=== PATIENT | female | born 1945 | race Caucasian/White ===

== ENCOUNTER 2020-09-26 10:03 | Outpatient (REF) | payer MEDICARE, SELFPAY ==
[2020-09-26 13:52] LABS: Estimated Average Glucose 163 mg/dL; Hemoglobin A1c % 7.3 %
[2020-09-26 14:15] LABS: Alanine Aminotransferase 17 U/L (0-31); Albumin Level 3.9 g/dL (3.5-5.0); Alkaline Phosphatase 97 U/L (39-117); Anion Gap 13 (12-20); Aspartate Amino Transferase 15 U/L (5-31); Bilirubin Total 0.7 mg/dL (0.0-1.0); Blood Urea Nitrogen 26 mg/dL (9-16); Calcium 9.6 mg/dL (8.4-10.2); Carbon Dioxide 25 mmol/L (22-29); Chloride 106 mmol/L (96-108); Estimated Glomerular Filt Rate 26; Glucose Fasting 152 mg/dL (60-99); Potassium 4.5 mmol/l (3.3-5.1); Sodium 139 mmol/L (135-145); Total Protein 6.5 g/dL (6.5-8.0)
== END 2020-09-26 10:04 | disposition home or self-care (01) ==
LOC: HO.10HDL 10:03
PROVIDERS: Visit Provider Family Medicine
DX: E11.22 Type 2 diabetes mellitus with diabetic chronic kidney disease (principal); I12.9 Hypertensive chronic kidney disease with stage 1 through stage 4 chronic kidney disease, or unspecified chronic kidney disease; N18.9 Chronic kidney disease, unspecified
CPT/HCPCS: 80053; 83036

== ENCOUNTER 2020-10-25 08:09 | Outpatient (REF) | payer MEDICARE, SELFPAY ==
[2020-10-25 10:04] LABS: MANUAL DIFF FLAG NO
[2020-10-25 10:20] LABS: Basophils Absolute Auto 0.1 X10*3/uL (0.0-0.2); Basophils Percent Auto 0.7 % (0-2); Eosinophils Absolute Auto 0.3 X10*3/uL (0.0-0.4); Eosinophils Percent Auto 4.2 % (0-4); Hematocrit 37.9 % (37-47); Hemoglobin 11.8 g/dl (12.0-16.0); Imm Gran Abs Auto 0.02 X10*3/uL (0.00-0.03); Imm Gran Pct Auto 0.3 % (0.0-0.4); Lymphocytes Absolute Auto 1.9 X10*3/uL (1.2-4.9); Lymphocytes Percent Auto 27.1 % (20-40); Mean Corpuscular HGB Conc 31.1 g/dl (31.0-35.0); Mean Corpuscular Hemoglobin 28.2 pg (27.0-33.0); Mean Corpuscular Volume 90.5 fL (80-98); Mean Platelet Volume 10.3 fL (9.4-12.3); Monocytes Absolute Auto 0.5 X10*3/uL (0.1-1.2); Monocytes Percent Auto 7.9 % (2-11); Neutrophils Absolute Auto 4.1 X10*3/uL (2.0-8.3); Neutrophils Percent Auto 59.8 % (45-73); Platelet Count 283 X10*3/uL (160-400); Red Blood Count 4.19 X10*6/uL (4.20-5.50); Red Cell Distribution Width 13.3 % (11.0-16.0); White Blood Count 6.8 X10*3/uL (4.8-10.8)
[2020-10-25 10:34] LABS: Albumin Level 3.8 g/dL (3.5-5.0); Anion Gap 12 (12-20); Blood Urea Nitrogen 27 mg/dL (9-16); Calcium 9.1 mg/dL (8.4-10.2); Carbon Dioxide 25 mmol/L (22-29); Chloride 105 mmol/L (96-108); Estimated Glomerular Filt Rate 29; Phosphorus 3.8 mg/dL (2.7-4.5); Potassium 4.6 mmol/l (3.3-5.1); Sodium 137 mmol/L (135-145)
== END 2020-10-25 08:10 | disposition home or self-care (01) ==
LOC: HO.10HDL 08:09
PROVIDERS: PCP Family Medicine; Visit Provider Internal Medicine Hypertension Specialist
DX: I12.9 Hypertensive chronic kidney disease with stage 1 through stage 4 chronic kidney disease, or unspecified chronic kidney disease (principal); N18.30 Chronic kidney disease, stage 3 unspecified
CPT/HCPCS: 36415; 80051; 82040; 82310; 82565; 83735; 84100; 84520; 85025

== ENCOUNTER 2021-01-10 08:02 | Outpatient (REF) | payer MEDICARE, SELFPAY ==
[2021-01-10 10:35] LABS: Estimated Average Glucose 160 mg/dL; Hemoglobin A1c % 7.2 %
[2021-01-10 10:50] LABS: Alanine Aminotransferase 12 U/L (0-31); Albumin Level 3.7 g/dL (3.5-5.0); Alkaline Phosphatase 95 U/L (39-117); Anion Gap 13 (12-20); Aspartate Amino Transferase 13 U/L (5-31); Bilirubin Total 0.8 mg/dL (0.0-1.0); Blood Urea Nitrogen 27 mg/dL (9-16); Calcium 9.3 mg/dL (8.4-10.2); Carbon Dioxide 26 mmol/L (22-29); Chloride 105 mmol/L (96-108); Cholesterol 139 mg/dL; Estimated Glomerular Filt Rate 26; Glucose Fasting 137 mg/dL (60-99); HDL Cholesterol 40 mg/dL; LDL Cholesterol Calculated 81 mg/dl; Potassium 4.7 mmol/L (3.3-5.1); Sodium 139 mmol/L (135-145); Total Protein 6.3 g/dL (6.5-8.0); Triglycerides 93 mg/dL
[2021-01-10 11:28] LABS: Creatinine Urine 99.83 mg/dL
== END 2021-01-10 08:03 | disposition home or self-care (01) ==
LOC: HO.10HDL 08:02
PROVIDERS: Visit Provider Family Medicine
DX: Z00.00 Encounter for general adult medical examination without abnormal findings (principal); E11.22 Type 2 diabetes mellitus with diabetic chronic kidney disease; I12.9 Hypertensive chronic kidney disease with stage 1 through stage 4 chronic kidney disease, or unspecified chronic kidney disease; N18.9 Chronic kidney disease, unspecified; R03.0 Elevated blood-pressure reading, without diagnosis of hypertension
CPT/HCPCS: 36415; 80053; 80061; 82043; 83036; 84443

== ENCOUNTER 2021-01-24 08:19 | Outpatient (REF) | payer MEDICARE, SELFPAY ==
--- NOTE | ~2021-01-24 | US_ITS ---
EXAMINATION: US ABDOMEN LIMITED CLINICAL INFORMATION: Right upper quadrant pain. COMPARISON: None TECHNIQUE: Real-time imaging of the right upper quadrant abdominal viscera. FINDINGS: PANCREAS: Pancreas is normal in size and contour and echogenicity. No pancreatic ductal distention or retroperitoneal effusion. LIVER: Normal. The liver is normal in size. The liver contour is normal. Parenchymal echogenicity is normal. No focal hepatic lesion. There is no intrahepatic biliary duct dilatation seen. GALLBLADDER: The gallbladder is normal in size measuring 2.4 cm in diameter. There is no gallbladder wall thickening or subserosal edema or pericholecystic fluid. No sludge. Small nonmobile specular echo gallbladder neck is present suspicious for nonobstructing gravel-like calculi. COMMON BILE DUCT: Normal in caliber measuring 0.5 cm in diameter. No visible choledocholithiasis. RIGHT KIDNEY: Right kidney measures 11.3 cm in length. There is no hydronephrosis or visible calculi. Renal parenchymal thickness and echogenicity appears normal. There is a benign mildly complicated cyst medial interpolar region measuring 5.0 x 4.1 cm with fine internal avascular septation (Bosniak II.). Smaller parapelvic cysts present renal sinus largest only 1.1 cm. There is a tiny cortical cyst upper pole measuring just under 1 cm. FREE FLUID: None. US/US abdomen limited IMPRESSION: 1. Suspect small nonmobile gallstone gallbladder neck. No gallbladder dilatation or wall thickening. Negative sonographic Fajardo's sign. 2. No biliary ductal dilatation. No choledocholithiasis. 3. No right hydronephrosis. Benign cyst right kidney 5 x 4 cm with fine the vascular internal septation (Bosniak II).
== END 2021-01-24 08:20 | disposition home or self-care (01) ==
LOC: HO.US 08:19
PROVIDERS: PCP Family Medicine; Visit Provider Family Medicine
DX: R10.11 Right upper quadrant pain (principal); K80.20 Calculus of gallbladder without cholecystitis without obstruction
CPT/HCPCS: 76705

== ENCOUNTER 2021-01-29 08:00 | Outpatient (REF) | payer MEDICARE, SELFPAY ==
--- NOTE | 2021-01-29 11:04 | MHC.AU.P13 ---
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 Following the last hearing test which showed increased conductive hearing loss for the left ear, Guadalupe was referred to Tool And Machine Maint[facility] Dr. Lawrence who said the decreased hearing loss was likely related to an ear infection or increased middle ear fluid which then resolved. Guadalupe reports increased difficulties understanding speech when background noise is present. Does patient feel they have a hearing loss?: Yes If Yes, Which Ear?: Both Ears Has hearing been tested previously?: Yes Previous Hearing Test Results: 11/15/2019 [facility] Right Ear - Normal hearing thresholds 250-2000 Hz sloping to a moderate high frequency sensorineural hearing loss Left Ear - Moderate low frequency mixed loss at 250 and 500 Hz rising to borderline normal thresholds at 4000 Hz, then sloping to mild loss at 8000 Hz. Ear History: Bothersome Tinnitus/Ringing/Noises in Ears: Both Ears History of noise exposure?: Yes Medical History: Medical History: Diabetes High Blood Pressure Thyroid Disease Medical History: Chronic Renal Failure, Hypothyroidism, Cholelithiasis Medication List: Tekturna, Vitamin D, Triamterene, Levothyroxine, Glipizide, Fluoxetine, Atorastatin, Calcitriol. Is in the process of trialing a new blood pressure medication (name not known) Otoscopy: Right Ear: Unremarkable Left Ear: Unremarkable Tympanometry: Tympanometry performed due to: History of middle ear dysfunction Right Ear: Normal Middle Ear System (Type A) Left Ear: Normal Middle Ear System (Type A) Otoacoustic Emissions Right Ear Results: Not performed at today's visit. Left Ear Results: Not performed at today's visit. Hearing Evaluation: Transducer(s) Used: Insert Earphones Bone Conduction Method: Conventional Audiometry Stimuli Used: Pure Tones Right Ear: Description of Hearing: Normal hearing thresholds 250-3000 Hz, sloping to a moderate high frequency sensorineural hearing loss Left Ear: Description of Hearing: Normal to borderline normal hearing levels at 250-6000 Hz dropping to a moderately-severe hearing loss at 8000 Hz. Speech Recognition Threshold (SRT): Method Used: Monitored Live Voice Stimuli Used: Spondee Words Right Ear: 15 dB HL Left Ear: 15 dB HL Word Discrimination: Method: Recorded Lists Word Lists Used: NU-6 Right Ear: 100% at 60 dB HL Left Ear: 100% at 60 dB HL QuickSIN: Unaided Binaural Quick SIN Test: 1 dB SNR Loss. This score falls within the normal range suggesting Guadalupe does not experience any more difficulty understanding speech than expected with increasing levels of background noise while in this controlled test environment. Comparison: Compared to the most recent evaluation: Thresholds have decreased in the right ear by 10 dB at 4000 and 8000 Hz. Thresholds have improved in the left ear 20-30 in the low frequencies. Recommendations: Audiological re-evaluation in one year. Patient does not feel they are ready for amplification at this time. Will send a one year audiologic re-evaluation reminder card to continue to monitor hearing due to high risk factors for increased hearing loss. Diagnosis: Primary Diagnosis: H90.3 Bilateral Sensorineural Hearing Loss Services Performed: Comprehensive Audiological Evaluation (CPT 97227) Tympanometry (CPT 90203) Signature: Provider: Winnie Adkins, [facility]
== END 2021-01-29 08:01 | disposition home or self-care (01) ==
LOC: HO.SH 08:00
PROVIDERS: Visit Provider Family Medicine
DX: H90.3 Sensorineural hearing loss, bilateral (principal)
CPT/HCPCS: 92557; 92567

== ENCOUNTER 2021-01-30 10:05 | Outpatient (REF) | payer MEDICARE, SELFPAY ==
[2021-01-30 14:15] LABS: Anion Gap 11 (12-20); Blood Urea Nitrogen 28 mg/dL (9-16); Calcium 9.6 mg/dL (8.4-10.2); Carbon Dioxide 26 mmol/L (22-29); Chloride 105 mmol/L (96-108); Estimated Glomerular Filt Rate 26; Glucose Random 213 mg/dL (60-115); Potassium 4.3 mmol/L (3.3-5.1); Sodium 138 mmol/L (135-145)
== END 2021-01-30 10:06 | disposition home or self-care (01) ==
LOC: HO.WFDLDS 10:05
PROVIDERS: PCP Family Medicine; Visit Provider Family Medicine
DX: Z00.00 Encounter for general adult medical examination without abnormal findings (principal); N18.9 Chronic kidney disease, unspecified
CPT/HCPCS: 36415; 80048

== ENCOUNTER → 2021-02-27 08:14 | Outpatient (REF) | payer MEDICARE, SELFPAY ==
--- NOTE | ~2021-02-27 | NM_ITS ---
BILIARY TRACT IMAGING STUDY CLINICAL INDICATION: Right upper quadrant pain. PROCEDURE: Scintillation camera images were obtained over the abdomen for an observation of 60 minutes following the intravenous administration of 5.0 millicuries technetium 99m Mebrofenin. COMPARISON: No previous biliary scan is available for comparison. Abdominal ultrasound dated 01/24/2021 is available for comparison.. FINDINGS: There is good concentration of activity in the liver by 5 minutes post injection. Biliary activity is well visualized by 20 minutes, and there is good visualization of small bowel activity by 30 minutes. The gallbladder is well visualized by 45 minutes. NM/NM hepatobiliary wo pharm IMPRESSION: Normal biliary scan. Visualization of the gallbladder is evidence of a patent cystic duct and strong evidence against the diagnosis of acute cholecystitis. The common bile duct is patent. Liver function appears normal.
== END ==
LOC: HO.NUCMED 08:14
PROVIDERS: PCP Family Medicine; Visit Provider Family Medicine
DX: R10.11 Right upper quadrant pain (principal); K80.20 Calculus of gallbladder without cholecystitis without obstruction
CPT/HCPCS: 78226; A9537

== ENCOUNTER 2021-03-21 07:58 | Outpatient (REF) | payer MEDICARE, SELFPAY ==
[2021-03-21 09:58] LABS: MANUAL DIFF FLAG NO
[2021-03-21 10:05] LABS: Basophils Absolute Auto 0.1 X10*3/uL (0.0-0.2); Basophils Percent Auto 0.8 % (0-2); Eosinophils Absolute Auto 0.3 X10*3/uL (0.0-0.4); Eosinophils Percent Auto 5.4 % (0-4); Hematocrit 38.2 % (37-47); Imm Gran Abs Auto 0.02 X10*3/uL (0.00-0.03); Imm Gran Pct Auto 0.3 % (0.0-0.4); Lymphocytes Absolute Auto 1.9 X10*3/uL (1.2-4.9); Lymphocytes Percent Auto 30.2 % (20-40); Mean Corpuscular HGB Conc 31.4 g/dl (31.0-35.0); Mean Corpuscular Hemoglobin 27.8 pg (27.0-33.0); Mean Corpuscular Volume 88.6 fL (80-98); Monocytes Absolute Auto 0.5 X10*3/uL (0.1-1.2); Monocytes Percent Auto 7.4 % (2-11); Neutrophils Absolute Auto 3.6 X10*3/uL (2.0-8.3); Neutrophils Percent Auto 55.9 % (45-73); Platelet Count 282 X10*3/uL (160-400); Red Blood Count 4.31 X10*6/uL (4.20-5.50); Red Cell Distribution Width 13.9 % (11.0-16.0); White Blood Count 6.4 X10*3/uL (4.8-10.8)
[2021-03-21 10:20] LABS: Phosphorus 3.8 mg/dL (2.7-4.5)
[2021-03-21 10:23] LABS: Alanine Aminotransferase 10 U/L (0-31); Albumin Level 3.7 g/dL (3.5-5.0); Alkaline Phosphatase 98 U/L (39-117); Anion Gap 11 (12-20); Aspartate Amino Transferase 13 U/L (5-31); Bilirubin Total 0.8 mg/dL (0.0-1.0); Blood Urea Nitrogen 25 mg/dL (9-16); Calcium 9.5 mg/dL (8.4-10.2); Carbon Dioxide 26 mmol/L (22-29); Chloride 107 mmol/L (96-108); Estimated Glomerular Filt Rate 27; Glucose Fasting 132 mg/dL (60-99); Potassium 4.8 mmol/L (3.3-5.1); Sodium 139 mmol/L (135-145); Total Protein 6.2 g/dL (6.5-8.0)
[2021-03-22 13:12] LABS: Calcium (PTHI) 9.1 mg/dL (8.6-10.4); PTHI 76 pg/mL (14-64)
== END 2021-03-21 07:59 | disposition home or self-care (01) ==
LOC: HO.10HDL 07:58
PROVIDERS: Absent Provider Internal Medicine Hypertension Specialist; Visit Provider Family Medicine
DX: Z00.00 Encounter for general adult medical examination without abnormal findings (principal); I12.9 Hypertensive chronic kidney disease with stage 1 through stage 4 chronic kidney disease, or unspecified chronic kidney disease; N18.30 Chronic kidney disease, stage 3 unspecified
CPT/HCPCS: 36415; 80053; 83735; 83970; 84100; 85025

== ENCOUNTER 2021-04-25 08:34 | Outpatient (REF) | payer MEDICARE, SELFPAY ==
--- NOTE | ~2021-04-25 | MM_ITS ---
EXAMINATION: BONE DENSITOMETRY CLINICAL INDICATION: Encounter for screening for osteoporosis. Compression deformities L1 and L3. COMPARISON: Previous BD dated 10/23/2018 and baseline BD dated 06/22/2015. Radiographs dorsal spine and lumbar spine 05/06/2019. TECHNIQUE: Using a CMP.LY DXA System (software version: 13.1) manufactured by [employer], dual-energy x-ray absorptiometry was performed of the lumbar spine and left hip. The images are of good technical quality. Summary results are attached. FINDINGS: AP SPINE L2-L4 (excluding L3): The data of L1-L4 has been changed to exclude the L1 and L3 vertebral bodies, because degenerative changes and mild compression deformities at these levels may cause overestimation of lumbar spine density. Current: BMD 1.117 g/cm2, Z-score 0.1, T-score -0.7, normal, 0.4% decrease from previous, 9.4% increase from baseline (<5% change is not significant). Prior: BMD 1.122 g/cm2. Baseline: BMD 1.021 g/cm2. LEFT FEMUR, NECK: Current: BMD 0.633 g/cm2, Z-score -1.6, T-score -2.9, osteoporosis. Prior: BMD 0.675 g/cm2. Baseline: BMD 0.650 g/cm2. LEFT FEMUR, TOTAL: Current: BMD 0.702 g/cm2, Z-score -1.4, T-score -2.4, osteopenia, 8.9% decrease from previous, 5.8% decrease from baseline (<5% change is not significant). Prior: BMD 0.771 g/cm2. Baseline: BMD 0.745 g/cm2. IDENTIFIED RISK FACTORS: Osteoporosis, renal, height loss, glucocorticoids (chronic), thiazide, history of fracture (adult), menopause. HISTORY OF FRACTURE: Spine. MEDICATIONS: Calcium supplements or multivitamin, vitamin D, calcitonin. MM/XR DEXA axial skeleton IMPRESSION: 1. DIAGNOSIS: Osteoporosis based on the lowest T-score value of -2.9 in the femoral neck applying World Health Organization criteria. 2. 10-YEAR FRACTURE RISK PREDICTION, FRAX: Major osteoporotic fracture (clinical spine, forearm, hip or shoulder) 38.8%. Hip fracture 15.6%. 3. Treatment Recommendations: NOF guidelines recommend consideration for treatment in postmenopausal women and men age 50 and older presenting with the following: -A hip or vertebral (clinical or morphometric) fracture. -T-score less than or equal to -2.5 at the femoral neck or spine after appropriate evaluation to exclude secondary causes. -Low bone mass at the hip or spine and a 10-year fracture probability by FRAX of greater than or equal to 3% for hip fracture or greater than or equal to 20% for major osteoporotic fracture based on the [place] adapted WHO algorithm. 4. Other Recommendations: All treatment decisions require clinical judgment and consideration of individual patient factors, including patient preferences, comorbidities, previous drug use, risk factors not captured in the FRAX model (e.g. frailty, falls, vitamin D deficiency, increased bone turnover, interval significant decline in bone density) and possible under or overestimation of fracture risk by FRAX. Additional medical evaluation for secondary cause of low bone mineral density may be appropriate. FUTURE SCAN RECOMMENDATION: People with diagnosed cases of osteoporosis or at high risk for fracture should have regular bone mineral density tests. For patients eligible for Medicare, routine testing is allowed once every 2 years. The testing frequency can be increased to one year for patients who have rapidly progressing disease, those who are receiving or discontinuing medical therapy to restore bone mass, or have additional risk factors.
== END 2021-04-25 08:35 | disposition home or self-care (01) ==
LOC: HO.MAMMO 08:34
PROVIDERS: Visit Provider Family Medicine
DX: Z13.820 Encounter for screening for osteoporosis (principal); Z78.0 Asymptomatic menopausal state; M81.8 Other osteoporosis without current pathological fracture; Z79.52 Long term (current) use of systemic steroids
CPT/HCPCS: 77080

== ENCOUNTER 2021-06-04 07:38 | Outpatient (REF) | payer MEDICARE, SELFPAY ==
[2021-06-04 10:46] LABS: Anion Gap 11 (12-20); Blood Urea Nitrogen 27 mg/dL (9-16); Calcium 9.4 mg/dL (8.4-10.2); Carbon Dioxide 24 mmol/L (22-29); Chloride 110 mmol/L (96-108); Estimated Glomerular Filt Rate 25; Potassium 4.3 mmol/L (3.3-5.1); Sodium 141 mmol/L (135-145)
== END 2021-06-04 07:39 | disposition home or self-care (01) ==
LOC: HO.10HDL 07:38
PROVIDERS: Visit Provider Internal Medicine Hypertension Specialist
DX: I12.9 Hypertensive chronic kidney disease with stage 1 through stage 4 chronic kidney disease, or unspecified chronic kidney disease (principal); N18.9 Chronic kidney disease, unspecified
CPT/HCPCS: 36415; 80051; 82310; 82565; 84520

== ENCOUNTER 2021-07-10 07:57 | Outpatient (REF) | payer MEDICARE, SELFPAY ==
[2021-07-10 10:28] LABS: Estimated Average Glucose 146 mg/dL; Hemoglobin A1c % 6.7 %
[2021-07-10 13:46] LABS: Creatinine Urine 111.47 mg/dL
== END 2021-07-10 07:58 | disposition home or self-care (01) ==
LOC: HO.10HDL 07:57
PROVIDERS: Visit Provider Family Medicine
DX: E11.9 Type 2 diabetes mellitus without complications (principal); R03.0 Elevated blood-pressure reading, without diagnosis of hypertension
CPT/HCPCS: 36415; 82043; 83036

== ENCOUNTER 2021-09-14 09:00 | Outpatient (RCR) | payer MEDICARE, SELFPAY ==
--- NOTE | 2021-07-30 13:15 | MHC.PT.EP ---
[facility] [place] Office [place] Office [place] Office [address] [phone] F: [phone] F: [phone] F: [phone] F: [phone] Physical Therapy Plan of Care Date of Evaluation: Date of Surgery: n/a Diagnosis: weakness in lower extremities, balance. Assessment: Patient is a 75 year old R handed female who presents with s/s consistent with weakness balance impairment. She does not work but does enjoy staying active and has been walking 3 miles 4-5 days/week. Patient past medical history includes B TKA. Current impairments include pain, ROM, strength, safety, independence, activity tolerance and functional mobility. Functional limitations include decreased ability to walk, stand, transfer, negotiate stairs, and perform weight bearing activities.. Patient is motivated with good rehab potential. Skilled PT will address impairments and functional limitations in order to achieve goals. 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 Manual therapy to restore motion and function. Therapeutic exercise to improve strength and flexibility. Neuromuscular re-education for posture and balance. Therapeutic activities to return to functional activities of daily living. Electronically signed by: Marcel Daigle, PT Please sign and return to therapist. Thank you for your referral.
--- NOTE | 2021-12-07 08:19 | MHC.PT.DC ---
[place] Office [place] Office [place] [facility] [address] Supa Alvarado [address] [phone] F: [phone] F: [phone] F: [phone] F: [phone] Physical Therapy Discharge Report Diagnosis: weakness in lower extremities, balance. Date of Surgery: n/a Date of Evaluation: 07/30/21 Date of Discharge: 09/14/21 Treatments to Date: 11 Cancellations to Date: 0 No Shows to Date: 0 Discharge Status: Achieved Goals Independent with HEP Discharge Summary: I with HEP. LE pain 2/10 max with all daily activities. LE strength 4/5 grossly, SLB > 20 seconds b/l. LEFS 58/80. Pt is happy with progress and has progressed well on impairments and functional limitations. She is appropriate to d/c to HEP at this time. Electronically signed by: Marcel Daigle PT Please sign and return to therapist. Thank you for your referral.
== END 2021-09-21 08:00 | disposition home or self-care (01) ==
LOC: HO.PTCHIC 09:00
PROVIDERS: PCP Family Medicine; Visit Provider Family Medicine
DX: R29.898 Other symptoms and signs involving the musculoskeletal system (principal)
CPT/HCPCS: 97110; 97112; 97162

== ENCOUNTER 2021-09-19 07:42 | Outpatient (REF) | payer MEDICARE, SELFPAY ==
[2021-09-19 10:48] LABS: Anion Gap 11 (12-20); Blood Urea Nitrogen 24 mg/dL (9-16); Calcium 9.3 mg/dL (8.4-10.2); Carbon Dioxide 26 mmol/L (22-29); Chloride 106 mmol/L (96-108); Estimated Glomerular Filt Rate 24; Potassium 4.7 mmol/L (3.3-5.1); Sodium 138 mmol/L (135-145)
== END 2021-09-19 07:43 | disposition home or self-care (01) ==
LOC: HO.10HDL 07:42
PROVIDERS: Visit Provider Internal Medicine Hypertension Specialist
DX: N18.4 Chronic kidney disease, stage 4 (severe) (principal)
CPT/HCPCS: 36415; 80051; 82310; 82565; 84520

== ENCOUNTER 2021-10-09 07:58 | Outpatient (REF) | payer MEDICARE, SELFPAY ==
[2021-10-09 10:35] LABS: Alanine Aminotransferase 16 U/L (0-31); Albumin Level 3.7 g/dL (3.5-5.0); Alkaline Phosphatase 102 U/L (39-117); Anion Gap 12 (12-20); Aspartate Amino Transferase 16 U/L (5-31); Bilirubin Total 0.5 mg/dL (0.0-1.0); Blood Urea Nitrogen 29 mg/dL (9-16); Calcium 9.9 mg/dL (8.4-10.2); Carbon Dioxide 25 mmol/L (22-29); Chloride 108 mmol/L (96-108); Estimated Glomerular Filt Rate 24; Glucose Fasting 197 mg/dL (60-99); Potassium 4.5 mmol/L (3.3-5.1); Sodium 140 mmol/L (135-145); Total Protein 6.3 g/dL (6.5-8.0)
== END 2021-10-09 07:59 | disposition home or self-care (01) ==
LOC: HO.10HDL 07:58
PROVIDERS: Visit Provider Family Medicine
DX: Z00.00 Encounter for general adult medical examination without abnormal findings (principal)
CPT/HCPCS: 36415; 80053

== ENCOUNTER 2021-10-19 07:44 | Outpatient (REF) | payer MEDICARE, SELFPAY ==
[2021-10-19 10:30] LABS: Estimated Average Glucose 171 mg/dL; Hemoglobin A1c % 7.6 %
== END 2021-10-19 07:45 | disposition home or self-care (01) ==
LOC: HO.10HDL 07:44
PROVIDERS: Visit Provider Family Medicine
DX: E11.9 Type 2 diabetes mellitus without complications (principal)
CPT/HCPCS: 36415; 83036

== ENCOUNTER 2021-11-23 20:06 | Emergency (ER) | payer MEDICARE, SELFPAY ==
--- NOTE | ~2021-11-23 | XR_ITS ---
EXAMINATION: XR HIP, LEFT CLINICAL INFORMATION: Fall with pain COMPARISON: None TECHNIQUE: Two views of the left hip. Frontal view of the pelvis. FINDINGS: No fracture or dislocation. The hips are appropriately aligned. Moderate to severe degenerative changes of both hips with narrowing and sclerosis. Prominent osteophytes. The pelvic rim is intact. The sacroiliac joints and pubic symphysis are intact. Normal bowel gas pattern. XR/XR hip LT w PEL1V IMPRESSION: No fracture or malalignment. Moderate to severe degenerative changes of both hips.
--- NOTE | ~2021-11-23 | XR_ITS ---
EXAMINATION: XR SHOULDER, LEFT XR HUMERUS, LEFT XR FOREARM, LEFT CLINICAL INFORMATION: Fall. Pain. COMPARISON: None TECHNIQUE: 3 views of the left shoulder. 2 views of the left humerus. 2 views of the left forearm. FINDINGS: Left shoulder: There is an impacted left humeral neck fracture. Proximal migration of the distal fragment. The glenohumeral joint remains aligned with severe degenerative change. There is narrowing of the joint space with prominent osteophytes. The acromioclavicular joint is intact with mild degenerative change. The visualized lung is clear. Left humerus: The humeral neck fracture is again noted. The remainder of the humerus is intact. Alignment at the elbow maintained. Left forearm: No fracture or cortical disruption. Appropriate alignment at the elbow and wrist. XR/XR humerus LT IMPRESSION: 1. Left humeral neck fracture with impaction. Severe degenerative changes of the glenohumeral joint. 2. No fracture or malalignment of the forearm.
--- NOTE | ~2021-11-23 | XR_ITS ---
EXAMINATION: XR SHOULDER, LEFT XR HUMERUS, LEFT XR FOREARM, LEFT CLINICAL INFORMATION: Fall. Pain. COMPARISON: None TECHNIQUE: 3 views of the left shoulder. 2 views of the left humerus. 2 views of the left forearm. FINDINGS: Left shoulder: There is an impacted left humeral neck fracture. Proximal migration of the distal fragment. The glenohumeral joint remains aligned with severe degenerative change. There is narrowing of the joint space with prominent osteophytes. The acromioclavicular joint is intact with mild degenerative change. The visualized lung is clear. Left humerus: The humeral neck fracture is again noted. The remainder of the humerus is intact. Alignment at the elbow maintained. Left forearm: No fracture or cortical disruption. Appropriate alignment at the elbow and wrist. XR/XR shoulder LT min 2V IMPRESSION: 1. Left humeral neck fracture with impaction. Severe degenerative changes of the glenohumeral joint. 2. No fracture or malalignment of the forearm.
--- NOTE | ~2021-11-23 | CT_ITS ---
EXAMINATION: CT CHEST, ABDOMEN AND PELVIS WITHOUT CONTRAST CLINICAL INFORMATION: Trauma, rib and left upper quadrant pain COMPARISON: Same-day radiographs, abdominal ultrasound 01/24/2021 TECHNIQUE: Multidetector volumetric imaging was performed of the chest, abdomen and pelvis without intravenous contrast. Sagittal and coronal reformatted images were obtained on the technologist's workstation. This CT examination was performed using dose optimization techniques as appropriate, variously including the following: *Automated exposure control *Adjustment of mA and/or kV according to patient size (this includes techniques or standardized protocols for targeted exams where dose is matched to indication/reason for exam; i.e. extremities or head) *Use of iterative reconstruction technique DLP: 1462 mGy-cm FINDINGS: Lack of intravenous contrast limits assessment for solid organ injury. CHEST, ABDOMINAL AND PELVIC WALL: Intramuscular hematoma is noted along the left shoulder. AXILLA: No lymphadenopathy. MEDIASTINUM: Heart is normal in size. No mediastinal lymphadenopathy. Lack of intravenous contrast limits evaluation for hilar lymphadenopathy. No bulky hilar lymphadenopathy appreciated. Great vessels are normal in caliber. Calcification dense mitral annular calcifications. PLEURA: There is no pleural effusion. No pneumothorax. LIVER AND BILIARY TREE: Unremarkable GALLBLADDER: Cholelithiasis without evidence of acute cholecystitis. PANCREAS: Unremarkable SPLEEN: Unremarkable ADRENAL GLANDS: A 4.1 x 3.1 cm macroscopic fat-containing right adrenal nodule compatible with an adrenal myelolipoma. KIDNEYS AND URETERS: An 8 mm intermediate density, 40 Hounsfield units, right renal lesion, incompletely characterized. Bosniak 1 right renal and peripelvic cysts, no follow-up imaging recommended. UPPER GASTROINTESTINAL TRACT: The stomach and duodenum are unremarkable. VASCULAR: Unremarkable. LYMPH NODES: No lymphadenopathy. FREE FLUID: No free fluid. BLADDER: Unremarkable PELVIC VISCERA: No free fluid. LOWER GASTROINTESTINAL TRACT: Colonic diverticulosis without evidence of diverticulitis. Normal appendix. OSSEOUS STRUCTURES: Redemonstration of a comminuted impacted fracture of the left humeral neck, partially imaged. Age-indeterminate wedge compression deformities of the L1 and L3 vertebral bodies with approximately 25% height loss. Multilevel degenerative disc disease. LUNGS: Tiny right middle lobe pulmonary micronodule lung base, 9:302. 3 mm solid right lower lobe pulmonary nodule, 9:169. CT/CT abdomen pelvis wo con IMPRESSION: Redemonstration of a comminuted and impacted fracture of the left humeral neck with surrounding intramuscular hematoma. Age-indeterminate wedge compression deformities of the L1 and L3 vertebral bodies with approximately 25% height loss. Lack of intravenous contrast limits assessment for solid organ injury. A 8 mm indeterminate right renal lesion, incompletely characterized in the absence of contrast. Consider further characterization with dedicated renal ultrasound to assess if this reflects a renal cyst or solid lesion. If renal ultrasound is not confirmatory that this reflects a cyst a CT renal mass protocol or MR could be obtained. A 4.1 cm macroscopic fat-containing right adrenal myelolipoma. No follow-up imaging recommended. Cholelithiasis without evidence of acute cholecystitis.
--- NOTE | ~2021-11-23 | XR_ITS ---
EXAMINATION: XR SHOULDER, LEFT XR HUMERUS, LEFT XR FOREARM, LEFT CLINICAL INFORMATION: Fall. Pain. COMPARISON: None TECHNIQUE: 3 views of the left shoulder. 2 views of the left humerus. 2 views of the left forearm. FINDINGS: Left shoulder: There is an impacted left humeral neck fracture. Proximal migration of the distal fragment. The glenohumeral joint remains aligned with severe degenerative change. There is narrowing of the joint space with prominent osteophytes. The acromioclavicular joint is intact with mild degenerative change. The visualized lung is clear. Left humerus: The humeral neck fracture is again noted. The remainder of the humerus is intact. Alignment at the elbow maintained. Left forearm: No fracture or cortical disruption. Appropriate alignment at the elbow and wrist. XR/XR forearm LT 2V IMPRESSION: 1. Left humeral neck fracture with impaction. Severe degenerative changes of the glenohumeral joint. 2. No fracture or malalignment of the forearm.
--- NOTE | ~2021-11-23 | CT_ITS ---
EXAMINATION: CT HEAD WITHOUT CONTRAST CT CERVICAL SPINE WITHOUT CONTRAST CLINICAL INFORMATION: Fall. COMPARISON: None. TECHNIQUE: Imaging was performed from the skull base to vertex without intravenous administration of contrast. In addition, helical noncontrast CT imaging was acquired through the cervical spine and source images were reviewed along with axial reconstructions and sagittal and coronal MPRs. [This CT examination was performed using dose optimization techniques as appropriate, variously including the following: *Automated exposure control *Adjustment of mA and/or kV according to patient size (this includes techniques or standardized protocols for targeted exams where dose is matched to indication/reason for exam; i.e. extremities or head) *Use of iterative reconstruction technique] DLP: 1461 mGy-cm FINDINGS: HEAD: No intracranial mass, hemorrhage, or midline shift is visualized. There is generalized global volume loss. There is moderate prominence of the ventricles and the sulci . There is mild hypodensity of the periventricular white matter due to chronic small vessel ischemic disease. There are vascular calcifications of the internal carotid arteries bilaterally. No extra-axial collections are identified. The paranasal sinuses and mastoid air cells are well aerated. CERVICAL SPINE: There is no evidence of acute cervical spine fracture. Vertebral bodies remain normal in height. Cervical vertebrae have normal alignment. There is multilevel degenerative spondylosis of the cervical spine with disc height narrowing and endplate spurs and facet joint arthrosis No pre- or paravertebral soft tissue abnormality is identified. Limited assessment of the lung apices is unremarkable. CT/CT cervical spine wo con IMPRESSION: 1. No acute intracranial pathology. 2. No CT evidence of acute cervical spine fracture or traumatic subluxation
[2021-11-23 20:34] VITALS: BP 177/83; PULSE 84; RESP 18; TEMP 36.6; O2SAT 99; BMI 39.6
[2021-11-23 22:00] VITALS: BP 189/84; PULSE 89; RESP 18; O2SAT 98
--- NOTE | 2021-11-23 22:02 | ED_ITS ---
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 Patient reports tripped over doorway frame landing on left side, admits to hitting head, denies LOC. Denies taking anticoagulation. Reports mild headache. Denies neck/back pain, nausea/vomiting, numbness/tingling, lightheadedness/dizziness. Denies symptoms prior to fall. MD complaint: fall Onset (ago): hour(s) Related Data Home Medications Medication Instructions Recorded Confirmed aliskiren 150 mg tablet 75 mg PO DAILY 10/03/20 01/30/21 blood sugar diagnostic #10 ea 10/03/20 01/30/21 blood-glucose meter #1 ea 10/03/20 01/30/21 calcitriol 0.25 mcg capsule 0.25 mcg PO 3XW 10/03/20 01/30/21 flu vac qv 2019(18yr up)rc(PF) ml IM 10/03/20 01/30/21 glipizide 2.5 mg tablet, extended 2.5 mg PO BID 10/03/20 01/30/21 release 24 hr lancets #100 ea 10/03/20 01/30/21 triamterene 37.5 0.5 tab PO 3XW 10/03/20 01/30/21 mg-hydrochlorothiazide 25 mg tablet cyanocobalamin (vitamin B-12) 500 500 mcg PO DAILY 03/27/21 mcg tablet ergocalciferol (vitamin D2) 1,250 1,250 mcg PO Q2W 03/27/21 mcg (50,000 unit) capsule nystatin 100,000 unit/gram topical TOPICAL DIRECTED 03/27/21 cream cetirizine 10 mg capsule (Zyrtec) 10 mg PO DAILY PRN 07/16/21 ketotifen fumarate 0.025 % (0.035 1 drp OPHTHALMIC (EYE) BID 07/16/21 %) eye drops Previous Rx's Medication Instructions Recorded atorvastatin 20 mg tablet 20 mg PO DAILY #90 tab 09/12/20 glipizide 10 mg tablet, extended 10 mg PO DAILY 90 Days #90 tab 10/03/20 release 24 hr levothyroxine 50 mcg tablet 50 mcg PO QAM 90 Days #90 tab 01/16/21 fluoxetine 10 mg capsule (Prozac) 10 mg PO DAILY 90 Days #90 cap 09/10/21 Allergies Allergy/AdvReac Type Severity Reaction Status Date / Time LEFTY Inhibitors Allergy Unknown SWELLING Verified 07/16/21 08:31 [Lefty Inhibitors] beta blockers Allergy Unknown leg Verified 07/16/21 08:31 swelling oxycodone [OXYCODONE] Allergy Unknown NAUSEA & Verified 07/16/21 08:31 VOMITING rivaroxaban [From XARELTO] Allergy Unknown SWELLING Verified 07/16/21 08:31 ZerLor Allergy Unknown Rash Uncoded 10/03/20 08:52 Swelling Review of Systems Review of Systems: Constitutional: No Fever, No Chills, No Fatigue, No Malaise ENT/Mouth: No Ear Pain, No Nasal Congestion, No sore throat, No Rhinorrhea, No Swallowing Difficulty Eyes: No Eye Pain, No Swelling, No Redness Cardiovascular: + Chest wall Pain, + SOB (from pain), No Palpitations Respiratory: No Cough, No Sputum, No Dyspnea Gastrointestinal: No Nausea, No Vomiting, No Diarrhea, No Constipation, + Abdominal pain Genitourinary: No Dysuria, No Urinary Frequency, No Hematuria, No Hesitancy Musculoskeletal: + joint pain, No Myalgias, No Joint Swelling Skin: No Skin Lesions, No rash Neuro: No Weakness, No Numbness, No Paresthesias, No Loss of Consciousness, No Dizziness, + Headache Yes all other systems are reviewed and are negative Neurologic: Denies Abnormal speech present [facility] Past Medical History Attestation statement: The following information was validated with the patient. Surgical History History of breast biopsy History of tonsillectomy History of total left knee replacement (TKR) History of total right knee replacement (TKR) Family History Family History Father CAD (coronary artery disease) CVD (cardiovascular disease) Mother Colon cancer Brother Cancer of prostate Throat cancer Tongue cancer Social History Social History Housing: House Alcohol intake: current Alcohol intake frequency: holidays/special occasions only Patient Tobacco Use Status: Former Tobacco user Tobacco use type: Cigarette e-Cigarette/Vaping Use: Never Used Advance Directives: No Advance Directives Information Provided: Yes Physical Exam Vital Signs: Vital Signs: Last Vital Signs Temp 98 F 11/23/21 20:34 Pulse 89 11/23/21 22:00 Resp 18 11/23/21 22:00 BP 189/84 H 11/23/21 22:00 Pulse Ox 98 11/23/21 22:00 BMI result Body Mass Index 39.6 Const: Other: appears in pain General: cooperative, healthy appearing, alert and awake Orientation/consciousness: patient oriented x3 Limitations: no limitations HENMT: Head: Yes normal to inspection and Yes atraumatic Ears: hearing grossly normal bilaterally General nose exam: Normal external nose present Face and sinus: Yes normal facial exam Eyes: General: appearance normal, both eyes and all related structures EOM: EOMs intact bilaterally Neck: Other: No midline cervical spinous tenderness Neck: Yes normal visual inspection and Yes no meningeal signs Chest: Chest palpation & inspection: normal inspection of the chest, no crepitus and tenderness (Left lower anteriorolateral chest wall) Resp: Effort & Inspection: normal respiratory effort and no respiratory distress Auscultation: clear to auscultation bilaterally Cardio: Rate: regular rate Heart sounds: S1 normal heart sound present and S2 normal heart sound present GI: Inspection: Yes normal to inspection Palpation (GI): Soft to palpation, Tenderness to palpation present (GI) in the LUQ, no guarding and not rigid : General: Yes no CVA tenderness Back/Spine/Pelvis: Other: No midline thoracic/lumbar spinous tenderness/step- off or deformity Back: no CVA tenderness Skin: Rashes: no rashes Wounds: no wounds Neuro: General: patient oriented x3, tone normal, moves all extremities, no meningeal signs, no focal motor deficits and CN's II-XI intact bilaterally Cognition (Neuro): normal cognition Speech: No Abnormal speech present Gait exam (Neuro): Normal gait present Extrem: Other: + left proximal humerus tenderness to palpation. Limited ROM to left arm/shoulder secondary to pain. Neurovascular intact distally. Pelvis stable, pulses intact throughout General: Yes normal to inspection Course Course Course Narrative: 2200--XR shoulder LT min 2V/ XR humerus LT/ XR forearm LT 2V IMPRESSION: 1. Left humeral neck fracture with impaction. Severe degenerative changes of the glenohumeral joint. 2. No fracture or malalignment of the forearm.? XR hip LT w PEL1V IMPRESSION: No fracture or malalignment. Moderate to severe degenerative changes of both hips. ? -case discussed with orthopedic JU Diamond. Patient can be discharged with sling and orthopedic follow-up -2314--ED care transferred to BLAINE Napoles pending labs and remaining imaging. 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 On exam vital signs stable, NAD, nontoxic, physical exam as above left proximal humerus with tenderness to palpation drinking are when. Neurovascular intact distally. Abdomen soft with LUQ ttp. + left-sided anterolateral rib tenderness to palpation. Concern for fractures vs intra-abdominal injury/bleeding. Lower concern for SAH or ACS Plan: Labs, CT head, CT C-spine, CT chest, CT abdomen/pelvis CT was without contrast due to patient's CKD Medical Records Attestation: I reviewed the patient's medical records. Lab Data Attestation: I reviewed the patient's lab results. Discharge Plan Discharge Clinical Impression: Closed fracture of neck of left humerus Qualifiers: Encounter type: initial encounter Qualified Code(s): S42.212A - Unspecified displaced fracture of surgical neck of left humerus, initial encounter for closed fracture Instructions: Arm Fracture in Adults (ED) Additional Instructions: You have a fracture of her humerus that is impacted. You need to wear sling at all times. You may take off to shower. You need to follow-up with transcription specialist. Ice. Rest. Prescriptions: No Action atorvastatin 20 mg tablet 20 mg PO DAILY Qty: 90 RF: 4 fluoxetine [Prozac] 10 mg capsule 10 mg PO DAILY 90 Days Qty: 90 RF: 3 Flublok Quad [id number] (PF) 180 mcg (45 mcg x 4)/0.5 mL syringe IM RF: 0 calcitriol 0.25 mcg capsule 0.25 mcg PO 3XW RF: 0 triamterene-hydrochlorothiazid 37.5-25 mg tablet 0.5 tab PO 3XW RF: 0 aliskiren 150 mg tablet 75 mg PO DAILY RF: 0 glipizide 2.5 mg tablet extended release 24hr 2.5 mg PO BID RF: 0 (DME) lancets Misc See Rx Instructions ea Not Applicable DAILY Qty: 100 RF: 0 (DME) Accu-Chek Kalina Plus test strp Strip See Rx Instructions ea Not Applicable DAILY Qty: 10 RF: 0 (DME) blood-glucose meter Misc See Rx Instructions ea Not Applicable DAILY Qty: 1 RF: 0 glipizide 10 mg tablet extended release 24hr 10 mg PO DAILY 90 Days Qty: 90 RF: 4 levothyroxine 50 mcg tablet 50 mcg PO QAM 90 Days Qty: 90 RF: 4 ketotifen fumarate 0.025 % (0.035 %) drops 1 drp ophthalmic (eye) BID RF: 0 Zyrtec 10 mg capsule 10 mg PO DAILY PRNRF: 0 Referrals: Dara Khan PA-C [Physician Relaster] - 1 week
[2021-11-24 00:13] LABS: MANUAL DIFF FLAG NO
[2021-11-24 00:14] VITALS: BP 188/103; PULSE 98; RESP 18; O2SAT 98
[2021-11-24 00:14] LABS: Basophils Percent Auto 0.2 % (0-2); Eosinophils Percent Auto 0.1 % (0-4); Hematocrit 36.7 % (37.0-47.0); Hemoglobin 11.8 g/dl (12.0-16.0); Imm Gran Abs Auto 0.06 X10*3/uL (0.00-0.03); Imm Gran Pct Auto 0.4 % (0.0-0.4); Lymphocytes Absolute Auto 0.8 X10*3/uL (1.2-4.9); Lymphocytes Percent Auto 5.6 % (20-40); Mean Corpuscular HGB Conc 32.2 g/dl (31.0-35.0); Mean Corpuscular Hemoglobin 28.5 pg (27.0-33.0); Mean Corpuscular Volume 88.6 fL (80.0-98.0); Mean Platelet Volume 9.7 fL (9.4-12.3); Monocytes Absolute Auto 0.9 X10*3/uL (0.1-1.2); Neutrophils Absolute Auto 12.6 x10*3/uL (2.0-8.3); Neutrophils Percent Auto 87.7 % (45-73); Platelet Count 260 X10*3/uL (160-400); Red Blood Count 4.14 X10*6/uL (4.20-5.50); Red Cell Distribution Width 13.1 % (11.0-16.0); White Blood Count 14.4 X10*3/uL (4.8-10.8)
[2021-11-24] MEDS: ondansetron HCL 4 MG/2 ML VIAL IVPUSH (00:15)
[2021-11-24] MEDS: Morphine Sulfate 4 MG/ML CARTRIDGE IVPUSH (00:15)
[2021-11-24 00:40] LABS: Alanine Aminotransferase 17 U/L (0-31); Albumin Level 3.8 g/dL (3.5-5.0); Alkaline Phosphatase 95 U/L (39-117); Anion Gap 14 (12-20); Aspartate Amino Transferase 17 U/L (5-31); Bilirubin Direct 0.3 mg/dL (0.0-0.5); Bilirubin Total 0.6 mg/dL (0.0-1.0); Blood Urea Nitrogen 30 mg/dL (9-16); Calcium 9.7 mg/dL (8.4-10.2); Carbon Dioxide 23 mmol/L (22-29); Chloride 105 mmol/L (96-108); Creatinine Clr Calc Pharmacy 25.3; Estimated Glomerular Filt Rate 24; Glucose Random 292 mg/dL (60-115); Lipase 19 U/L (8-78); Potassium 4.1 mmol/L (3.3-5.1); Sodium 138 mmol/L (135-145); Total Protein 6.6 g/dL (6.5-8.0)
[2021-11-24] MEDS: HYDROmorphone HCl 2 MG TABLET PO (01:25)
--- NOTE | 2021-11-24 01:26 | PC.NURSE ---
medicated per mar
[2021-11-24 01:41] VITALS: BP 161/74; PULSE 74; RESP 16
== END 2021-11-24 01:55 | disposition home or self-care (01) ==
PROVIDERS: Physician Assistant; Emergency Provider Student in an Organized Health Care Education/Training Program; PCP Family Medicine
DX: S42.212A Unspecified displaced fracture of surgical neck of left humerus, initial encounter for closed fracture (principal); W01.0XXA Fall on same level from slipping, tripping and stumbling without subsequent striking against object, initial encounter; R07.9 Chest pain, unspecified; K80.20 Calculus of gallbladder without cholecystitis without obstruction; N28.1 Cyst of kidney, acquired; R10.12 Left upper quadrant pain; E11.22 Type 2 diabetes mellitus with diabetic chronic kidney disease; I12.9 Hypertensive chronic kidney disease with stage 1 through stage 4 chronic kidney disease, or unspecified chronic kidney disease; N18.9 Chronic kidney disease, unspecified; Y93.9 Activity, unspecified; Y92.9 Unspecified place or not applicable; Y99.9 Unspecified external cause status
CPT/HCPCS: 36415; 70450; 71250; 72125; 73030; 73060; 73090; 73502; 74176; 80048; 80076; 83690; 83735; 85025; 96374; 96375; 99284; J2270; J2405

== ENCOUNTER 2021-12-07 07:53 | Outpatient (REF) | payer MEDICARE, SELFPAY ==
--- NOTE | ~2021-12-07 | XR_ITS ---
EXAMINATION: XR SHOULDER, LEFT CLINICAL INFORMATION: Fracture COMPARISON: Previous x-ray most recent 11/23/2021 TECHNIQUE: Two views of the left shoulder. FINDINGS: There is a comminuted minimally displaced fracture of the left proximal humerus involving the surgical neck and greater tuberosity. This is not appear appreciably changed. There is arthritis of the glenohumeral joint. There is adjacent soft tissue swelling. XR/XR shoulder LT min 2V IMPRESSION: No change in left proximal humerus fracture.
== END 2021-12-07 07:54 | disposition home or self-care (01) ==
LOC: HO.HOSX 07:53
PROVIDERS: Visit Provider Physician Assistant
DX: S42.302A Unspecified fracture of shaft of humerus, left arm, initial encounter for closed fracture (principal)
CPT/HCPCS: 73030; 99202

== ENCOUNTER 2021-12-21 06:01 | Outpatient (REF) | payer MEDICARE, SELFPAY ==
--- NOTE | ~2021-12-21 | XR_ITS ---
EXAMINATION: XR SHOULDER, LEFT CLINICAL INFORMATION: Left shoulder pain. COMPARISON: Multiple priors, most recent left shoulder radiographs dated 12/07/2021. TECHNIQUE: AP and scapular Y views of the left shoulder. FINDINGS: Redemonstration of a comminuted and displaced proximal humeral fracture in similar anatomic alignment with moderate new bone/callus formation when compared to the prior examination. No new fracture. Moderate acromioclavicular osteoarthritis. XR/XR shoulder LT min 2V IMPRESSION: Stable proximal humeral fracture in unchanged anatomic alignment with moderate new bone/callus formation.
== END 2021-12-21 06:02 | disposition home or self-care (01) ==
LOC: HO.HOSX 06:01
PROVIDERS: Visit Provider Physician Assistant
DX: S42.209D Unspecified fracture of upper end of unspecified humerus, subsequent encounter for fracture with routine healing (principal)
CPT/HCPCS: 73030; 99212

== ENCOUNTER 2022-01-02 07:52 | Outpatient (REF) | payer MEDICARE, SELFPAY ==
--- NOTE | ~2022-01-02 | XR_ITS ---
EXAMINATION: XR SHOULDER, LEFT CLINICAL INFORMATION: Pain in left shoulder. COMPARISON: Left shoulder 12/21/2021 TECHNIQUE: AP external rotation, Grashey, scapular Y, and axillary views of the left shoulder. FINDINGS: The left proximal humeral comminuted fracture is similar to previous exam 12/21/2021. There is no dislocation. The fracture line is identified. No loose body is seen. There is periarticular inferior spurring along the humeral head and the glenoid. XR/XR shoulder LT min 2V IMPRESSION: Stable proximal humeral fracture unchanged in alignment since the last exam 12/21/2021. There is inferior left shoulder joint periarticular moderate spurring.
== END 2022-01-02 07:53 | disposition home or self-care (01) ==
LOC: HO.HOSX 07:52
PROVIDERS: Visit Provider Physician Assistant
DX: S42.202D Unspecified fracture of upper end of left humerus, subsequent encounter for fracture with routine healing (principal)
CPT/HCPCS: 73030; 99212

== ENCOUNTER 2022-01-17 10:02 | Outpatient (REF) | payer MEDICARE, SELFPAY ==
--- NOTE | ~2022-01-17 | XR_ITS ---
EXAMINATION: XR FOOT, LEFT CLINICAL INFORMATION: Pain COMPARISON: 04/05/2019 TECHNIQUE: AP, lateral, and oblique views of the left foot. FINDINGS: There is an acute transversely oriented fracture of the fifth metatarsal base reaching the articulation with the cuboid. No additional acute fractures. Prominent marginal osteophytes present along the dorsal tarsometatarsal articulations with joint space narrowing and subchondral sclerosis. Milder degenerative changes between the navicular and cuneiform articulations. Small marginal osteophytes of the first metatarsophalangeal joint. Hammertoe deformities, second through fifth. Large plantar calcaneal enthesophyte. Diffuse soft tissue swelling dorsal to the mid foot. XR/XR foot LT min 3V IMPRESSION: Acute fracture of the base of the fifth metatarsal, pseudo-Blackmon type. Chronic and degenerative changes as described.
== END 2022-01-17 10:03 | disposition home or self-care (01) ==
LOC: HO.HOSX 10:02
PROVIDERS: PCP Family Medicine; Visit Provider Physician Assistant
DX: S92.352A Displaced fracture of fifth metatarsal bone, left foot, initial encounter for closed fracture (principal)
CPT/HCPCS: 73630; 99212

== ENCOUNTER 2022-01-31 07:49 | Outpatient (REF) | payer MEDICARE, SELFPAY ==
[2022-01-31 09:20] LABS: Anion Gap 14 (12-20); Blood Urea Nitrogen 31 mg/dL (9-16); Carbon Dioxide 23 mmol/L (22-29); Chloride 108 mmol/L (96-108); Estimated Glomerular Filt Rate 24; Glucose Random 167 mg/dL (60-115); Potassium 4.5 mmol/L (3.3-5.1); Sodium 140 mmol/L (135-145)
== END 2022-01-31 07:50 | disposition home or self-care (01) ==
LOC: HO.LAB 07:49
PROVIDERS: PCP Family Medicine; Visit Provider Internal Medicine Hypertension Specialist
DX: N18.4 Chronic kidney disease, stage 4 (severe) (principal)
CPT/HCPCS: 36415; 80048

== ENCOUNTER 2022-02-13 07:17 | Outpatient (REF) | payer MEDICARE, SELFPAY ==
--- NOTE | ~2022-02-13 | XR_ITS ---
EXAMINATION: XR FOOT, LEFT CLINICAL INFORMATION: Follow-up fracture. COMPARISON: Left foot 01/17/2022 TECHNIQUE: AP, lateral, and oblique views of the left foot. FINDINGS: There is an oblique displaced fracture base of fifth metacarpal no additional new fractures seen. There is loss of tarsometatarsal joint space, periarticular spurring and sclerosis consistent with degenerative arthritic changes. The soft tissues are unremarkable. XR/XR foot LT min 3V IMPRESSION: Displaced fracture base of fifth metatarsal slightly more than the previous study 02/03/2022. Significant degenerative arthritic changes tarsometatarsal joint space.
--- NOTE | ~2022-02-13 | XR_ITS ---
EXAMINATION: XR SHOULDER, LEFT CLINICAL INFORMATION: Pain in left shoulder. COMPARISON: Left shoulder 01/02/2022 TECHNIQUE: Two views of the left shoulder. FINDINGS: There is an old, healing fracture of the left humeral neck. There is loss of the glenohumeral joint space suggestive of degenerative arthritis. The soft tissues are normal. XR/XR shoulder LT min 2V IMPRESSION: Old, healing fracture of the left humeral neck. Degenerative arthritic changes of the left glenohumeral joint space. No change from 01/02/2022.
== END 2022-02-13 07:18 | disposition home or self-care (01) ==
LOC: HO.HOSX 07:17
PROVIDERS: Visit Provider Physician Assistant
DX: S42.202D Unspecified fracture of upper end of left humerus, subsequent encounter for fracture with routine healing (principal); S92.353D Displaced fracture of fifth metatarsal bone, unspecified foot, subsequent encounter for fracture with routine healing; E11.65 Type 2 diabetes mellitus with hyperglycemia
CPT/HCPCS: 36415; 73030; 73630; 83036; 99212

== ENCOUNTER 2022-02-13 10:55 | Outpatient (REF) | payer MEDICARE, SELFPAY ==
[2022-02-13 13:33] LABS: Estimated Average Glucose 151 mg/dL; Hemoglobin A1C 151.2365 umol/L; Hemoglobin A1c % 6.9 %
== END 2022-02-13 10:56 | disposition home or self-care (01) ==
LOC: HO.10HDL 10:55
PROVIDERS: Visit Provider Family Medicine
DX: E11.9 Type 2 diabetes mellitus without complications (principal)
CPT/HCPCS: 36415; 83036

== ENCOUNTER 2022-03-22 08:00 | Outpatient (RCR) | payer MEDICARE, SELFPAY ==
--- NOTE | 2021-12-27 11:23 | MHC.PT.EP ---
[facility] [place] Office [place] Office [place] Office [address] [phone] F: [phone] F: [phone] F: [phone] F: [phone] Physical Therapy Plan of Care Date of Evaluation: Date of Surgery: n/a Diagnosis: Fracture shaft of L humerus Assessment: Patient is a 76 year old R handed female who presents with s/s consistent with L humerus fracture. She does not works but does stay busy with activities inside and outside the house. Current impairments include pain, posture, ROM, strength, activity tolerance and functional mobility. Functional limitations include decreased ability to sleep, dress, reach, lift, carry, cook, and clean. Patient is motivated with good rehab potential. Skilled PT will address impairments and functional limitations in order to achieve goals. Frequency and Duration: The patient will be seen 2x/week for 6 weeks Short Term Goals: I with HEP - 2 weeks AROM flexion and abd to >100 - 3 weeks ER to 30 - 3 weeks Assisted Goals: Strength 4/5 grossly - 5 weeks Able to wash hair and dress pain free - 6 weeks SPADI 30/130 - 6 weeks Able to sleep in bed - 5 weeks Treatment Plan: Modalities to reduce pain, spasms and effusion. Manual therapy to restore motion and function. Therapeutic exercise to improve strength and flexibility. Neuromuscular re-education for posture and balance. Therapeutic activities to return to functional activities of daily living. Electronically signed by: Marcel Daigle, PT Please sign and return to therapist. Thank you for your referral.
--- NOTE | 2022-08-08 08:49 | MHC.PT.DC ---
[facility] [place] Office [place] Office [place] Office [address] [phone] F: [phone] F: [phone] F: [phone] F: [phone] Physical Therapy Discharge Report Diagnosis: Fracture shaft of L humerus Date of Surgery: n/a Date of Evaluation: 12/27/21 Date of Discharge: 04/10/22 Treatments to Date: 17 Cancellations to Date: No Shows to Date: Discharge Status: Improved Function Independent with HEP Discharge Summary: Pt has demonstrated good progress on impairments and functional limitations. She is I with HEP. AROM goals mets. Able to sleep in bed. SPADI goals met (25/130). 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 She has been compliant throughout and is motivated to keep up with HEP. She is appropriate to d/c to HEP at this bonnie.e Electronically signed by: Marcel Daigle PT Please sign and return to therapist. Thank you for your referral.
== END 2022-08-16 13:03 | disposition home or self-care (01) ==
LOC: HO.PTCHIC 08:00
PROVIDERS: Visit Provider Physician Assistant
DX: S42.302A Unspecified fracture of shaft of humerus, left arm, initial encounter for closed fracture (principal)
CPT/HCPCS: 97110; 97140; 97162

== ENCOUNTER 2022-03-27 07:43 | Outpatient (REF) | payer MEDICARE, SELFPAY ==
--- NOTE | ~2022-03-27 | XR_ITS ---
EXAMINATION: XR SHOULDER, LEFT XR FOOT, LEFT CLINICAL INFORMATION: Pain. COMPARISON: Left foot 02/13/2022 and left shoulder 02/13/2022. TECHNIQUE: Left foot 3 views. Left shoulder 3 views. FINDINGS: LEFT SHOULDER: There is loss of glenohumeral joint space but no bony erosive changes, fracture or dislocation. There is an old healed left humeral neck fracture. The soft tissues are normal. There are no loose bodies. LEFT FOOT: There is a displaced fracture base of 5th metatarsal, unchanged. There is loss of 1st, 2nd, 3rd and 4th tarsometatarsal joint spaces with spurring. No new fractures seen. XR/XR shoulder LT min 2V IMPRESSION: Degenerative arthritic changes left shoulder joint. There is an old healed fracture left humeral neck. Displaced fracture base of 5th metatarsal, stable at this time compared to last study. Degenerative arthritic changes 1st through 4th tarsometatarsal joints.
--- NOTE | ~2022-03-27 | XR_ITS ---
EXAMINATION: XR SHOULDER, LEFT XR FOOT, LEFT CLINICAL INFORMATION: Pain. COMPARISON: Left foot 02/13/2022 and left shoulder 02/13/2022. TECHNIQUE: Left foot 3 views. Left shoulder 3 views. FINDINGS: LEFT SHOULDER: There is loss of glenohumeral joint space but no bony erosive changes, fracture or dislocation. There is an old healed left humeral neck fracture. The soft tissues are normal. There are no loose bodies. LEFT FOOT: There is a displaced fracture base of 5th metatarsal, unchanged. There is loss of 1st, 2nd, 3rd and 4th tarsometatarsal joint spaces with spurring. No new fractures seen. XR/XR foot LT min 3V IMPRESSION: Degenerative arthritic changes left shoulder joint. There is an old healed fracture left humeral neck. Displaced fracture base of 5th metatarsal, stable at this time compared to last study. Degenerative arthritic changes 1st through 4th tarsometatarsal joints.
== END 2022-03-27 07:44 | disposition home or self-care (01) ==
LOC: HO.HOSX 07:43
PROVIDERS: Visit Provider Physician Assistant
DX: S92.353D Displaced fracture of fifth metatarsal bone, unspecified foot, subsequent encounter for fracture with routine healing (principal); S42.202D Unspecified fracture of upper end of left humerus, subsequent encounter for fracture with routine healing
CPT/HCPCS: 73030; 73630; 99212

== ENCOUNTER 2022-04-22 08:25 | Outpatient (REF) | payer MEDICARE, SELFPAY ==
--- NOTE | 2022-05-17 07:36 | MHC.AU.ANO ---
Adult Audiological Evaluation Date of Visit: 04/22/22 Ict Sales Representative Used: Not Applicable Reason for Appointment: Audiologic re-evaluation to monitor hearing ability due to high risk factors for hearing loss which include DIabetes, Renal Failure, Hypothyroidism, and history of middle ear dysfunction. Guadalupe continues to report she sometimes has difficulty understanding speech. She is currently experiencing a mild cough and post nasal drip. Possible trial with hearing aids has been discussed during previous appointments, but Guadalupe feels she was not ready to make a commitment to consistent use of amplification. Has hearing been tested previously?: Yes Previous Hearing Test Results: 01/29/2022 [facility] Normal hearing thresholds overall for both ears at 250-3000 Hz dropping to an asymmetric moderate high frequency sensorineural hearing loss with the right ear being 10-30 dB poorer. Speech understanding was 100% bilaterally at 60 dB HL. Ear History: History of occupational noise exposure?: Yes Medical History: Medical History: Diabetes, High Blood Pressure, Thyroid Disease, Chronic Renal Failure, Hypothyroidism, Cholelithiasis Medication List: Tekturna, Vitamin D, Triamterene, Levothyroxine, Glipizide, Fluoxetine, Atorvastatin, Calcitriol, and high blood pressure medication. Otoscopy: Right Ear: Unremarkable Left Ear: Unremarkable Tympanometry: Tympanometry performed due to: History of middle ear dysfunction Right Ear: Normal Middle Ear System (Type A) Left Ear: Negative Middle Ear Pressure (Type C) Hearing Evaluation: Transducer(s) Used: Insert Earphones Bone Conduction Method: Conventional Audiometry Stimuli Used: Pure Tones Right Ear: Description of Hearing: Normal hearing thresholds at 250-2000 Hz, sloping to a moderately-severe high frequency sensorineural hearing loss. Left Ear: Description of Hearing: Mild conductive hearing loss at 250 Hz, rising to normal hearing levels at 500, 1000, 3000, and 4000 Hz, with a mild to moderate sensorineural hearing loss at 2000 and 8000 Hz. Speech Recognition Threshold (SRT): Method Used: Monitored Live Voice Stimuli Used: Spondee Words Right Ear: 20 dB HL Left Ear: 20 dB HL Word Discrimination: Method: Recorded Lists Word Lists Used: NU-6 Right Ear: 100% at 60 dB HL Left Ear: 100% at 60 dB HL Comparison: Compared to most recent evaluation: Right ear thresholds are stable with a slight conductive decrease noted for the left ear which is likely related to the increased middle ear dysfunction for the left ear. Recommendations: Audiological re-evaluation in one year to continue to monitor due to high risk factors. Will send a reminder card. Patient continues to feel they are not ready for amplification at this time. Diagnosis: Primary Diagnosis: H90.3 Bilateral Sensorineural Hearing Loss Secondary Diagnosis: H69.92 Unspecified Eustachian Tube Dysfunction, Left Ear Services Performed: Comprehensive Audiological Evaluation (CPT 95727) Tympanometry (CPT 21957) Signature: Provider: Winnie Adkins, CCC-A
== END 2022-04-22 08:26 | disposition home or self-care (01) ==
LOC: HO.SH 08:25
PROVIDERS: Visit Provider Family Medicine
DX: Z01.118 Encounter for examination of ears and hearing with other abnormal findings (principal); H90.3 Sensorineural hearing loss, bilateral; H69.92 Unspecified Eustachian tube disorder, left ear
CPT/HCPCS: 92557; 92567

== ENCOUNTER 2022-04-29 07:19 | Outpatient (REF) | payer MEDICARE, SELFPAY ==
--- NOTE | ~2022-04-29 | XR_ITS ---
EXAMINATION: PELVIS AND RIGHT HIP X-RAY CLINICAL INFORMATION: Pain COMPARISON: None TECHNIQUE: One view of the pelvis and 2 views of the right femur FINDINGS: There is bilateral hip arthritis with joint space narrowing and osteophyte formation. No fracture, dislocation or bone lesion is seen. There are degenerative changes of the visualized lower lumbar spine. Bones of the pelvis are unremarkable. Soft tissues are unremarkable. XR/XR pelvis 1-2V IMPRESSION: Bilateral hip osteoarthritis. Degenerative changes of the visualized lower lumbar spine.
--- NOTE | ~2022-04-29 | XR_ITS ---
EXAMINATION: KNEE AND RIGHT FEMUR X-RAY CLINICAL INFORMATION: Pain COMPARISON: Previous right pelvis and right hip exam from earlier the same day TECHNIQUE: 2 views of the right femur, standing AP view of both knees and lateral and sunrise view of the right knee FINDINGS: Right femur: There is arthritis of the right hip joint. There is a right knee replacement. No fracture or dislocation is seen. There is soft tissue arterial calcification. Right knee: There is a 3 component right knee replacement. No fracture, dislocation or x-ray evidence of loosening is seen. There is a moderate joint effusion. There are soft tissue ossifications project over the suprapatellar bursa questionable for ossified intra-articular loose bodies versus soft tissue ossifications. Standing AP view of the left knee demonstrates a left knee replacement. XR/XR knee standing BI IMPRESSION: Right hip arthritis. Bilateral knee replacements. Right knee joint effusion and soft tissue ossifications are normal for ossified intra-articular loose bodies versus adjacent soft tissue ossification.
--- NOTE | ~2022-04-29 | XR_ITS ---
EXAMINATION: KNEE AND RIGHT FEMUR X-RAY CLINICAL INFORMATION: Pain COMPARISON: Previous right pelvis and right hip exam from earlier the same day TECHNIQUE: 2 views of the right femur, standing AP view of both knees and lateral and sunrise view of the right knee FINDINGS: Right femur: There is arthritis of the right hip joint. There is a right knee replacement. No fracture or dislocation is seen. There is soft tissue arterial calcification. Right knee: There is a 3 component right knee replacement. No fracture, dislocation or x-ray evidence of loosening is seen. There is a moderate joint effusion. There are soft tissue ossifications project over the suprapatellar bursa questionable for ossified intra-articular loose bodies versus soft tissue ossifications. Standing AP view of the left knee demonstrates a left knee replacement. XR/XR femur RT 2V IMPRESSION: Right hip arthritis. Bilateral knee replacements. Right knee joint effusion and soft tissue ossifications are normal for ossified intra-articular loose bodies versus adjacent soft tissue ossification.
--- NOTE | ~2022-04-29 | XR_ITS ---
EXAMINATION: PELVIS AND RIGHT HIP X-RAY CLINICAL INFORMATION: Pain COMPARISON: None TECHNIQUE: One view of the pelvis and 2 views of the right femur FINDINGS: There is bilateral hip arthritis with joint space narrowing and osteophyte formation. No fracture, dislocation or bone lesion is seen. There are degenerative changes of the visualized lower lumbar spine. Bones of the pelvis are unremarkable. Soft tissues are unremarkable. XR/XR hip RT min 2V IMPRESSION: Bilateral hip osteoarthritis. Degenerative changes of the visualized lower lumbar spine.
--- NOTE | ~2022-04-29 | XR_ITS ---
EXAMINATION: KNEE AND RIGHT FEMUR X-RAY CLINICAL INFORMATION: Pain COMPARISON: Previous right pelvis and right hip exam from earlier the same day TECHNIQUE: 2 views of the right femur, standing AP view of both knees and lateral and sunrise view of the right knee FINDINGS: Right femur: There is arthritis of the right hip joint. There is a right knee replacement. No fracture or dislocation is seen. There is soft tissue arterial calcification. Right knee: There is a 3 component right knee replacement. No fracture, dislocation or x-ray evidence of loosening is seen. There is a moderate joint effusion. There are soft tissue ossifications project over the suprapatellar bursa questionable for ossified intra-articular loose bodies versus soft tissue ossifications. Standing AP view of the left knee demonstrates a left knee replacement. XR/XR knee RT 2V IMPRESSION: Right hip arthritis. Bilateral knee replacements. Right knee joint effusion and soft tissue ossifications are normal for ossified intra-articular loose bodies versus adjacent soft tissue ossification.
== END 2022-04-29 07:20 | disposition home or self-care (01) ==
LOC: HO.HOSX 07:19
PROVIDERS: Visit Provider Physician Assistant
DX: S92.353D Displaced fracture of fifth metatarsal bone, unspecified foot, subsequent encounter for fracture with routine healing (principal); M25.551 Pain in right hip; M25.561 Pain in right knee; M25.562 Pain in left knee; S76.119A Strain of unspecified quadriceps muscle, fascia and tendon, initial encounter; M79.659 Pain in unspecified thigh
CPT/HCPCS: 72170; 73502; 73552; 73560; 73565; 99212

== ENCOUNTER 2022-05-01 07:57 | Outpatient (REF) | payer MEDICARE, SELFPAY ==
[2022-05-01 10:23] LABS: MANUAL DIFF FLAG NO
[2022-05-01 10:27] LABS: Basophils Absolute Auto 0.1 X10*3/uL (0.0-0.2); Basophils Percent Auto 0.8 % (0-2); Eosinophils Absolute Auto 0.3 X10*3/uL (0.0-0.4); Eosinophils Percent Auto 4.1 % (0-4); Hematocrit 36.6 % (37.0-47.0); Hemoglobin 11.5 g/dl (12.0-16.0); Imm Gran Abs Auto 0.01 X10*3/uL (0.00-0.03); Imm Gran Pct Auto 0.2 % (0.0-0.4); Lymphocytes Absolute Auto 1.6 X10*3/uL (1.2-4.9); Lymphocytes Percent Auto 23.9 % (20-40); Mean Corpuscular HGB Conc 31.4 g/dl (31.0-35.0); Mean Corpuscular Hemoglobin 27.6 pg (27.0-33.0); Mean Platelet Volume 10.1 fL (9.4-12.3); Monocytes Absolute Auto 0.5 X10*3/uL (0.1-1.2); Monocytes Percent Auto 7.7 % (2-11); Neutrophils Absolute Auto 4.2 x10*3/uL (2.0-8.3); Neutrophils Percent Auto 63.3 % (45-73); Platelet Count 257 X10*3/uL (160-400); Red Blood Count 4.16 X10*6/uL (4.20-5.50); Red Cell Distribution Width 13.2 % (11.0-16.0); White Blood Count 6.7 X10*3/uL (4.8-10.8)
[2022-05-01 10:43] LABS: Alanine Aminotransferase 11 U/L (0-31); Albumin Level 3.8 g/dL (3.5-5.0); Alkaline Phosphatase 115 U/L (39-117); Anion Gap 12 (12-20); Aspartate Amino Transferase 12 U/L (5-31); Bilirubin Total 0.6 mg/dL (0.0-1.0); Blood Urea Nitrogen 28 mg/dL (9-16); Calcium 9.1 mg/dL (8.4-10.2); Carbon Dioxide 26 mmol/L (22-29); Chloride 104 mmol/L (96-108); Estimated Glomerular Filt Rate 22; Glucose Fasting 229 mg/dL (60-99); Potassium 4.4 mmol/L (3.3-5.1); Sodium 138 mmol/L (135-145); Total Protein 6.4 g/dL (6.5-8.0)
[2022-05-01 10:49] LABS: Estimated Average Glucose 192 mg/dL; Hemoglobin A1c % 8.3 %
== END 2022-05-01 07:58 | disposition home or self-care (01) ==
LOC: HO.10HDL 07:57
PROVIDERS: Absent Provider Internal Medicine Hypertension Specialist; Visit Provider Family Medicine
DX: Z00.00 Encounter for general adult medical examination without abnormal findings (principal); E11.22 Type 2 diabetes mellitus with diabetic chronic kidney disease; N18.4 Chronic kidney disease, stage 4 (severe)
CPT/HCPCS: 36415; 80053; 83036; 85025

== ENCOUNTER 2022-05-03 18:44 | Outpatient (REF) | payer MEDICARE, SELFPAY ==
--- NOTE | ~2022-05-03 | MR_ITS ---
EXAMINATION: MR FEMUR WITHOUT CONTRAST, RIGHT CLINICAL INFORMATION: Proximal right femoral pain when lifting leg. Bilateral knee arthroplasty. COMPARISON: Right hip, femoral, and knee radiographs dated 04/29/2022. TECHNIQUE: Multisequence MR imaging of the right femur was obtained without contrast on a high-field strength scanner. FINDINGS: BONE: No abnormal marrow signal. No evidence of acute osseous injury. No lytic or blastic osseous lesion. MUSCLES/TENDONS: Within the proximal-most images, there is partial visualization of a high-grade partial tear at the distal iliopsoas tendon. This involves approximately 50% of the tendon fibers and demonstrates retraction of approximately 5.5 cm. This prominent adjacent soft tissue edema and stranding. The lateral aspect of the tendon appears to remain intact. Mild edema within the vastus lateralis muscle which may represent denervation versus a mild muscle strain. Atrophy of the proximal rectus femoris muscle. SOFT TISSUES: No abnormal soft tissue mass or fluid collection. Soft tissue stranding along the anterolateral fascia. MR/MR femur RT wo con IMPRESSION: 1. Partial tearing within the distal iliopsoas tendon involving approximately 50% of the tendon fibers medially. The resultant tendon gap measures up to 5.5 cm in craniocaudal dimension with adjacent fluid and soft tissue edema. 2. Mild edema within the vastus lateralis muscle which may represent degeneration versus a mild muscle strain. Fatty atrophy of the proximal rectus femoris muscle. 3. No acute osseous abnormality.
== END 2022-05-03 18:45 | disposition home or self-care (01) ==
LOC: HO.MRI 18:44
PROVIDERS: Visit Provider Physician Assistant
DX: M79.659 Pain in unspecified thigh (principal); S76.119A Strain of unspecified quadriceps muscle, fascia and tendon, initial encounter; X58.XXXA Exposure to other specified factors, initial encounter; Y93.9 Activity, unspecified; Y92.9 Unspecified place or not applicable; Y99.8 Other external cause status; Z96.651 Presence of right artificial knee joint
CPT/HCPCS: 73718

== ENCOUNTER → 2022-05-16 15:21 | Outpatient (BNVA) | payer MEDICARE, SELFPAY | PROVIDERS: PCP Family Medicine; Visit Provider Orthopaedic Surgery | DX: S76.111A Strain of right quadriceps muscle, fascia and tendon, initial encounter (principal) | CPT/HCPCS: Q3014 ==

== ENCOUNTER → 2022-06-25 13:52 | Outpatient (REF) | payer MEDICARE, SELFPAY ==
--- NOTE | 2022-06-25 14:12 | CA_ITS ---
Transthoracic Echocardiogram Patient (Last, First, Middle): Guadalupe Muro A Gender: Female Date of : 1945 Age: 76 Procedure Date: 06/25/2022 Procedure Type: Transthoracic Echocardiogram Location: OP Height: 154.94 cm Weight: 97.52 kg BSA: 1.95 m2 Heart Rate: bpm BP: 122 / 70 mmHg Garment Inspector: Referring MD: Wiley Kevin MD Symptoms: R60.9 EDEMA UNSPECIFIFIED, N18.4 CHRONIC KIDNEY DISEASE Study Quality: Adequate ECG Rhythm: Sinus Conclusions: - The left ventricular systolic function is normal. The calculated ejection fraction is 55% by biplane method. - There is mild mitral annular calcification. - There is mild calcification of the aortic valve. Possible mild aortic stenosis. Findings Left Ventricle Normal left ventricular cavity size. There is mildly increased left ventricular wall thickness. The left ventricular systolic function is normal. The calculated ejection fraction is 55% by biplane method. There is no evidence of regional wall motion abnormalities. Diastolic function is normal for age. Right Ventricle Normal right ventricular cavity size and systolic function. Atria Both atria are normal in size. Aortic Valve The aortic valve was not well visualized. There is mild calcification of the aortic valve. There is no aortic valve regurgitation. Possible mild aortic stenosis. Mitral Valve There is mild mitral annular calcification. There is no mitral valve regurgitation. There is no mitral valve stenosis. Pulmonic Valve The pulmonic valve is likely normal. Tricuspid Valve There is trace tricuspid valve regurgitation. The pulmonary artery systolic pressure is normal. Great Vessels The aortic annulus, sinuses of valsalva, and asc aorta are normal in size. Venous The inferior vena cava is normal in size and collapses greater than 50% with inspiration. Pericardium/Pleural There is no evidence of pericardial effusion. Prior Study Comparison No prior study available for comparison. Measurements 2D Linear Measurements IVSd: 1.32 0.6-0.9/0.6-1.0 cm LVIDd: 4.59 3.9-5.3/4.2-5.9 cm LVIDd Index: 2.35 2.4-3.2/2.2-3.1 cm/m2 LVIDs: 2.92 2.0-3.6 cm LVPWd: 1.26 0.7-1.1 cm Ao Root: 2.90 2.1-3.5 cm LA Diam: 4.10 2.7-3.8/3.0-4.0 cm LAIDs Index: 2.10 1.5-2.3 cm/m2 LV Mass: 282.78 67-162/88-224 g LV Mass Index: 145.01 43-95/49-115 g/m2 LVOT Diam: 1.90 3.0+(-)1.3 cm 2D Systolic Function EF 4C: 55.40 >55% EF 2C: 55.40 >55% EF BiP: 55.30 >55% Mitral Valve MV VTI: 0.29 MV Pk Francisco: 0.98 MV Mn Francisco: 0.60 MV Pk Grad: 4.00 MV Mn Grad: 2.00 MV Pk E: 0.75 MV PK A: 0.99 MV Decel Time: 208.00 E/A: 0.80 E'Lateral: 10.20 E'Medial: 4.68 E/E' Med: 15.90 E/E' Lat: 7.30 PHT: 61.00 MVA PHT: 3.61 MVA Continuity: 2.29 Decel [place]: 3.59 Aortic Valve AoV Pk Francisco: 1.92 AoV Mn Francisco: 1.14 AoV VTI: 0.38 AoV Pk Grad: 15.00 Aov Mn Grad: 6.00 GILSON Cont.VTI: 1.74 LVOT LVOT Pk Francisco: 1.08 LVOT Mn Francisco: 0.73 LVOT VTI: 0.24 LVOT Pk Grad: 5.00 LVOT Mn Grad: 3.00 LVOT Diam: 1.90 LVOT Area: 2.84 Diastolic Function MV Pk E: 0.75 MV Pk A: 0.99 E/A: 0.80 E'Medial: 4.68 E/E' Med: 15.90 E' Laterial: 10.20 E/E' Lat: 7.30 Right Ventricle TAPSE (mm): 26.00 TVS' Francisco: 11.00 Tricuspid Valve TR Pk Francisco: 1.92 TR Pk Grad: 15.00 RA Press: 3.00 RVSP: 18.00 Great Vessels Aorta Ao Root-2D: 2.90 2.0-3.7 cm Ao Asc: 3.30 2.1-3.4 cm Pulmonary Valve PV Pk Francisco: 1.14 Peak PV Grad: 5.00 Updated in Other Vendor System with Status of Final Federico Mcgrath MD electronically signed on 06/26/2022 9:55:43 AM with status of Final
== END ==
LOC: HO.CARD 13:52
PROVIDERS: PCP Family Medicine; Visit Provider Internal Medicine Hypertension Specialist
DX: R60.9 Edema, unspecified (principal); N18.4 Chronic kidney disease, stage 4 (severe)
CPT/HCPCS: 93306

== ENCOUNTER 2022-07-01 08:00 | Outpatient (RCR) | payer MEDICARE, SELFPAY ==
--- NOTE | 2022-06-03 08:58 | MHC.PT.EP ---
[facility] [place] Office [place] Office [place] Office [address] [phone] F: [phone] F: [phone] F: [phone] F: [phone] Physical Therapy Plan of Care Date of Evaluation: Date of Surgery: n/a Diagnosis: Psoas muscle strain Assessment: Patient is a 76 year old R handed female who presents with s/s consistent with R psoas muscle strain, pain. She is not working but stays active and likes to travel. Patient past medical history includes DM, recent shoulder and foot fracture, osteoporosis. Current impairments include pain, strength, activity tolerance and functional mobility. Functional limitations include decreased ability to transfer, get in and out of car and bed, negotiate stairs. Patient is motivated with good rehab potential. Skilled PT will address impairments and functional limitations in order to achieve goals. Frequency and Duration: The patient will be seen 2x/week for 6 weeks Short Term Goals: I with HEP - 2 weeks Able to negotiate stairs 1 HH assist 8 - 3 weeks Outsole Paraffiner Goals: Hip and LE strength 4/5 grossly - 5 weeks LEFS 54/80 - 5 weeks Able to get into bed and car pain free - 5 weeks Sit <> stands 10 in 1 minutes - 5 weeks Treatment Plan: Modalities to reduce pain, spasms and effusion. Manual therapy to restore motion and function. Therapeutic exercise to improve strength and flexibility. Neuromuscular re-education for posture and balance. Therapeutic activities to return to functional activities of daily living. Electronically signed by: Marcel Daigle, Pt Please sign and return to therapist. Thank you for your referral.
--- NOTE | 2022-08-08 08:47 | MHC.PT.DC ---
[facility] [place] [facility] [place] [facility] [place] Office [address] [phone] F: [phone] F: [phone] F: [phone] F: [phone] Physical Therapy Discharge Report Diagnosis: Psoas muscle strain Date of Surgery: n/a Date of Evaluation: 06/03/22 Date of Discharge: 07/09/22 Treatments to Date: 9 Cancellations to Date: No Shows to Date: Discharge Status: Improved Function Independent with HEP Discharge Summary: 07/01/22: pt progressing well with skilled PT. She is I with HEP and progressed towards or met all goals. LEFS 55/80. Sit <> stands 10x in 1 minutes. She is appropriate to d/c to HEP at this time. Electronically signed by: Marcel Daigle, PT Please sign and return to therapist. Thank you for your referral.
== END 2022-08-08 08:47 | disposition home or self-care (01) ==
LOC: HO.PTCHIC 08:00
PROVIDERS: PCP Family Medicine; Visit Provider Orthopaedic Surgery
DX: S76.019D Strain of muscle, fascia and tendon of unspecified hip, subsequent encounter (principal)
CPT/HCPCS: 97110; 97112; 97140; 97162

== ENCOUNTER 2022-08-28 09:40 | Outpatient (REF) | payer MEDICARE, SELFPAY ==
[2022-08-28 11:56] LABS: Alanine Aminotransferase 22 U/L (0-31); Albumin Level 3.6 g/dL (3.5-5.0); Alkaline Phosphatase 104 U/L (39-117); Anion Gap 17 (12-20); Aspartate Amino Transferase 19 U/L (5-31); Bilirubin Total 0.4 mg/dL (0.0-1.0); Blood Urea Nitrogen 25 mg/dL (9-16); Calcium 9.4 mg/dL (8.4-10.2); Carbon Dioxide 20 mmol/L (22-29); Chloride 107 mmol/L (96-108); Estimated Glomerular Filt Rate 23; Glucose Fasting 89 mg/dL (60-99); Potassium 4.5 mmol/L (3.3-5.1); Sodium 139 mmol/L (135-145); Total Protein 6.7 g/dL (6.5-8.0)
[2022-08-28 12:45] LABS: Influenza A PCR NEGATIVE (Negative); Influenza B PCR NEGATIVE (Negative); Resp Syncy Virus RNA Qual PCR NEGATIVE (Negative); SARS COV2 PCR INHOUSE NEGATIVE (Negative)
== END 2022-08-28 09:41 | disposition home or self-care (01) ==
LOC: HO.WFDLDS 09:40
PROVIDERS: Visit Provider Family Medicine
DX: Z00.00 Encounter for general adult medical examination without abnormal findings (principal); E11.22 Type 2 diabetes mellitus with diabetic chronic kidney disease; N18.9 Chronic kidney disease, unspecified; Z20.822 Contact with and (suspected) exposure to COVID-19
CPT/HCPCS: 0241U; 36415; 80053

== ENCOUNTER 2022-09-04 07:38 | Outpatient (REF) | payer MEDICARE, SELFPAY ==
[2022-09-04 11:29] LABS: Anion Gap 20 (12-20); Blood Urea Nitrogen 27 mg/dL (9-16); Calcium 9.2 mg/dL (8.4-10.2); Carbon Dioxide 17 mmol/L (22-29); Chloride 107 mmol/L (96-108); Estimated Glomerular Filt Rate 22; Glucose Random 129 mg/dL (60-115); Potassium 5.8 mmol/L (3.3-5.1); Sodium 138 mmol/L (135-145)
== END 2022-09-04 07:39 | disposition home or self-care (01) ==
LOC: HO.10HDL 07:38
PROVIDERS: PCP Family Medicine; Visit Provider Internal Medicine Hypertension Specialist
DX: N18.4 Chronic kidney disease, stage 4 (severe) (principal)
CPT/HCPCS: 36415; 80048

== ENCOUNTER 2022-09-27 08:18 | Outpatient (REF) | payer MEDICARE, SELFPAY ==
[2022-09-27 11:13] LABS: Anion Gap 16 (12-20); Blood Urea Nitrogen 35 mg/dL (9-16); Calcium 9.5 mg/dL (8.4-10.2); Carbon Dioxide 22 mmol/L (22-29); Chloride 107 mmol/L (96-108); Estimated Glomerular Filt Rate 22; Potassium 4.9 mmol/L (3.3-5.1); Sodium 140 mmol/L (135-145)
== END 2022-09-27 08:19 | disposition home or self-care (01) ==
LOC: HO.10HDL 08:18
PROVIDERS: Visit Provider Internal Medicine Hypertension Specialist
DX: N18.4 Chronic kidney disease, stage 4 (severe) (principal)
CPT/HCPCS: 36415; 80051; 82310; 82565; 84520

== ENCOUNTER 2022-12-17 08:54 | Outpatient (REF) | payer MEDICARE, SELFPAY ==
[2022-12-17 11:06] LABS: Estimated Average Glucose 180 mg/dL; Hemoglobin A1c % 7.9 %
== END 2022-12-17 08:55 | disposition home or self-care (01) ==
LOC: HO.10HDL 08:54
PROVIDERS: Visit Provider Family Medicine
DX: R73.01 Impaired fasting glucose (principal)
CPT/HCPCS: 36415; 83036

== ENCOUNTER 2023-01-23 08:42 | Outpatient (REF) | payer MEDICARE, SELFPAY ==
[2023-01-23 11:20] LABS: Alanine Aminotransferase 9 U/L (0-31); Albumin Level 3.5 g/dL (3.5-5.0); Alkaline Phosphatase 89 U/L (39-117); Anion Gap 10 (12-20); Aspartate Amino Transferase 11 U/L (5-31); Bilirubin Total 1.1 mg/dL (0.0-1.0); Blood Urea Nitrogen 27 mg/dL (9-16); Calcium 9.1 mg/dL (8.4-10.2); Carbon Dioxide 27 mmol/L (22-29); Chloride 106 mmol/L (96-108); Cholesterol 176 mg/dL; Estimated Glomerular Filt Rate 23; Glucose Fasting 172 mg/dL (60-99); HDL Cholesterol 41 mg/dL; LDL Cholesterol Calculated 117 mg/dl; Potassium 4.9 mmol/L (3.3-5.1); Sodium 138 mmol/L (135-145); Total Protein 5.9 g/dL (6.5-8.0); Triglycerides 90 mg/dL
[2023-01-23 11:27] LABS: Free T4 (Free Thyroxine) 1.18 ng/dL (0.71-1.85); Thyroid Stimulating Hormone 2.33 uIU/mL (0.32-4.0)
[2023-01-24 23:13] LABS: Triiodothyronine T3 Total 86 ng/dL (76-181)
== END 2023-01-23 08:43 | disposition home or self-care (01) ==
LOC: HO.10HDL 08:42
PROVIDERS: Visit Provider Family Medicine
DX: Z00.00 Encounter for general adult medical examination without abnormal findings (principal); E78.5 Hyperlipidemia, unspecified; I12.9 Hypertensive chronic kidney disease with stage 1 through stage 4 chronic kidney disease, or unspecified chronic kidney disease; N18.9 Chronic kidney disease, unspecified; E03.9 Hypothyroidism, unspecified
CPT/HCPCS: 36415; 80053; 80061; 84439; 84443; 84480

== ENCOUNTER 2023-01-27 09:05 | Outpatient (REF) | payer MEDICARE, SELFPAY ==
--- NOTE | ~2023-01-27 | XR_ITS ---
EXAMINATION: X-RAY OF THE RIGHT SHOULDER AND LEFT FOOT CLINICAL INFORMATION: 77-year-old female patient with pain in the left foot and right shoulder. COMPARISON: X-rays of left foot on 03/27/2022. (Fracture base fifth metatarsal. Arthritis of the first through fourth tarsometatarsal joints). X-ray of the left shoulder on 03/27/2022. (Osteoarthritis and old healed fracture left humeral neck). TECHNIQUE: 3 views of the right shoulder and 3 views of the left foot FINDINGS: Right shoulder: There is some narrowing of the lateral humeral joint without erosive changes. No fracture or dislocation. There are no intra-articular calcifications but focal calcifications are present in the vicinity of the biceps tendon. Left foot: The fracture involving the base of the left fifth metatarsal has healed. Again there is considerable osteoarthritis involving the tarsometatarsal joints of the first through fourth toes. Edema of the soft tissues is present in the distal left leg and midfoot. Again a large calcaneal spur is seen. XR/XR foot LT min 3V IMPRESSION: RIGHT SHOULDER: Mild narrowing of the lateral glenohumeral joint. Calcific tendinosis of the biceps tendon. LEFT FOOT: Osteoarthritis of the tarsometatarsal joints. Healed fracture base of the left fifth metatarsal.
--- NOTE | ~2023-01-27 | XR_ITS ---
EXAMINATION: X-RAY OF THE RIGHT SHOULDER AND LEFT FOOT CLINICAL INFORMATION: 77-year-old female patient with pain in the left foot and right shoulder. COMPARISON: X-rays of left foot on 03/27/2022. (Fracture base fifth metatarsal. Arthritis of the first through fourth tarsometatarsal joints). X-ray of the left shoulder on 03/27/2022. (Osteoarthritis and old healed fracture left humeral neck). TECHNIQUE: 3 views of the right shoulder and 3 views of the left foot FINDINGS: Right shoulder: There is some narrowing of the lateral humeral joint without erosive changes. No fracture or dislocation. There are no intra-articular calcifications but focal calcifications are present in the vicinity of the biceps tendon. Left foot: The fracture involving the base of the left fifth metatarsal has healed. Again there is considerable osteoarthritis involving the tarsometatarsal joints of the first through fourth toes. Edema of the soft tissues is present in the distal left leg and midfoot. Again a large calcaneal spur is seen. XR/XR shoulder RT min 2V IMPRESSION: RIGHT SHOULDER: Mild narrowing of the lateral glenohumeral joint. Calcific tendinosis of the biceps tendon. LEFT FOOT: Osteoarthritis of the tarsometatarsal joints. Healed fracture base of the left fifth metatarsal.
== END 2023-01-27 09:06 | disposition home or self-care (01) ==
LOC: HO.HOSX 09:05
PROVIDERS: Visit Provider Physician Assistant
DX: Z00.00 Encounter for general adult medical examination without abnormal findings (principal); M19.011 Primary osteoarthritis, right shoulder; M75.81 Other shoulder lesions, right shoulder; S92.352D Displaced fracture of fifth metatarsal bone, left foot, subsequent encounter for fracture with routine healing; I12.9 Hypertensive chronic kidney disease with stage 1 through stage 4 chronic kidney disease, or unspecified chronic kidney disease; N18.9 Chronic kidney disease, unspecified; X58.XXXD Exposure to other specified factors, subsequent encounter
CPT/HCPCS: 20610; 73030; 73630; 81003; 82043; 99212; J1020

== ENCOUNTER 2023-01-27 09:14 | Outpatient (REF) | payer MEDICARE, SELFPAY ==
[2023-01-27 11:18] LABS: Appearance Urine Clear; Color Urine Yellow; Glucose Urine UA Negative (Negative); Leukocyte Esterase Urine Negative (Negative); Nitrite Urine Negative (Negative); Specific Gravity - Urine 1.015 (1.005-1.025); Urine Blood Negative (Negative); Urine Ketones Negative (Negative); Urine Protein Negative (Neg-Trace)
[2023-01-27 12:47] LABS: Creatinine Urine 95.96 mg/dL; Microalbum/Creatinine Ratio Ur 46.8 ug/mg cr
== END 2023-01-27 09:15 | disposition home or self-care (01) ==
LOC: HO.10HDLNP 09:14
PROVIDERS: Visit Provider Family Medicine
DX: Z13.89 Encounter for screening for other disorder (principal)
CPT/HCPCS: 81003; 82043

== ENCOUNTER 2023-03-21 09:23 | Day surgery (SDC) | payer MEDICARE, SELFPAY ==
--- NOTE | 2023-03-20 10:16 | HO.ANESPROP2 ---
Documented by User: Mary Beth Garcia NP 03/20/23 10:24 HPI - Anesthesia Eval Consult details Narrative: 77yo F for Colonoscopy Per 10/2022 renal office visit, baseline creat ~ 2.2 PMFSH Active Problems Active Problems: All Active Problems (Updated 03/06/23 @ 10:47 by Reji Lopez) Uncontrolled diabetes mellitus with hyperglycemia (Acute) Rotator cuff tendinitis (Acute) Glenohumeral arthritis (Acute) Fracture of fifth metatarsal bone of left foot (Acute) Hyperlipidemia (Acute) Conjunctivitis (Acute) Viral illness (Acute) Left groin pain (Acute) Chronic left SI joint pain (Acute) Foot pain (Acute) Psoas muscle strain (Acute) Thigh pain (Acute) Quadriceps tendon rupture (Acute) Fracture of fifth metatarsal bone with routine healing (Acute) Fracture of fifth metatarsal bone of left foot (Acute) Fracture of proximal humerus with routine healing (Acute) Fracture of left humerus (Acute) Weakness of left foot (Acute) Multiple drug allergies (Acute) Sensitivity to medication (Acute) Edema (Acute) Screening for colon cancer (Acute) Renal cyst, right (Acute) Adult general medical exam (Acute) Osteoporosis (Acute) Screening for osteoporosis (Acute) Breast cancer screening by mammogram (Acute) Cholelithiasis (Acute) Right upper quadrant pain (Acute) Hypothyroidism (Acute) Decreased hearing (Acute) Depression (Acute) Diabetes type 2, controlled (Acute) Chronic renal failure (Acute) Essential hypertension (Acute) Past Medical History Medical History (Updated 03/20/23 @ 10:23 by Mary Beth Garcia NP) CKD (chronic kidney disease) Depression Diabetes type 2, controlled Essential hypertension Hyperlipidemia Hypothyroidism Osteoporosis Thigh pain Family History Family History Father CAD (coronary artery disease) CVD (cardiovascular disease) Mother Colon cancer Brother Cancer of prostate Throat cancer Tongue cancer Surgical History Surgical History History of breast biopsy History of tonsillectomy History of total left knee replacement (TKR) History of total right knee replacement (TKR) Social History Social History Housing: House Alcohol intake: current Alcohol intake frequency: holidays/special occasions only Patient Tobacco Use Status: Former Tobacco user Tobacco use type: Cigarette e-Cigarette/Vaping Use: Never Used Second Hand Smoke Exposure: No Are you DNR?: No Advance Directives: No Advance Directives Information Provided: Yes Nutrition Risks: No Nutritional Risk service: No 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al status: retired 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al exposures/hazards: No Cognitive needs: No Hearing needs: No Vision needs: No Meds Allergies Allergy/AdvReac Type Severity Reaction Status Date / Time LEFTY Inhibitors Allergy Unknown SWELLING Verified 03/06/23 10:05 [Lefty Inhibitors] beta blockers Allergy Unknown leg Verified 03/06/23 10:05 swelling oxycodone [OXYCODONE] Allergy Unknown NAUSEA & Verified 03/06/23 10:05 VOMITING rivaroxaban [From XARELTO] Allergy Unknown SWELLING Verified 03/06/23 10:05 cat dander Allergy Unknown Verified 03/06/23 10:05 grass pollen Allergy Unknown Verified 03/06/23 10:05 mold Allergy Unknown Verified 03/06/23 10:05 ZerLor Allergy Unknown Rash Uncoded 03/06/23 10:05 Swelling Home Medications Medication Instructions Recorded Confirmed Last Taken Type aliskiren 150 mg tablet 75 mg PO DAILY 10/03/20 07/24/22 Unknown History blood sugar diagnostic #10 ea 10/03/20 07/24/22 Unknown History blood-glucose meter #1 ea 10/03/20 07/24/22 Unknown History calcitriol 0.25 mcg capsule 0.25 mcg PO 3XW 10/03/20 07/24/22 Unknown History flu vac qv 2020(18yr up)rc(PF) 180 ml IM 10/03/20 07/24/22 Unknown History mcg(45 mcgx4)/0.5 mL IM syringe lancets #100 ea 10/03/20 07/24/22 Unknown History triamterene 37.5 0.5 tab PO 3XW 10/03/20 07/24/22 Unknown History mg-hydrochlorothiazide 25 mg tablet cyanocobalamin (vitamin B-12) 500 500 mcg PO DAILY 03/27/21 07/24/22 Unknown History mcg tablet ergocalciferol (vitamin D2) 1,250 1,250 mcg PO Q2W 03/27/21 07/24/22 Unknown History mcg (50,000 unit) capsule nystatin 100,000 unit/gram topical topical DIRECTED 03/27/21 07/24/22 Unknown History cream cetirizine 10 mg capsule (Zyrtec) 10 mg PO DAILY PRN 07/16/21 07/24/22 Unknown History ketotifen fumarate 0.025 % (0.035 1 drp ophthalmic (eye) BID 07/16/21 07/24/22 Unknown History %) eye drops betamethasone dipropionate 0.05 % appl topical 06/19/22 07/24/22 Unknown History topical cream glipizide 10 mg tablet 20 mg PO DAILY 06/19/22 07/24/22 Unknown History triamcinolone acetonide 0.1 % appl topical 06/19/22 07/24/22 Unknown History topical cream Exam Exam Date and Time: March 20, 2023 1016 Pertinent Lab Results Pertinent Lab Results: Laboratory Tests 05/01/22 01/23/23 08:02 08:53 WBC 6.7 Hgb 11.5 L Hct 36.6 L Plt Count 257 Sodium 138 Potassium 4.9 Chloride 106 Carbon Dioxide 27 BUN 27 H Creatinine 2.05 H Assessment and Plan Assessment Anesthesia Assessment: Chart Reviewed Documented by User: Beltran Britt MD 03/21/23 11:25 [facility] Past Medical History Medical History (Updated 03/20/23 @ 10:23 by Mary Beth Garcia NP) CKD (chronic kidney disease) Depression Diabetes type 2, controlled Essential hypertension Hyperlipidemia Hypothyroidism Osteoporosis Thigh pain Family History Family History Father CAD (coronary artery disease) CVD (cardiovascular disease) Mother Colon cancer Brother Cancer of prostate Throat cancer Tongue cancer Family history of problems with anesthesia: No Surgical History Surgical History History of breast biopsy History of tonsillectomy History of total left knee replacement (TKR) History of total right knee replacement (TKR) History of Problems with Anesthesia: No Social History Social History Housing: House Alcohol intake: current Alcohol intake frequency: holidays/special occasions only Patient Tobacco Use Status: Former Tobacco user Tobacco use type: Cigarette e-Cigarette/Vaping Use: Never Used Second Hand Smoke Exposure: No Are you DNR?: No Advance Directives: No Advance Directives Information Provided: Yes Nutrition Risks: No Nutritional Risk service: No 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al status: retired 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al exposures/hazards: No Cognitive needs: No Hearing needs: No Vision needs: No Meds Allergies Allergy/AdvReac Type Severity Reaction Status Date / Time LEFTY Inhibitors Allergy Unknown SWELLING Verified 03/06/23 10:05 [Lefty Inhibitors] beta blockers Allergy Unknown leg Verified 03/06/23 10:05 swelling oxycodone [OXYCODONE] Allergy Unknown NAUSEA & Verified 03/06/23 10:05 VOMITING rivaroxaban [From XARELTO] Allergy Unknown SWELLING Verified 03/06/23 10:05 cat dander Allergy Unknown Verified 03/06/23 10:05 grass pollen Allergy Unknown Verified 03/06/23 10:05 mold Allergy Unknown Verified 03/06/23 10:05 ZerLor Allergy Unknown Rash Uncoded 03/06/23 10:05 Swelling Home Medications Medication Instructions Recorded Confirmed Last Taken Type aliskiren 150 mg tablet 75 mg PO DAILY 10/03/20 07/24/22 Unknown History blood sugar diagnostic #10 ea 10/03/20 07/24/22 Unknown History blood-glucose meter #1 ea 10/03/20 07/24/22 Unknown History calcitriol 0.25 mcg capsule 0.25 mcg PO 3XW 10/03/20 07/24/22 Unknown History flu vac qv 2020(18yr up)rc(PF) 180 ml IM 10/03/20 07/24/22 Unknown History mcg(45 mcgx4)/0.5 mL IM syringe lancets #100 ea 10/03/20 07/24/22 Unknown History triamterene 37.5 0.5 tab PO 3XW 10/03/20 07/24/22 Unknown History mg-hydrochlorothiazide 25 mg tablet cyanocobalamin (vitamin B-12) 500 500 mcg PO DAILY 03/27/21 07/24/22 Unknown History mcg tablet ergocalciferol (vitamin D2) 1,250 1,250 mcg PO Q2W 03/27/21 07/24/22 Unknown History mcg (50,000 unit) capsule nystatin 100,000 unit/gram topical topical DIRECTED 03/27/21 07/24/22 Unknown History cream cetirizine 10 mg capsule (Zyrtec) 10 mg PO DAILY PRN 07/16/21 07/24/22 Unknown History ketotifen fumarate 0.025 % (0.035 1 drp ophthalmic (eye) BID 07/16/21 07/24/22 Unknown History %) eye drops betamethasone dipropionate 0.05 % appl topical 06/19/22 07/24/22 Unknown History topical cream glipizide 10 mg tablet 20 mg PO DAILY 06/19/22 07/24/22 Unknown History triamcinolone acetonide 0.1 % appl topical 06/19/22 07/24/22 Unknown History topical cream Exam Airway Mallampati Class: II TM Dist: >3cm Neck ROM: Full Assessment and Plan Assessment Anesthesia Assessment: Anesthesia Plan Discussed Final Anesthetic Review Family History of Problems with Anesthesia: No History of Problems with Anesthesia: No NPO: Yes ASA Class: III Final Preanesthetic Review: No Changes in Pt Med Stat, Meds/Allgs Chart Reviewed, Consent Obtained/Reviewed and Anes Risks/Benef Reviewed Patient Risk: Low Procedure Risk: Low Anesthetic Plan Anesthetic Plan: MAC: Disposition: Standard PACU
[2023-03-21 09:33] VITALS: BMI 38.4
[2023-03-21] MEDS: Lactated Ringers 1,000 ML 100 ML IVCONT (10:41)
[2023-03-21 10:47] LABS: Glucose, Whole Blood 188 mg/dL (60-115)
[2023-03-21 10:57] VITALS: BP 150/93; PULSE 94; RESP 18; TEMP 36.7; O2SAT 98
[2023-03-21 11:59] VITALS: BP 99/51; PULSE 73; RESP 16; TEMP 36.3; O2SAT 96
--- NOTE | 2023-03-21 12:02 | P.BOP_ITS ---
Brief Operative Note Date of Service: 03/21/23 Pre-op diagnosis: Screening Post-op diagnosis: other (Colon polyps) Procedure: Colonoscopy to cecum and TI with hot snare polypectom(TC)y, bx/removal of polyp(60cm), and cold snare polypectomy(40cm) Surgeon: Aubrey Lua Was an Cosmetics Supervisor used for this Procedure?: No Estimated blood loss (mL): 2.0 Pathology: other (A. Transverse colon polyp B. Polyp at 60cm C. Polyp at 40cm) Condition: stable Disposition: PACU
[2023-03-21 12:14] VITALS: BP 120/64; PULSE 68; RESP 16; TEMP 36.3; O2SAT 100
--- NOTE | 2023-03-21 15:02 | OP_ITS ---
DATE OF SERVICE: 03/21/2023 SURGEON: Aubrey Lua MD INDICATIONS: The patient presents for evaluation of colorectal cancer screening and personal history of tubular adenoma of the colon. Full consent was obtained from her for this, including risks of bleeding and perforation. PREOPERATIVE DIAGNOSIS: POSTOPERATIVE DIAGNOSIS: PROCEDURE PERFORMED: Colonoscopy to the cecum and terminal ileum with hot snare polypectomy, biopsy, removal of polyps and cold snare polypectomy. ESTIMATED BLOOD LOSS: COMPLICATIONS: ANESTHESIA: Monitored anesthesia care. ASSISTANTS: SPECIMENS: PREOPERATIVE DIAGNOSES: Personal history of tubular adenoma of the colon and colorectal cancer screening. POSTOPERATIVE DIAGNOSES: Personal history of tubular adenoma of the colon and colorectal cancer screening, colon polyps, diverticulosis and internal hemorrhoids. DESCRIPTION OF PROCEDURE: The patient was placed in the left lateral decubitus position. The digital rectal exam revealed no abnormalities. The Olympus video pediatric colonoscope was entered into the rectum and advanced easily to the cecum. Once in the cecum, I did identify a normal-appearing cecal pouch with appendiceal orifice and a normal-appearing ileocecal valve. The terminal ileum was cannulated and appeared normal. The scope was withdrawn back in the colon. The entire cecum and ileocecal valve appeared normal. The scope was slowly withdrawn assessing all mucosal surfaces carefully. Preparation was excellent. In the transverse colon, there was an approximately 8 mm flat but raised polyp, which was removed by hot snare polypectomy and recovered by suction. The polypectomy site appeared clean, without any sign of residual polyp and no bleeding. At 60 cm, there was a 3 mm polyp which was removed with cold biopsy forceps completely. At 40 cm, there was approximately 5 mm polyp which was removed by cold snare polypectomy and recovered by suction. The polypectomy site appeared clean, without any sign of residual polyp nor any significant bleeding. I did not visualize any other polyps, colitis, nor angiodysplasia. There was mild amount of sigmoid diverticulosis. In the rectum, the scope was retroflexed visualizing internal hemorrhoids, but no other pathology. The rectal mucosa appeared normal. The scope was straightened out and withdrawn from the patient. She tolerated the procedure well and was returned to the recovery area in stable condition. IMPRESSION: 1. Colon polyps. 2. Diverticulosis. 3. Internal hemorrhoids. PLAN: The results of the pathology will be checked. Given her age and these relatively minimal findings, I do not think she will need any further colonoscopies for screening purposes in the future. She was advised not to use any aspirin nor NSAIDs for one week. She would otherwise see me on a p.r.n. basis. Of note, she was advised to continue some increased dietary fiber or add supplemental fiber to help her bowel movements become more regular. MD ORION Brasher/SETH / [id number] MTDD
== END 2023-03-21 12:45 | disposition home or self-care (01) ==
PROVIDERS: PCP Family Medicine; Visit Provider Internal Medicine
PROC: 0DJD8ZZ Inspection of Lower Intestinal Tract, Via Natural or Artificial Opening Endoscopic (ICD-10-PCS; CPT 45378; principal; 2023-03-21 10:30)
DX: Z12.11 Encounter for screening for malignant neoplasm of colon (principal); D12.3 Benign neoplasm of transverse colon; D12.6 Benign neoplasm of colon, unspecified; K57.30 Diverticulosis of large intestine without perforation or abscess without bleeding; K64.8 Other hemorrhoids; Z86.010 Personal history of colon polyps; Z80.0 Family history of malignant neoplasm of digestive organs; I10 Essential (primary) hypertension; E11.9 Type 2 diabetes mellitus without complications; E03.9 Hypothyroidism, unspecified; Z79.899 Other long term (current) drug therapy
CPT/HCPCS: 45385; 45380; 82947; 88305

== ENCOUNTER 2023-03-31 13:11 | Outpatient (REF) | payer MEDICARE, SELFPAY ==
[2023-03-31 13:35] LABS: MANUAL DIFF FLAG NO
[2023-03-31 14:28] LABS: Basophils Absolute Auto 0.1 X10*3/uL (0.0-0.2); Basophils Percent Auto 0.7 % (0-2); Eosinophils Absolute Auto 0.2 X10*3/uL (0.0-0.4); Eosinophils Percent Auto 1.7 % (0-4); Hematocrit 37.5 % (37.0-47.0); Hemoglobin 12.2 g/dl (12.0-16.0); Imm Gran Abs Auto 0.06 X10*3/uL (0.00-0.03); Imm Gran Pct Auto 0.6 % (0.0-0.4); Lymphocytes Absolute Auto 2.5 X10*3/uL (1.2-4.9); Mean Corpuscular HGB Conc 32.5 g/dl (31.0-35.0); Mean Corpuscular Hemoglobin 29.3 pg (27.0-33.0); Mean Corpuscular Volume 90.1 fL (80.0-98.0); Mean Platelet Volume 10.4 fL (9.4-12.3); Monocytes Absolute Auto 0.6 X10*3/uL (0.1-1.2); Monocytes Percent Auto 5.9 % (2-11); Neutrophils Absolute Auto 6.6 x10*3/uL (2.0-8.3); Neutrophils Percent Auto 66.1 % (45-73); Platelet Count 288 X10*3/uL (160-400); Red Blood Count 4.16 X10*6/uL (4.20-5.50)
[2023-03-31 15:21] LABS: Anion Gap 11 (12-20); Blood Urea Nitrogen 23 mg/dL (9-16); Calcium 9.7 mg/dL (8.4-10.2); Carbon Dioxide 25 mmol/L (22-29); Chloride 110 mmol/L (96-108); Estimated Glomerular Filt Rate 23; Potassium 4.5 mmol/L (3.3-5.1); Sodium 141 mmol/L (135-145)
== END 2023-03-31 13:12 | disposition home or self-care (01) ==
LOC: HO.LAB 13:11
PROVIDERS: Visit Provider Internal Medicine Hypertension Specialist
DX: N18.30 Chronic kidney disease, stage 3 unspecified (principal)
CPT/HCPCS: 36415; 80051; 82310; 82565; 84520; 85025

== ENCOUNTER 2023-04-10 08:00 | Outpatient (RCR) | payer MEDICARE, SELFPAY ==
--- NOTE | 2023-03-11 09:06 | MHC.PT.EP ---
[facility] [place] Office [place] Office [place] Office [address] [phone] F: [phone] F: [phone] F: [phone] F: [phone] Physical Therapy Plan of Care Date of Evaluation: Date of Surgery: none Diagnosis: Fracture of 5th metatarsal of L foot. Assessment: Patient is a 77 year old R handed female who presents with s/s consistent with L foot pain, fracture of base of 5th MT. She does not work but does like to walk and stay active. Patient past medical history includes DM, osteoporosis, pitting edema, back pain and b/l TKA. Current impairments include pain, posture, ROM, strength, balance, swelling, activity tolerance and functional mobility. Functional limitations include decreased ability to stand, walk, transfer, perform weight bearing activities and wear normal shoes. Patient is motivated with good rehab potential. Skilled PT will address impairments and functional limitations in order to achieve goals. Frequency and Duration: The patient will be seen 2x/week for 5 weeks Short Term Goals: I with HEP - 2 weeks pitting edema 3+ - 2 weeks Mcc Goals: pitting edema 1+ - 5 weeks strength 4+/5 grossly in L LE - 5 weeks PF 40 - 5 weeks Symmetrical gait pattern - 5 weeks LEFS 62/80 - 5 weeks Treatment Plan: Modalities to reduce pain, spasms and effusion. Manual therapy to restore motion and function. Therapeutic exercise to improve strength and flexibility. Neuromuscular re-education for posture and balance. Therapeutic activities to return to functional activities of daily living. Electronically signed by: Marcel Daigle, PT Please sign and return to therapist. Thank you for your referral.
--- NOTE | 2023-04-29 08:31 | MHC.PT.DC ---
[facility] [place] [facility] [place] [facility] [place] Office [address] Supa Alvarado [address] [phone] F: [phone] F: [phone] F: [phone] F: [phone] Physical Therapy Discharge Report Diagnosis: Fracture of 5th metatarsal of L foot. Date of Surgery: none Date of Evaluation: 03/11/23 Date of Discharge: 04/11/23 Treatments to Date: 9 Cancellations to Date: No Shows to Date: Discharge Status: Improved Function Independent with HEP Discharge Summary: 04/10/23: pt progressed handsomely towards all goals and is I with HEP. she is appropriate to d/c to HEP at this time. objective progress recorded in objective section. 04/08/23: pt with no new s/s. progressing well and on pace to d/c to HEP [place]. 04/04/23: pt continues to progress well with program. improved strength, reduced pain. we will continue to progress and monitor swelling with med change. 04/01/23: pt has been progressing still with improved tolerance. she did have a little swelling post program which we addressed with elevation and ice today. 03/28/23: pt continues to progress well with ROM, strength, activity tolerance. we will continue to progress while monitoring swelling, CP to finish. 03/26/23: pt has been improving with s/s. improving strength as well. 03/19/23: pt progressing with ROM and strength. swelling still present to lesser degree. we will continue to progress as tolerated with above. 03/13/23: pt progressed with ROM, proprioception. no adverse reactions. continue to progress as tolerated. reduced swelling noted today. Patient is a 77 year old R handed female who presents with s/s consistent with L foot pain, fracture of base of 5th MT. She does not work but does like to walk and stay active. Patient past medical history includes DM, osteoporosis, pitting edema, back pain and b/l TKA. Current impairments include pain, posture, ROM, strength, balance, swelling, activity tolerance and functional mobility. Functional limitations include decreased ability to stand, walk, transfer, perform weight bearing activities and wear normal shoes. Patient is motivated with good rehab potential. Skilled PT will address impairments and functional limitations in order to achieve goals. Electronically signed by: Marcel Daigle, PT Please sign and return to therapist. Thank you for your referral.
== END 2023-04-29 08:31 | disposition home or self-care (01) ==
LOC: HO.PTCHIC 08:00
PROVIDERS: PCP Family Medicine; Visit Provider Physician Assistant
DX: S92.352D Displaced fracture of fifth metatarsal bone, left foot, subsequent encounter for fracture with routine healing (principal)
CPT/HCPCS: 97110; 97112; 97163

== ENCOUNTER 2023-04-15 10:03 | Outpatient (REF) | payer MEDICARE, SELFPAY ==
--- NOTE | ~2023-04-15 | XR_ITS ---
EXAMINATION: XR CHEST CLINICAL INFORMATION: Shoulder pain COMPARISON: None available. TECHNIQUE: 2 views of the chest were obtained. FINDINGS: No significant abnormality is noted involving the heart, lungs, mediastinum, bony thorax or soft tissues. XR/XR chest 2V IMPRESSION: Unremarkable examination.
== END 2023-04-15 10:04 | disposition home or self-care (01) ==
LOC: HO.HMGCX 10:03
PROVIDERS: PCP Family Medicine; Visit Provider Family Medicine
DX: M25.519 Pain in unspecified shoulder (principal)
CPT/HCPCS: 71046

== ENCOUNTER 2023-05-06 08:46 | Outpatient (REF) | payer MEDICARE, SELFPAY ==
[2023-05-06 10:44] LABS: Hematocrit 37.7 % (37.0-47.0); Hemoglobin 11.9 g/dl (12.0-16.0); Mean Corpuscular HGB Conc 31.6 g/dl (31.0-35.0); Mean Corpuscular Hemoglobin 28.6 pg (27.0-33.0); Mean Corpuscular Volume 90.6 fL (80.0-98.0); Mean Platelet Volume 10.1 fL (9.4-12.3); Platelet Count 269 X10*3/uL (160-400); Red Blood Count 4.16 X10*6/uL (4.20-5.50); Red Cell Distribution Width 13.3 % (11.0-16.0); White Blood Count 6.3 X10*3/uL (4.8-10.8)
[2023-05-06 10:58] LABS: Anion Gap 16 (12-20); Blood Urea Nitrogen 35 mg/dL (9-16); Calcium 10.3 mg/dL (8.4-10.2); Carbon Dioxide 25 mmol/L (22-29); Chloride 106 mmol/L (96-108); Estimated Glomerular Filt Rate 20; Potassium 4.6 mmol/L (3.3-5.1); Sodium 142 mmol/L (135-145)
== END 2023-05-06 08:47 | disposition home or self-care (01) ==
LOC: HO.10HDL 08:46
PROVIDERS: Visit Provider Internal Medicine Hypertension Specialist
DX: N18.30 Chronic kidney disease, stage 3 unspecified (principal)
CPT/HCPCS: 36415; 80051; 82310; 82565; 84520; 85027

== ENCOUNTER 2023-05-07 07:40 | Outpatient (REF) | payer MEDICARE, SELFPAY ==
[2023-05-07 12:30] LABS: Creatinine Urine 74.58 mg/dL; Total Protein Urine Random < 7 mg/dL (<12)
== END 2023-05-07 07:41 | disposition home or self-care (01) ==
LOC: HO.10HDLNP 07:40
PROVIDERS: Visit Provider Internal Medicine Hypertension Specialist
DX: Z13.89 Encounter for screening for other disorder (principal)
CPT/HCPCS: 84156

== ENCOUNTER 2023-06-12 08:27 | Outpatient (AMB) | payer MEDICARE, SELFPAY ==
--- NOTE | 2023-06-12 08:31 | MHC.PC.OV ---
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 Accompanied by: Self / Same As Patient Allergies LEFTY Inhibitors [Lefty Inhibitors] Allergy (Unknown, Verified 06/12/23 08:35) SWELLING beta blockers Allergy (Unknown, Verified 06/12/23 08:35) leg swelling oxycodone [OXYCODONE] Allergy (Unknown, Verified 06/12/23 08:35) NAUSEA & VOMITING rivaroxaban [From XARELTO] Allergy (Unknown, Verified 06/12/23 08:35) SWELLING cat dander Allergy (Verified 06/12/23 08:35) Unknown grass pollen Allergy (Verified 06/12/23 08:35) Unknown mold Allergy (Verified 06/12/23 08:35) Unknown ZerLor Allergy (Unknown, Uncoded 04/11/23 09:51) Rash Swelling Tobacco use date assessed: 12/24/22 Fall risk assessment: No Falls in past year Last assessed Fall Risk: 06/12/23 Dental Screening Dental Screen Date: 06/12/23 Did you have a dental visit in the last 12 months?: Yes Did you have a dental problem in the last 6 months where you did not have access to dental care?: No Was dental information given to patient?: Patient has dentist ON LICENSE OF [facility] Medical History CKD (chronic kidney disease) Depression Diabetes type 2, controlled Essential hypertension Hyperlipidemia Hypothyroidism Osteoporosis Thigh pain Surgical History History of breast biopsy History of tonsillectomy History of total left knee replacement (TKR) History of total right knee replacement (TKR) Family History Father CAD (coronary artery disease) CVD (cardiovascular disease) Mother Colon cancer Brother Cancer of prostate Throat cancer Tongue cancer Social History Housing: House Alcohol intake: current Alcohol intake frequency: holidays/special occasions only Patient Tobacco Use Status: Former Tobacco user Tobacco use type: Cigarette e-Cigarette/Vaping Use: Never Used Second Hand Smoke Exposure: No service: No 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al status: retired 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 Aubrey Barbour, Fozia Rod, Tomas Leung and colleagues, with an educational darwin from [employer]. Physical exam (Primary Care) Vital Signs: Last Vital Signs Pulse 65 06/12/23 08:32 BP 128/68 06/12/23 08:32 Pulse Ox 97 06/12/23 08:32 BMI result Body Mass Index 35.5 Tobacco/Smoking Status: Tobacco use Status Tobacco use date assessed 12/24/22 06/12/23 08:32 Patient Tobacco Use Status Former Tobacco user 06/12/23 08:32 Tobacco use type Cigarette 06/12/23 08:32 e-Cigarette/Vaping Use Never Used 06/12/23 08:32 Thrive Assessment: Date of Thrive Assessment Date Thrive assessed 12/24/22 06/12/23 08:32 Results AMB Hemoglobin A1c AMB Hemoglobin A1c 7.3 % Last Edit by Chirag Collins CMA on 06/12/23 08:50 Results Reviewed Results Reviewed: Laboratory Last Values Hgb A1c (Clinic) 7.3 % (4.0-6.0) H 06/12/23 08:43 Assessment and Plan Assessment & Plan (1) Uncontrolled diabetes mellitus with hyperglycemia: Code(s): E11.65 - Type 2 diabetes mellitus with hyperglycemia Plan: A1c much improved with just glipizide She has not tolerated other medications. Continue current medication regimen Continue diabetic diet and weight control. Continue exercise Eye exam in September showed no diabetic retinopathy Followed by Podiatry every 2 months (2) Essential hypertension: Code(s): I10 - Essential (primary) hypertension Plan: Blood pressure is controlled. Goal is less than 140/90 Continue current medication regimen (3) Chronic renal failure: Code(s): N18.9 - Chronic kidney disease, unspecified Plan: Followed by Nephrology. Renal function essentially at baseline Follow-up with nephrology as recommended (4) Rotator cuff tendinitis: Code(s): M75.80 - Other shoulder lesions, unspecified shoulder Plan: Continue exercises from physical therapy Tylenol Orders: Orders AMB Hemoglobin A1c Today E11.65 - Type 2 diabetes mellitus with hyperglycemia Hemoglobin A1c 10 Weeks E11.65 - Type 2 diabetes mellitus with hyperglycemia, R73.01 - Impaired fasting glucose Medications: Changed From glipizide ER 5 mg PO DAILY 30 days 30 tabs 2RF To glipizide ER 10mg AM and 10mg PM orally 2 times a day; 360 tabs 2RF 90 days Coding Level of Care Code Est Pt Level 4 (04379) Diagnoses Uncontrolled diabetes mellitus with hyperglycemia E11.65 Essential hypertension I10 Chronic renal failure N18.9 Rotator cuff tendinitis M75.80
[2023-06-12 08:32] VITALS: BP 128/68; PULSE 65; O2SAT 97; BMI 35.5
== END 2023-06-12 09:16 | disposition home or self-care (01) ==
PROVIDERS: PCP Family Medicine; Visit Provider Family Medicine
DX: E11.65 Type 2 diabetes mellitus with hyperglycemia (principal); I12.9 Hypertensive chronic kidney disease with stage 1 through stage 4 chronic kidney disease, or unspecified chronic kidney disease; N18.9 Chronic kidney disease, unspecified; M75.80 Other shoulder lesions, unspecified shoulder
CPT/HCPCS: 83036; 99214

== ENCOUNTER 2023-06-30 09:06 | Outpatient (AMB) | payer MEDICARE, SELFPAY ==
--- NOTE | 2023-06-30 09:53 | MHC.OFFWIV ---
Intake Vital Signs 06/30/23 09:54 Height 5 ft 2 in Weight 209 lb BMI 38.2 BP 132/76 Blood Pressure Location Lt brachial Position Sitting Pulse 80 Pulse Source Pulse Oximeter Temp 96.7 F L Temp Source Temporal Artery Scan Pulse Oximetry (%) 100 Oxygen Delivery Method Room Air Intake Visit Reasons: EP pain on left side of hip (lobby) Intake Note: Pt is here c/o left side hip pain for the last seven days. Pt states no falls or injuries. Patient Tobacco Use Status: Former Tobacco user Allergies LEFTY Inhibitors [Lefty Inhibitors] Allergy (Unknown, Verified 06/30/23 10:36) SWELLING beta blockers Allergy (Unknown, Verified 06/30/23 10:36) leg swelling oxycodone [OXYCODONE] Allergy (Unknown, Verified 06/30/23 10:36) NAUSEA & VOMITING rivaroxaban [From XARELTO] Allergy (Unknown, Verified 06/30/23 10:36) SWELLING cat dander Allergy (Verified 06/30/23 10:36) Unknown grass pollen Allergy (Verified 06/30/23 10:36) Unknown mold Allergy (Verified 06/30/23 10:36) Unknown ZerLor Allergy (Unknown, Uncoded 06/30/23 10:36) Rash Swelling Medication List - Last Reconciled 06/30/23 by Rick Osborn MD aliskiren 75 mg PO DAILY betamethasone dipropionate 0.05% appl topical blood sugar diagnostic As directed blood sugar diagnostic (Accu-Chek SmartView Test Strips) 2 times a day As directed, 90 days blood-glucose meter As directed cetirizine (Zyrtec) 10 mg PO DAILY PRN compr.stocking,knee,long,large Daily As directed. 30 days. 10-20 mm Hg cyanocobalamin (vitamin B-12) 500 mcg PO DAILY ergocalciferol (vitamin D2) 1,250 mcg PO Q2W fluoxetine (Prozac) 10 mg PO DAILY 90 days furosemide 20 mg PO DAILY glipizide 20 mg PO DAILY glipizide ER 10mg AM and 10mg PM orally 2 times a day; 90 days lancets As directed levothyroxine 50 mcg PO QAM 90 days lidocaine 5% (Lidoderm) 1 patch topical DAILY 30 days nystatin topical DIRECTED rosuvastatin 10 mg PO DAILY 30 days triamcinolone acetonide 0.1% appl topical Do you need a note to return to daycare/school/sports/work: No HPI EP pain on left side of hip (lobby) HPI Details 77-year-old female presents to the office for a sick visit. Patient is reporting symptoms of left hip pain for the past week. Does not recall fall or injury. Patient has extensive osteoarthritis with 2 knee replacements. She started experiencing this pain last week and is limping. She is traveling to [place] for a big wedding and would like to get the hip evaluated. [facility] Medical History CKD (chronic kidney disease) Depression Diabetes type 2, controlled Essential hypertension Hyperlipidemia Hypothyroidism Osteoporosis Thigh pain Surgical History History of breast biopsy History of tonsillectomy History of total left knee replacement (TKR) History of total right knee replacement (TKR) Family History Father CAD (coronary artery disease) CVD (cardiovascular disease) Mother Colon cancer Brother Cancer of prostate Throat cancer Tongue cancer Social History Housing: House Alcohol intake: current Alcohol intake frequency: holidays/special occasions only Patient Tobacco Use Status: Former Tobacco user Tobacco use type: Cigarette e-Cigarette/Vaping Use: Never Used Second Hand Smoke Exposure: No service: No 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al status: retired 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 No pain on internal and external rotation. Abduction and adduction of the hip causes minimal discomfort. Assessment & Plan Assessment & Plan (1) Sprain of hip: Code(s): S73.109A - Unspecified sprain of unspecified hip, initial encounter Plan: X-ray images were personally reviewed by me. Extensive osteoarthritis. Cyclobenzaprine added to the regimen. Orders: Orders XR hip LT min 2V Today S73.109A - Unspecified sprain of unspecified hip, initial encounter Coding Level of Care Code Est Pt Level 4 (84232) Diagnoses Sprain of hip S73.109A
[2023-06-30 09:54] VITALS: BP 132/76; PULSE 80; TEMP 35.9; O2SAT 100; BMI 38.2
== END 2023-06-30 12:00 | disposition home or self-care (01) ==
PROVIDERS: PCP Family Medicine; Visit Provider Internal Medicine
DX: S73.109A Unspecified sprain of unspecified hip, initial encounter (principal)
CPT/HCPCS: 99214

== ENCOUNTER 2023-06-30 10:39 | Outpatient (REF) | payer MEDICARE, SELFPAY ==
--- NOTE | ~2023-06-30 | XR_ITS ---
EXAMINATION: XR HIP, LEFT CLINICAL INFORMATION: Left hip pain. COMPARISON: None available. TECHNIQUE: Two views of the left hip. FINDINGS: Moderate left hip degenerative joint changes are seen with joint space narrowing, periarticular sclerosis and marginal osteophyte formation. The left hemipelvis is intact. The soft tissues are unremarkable. XR/XR hip LT min 2V IMPRESSION: Moderate left hip degenerative joint changes most consistent with osteoarthritis.
== END 2023-06-30 10:40 | disposition home or self-care (01) ==
LOC: HO.HMGCX 10:39
PROVIDERS: PCP Family Medicine; Visit Provider Internal Medicine
DX: S73.102A Unspecified sprain of left hip, initial encounter (principal)
CPT/HCPCS: 73502

== ENCOUNTER 2023-08-12 09:10 | Outpatient (AMB) | payer MEDICARE, SELFPAY ==
--- NOTE | 2023-08-12 09:29 | A.OFFVIS_ITS ---
Intake Vital Signs 08/12/23 09:35 Height 5 ft 2 in Weight 209 lb BMI 38.2 Intake Visit Reasons: New Prob- Left hip pain Intake Note: Guadalupe is a 78 year old female who presents today as for a evaluation of her left hip pain. Patient reports ongoing pain for 2 months. She states that her pain is near the groin area and it moves down on to her thigh. No hx of PT or injectons. Allergies LEFTY Inhibitors [Lefty Inhibitors] Allergy (Unknown, Verified 08/12/23 09:30) SWELLING beta blockers Allergy (Unknown, Verified 08/12/23 09:30) leg swelling oxycodone [OXYCODONE] Allergy (Unknown, Verified 08/12/23 09:30) NAUSEA & VOMITING rivaroxaban [From XARELTO] Allergy (Unknown, Verified 08/12/23 09:30) SWELLING cat dander Allergy (Verified 08/12/23 09:30) Unknown grass pollen Allergy (Verified 08/12/23 09:30) Unknown mold Allergy (Verified 08/12/23 09:30) Unknown ZerLor Allergy (Unknown, Uncoded 06/30/23 10:36) Rash Swelling HPI New Prob- Left hip pain HPI Details 78-year-old female who presents in the [facility] today for an evaluation of left hip pain. The patient reports ongoing pain for 2 months, since 05/2023. She feel the pain started over night. She confirms the left hip pain is greater then the right hip pain. She states [place] walks around the mall daily for exercise. She claims her pain is near the groin area and it radiates down to her thigh. She denies prior treatments of physical therapy or cortisone injection. She states the hip is affect her daily quality of life like getting in and out of the car and shower. She states she is over compensating with the right hip which is causing increasing pain in the right hip. She states she has pain that starts at her tail bone that radiates to the bilateral knees. She confirms she has a PCP appointment in August that she would like to obtain surgical clearance at. Patient has been ambulating with a cane since 06/2023 due to increasing pain and her not wanting to fall. She feels that her left hip pain is impacting the quality of her life an limiting her on what she is able to do. Patient has a significant medical history of chronic kidney disease, hypertension, diabetes mellitus, and hypothyroidism. A1c of 7.3 on 06/12/2023. [facility] Medical History CKD (chronic kidney disease) Depression Diabetes type 2, controlled Essential hypertension Hyperlipidemia Hypothyroidism Osteoporosis Thigh pain Surgical History History of breast biopsy History of tonsillectomy History of total left knee replacement (TKR) History of total right knee replacement (TKR) Family History Father CAD (coronary artery disease) CVD (cardiovascular disease) Mother Colon cancer Brother Cancer of prostate Throat cancer Tongue cancer Social History Housing: House Alcohol intake: current Alcohol intake frequency: holidays/special occasions only Patient Tobacco Use Status: Former Tobacco user Tobacco use type: Cigarette e-Cigarette/Vaping Use: Never Used Second Hand Smoke Exposure: No service: No 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al status: retired 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al exposures/hazards: No Cognitive needs: No Hearing needs: No Vision needs: No Review of Systems Const All systems reviewed & are unremarkable except as noted in HPI and below Physical Exam Vital Signs: BMI result Body Mass Index 38.2 Const General: cooperative, healthy appearing and no acute distress Resp Effort & Inspection: normal respiratory effort and able to speak in complete sentences Cardio Rate: regular rate Peripheral pulses: Peripheral pulses 2+ throughout GI Palpation (GI): Soft to palpation Skin Lesions: no lesions Rashes: no rashes Extrem Other: Left hip: Normal to inspection. No ecchymosis, erythema, or edema. Limited internal and external rotation. No tenderness to palpation over the greater trochanteric bursa. 5/5 strength with resisted hip flexion, knee extension, abduction, and abduction. Able to perform straight leg raise. NVI. Assessment & Plan Assessment & Plan (1) Osteoarthritis of left hip: Code(s): M16.12 - Unilateral primary osteoarthritis, left hip Qualifiers: Osteoarthritis type: unspecified Qualified Code(s): M16.12 - Unilateral primary osteoarthritis, left hip Plan Ms. Muro is a 78-year-old female who presents in the office today for an evaluation of left hip pain. The patient reports ongoing pain for 2 months, since 05/2023. She feel the pain started over night. She confirms the left hip pain is greater then the right hip pain. She states she walks around the mall daily for exercise. She claims her pain is near the groin area and it radiates down to her thigh. She denies prior treatments of physical therapy or cortisone injection. She states the hip is affect her daily quality of life like getting in and out of the car and shower. She states she is over compensating with the right hip which is causing increasing pain in the right hip. She states she has pain that starts at her tail bone that radiates to the bilateral knees. She confirms she has a PCP appointment in September that she would like to obtain surgical clearance at. Patient has been ambulating with a cane since 06/2023 due to increasing pain and her not wanting to fall. She feels that her left hip pain is impacting the quality of her life an limiting her on what she is able to do. Patient has a significant medical history of chronic kidney disease, hypertension, diabetes mellitus, and hypothyroidism. A1c of 7.3 on 06/12/2023. I discussed in detail the procedure and what to expect pre and post operatively. We discussed the risks, benefits and alternatives to the surgery as well as the rehabilitation course. The risks; which include, but are not limited to infection, bleeding, nerve injury, ongoing pain, swelling, and stiffness, perioperative risk of injury to bones and soft tissues, and blood clots. She would like to move forward with surgical planning. I discussed the role of referring the patient to Pain Management for further evaluation of the lower spine. The patient would like to move forward with left hip arthroplasty. She would like to have surgery in September 2023 if possible. Her information was sent to Khadijah, our nurse navigator, who will contact the patient to move forward with surgical planning. Follow up will be at her pre- operative appointment, or sooner if needed. X-rays of the bilateral hips obtained while in the office today and reviewed by me, Dara Khan PA-C, revealed severe osteoarthritis with the left hip being worse then the right hip. Orders: Orders XR pelvis 1-2V Today M25.559 - Pain in unspecified hip Patient Instructions: Scribed for Dara Khan PA-C by Lidya Maddox medical supervisor, on 08/12/2023 at 9:18 am, EST. Coding Level of Care Code Est Pt Level 4 (67446) Diagnoses Osteoarthritis of left hip, unspecified osteoarthritis type M16.12 Osteoarthritis type: unspecified
[2023-08-12 09:35] VITALS: BMI 38.2
== END 2023-08-12 10:06 | disposition home or self-care (01) ==
PROVIDERS: PCP Family Medicine; Visit Provider Physician Assistant
DX: M16.12 Unilateral primary osteoarthritis, left hip (principal)
CPT/HCPCS: 99214

== ENCOUNTER 2023-08-12 11:59 | Outpatient (REF) | payer MEDICARE, SELFPAY ==
--- NOTE | ~2023-08-12 | XR_ITS ---
EXAMINATION: XR PELVIS CLINICAL INFORMATION: Hip pain COMPARISON: TECHNIQUE: AP view of the pelvis. FINDINGS: Unchanged severe [id number] left hip joint narrowing. Possible left femoral acetabular impingement areas Calcifications identified about the left hip. Severe right hip joint narrowing. Possible femoral acetabular impingement. Bony pelvis is intact. SI joints within normal limits. Degenerative changes lower lumbar spine. No acute fracture or dislocation. XR/XR pelvis 1-2V IMPRESSION: Persistent advanced osteoarthritis bilateral hips, left greater than right.
== END 2023-08-12 12:00 | disposition home or self-care (01) ==
LOC: HO.HOSX 11:59
PROVIDERS: Visit Provider Physician Assistant
DX: M16.12 Unilateral primary osteoarthritis, left hip (principal)
CPT/HCPCS: 72170; 99212

== ENCOUNTER 2023-08-20 10:28 | Outpatient (REF) | payer MEDICARE, SELFPAY ==
[2023-08-20 14:25] LABS: Anion Gap 15 (12-20); Blood Urea Nitrogen 27 mg/dL (9-16); Calcium 9.4 mg/dL (8.4-10.2); Carbon Dioxide 25 mmol/L (22-29); Chloride 104 mmol/L (96-108); Estimated Glomerular Filt Rate 26; Glucose Random 235 mg/dL (60-115); Potassium 3.7 mmol/L (3.3-5.1); Sodium 140 mmol/L (135-145)
[2023-08-21 10:48] LABS: Calcium (PTHI) 9.3 mg/dL (8.6-10.4); PTHI 143 pg/mL (16-77)
== END 2023-08-20 10:29 | disposition home or self-care (01) ==
LOC: HO.10HDL 10:28
PROVIDERS: Visit Provider Internal Medicine Hypertension Specialist
DX: N18.4 Chronic kidney disease, stage 4 (severe) (principal)
CPT/HCPCS: 36415; 80048; 83970

== ENCOUNTER 2023-09-01 10:48 | Outpatient (AMB) | payer MEDICARE, SELFPAY ==
--- NOTE | 2023-09-01 10:58 | MHC.OFFVIS ---
Intake Intake Visit Reasons: discuss LT ANGELA scheduled for 12/02/23 Intake Note: Guadalupe is a 78 year old female who presents today to discuss a Left Total Hip Arthroplasty. Allergies semaglutide [From Ozempic] Allergy (Severe, Verified 09/01/23 11:00) Swelling LEFTY Inhibitors [Lefty Inhibitors] Allergy (Unknown, Verified 09/01/23 11:00) SWELLING beta blockers Allergy (Unknown, Verified 09/01/23 11:00) leg swelling oxycodone [OXYCODONE] Allergy (Unknown, Verified 09/01/23 11:00) NAUSEA & VOMITING rivaroxaban [From XARELTO] Allergy (Unknown, Verified 09/01/23 11:00) SWELLING cat dander Allergy (Verified 09/01/23 11:00) Unknown grass pollen Allergy (Verified 09/01/23 11:00) Unknown mold Allergy (Verified 09/01/23 11:00) Unknown ZerLor Allergy (Unknown, Uncoded 09/01/23 11:00) Rash Swelling Medication List - Last Reconciled 09/01/23 by Taylor Mahmood RN aliskiren 75 mg PO DAILY betamethasone dipropionate 0.05% appl topical blood sugar diagnostic As directed blood sugar diagnostic (Accu-Chek SmartView Test Strips) 2 times a day As directed, 90 days blood-glucose meter As directed cetirizine (Zyrtec) 10 mg PO DAILY PRN compr.stocking,knee,long,large Daily As directed. 30 days. 10-20 mm Hg cyanocobalamin (vitamin B-12) 500 mcg PO DAILY cyclobenzaprine 10 mg PO BEDTIME dapagliflozin propanediol (Farxiga) 10 mg PO DAILY ergocalciferol (vitamin D2) 1,250 mcg PO Q2W fluoxetine (Prozac) 10 mg PO DAILY 90 days furosemide 20 mg PO DAILY glipizide 20 mg PO DAILY glipizide ER 10mg AM and 10mg PM orally 2 times a day; 90 days lancets As directed levothyroxine 50 mcg PO QAM 90 days lidocaine 5% (Lidoderm) 1 patch topical DAILY 30 days nystatin topical DIRECTED rosuvastatin 10 mg PO DAILY 30 days triamcinolone acetonide 0.1% appl topical HPI discuss LT ANGELA scheduled for 12/02/23 HPI Details Guadalupe is a 78 year old Diabetic woman who presents to discuss her left hip OA. She complains of pain in her left hip, localized primarily to her groin. She also has pain that radiates down her left and into her knee, and she feels this is causing her knee stiffness. She says she has pain with weight-bearing and daily activity. She needs an assistive stool to climb into and out of her car, and has difficulty standing from a seated position, climbing into her bed, or with walking. She used to go to her local mall and walk laps there daily, but she says she has not been able to do this since at least June and she feels frustrated by this limitation. She denies any numbness, tingling, or burning. She has a hx of lumbar injections in the past, and denies any LBP. [facility] Medical History (Updated 09/01/23 @ 11:17 by Pk Nelson) Diabetes type 2, controlled CKD (chronic kidney disease) Hyperlipidemia Thigh pain Osteoporosis Hypothyroidism Depression Essential hypertension Surgical History History of tonsillectomy History of total right knee replacement (TKR) History of breast biopsy History of total left knee replacement (TKR) Family History Father CAD (coronary artery disease) CVD (cardiovascular disease) Mother Colon cancer Brother Cancer of prostate Throat cancer Tongue cancer Social History Housing: House Alcohol intake: current Alcohol intake frequency: holidays/special occasions only Patient Tobacco Use Status: Former Tobacco user Tobacco use type: Cigarette e-Cigarette/Vaping Use: Never Used Second Hand Smoke Exposure: No service: No 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al status: retired 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al exposures/hazards: No Cognitive needs: No Hearing needs: No Vision needs: No Review of Systems Const All systems reviewed & are unremarkable except as noted in HPI and below Physical Exam Const General: no acute distress, alert and awake Orientation/consciousness: patient oriented x3 HEENT Head: Yes normocephalic and Yes atraumatic Eyes EOM: EOMs intact bilaterally Resp Effort & Inspection: normal respiratory effort and able to speak in complete sentences Cardio Jugular venous distension: no JVD Skin General skin exam: turgor normal Rashes: no rashes Neuro General: patient oriented x3 Extrem Other: Left Hip: antalgic gait with left trendelenberg + impingement and + Stinchfield on left Psych Appearance: grossly normal Affect: normal affect Attitude: cooperative Results Reviewed Results Reviewed: I personally reviewed relevant radiographs. Moderate-severe left hip degenerative joint changes most consistent with osteoarthritis. Assessment & Plan Assessment & Plan (1) Osteoarthritis of left hip: Code(s): M16.12 - Unilateral primary osteoarthritis, left hip Qualifiers: Osteoarthritis type: unspecified Qualified Code(s): M16.12 - Unilateral primary osteoarthritis, left hip Plan: This is a 78 year old woman with left hip OA. She has pain with weight-bearing and is limited in her ADLs. She is unable to ambulate for long distances, (greater than 10 min) which she finds frustrating. I recommend left ANGELA.. I discussed the risks, benefits, and alternatives including, but not limited to, the risk of pain, infection, stiffness, need for further surgery as well as potential medical complications such as blood clots, pulmonary embolism and cardiac complications. I discussed the recovery timeline and process as well as the importance of PT. Guadalupe is a good candidate for this surgery, and she wishes to proceed with this decision. She will speak with Khadijah about this procedure. (2) Diabetes type 2, controlled: Code(s): E11.9 - Type 2 diabetes mellitus without complications Plan: Her most recent HgA1c was 7.3% on 06/12/23 Coding Level of Care Code Est Pt Level 4 (70576) Diagnoses Osteoarthritis of left hip, unspecified osteoarthritis type M16.12 Osteoarthritis type: unspecified Diabetes type 2, controlled E11.9
== END 2023-09-01 12:25 | disposition home or self-care (01) ==
PROVIDERS: PCP Family Medicine; Visit Provider Orthopaedic Surgery
DX: M16.12 Unilateral primary osteoarthritis, left hip (principal)
CPT/HCPCS: 99214

== ENCOUNTER → 2023-09-01 10:48 | Outpatient (BNVA) | payer MEDICARE, SELFPAY | PROVIDERS: PCP Family Medicine; Visit Provider Orthopaedic Surgery | DX: M16.12 Unilateral primary osteoarthritis, left hip (principal); E11.9 Type 2 diabetes mellitus without complications | CPT/HCPCS: 99212 ==

== ENCOUNTER 2023-09-08 07:44 | Outpatient (REF) | payer MEDICARE, SELFPAY ==
[2023-09-08 10:35] LABS: Estimated Average Glucose 169 mg/dL; Hemoglobin A1c % 7.5 % (<6.0)
[2023-09-08 10:39] LABS: Alanine Aminotransferase 10 U/L (0-31); Albumin Level 3.7 g/dL (3.5-5.0); Alkaline Phosphatase 101 U/L (39-117); Anion Gap 14 (12-20); Aspartate Amino Transferase 13 U/L (5-31); Bilirubin Total 0.7 mg/dL (0.0-1.0); Blood Urea Nitrogen 24 mg/dL (9-16); Calcium 9.9 mg/dL (8.4-10.2); Carbon Dioxide 21 mmol/L (22-29); Chloride 108 mmol/L (96-108); Estimated Glomerular Filt Rate 22; Glucose Fasting 188 mg/dL (60-99); Potassium 3.5 mmol/L (3.3-5.1); Sodium 139 mmol/L (135-145); Total Protein 6.9 g/dL (6.5-8.0)
== END 2023-09-08 07:45 | disposition home or self-care (01) ==
LOC: HO.LAB 07:44
PROVIDERS: PCP Family Medicine; Visit Provider Family Medicine
DX: Z00.00 Encounter for general adult medical examination without abnormal findings (principal); E11.65 Type 2 diabetes mellitus with hyperglycemia
CPT/HCPCS: 36415; 80053; 83036

== ENCOUNTER 2023-09-10 08:20 | Outpatient (AMB) | payer MEDICARE, SELFPAY ==
[2023-09-10 08:40] VITALS: BP 134/78; PULSE 80; RESP 13; TEMP 36.6; O2SAT 99; BMI 36.6
--- NOTE | 2023-09-10 08:40 | MHC.PC.OV ---
Vital Signs 09/10/23 08:40 Height 5 ft 2 in Weight 200 lb 6 oz BMI 36.6 BP 134/78 Blood Pressure Location Lt brachial Position Sitting Respiration 13 Pulse 80 Pulse Source Pulse Oximeter Temp 97.8 F Temp Source Temporal Artery Scan Pulse Oximetry (%) 99 Oxygen Delivery Method Room Air Intake Visit Reasons: f/u diabetes, hypertension, chronic renal failure Intake Note: Patient states that she recently started taking farxiga and she is having hip surgery in November, Edge Baster Required: No Accompanied by: Self / Same As Patient Allergies semaglutide [From Ozempic] Allergy (Severe, Verified 09/10/23 08:47) Swelling LEFTY Inhibitors [Lefty Inhibitors] Allergy (Unknown, Verified 09/10/23 08:47) SWELLING beta blockers Allergy (Unknown, Verified 09/10/23 08:47) leg swelling oxycodone [OXYCODONE] Allergy (Unknown, Verified 09/10/23 08:47) NAUSEA & VOMITING rivaroxaban [From XARELTO] Allergy (Unknown, Verified 09/10/23 08:47) SWELLING cat dander Allergy (Verified 09/10/23 08:47) Unknown grass pollen Allergy (Verified 09/10/23 08:47) Unknown mold Allergy (Verified 09/10/23 08:47) Unknown ZerLor Allergy (Unknown, Uncoded 09/01/23 11:00) Rash Swelling Tobacco use date assessed: 12/24/22 Fall risk assessment: No Falls in past year Last assessed Fall Risk: 09/10/23 Dental Screening Dental Screen Date: 09/10/23 Did you have a dental visit in the last 12 months?: Yes Did you have a dental problem in the last 6 months where you did not have access to dental care?: No Was dental information given to patient?: Patient has dentist HPI f/u diabetes, hypertension, chronic renal failure HPI Details 78 y/o female presents to f/u diabetes, hypertension, and chronic renal failure. Last A1c 06/12/23 7.3%. A1c had much improved with just glipizide and had not been able to tolerate other medications. Patient states that she recently started taking farxiga. Labs were drawn 09/08/23. Reviewed labs with pt. A1c worsened from 7.3% to 7.5%. Creatinine worsened from 1.87 to 2.14. Blood pressure today 134/78. She is on alikskiren 75mg daily. Pt reports she is having hip surgery in November and she wants to make sure her blood sugars are low. HPI Comments History of Present Illness Details Documentation assistance for Fadi Craig MD, was provided by Reji Lopez,? Outside Installation Machinist on 09/10/2023 8:47 AM EST. I, Dr. Craig, have read, observed, and verified documentation. [facility] Medical History Diabetes type 2, controlled CKD (chronic kidney disease) Hyperlipidemia Thigh pain Osteoporosis Hypothyroidism Depression Essential hypertension Surgical History History of tonsillectomy History of total right knee replacement (TKR) History of breast biopsy History of total left knee replacement (TKR) Family History Father CAD (coronary artery disease) CVD (cardiovascular disease) Mother Colon cancer Brother Cancer of prostate Throat cancer Tongue cancer Social History Housing: House Alcohol intake: current Alcohol intake frequency: holidays/special occasions only Patient Tobacco Use Status: Former Tobacco user Tobacco use type: Cigarette e-Cigarette/Vaping Use: Never Used Second Hand Smoke Exposure: No service: No 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al status: retired 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 Aubrey Barbour, Fozia Rod, Tomas Leung and colleagues, with an educational darwin from [employer]. Review of Systems Const Denies chills, Denies fatigue, Denies fever(s), Denies headache(s) and Denies weakness ENT Denies dizziness and Denies headache(s) Card Denies chest pain, Denies lightheadedness, Denies dyspnea and Denies other (Palpitations) Resp Denies cough, Denies dyspnea, Denies wheezing and Denies other ( shortness of breath) Musc Denies numbness and Denies tingling Neuro Denies dizziness, Denies headache(s), Denies numbness, Denies tingling, Denies paresthesias and Denies weakness Psych Denies anxiety and Denies depression Endo Denies fatigue Aller/Immun Denies wheezing Physical exam (Primary Care) Vital Signs: Last Vital Signs Temp 97.8 F 09/10/23 08:40 Pulse 80 09/10/23 08:40 Resp 13 09/10/23 08:40 BP 134/78 09/10/23 08:40 Pulse Ox 99 09/10/23 08:40 Oxygen Delivery Method Room Air 09/10/23 08:40 BMI result Body Mass Index 36.6 Tobacco/Smoking Status: Tobacco use Status Tobacco use date assessed 12/24/22 09/10/23 08:45 Patient Tobacco Use Status Former Tobacco user 09/10/23 08:45 Tobacco use type Cigarette 09/10/23 08:45 e-Cigarette/Vaping Use Never Used 09/10/23 08:45 Thrive Assessment: Date of Thrive Assessment Date Thrive assessed 12/24/22 09/10/23 08:45 Const General: no acute distress and well developed Nutritional Appearance: well nourished Orientation/consciousness: patient oriented x3 [facility] Head: Yes normocephalic and Yes atraumatic Eyes General: appearance normal, both eyes and all related structures Pupils: Equal, round and reactive pupils present EOM: EOMs intact bilaterally Resp Effort & Inspection: normal respiratory effort Auscultation: clear to auscultation bilaterally Cardio Rate: regular rate Rhythm: regular rhythm Heart sounds: S1 normal heart sound present, S2 normal heart sound present, no gallops, no murmurs and no rubs Neuro General: patient oriented x3 and gait normal Cranial nerves: Yes Equal, round and reactive pupils present Psych Affect: normal affect Assessment and Plan Assessment & Plan (1) Diabetes type 2, controlled: Code(s): E11.9 - Type 2 diabetes mellitus without complications Plan: A1c?2?days?ago?is?7.5%?which?is?poor?control.??Goal?is?less?than?7.0% She?only?recently?started?Farxiga?and?when?she?did?so, she?discontinued?glipizide?and?then?resumed?some?as?her?blood?sugars?were?not?well?controlled?on?just?Farxiga. She?is?now?taking?Farxiga?10?mg?daily?and?glipizide?10?mg?daily?though?she?had?been?taking?glipizide?20?mg?daily. Continue?current?medication?regimen?as?she?has?just?started?this?but?advised?that?she?can?increase?her?glipizide?if?she?is?not?getting?lower?blood?sugars. Will?get?her?back?in?a?couple?of?months?to?see?how?her?control?is.??She?has?tried?many?medications?and?not?tolerated?them,?including?Ozempic,?Trulicity,?metformin?and?some?forms?of?insulin. Has?never?tried?Januvia?and?we?could?try?something?like?that?however?due?to?her?renal?function,?she?would?likely?only?be?able?to?take?25?mg?as?her?current?GFR?is?less?than?30. (2) Essential hypertension: Code(s): I10 - Essential (primary) hypertension Plan: Blood?pressure?is?fairly?well?controlled.??Goal?is?less?than?140/90 However,?patient?has?not?taken?her?medication?for?blood?pressure?this?morning?so?is?likely?better?controlled?at?home. Continue?current?medication?regimen (3) Chronic renal failure: Code(s): N18.9 - Chronic kidney disease, unspecified Plan: Likely?near?baseline?with?creatinine?clearance?around?1.9-2.2 Continue?to?control?blood?pressure,?blood?sugar?and?follow-up?with?nephrology?as?recommended (4) Osteoarthritis of left hip: Code(s): M16.12 - Unilateral primary osteoarthritis, left hip Qualifiers: Osteoarthritis type: unspecified Qualified Code(s): M16.12 - Unilateral primary osteoarthritis, left hip Plan: She?is?scheduled?for?left?hip?surgery?in?early?November. Coding Level of Care Code Est Pt Level 4 (02437) Diagnoses Diabetes type 2, controlled E11.9 Essential hypertension I10 Chronic renal failure N18.9 Osteoarthritis of left hip, unspecified osteoarthritis type M16.12 Osteoarthritis type: unspecified
== END 2023-09-10 09:10 | disposition home or self-care (01) ==
PROVIDERS: PCP Family Medicine; Visit Provider Family Medicine
DX: E11.22 Type 2 diabetes mellitus with diabetic chronic kidney disease (principal); I12.9 Hypertensive chronic kidney disease with stage 1 through stage 4 chronic kidney disease, or unspecified chronic kidney disease; N18.9 Chronic kidney disease, unspecified; M16.12 Unilateral primary osteoarthritis, left hip
CPT/HCPCS: 99214

== ENCOUNTER 2023-10-20 07:52 | Outpatient (REF) | payer MEDICARE, SELFPAY ==
[2023-10-20 10:24] LABS: MANUAL DIFF FLAG NO
[2023-10-20 10:28] LABS: Appearance Urine Clear; Color Urine Yellow; Glucose Urine UA >=1000 mg/dL (Negative); Leukocyte Esterase Urine Negative (Negative); Nitrite Urine Negative (Negative); PH 5.5 (5.0-9.0); Specific Gravity - Urine 1.015 (1.005-1.025); UMIC TRIGGER UA YES; Urine Blood Negative (Negative); Urine Ketones Negative (Negative); Urine Protein Negative (Neg-Trace)
[2023-10-20 10:31] LABS: Basophils Absolute Auto 0.1 X10*3/uL (0.0-0.2); Basophils Percent Auto 0.7 % (0-2); Eosinophils Absolute Auto 0.4 X10*3/uL (0.0-0.4); Eosinophils Percent Auto 5.5 % (0-4); Hematocrit 36.8 % (37.0-47.0); Hemoglobin 11.8 g/dl (12.0-16.0); Imm Gran Abs Auto 0.02 X10*3/uL (0.00-0.03); Imm Gran Pct Auto 0.3 % (0.0-0.4); Lymphocytes Absolute Auto 2.1 X10*3/uL (1.2-4.9); Lymphocytes Percent Auto 29.8 % (20-40); Mean Corpuscular HGB Conc 32.1 g/dl (31.0-35.0); Mean Corpuscular Hemoglobin 28.2 pg (27.0-33.0); Mean Platelet Volume 9.5 fL (9.4-12.3); Monocytes Absolute Auto 0.5 X10*3/uL (0.1-1.2); Monocytes Percent Auto 6.9 % (2-11); Neutrophils Absolute Auto 4.1 x10*3/uL (2.0-8.3); Neutrophils Percent Auto 56.8 % (45-73); Platelet Count 289 X10*3/uL (160-400); Red Blood Count 4.18 X10*6/uL (4.20-5.50); Red Cell Distribution Width 13.6 % (11.0-16.0); White Blood Count 7.1 X10*3/uL (4.8-10.8)
[2023-10-20 10:35] LABS: Bacteria Urine None Seen (None Seen); Hyaline Casts Urine 0-2 /LPF (0-2); RBC Urine 0-2 /HPF (0-2); Squamous Epithelial Cell Urine 0-2 /HPF (0-2); WBC Urine 0-5 /HPF (0-5)
[2023-10-20 10:48] LABS: Albumin Level 3.6 g/dL (3.5-5.0); Anion Gap 11 (12-20); Blood Urea Nitrogen 21 mg/dL (9-16); Calcium 9.5 mg/dL (8.4-10.2); Carbon Dioxide 24 mmol/L (22-29); Chloride 110 mmol/L (96-108); Estimated Glomerular Filt Rate 23; Magnesium 1.9 mg/dL (1.6-2.6); Phosphorus 3.4 mg/dL (2.7-4.5); Potassium 3.3 mmol/L (3.3-5.1); Sodium 142 mmol/L (135-145)
[2023-10-20 11:04] LABS: Creatinine Urine 85.85 mg/dL; Microalbum/Creatinine Ratio Ur 20.9 ug/mg cr (<30); Protein/Creatinine Ratio, Ur 0.13 (<0.2); Total Protein Urine Random 11 mg/dL (<12)
[2023-10-20 11:06] LABS: Vitamin D 25-OH Total 20.6 ng/mL (>30)
[2023-10-20 11:08] LABS: Parathyroid Hormone Intact 168.6 pg/mL (8.7-77.1)
== END 2023-10-20 07:53 | disposition home or self-care (01) ==
LOC: HO.10HDL 07:52
PROVIDERS: Visit Provider Internal Medicine Nephrology
DX: E11.22 Type 2 diabetes mellitus with diabetic chronic kidney disease (principal); I12.9 Hypertensive chronic kidney disease with stage 1 through stage 4 chronic kidney disease, or unspecified chronic kidney disease; N18.4 Chronic kidney disease, stage 4 (severe)
CPT/HCPCS: 36415; 80051; 81001; 82040; 82043; 82306; 82310; 82565; 82570; 83735; 83970; 84100; 84156; 84520; 85025

== ENCOUNTER 2023-11-12 08:31 | Outpatient (AMB) | payer MEDICARE, SELFPAY ==
--- NOTE | 2023-11-12 08:38 | MHC.PC.OV ---
Vital Signs 11/12/23 08:46 Height 5 ft 2 in Weight 200 lb BMI 36.6 BP 134/68 Blood Pressure Location Lt brachial Position Sitting Respiration 13 Pulse 68 Pulse Source Pulse Oximeter Pulse Oximetry (%) 98 Oxygen Delivery Method Room Air Intake Visit Reasons: f/u diabetes L hip pre op Intake Note: Patient is here to discuss diabetic care and a pre-op of her L hip with Dr. Dionicio Dove. Patient's last A1C was 7.5 on 09/08/23. Patient is requesting her atorvastatin to be refilled. Patient reports she has not taken her atorvastatin in 3 weeks due to medication not being sent to the pharmacy. Patient brought in her blood sugar testing at home, which was scanned into patients chart and left on the counter for provider viewing. Safety Engineer Pressure Vessels Required: No Accompanied by: Self / Same As Patient Allergies semaglutide [From Ozempic] Allergy (Severe, Verified 11/12/23 08:50) Swelling LEFTY Inhibitors [Lefty Inhibitors] Allergy (Unknown, Verified 11/12/23 08:50) SWELLING beta blockers Allergy (Unknown, Verified 11/12/23 08:50) leg swelling oxycodone [OXYCODONE] Allergy (Unknown, Verified 11/12/23 08:50) NAUSEA & VOMITING rivaroxaban [From XARELTO] Allergy (Unknown, Verified 11/12/23 08:50) SWELLING cat dander Allergy (Verified 11/12/23 08:50) Unknown grass pollen Allergy (Verified 11/12/23 08:50) Unknown mold Allergy (Verified 11/12/23 08:50) Unknown ZerLor Allergy (Unknown, Uncoded 11/12/23 08:50) Rash Swelling Medication List - Last Reconciled 11/12/23 by Fadi Craig MD aliskiren 75 mg PO DAILY betamethasone dipropionate 0.05% appl topical blood sugar diagnostic As directed blood sugar diagnostic (Accu-Chek SmartView Test Strips) 2 times a day As directed, 90 days blood-glucose meter As directed cetirizine (Zyrtec) 10 mg PO DAILY PRN compr.stocking,knee,long,large Daily As directed. 30 days. 10-20 mm Hg cyanocobalamin (vitamin B-12) 500 mcg PO DAILY cyclobenzaprine 10 mg PO BEDTIME dapagliflozin propanediol (Farxiga) 10 mg PO DAILY ergocalciferol (vitamin D2) 1,250 mcg PO Q2W fluoxetine (Prozac) 10 mg PO DAILY 90 days furosemide 20 mg PO DAILY glipizide 20 mg PO DAILY glipizide ER 10mg AM and 10mg PM orally 2 times a day; 90 days lancets As directed levothyroxine 50 mcg PO QAM 90 days lidocaine 5% (Lidoderm) 1 patch topical DAILY 30 days nystatin topical DIRECTED rosuvastatin 10 mg PO DAILY 30 days triamcinolone acetonide 0.1% appl topical Tobacco use date assessed: 12/24/22 HPI f/u diabetes L hip pre op HPI Details 78 y/o female presents to f/u diabetes Also here for a pre-op for her L hip surgery with Dr. Dionicio Dove. Last A1c 09/08/23 7.5%. A1c today 11/12/23 6.9%. Patient presents for preoperative clearance prior to Hip surgery. Procedure: L Total Hip Arthroplasty. Date: December 02, 2023 Surgeon: Dionicio Dove Anesthesia: General Cardiac Hx: None Pulmonary Hx: None Prior Surgical complications: L knee surgery; bleeding. Prior Anesthesia Complications: None Coag Issues: Bleeding after L knee surgery. No coagulopathies. Has allergy to Xarelto. Functional [place]: Good functional reserve, able to walk multiple city blocks and climb flights of stairs if her knees were fine. [facility] Medical History Diabetes type 2, controlled CKD (chronic kidney disease) Hyperlipidemia Thigh pain Osteoporosis Hypothyroidism Depression Essential hypertension Surgical History History of tonsillectomy History of total right knee replacement (TKR) History of breast biopsy History of total left knee replacement (TKR) Family History Father CAD (coronary artery disease) CVD (cardiovascular disease) Mother Colon cancer Brother Cancer of prostate Throat cancer Tongue cancer Social History Housing: House Alcohol intake: current Alcohol intake frequency: holidays/special occasions only Patient Tobacco Use Status: Former Tobacco user Tobacco use type: Cigarette e-Cigarette/Vaping Use: Never Used Second Hand Smoke Exposure: No service: No 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al status: retired 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 Aubrey Barbour, Fozia Rod, Tomas Leung and colleagues, with an educational darwin from [employer]. Review of Systems Const Denies chills, Denies fatigue, Denies fever(s), Denies headache(s) and Denies weakness ENT Denies dizziness and Denies headache(s) Card Denies chest pain, Denies lightheadedness, Denies dyspnea and Denies other (Palpitations) Resp Denies cough, Denies dyspnea, Denies wheezing and Denies other ( shortness of breath) Musc Denies numbness and Denies tingling Neuro Denies dizziness, Denies headache(s), Denies numbness, Denies tingling, Denies paresthesias and Denies weakness Psych Denies anxiety and Denies depression Endo Denies fatigue Aller/Immun Denies wheezing Physical exam (Primary Care) Vital Signs: Last Vital Signs Pulse 68 11/12/23 08:46 Resp 13 11/12/23 08:46 BP 134/68 11/12/23 08:46 Pulse Ox 98 11/12/23 08:46 Oxygen Delivery Method Room Air 11/12/23 08:46 BMI result Body Mass Index 36.6 Tobacco/Smoking Status: Tobacco use Status Tobacco use date assessed 12/24/22 11/12/23 08:39 Patient Tobacco Use Status Former Tobacco user 11/12/23 08:39 Tobacco use type Cigarette 11/12/23 08:39 e-Cigarette/Vaping Use Never Used 11/12/23 08:39 Thrive Assessment: Date of Thrive Assessment Date Thrive assessed 12/24/22 11/12/23 08:39 Const General: no acute distress and well developed Nutritional Appearance: obese Orientation/consciousness: patient oriented x3 HENMT Head: Yes normocephalic and Yes atraumatic Eyes General: appearance normal, both eyes and all related structures Pupils: Equal, round and reactive pupils present EOM: EOMs intact bilaterally Resp Effort & Inspection: normal respiratory effort Auscultation: clear to auscultation bilaterally Cardio Rate: regular rate Rhythm: regular rhythm Heart sounds: S1 normal heart sound present, S2 normal heart sound present, no gallops, no murmurs and no rubs Neuro General: patient oriented x3 and gait normal Cranial nerves: Yes Equal, round and reactive pupils present Psych Affect: normal affect Results AMB Hemoglobin A1c AMB Hemoglobin A1c 6.9 % Last Edit by Noemi Minor CMA on 11/12/23 09:30 Assessment and Plan Assessment & Plan (1) Diabetes type 2, controlled: Code(s): E11.9 - Type 2 diabetes mellitus without complications Plan: A1c is now 6.9%; good control. Goal is <7.0% (2) Pre-operative clearance: Code(s): Z01.818 - Encounter for other preprocedural examination Plan: 78 y/o female w/ h/o DM and CRF presents for preop clearance prior to L total hip arthroplasty. No?cardiac?or?pulmonary?disease?and?cardiac/pulmonary?exams?within?normal?limits?today No?prior?adverse?reactions?to?anesthesia. She?has?had?some?bleeding?with?a?prior?knee?surgery?but?has?no?coagulopathies. Good?functional?reserve Low?risk?patient?for?intermediate?risk?procedure.??Patient?is?optimized. No?contraindications?to?proceeding?with?proposed?procedure. Patient?notes?allergy?to?Xarelto.??Will?likely?need?alternate?such?as?Lovenox Orders: Orders AMB Hemoglobin A1c Today Z13.9 - Encounter for screening, unspecified Medications: New atorvastatin 20 mg PO DAILY 90 days 90 tabs 3RF Changed From aliskiren 75 mg PO DAILY To aliskiren 75 mg (1/2 x 150 mg) PO DAILY 90 days 45 tabs 3RF Coding Level of Care Code Est Pt Level 4 (93228) Diagnoses Diabetes type 2, controlled E11.9 Pre-operative clearance Z01.818
[2023-11-12 08:46] VITALS: BP 134/68; PULSE 68; RESP 13; O2SAT 98; BMI 36.6
== END 2023-11-12 09:45 | disposition home or self-care (01) ==
PROVIDERS: PCP Family Medicine; Visit Provider Family Medicine
DX: E11.9 Type 2 diabetes mellitus without complications (principal); Z01.818 Encounter for other preprocedural examination
CPT/HCPCS: 83036; 99214

== ENCOUNTER → 2023-11-24 13:00 | Outpatient (BNV) | payer MEDICARE, SELFPAY | PROVIDERS: Admitting Provider Orthopaedic Surgery; PCP Family Medicine; Visit Provider Internal Medicine Cardiovascular Disease | DX: I49.3 Ventricular premature depolarization (principal); R94.31 Abnormal electrocardiogram [ECG] [EKG] | CPT/HCPCS: 93010 ==

== ENCOUNTER → 2023-11-27 13:05 | Outpatient (BNVA) | payer MEDICARE, SELFPAY | PROVIDERS: PCP Family Medicine; Visit Provider Physician Assistant ==

== ENCOUNTER 2023-12-02 06:05 | Inpatient (IN) | payer MEDICARE, SELFPAY ==
--- NOTE | 2023-11-24 | ECG_ITS ---
Test Reason : preop Blood Pressure : / mmHG Vent. Rate : 073 BPM Atrial Rate : 073 BPM P-R Int : 182 ms QRS Dur : 144 ms QT Int : 434 ms P-R-T Axes : 057 035 013 degrees QTc Int : 478 ms Sinus rhythm with occasional Premature ventricular complexes Right bundle branch block Abnormal ECG When compared with ECG of 14-MAR-2014 15:35, Premature ventricular complexes are now Present T wave inversion no longer evident in Anterior leads Referred By: Mary Beth Garcia Electronically Signed By:ANGIE FONSECA MD
[2023-11-24 12:19] VITALS: BP 136/65; PULSE 66; RESP 18; O2SAT 99; BMI 39.5
--- NOTE | 2023-11-24 12:39 | P.CONAN_ITS ---
Documented by User: Mary Beth Garcia NP 12/01/23 08:45 HPI - Anesthesia Eval Consult details Narrative: 78yo F for Left Hip Total Replacement, 12/02/23 PCP cleared Renal cleared No recent illness No CP/SOB with grocery shopping. Activity limited to hip pain. EMAIN. Never uses CPAP. 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 Follows renal. Cleared for surgery, instructed to hold farxiga. Baseline creat 1.8-2.4 DM. FBS <150 Bilat shoulder pain. Consider when positioning. LE edema L>R chronic. ~1-2+ PMFSH Active Problems Active Problems: All Active Problems (Updated 11/24/23 @ 12:18 by Ny Li RN) Pre-operative clearance (Acute) Osteoarthritis of left hip (Acute) Sprain of hip (Acute) Essential hypertension (Acute) Posterior chest pain (Acute) Shoulder pain (Acute) Uncontrolled diabetes mellitus with hyperglycemia (Acute) Rotator cuff tendinitis (Acute) Glenohumeral arthritis (Acute) Fracture of fifth metatarsal bone of left foot (Acute) Conjunctivitis (Acute) Viral illness (Acute) Left groin pain (Acute) Chronic left SI joint pain (Acute) Foot pain (Acute) Psoas muscle strain (Acute) Thigh pain (Acute) Quadriceps tendon rupture (Acute) Fracture of fifth metatarsal bone with routine healing (Acute) Fracture of fifth metatarsal bone of left foot (Acute) Fracture of proximal humerus with routine healing (Acute) Fracture of left humerus (Acute) Weakness of left foot (Acute) Multiple drug allergies (Acute) Sensitivity to medication (Acute) Edema (Acute) Screening for colon cancer (Acute) Renal cyst, right (Acute) Adult general medical exam (Acute) Screening for osteoporosis (Acute) Breast cancer screening by mammogram (Acute) Cholelithiasis (Acute) Right upper quadrant pain (Acute) Decreased hearing (Acute) Chronic renal failure (Acute) Hyperlipidemia (Acute) Diabetes type 2, controlled (Acute) Past Medical History Medical History Shoulder pain, bilateral Lumbar disc disease Sacroiliac joint disease Sleep apnea RBBB (right bundle branch block) CKD (chronic kidney disease) Hyperlipidemia Osteoporosis Hypothyroidism Depression Diabetes type 2, controlled Essential hypertension Family History Family History Father CAD (coronary artery disease) CVD (cardiovascular disease) Mother Colon cancer Brother Cancer of prostate Throat cancer Tongue cancer Family history of problems with anesthesia: No Surgical History Surgical History H/O colonoscopy History of tonsillectomy History of total right knee replacement (TKR) History of breast biopsy History of total left knee replacement (TKR) History of Problems with Anesthesia: No Social History Social History Housing: House Are you a primary foster care therapist to a significant other at home: No Do you presently have visiting nurse or other home services: No Alcohol intake: current Alcohol intake frequency: holidays/special occasions only Patient Tobacco Use Status: Former Tobacco user Quit Date: age 38 Tobacco use type: Cigarette Years Smoked: 5 e-Cigarette/Vaping Use: Never Used Second Hand Smoke Exposure: No Use of substances other than those prescribed or required for medical reasons: No Have you been hit, kicked, punched, or otherwise hurt by someone within the past year? 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al exposures/hazards: No Cognitive needs: No Hearing needs: No Vision needs: No Meds Allergies Allergy/AdvReac Type Severity Reaction Status Date / Time LEFTY Inhibitors Allergy Severe SWELLING Verified 11/27/23 13:20 [Lefty Inhibitors] beta blockers Allergy Severe leg Verified 11/27/23 13:20 swelling oxycodone [OXYCODONE] Allergy Severe NAUSEA & Verified 11/27/23 13:20 VOMITING/FATIGUE rivaroxaban [From XARELTO] Allergy Severe severe Verified 11/27/23 13:20 swelling semaglutide [From Ozempic] Allergy Severe Swelling Verified 11/27/23 13:20 cat dander Allergy Intermediate + allergy Verified 11/27/23 13:20 tesy grass pollen Allergy Intermediate + allergy Verified 11/27/23 13:20 test mold Allergy Intermediate + allergy Verified 11/27/23 13:20 test rosuvastatin [From Crestor] Allergy Intermediate Swelling Verified 11/27/23 13:20 Home Medications Medication Instructions Recorded Confirmed Last Taken Type blood sugar diagnostic #10 ea 10/03/20 11/12/23 Unknown History blood-glucose meter #1 ea 10/03/20 11/12/23 Unknown History lancets #100 ea 10/03/20 11/12/23 Unknown History ergocalciferol (vitamin D2) 1,250 1,250 mcg PO Q2W 03/27/21 11/27/23 Unknown History mcg (50,000 unit) capsule nystatin 100,000 unit/gram topical 1 appl topical DIRECTED 03/27/21 11/21/23 Unknown History cream cetirizine 10 mg capsule (Zyrtec) 10 mg PO DAILY PRN Allergy Symptoms 07/16/21 0 11/21/23 Unknown History betamethasone dipropionate 0.05 % 1 appl topical DAILY 06/19/22 11/21/23 Unknown History topical cream triamcinolone acetonide 0.1 % 1 appl topical DAILY 06/19/22 11/21/23 Unknown History topical cream furosemide 20 mg tablet 20 mg PO DAILY 04/11/23 11/27/23 12/01/23 History dapagliflozin propanediol 10 mg 10 mg PO DAILY 09/01/23 11/24/23 11/14/23 Histor y tablet (Farxiga) aliskiren 150 mg tablet 75 mg PO QAM 11/24/23 11/27/23 12/01/23 History atorvastatin 20 mg tablet 20 mg PO BEDTIME 11/24/23 11/27/23 12/01/23 History glipizide 10 mg tablet, extended 10 mg PO BID 11/24/23 11/27/23 12/01/23 History release 24 hr levothyroxine 50 mcg tablet 50 mcg PO DAILY@0600 12/02/23 12/02/23 12/02/23 History lidocaine 5 % topical patch 1 patch topical DAILY PRN Pain 12/02/23 11/21/23 Unknown History (Lidoderm) (Scale Score 4-6) Exam Height,Weight and Vital Signs: Height 5 ft 1 in Weight 94.801 kg Last Vital Signs Pulse 66 11/24/23 12:19 Resp 18 11/24/23 12:19 BP 136/65 11/24/23 12:19 Pulse Ox 99 11/24/23 12:19 O2 Del Method Room Air 11/24/23 12:19 Pertinent Lab Results Pertinent Lab Results: Laboratory Tests 10/20/23 11/12/23 08:00 09:29 WBC 7.1 Hgb 11.8 L Hct 36.8 L Plt Count 289 Sodium 142 Potassium 3.3 Chloride 110 H Carbon Dioxide 24 Anion Gap 11 L BUN 21 H Creatinine 2.05 H Estimated GFR 23 Hgb A1c (Clinic) 6.9 H Calcium 9.5 Phosphorus 3.4 Magnesium 1.9 Albumin 3.6 Narrative Narrative: EKG 11/2023 Vent. Rate : 073 BPM Atrial Rate : 073 BPM P-R Int : 182 ms QRS Dur : 144 ms QT Int : 434 ms P-R-T Axes : 057 035 013 degrees QTc Int : 478 ms Sinus rhythm with occasional Premature ventricular complexes Right bundle branch block Abnormal ECG When compared with ECG of 14-MAR-2014 15:35, Premature ventricular complexes are now Present T wave inversion no longer evident in Anterior leads ECHO 2021 Conclusions: - The left ventricular systolic function is normal. The calculated ejection fraction is 55% by biplane method. - There is mild mitral annular calcification. - There is mild calcification of the aortic valve. Possible mild aortic stenosis. Airway Mallampati Class: II TM Dist: >3cm Neck ROM: Full Partial: Upper Loose/Missing/Broken Teeth: Yes (Capped throughout on top, missing lower) Heart: RRR Lungs: CTAB Assessment and Plan Assessment Anesthesia Assessment: Anesthesia Plan Discussed and PAT Visit Final Anesthetic Review Family History of Problems with Anesthesia: No History of Problems with Anesthesia: No Documented by User: Vijaya Parada MD 12/02/23 07:58 [facility] Past Medical History Medical History Shoulder pain, bilateral Lumbar disc disease Sacroiliac joint disease Sleep apnea RBBB (right bundle branch block) CKD (chronic kidney disease) Hyperlipidemia Osteoporosis Hypothyroidism Depression Diabetes type 2, controlled Essential hypertension Family History Family History Father CAD (coronary artery disease) CVD (cardiovascular disease) Mother Colon cancer Brother Cancer of prostate Throat cancer Tongue cancer Surgical History Surgical History H/O colonoscopy History of tonsillectomy History of total right knee replacement (TKR) History of breast biopsy History of total left knee replacement (TKR) Social History Social History Housing: House Are you a primary foster care therapist to a significant other at home: No Do you presently have visiting nurse or other home services: No Alcohol intake: current Alcohol intake frequency: holidays/special occasions only Patient Tobacco Use Status: Former Tobacco user Quit Date: age 38 Tobacco use type: Cigarette Years Smoked: 5 e-Cigarette/Vaping Use: Never Used Second Hand Smoke Exposure: No Use of substances other than those prescribed or required for medical reasons: No Have you been hit, kicked, punched, or otherwise hurt by someone within the past year? 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al exposures/hazards: No Cognitive needs: No Hearing needs: No Vision needs: No Meds Allergies Allergy/AdvReac Type Severity Reaction Status Date / Time LEFTY Inhibitors Allergy Severe SWELLING Verified 11/27/23 13:20 [Lefty Inhibitors] beta blockers Allergy Severe leg Verified 11/27/23 13:20 swelling oxycodone [OXYCODONE] Allergy Severe NAUSEA & Verified 11/27/23 13:20 VOMITING/FATIGUE rivaroxaban [From XARELTO] Allergy Severe severe Verified 11/27/23 13:20 swelling semaglutide [From Ozempic] Allergy Severe Swelling Verified 11/27/23 13:20 cat dander Allergy Intermediate + allergy Verified 11/27/23 13:20 tesy grass pollen Allergy Intermediate + allergy Verified 11/27/23 13:20 test mold Allergy Intermediate + allergy Verified 11/27/23 13:20 test rosuvastatin [From Crestor] Allergy Intermediate Swelling Verified 11/27/23 13:20 Home Medications Medication Instructions Recorded Confirmed Last Taken Type blood sugar diagnostic #10 ea 10/03/20 11/12/23 Unknown History blood-glucose meter #1 ea 10/03/20 11/12/23 Unknown History lancets #100 ea 10/03/20 11/12/23 Unknown History ergocalciferol (vitamin D2) 1,250 1,250 mcg PO Q2W 03/27/21 11/27/23 Unknown History mcg (50,000 unit) capsule nystatin 100,000 unit/gram topical 1 appl topical DIRECTED 03/27/21 11/21/23 Unknown History cream cetirizine 10 mg capsule (Zyrtec) 10 mg PO DAILY PRN Allergy Symptoms 07/16/21 11/21/23 Unknown History betamethasone dipropionate 0.05 % 1 appl topical DAILY 06/19/22 11/21/23 Unknown History topical cream triamcinolone acetonide 0.1 % 1 appl topical DAILY 06/19/22 11/21/23 Unknown History topical cream furosemide 20 mg tablet 20 mg PO DAILY 04/11/23 11/27/23 12/01/23 History dapagliflozin propanediol 10 mg 10 mg PO DAILY 09/01/23 11/24/23 11/14/23 History tablet (Farxiga) aliskiren 150 mg tablet 75 mg PO QAM 11/24/23 11/27/23 12/01/23 History atorvastatin 20 mg tablet 20 mg PO BEDTIME 11/24/23 11/27/23 12/01/23 History glipizide 10 mg tablet, extended 10 mg PO BID 11/24/23 11/27/23 12/01/23 History release 24 hr levothyroxine 50 mcg tablet 50 mcg PO DAILY@0600 12/02/23 12/02/23 12/02/23 History lidocaine 5 % topical patch 1 patch topical DAILY PRN Pain 12/02/23 11/21/23 Unknown History (Lidoderm) (Scale Score 4-6) Assessment and Plan Final Anesthetic Review NPO: Yes ASA Class: III Final Preanesthetic Review: Meds/Allgs Chart Reviewed, Consent Obtained/Reviewed and Anes Risks/Benef Reviewed Patient Risk: Intermediate Procedure Risk: Intermediate Anesthetic Plan Anesthetic Plan: GA Disposition: Standard PACU
[2023-11-24 15:16] LABS: MRSA Nasal PCR NEGATIVE (Negative); SA Nasal PCR POSITIVE (Negative)
[2023-12-02] VITALS (10 sets, daily range): BP systolic 102–153; BP diastolic 51–74; PULSE 76–85; RESP 13–18; TEMP 36–36.8; O2SAT 95–99; BMI 37.6; BMI 37.7
--- NOTE | ~2023-12-02 | XR_ITS ---
EXAMINATION: XR PELVIS CLINICAL INFORMATION: Left total hip arthroplasty COMPARISON: AP pelvis 08/12/2023 TECHNIQUE: AP supine portable view of the pelvis. FINDINGS: The patient is status post left total hip arthroplasty. The acetabular component appears well seated. There is no evidence of hardware complication. There is marked narrowing of the cartilage space of the right hip with marginal osteophyte formation extending off the inferior aspect of the acetabulum and inferior aspect of the femoral head. Alignment is anatomic. Sacroiliac joints are patent. The pubic symphysis are normal. Skin akash are seen over the left hip. There is likely a small amount of gas within the soft tissues of the left hip. XR/XR pelvis 1-2V IMPRESSION: Satisfactory appearance of left total hip arthroplasty. No evidence of hardware complication.
[2023-12-02 06:42] LABS: Glucose, Whole Blood 141 mg/dL (60-115)
--- OUTSIDE RECORDS SUMMARY | 2023-12-02 06:42 | XMS_ITS | Patient Health Record ---
Author Name Unknown Organization [facility] Address [address] [place] [address] Care Team Providers Care Cook Manager Name Role Phone Fadi Craig Primary Care Provider UnavailAubrey Roman Unavailable [phone] ALLERGIES Allergen (clinical drug ingredient) Drug/Non Drug Allergy documented on EMR Reaction Allergy Type Onset Date Status oxycodone Oxycodone HCl Unknown Drug Allergy Act giancarlo rivaroxaban xarelto (uncoded) Unknown Allergy Active angiotensin-converting enzyme inhibitor (FN) vaibhav inhibitors (uncoded) Unknown Allergy Active Substance with beta adrenergic receptor antagonist mechanism of action (substance) beta blockers (uncoded) Unknown Allergy Active RESULTS Component Value Reference Range Notes Glucose, Whole Blood Reviewed date:03/22/2023 12:05:26 AM Interpretation: Performing Lab:[facility], [address] [place] [id number] Notes/Report: Glucose, Whole Blood 188 60-115 mg/dL METER # : [id number] Pathology Reviewed date:03/25/2023 08:52:50 AM Interpretation: Performing Lab:[facility], [address] [place] [id number] Notes/Report: REASON FOR REFERRAL No Information MEDICATIONS Medication SIG (Take, Route, Frequency, Duration) Notes Start Date End Date Status Aliskiren Fumarate 150 MG 1 tablet Orall y Once a day for 30 day(s) Active Vitamin B12 Active Atorvastatin Calcium 20 MG 1 tablet Oral ly Once a day Active Levothyroxine Sodium 0.05mg Active Triamterene-HCTZ 37.5-25 MG 1 tablet in the morning Orally Once a day Active Calcitriol 0.25 MCG 1 capsule Orally Onc e a day Active glipiZIDE ER 5 MG TAKE 2 TABLETS IN TH E MORNING AND 1 TABLET IN THE EVENING Oral for 90 Active IMMUNIZATIONS Vaccine Route Administration Date Status Comme nts Influenza Unknown 07/18/2017 Administered SOCIAL HISTORY Sex Assigned At : Social History Observation Description Sex Assigned At Unknown Alcohol Screen Question Answer Notes Did you have a drink contain ing alcohol in the past year? Yes How often did you have a dri nk containing alcohol in the past year? 2 to 4 times a month (2 points) How many drinks did you have on a typical day when you were drinking in the past year? 1 or 2 drinks (0 point) How often did you have 6 or more drinks on one occasion in the past year? Never (0 point) Points 2 Interpretation Negative PROBLEMS Problem Type ICD Code Onset Dates Problem Status W/U Status Risk SNOMED Code Notes Problem Colon cancer screening (Z12.11) Active confirmed 698034190 Problem Encounter for screening for malignant neoplasm of colon (Z12.11) Active confirmed 770470179 Problem History of adenomatous polyp of colon (Z86.010) Active confirmed 400301852 Problem Change in bowel habits (R19.4) Active confirmed 258515756 Problem Diverticulosis of large intestine without perforation or abscess without bleeding (K57.30) Active confirmed Diverticul ar disease of colon (488237128) Problem Family history of colon cancer (Z80.0) Active confirmed 217119640 Encounters Encounter Location Date Provider Diagnosis [facility] [address] [address] [place], [place] [id number] 03/21/2023 Aubrey Lua Colon polyps K63.5 ; Diverticulosis of large intestine without perforation or abscess without bleeding K57.30 and Other hemorrhoids K64.8 [facility] [address] [place] [address] 03/11/2023 Aubrey Lua Change in bowel habi ts R19.4 ; History of adenomatous polyp of colon Z86.010 ; Family history of colon cancer Z80.0 and Colon cancer screening Z12.11 ASSESSMENTS Encounter Date Diagnosis Assessment Notes Treatment Notes Treatment Clinical Notes 03/21/2023 Diverticulosis of large intestine without perforation or abscess without bleeding (ICD-10 - K57.30) 03/21/2023 Colon polyps (ICD-10 - K63.5) 03/11/2023 History of adenomatous polyp of colon (ICD-10 - Z86.010) 03/11/2023 Change in bowel habits (ICD-10 - R19.4) Try to increase your dietary fiber with fruits and vegetables with a lot of water to help with the BM's, or try using 2 Metamucil fiber pills once or twice a day with alot ot water. 03/21/2023 Other hemorrhoids (ICD-10 - K64.8) 03/11/2023 Family history of colon cancer (ICD-10 - Z80.0) 03/11/2023 Colon cancer screening (ICD-10 - Z12.11) Do not take the Triamterene-HCTZ the day before nor on the day of the colonoscopy PLAN OF TREATMENT Future Test Test Name Order Date COLONOSCOPY 07/16/2013 COLONOSCOPY 06/09/2018 COLONOSCOPY 03/11/2023 Insurance Providers Payer Name Payer Address Payer Phone Subscriber Number Group Number Insured Name Patient Relationship to Insured Coverage Start Date Coverage End Date MEDICARE OF [place] [address] [place] [address] [id number] LULU BRANDT Self - patient is the insured [employer] CLAIMS [address] [place] [address] [id number] LULU BRANDT Self - patient is the insured MEDICAL (GENERAL) HISTORY Medical History History ICD Code Hypothyroidism Denies DE,CVA,Lung disease Hyperlipidemia HTN Depression after knee surgery in 2011 Tubular adenoma removed in , colonoscopy in 07/2013--tubular adenomas removed, also noted was diverticulosis and internal hemorrhoids; she had her original colonoscopy in 2001 with the finding of only a hyperplastic polyp Renal insufficiency Urinary incontinence - mild Sleep apnea--not using CPAP NIDDM Colonoscopy 06/2018 with 2 small tubular adenomas removed Surgical History Surgery Date(Month/Year) Breast biopsy for benign disease. Right knee replacement in 04/[address] Dove Left knee replacement [place] [address] Lilly hutson Ginggiancarloctomy Right knee revision 2013
--- OUTSIDE RECORDS SUMMARY | 2023-12-02 06:42 | XMS_ITS | Patient Health Record ---
Author Name Unknown [facility] Address [address] [place] [address] Care Team Providers Care Dietician Name Role Phone Fadi Craig MD Primary Care Provider Francisco Whittaker Unavailable [phone] ALLERGIES Allergen (clinical drug ingredient) Drug/Non Drug Allergy documented on EMR Reaction Allergy Type Onset Date Status blood pressure meds (uncoded) Unknown Allergy Active rivaroxaban Xarelto Unknown Drug Allergy Activ e oxycodone Oxycodone Unknown Drug Allergy Active Substance with sulfonamide structure and antibacterial mechanism of action (substance) Sulfa Antibiotics Unknown Drug Allergy Active RESULTS Component Value Reference Range Notes HEMOGLOBIN A1C (GLYCOHEMOGLO BIN) Reviewed date:06/17/2023 08:45:24 AM Interpretation: Performing Lab: Notes/Report: TOTAL HEMOGLOBIN (HGBA1C) HEMOGLOBIN A1C (HH) 7.2 HEMOGLOBIN A1C % (HH) ESTIMATED AVG GLUCOSE REASON FOR REFERRAL No Information MEDICATIONS Medication SIG (Take, Route, Frequency, Duration) Notes Start Date End Date Status Vitamin D2 Active Ammonium Lactate 12 % 1 application to affected area Externally to feet Twice a day for 30 days Active Calcitriol 0.25 MCG Oral for 90 Not-Taking Aliskiren Fumarate 150 MG Oral for 60 Active Amoxicillin 500 MG Oral for 30 Not-Taking Farxiga 10 MG 1 tablet Orally Once a day for 30 day(s) Active Zinc 50 MG 1 tablet Orally Once a day for 30 day(s) Active Lasix Active Triamterene-HCTZ 37.5-25 MG Oral for 84 Not-Taking FLUoxetine HCl 10 MG 1 capsule Orally Once a day for 30 day(s) Active Tekturna 150 MG Oral for 30 No t-Taking glipiZIDE ER 2.5 MG Oral for 90 2 times monthly Active amLODIPine Besylate 5 MG Oral for 90 Not-Taking Atorvastatin Calcium 20 MG Oral for 90 Active Nystatin 764755 UNIT/GM External for 14 Not-Taking CoQ-10 Active Betamethasone Dipropionate 0.05 % External for 30 Not-T aking Levothyroxine Sodium 50 MCG Oral for 90 Active Vitamin B 12 500 MCG 1 tablet Orally Once a day for 30 day(s) Active IMMUNIZATIONS Vaccine Route Administration Date Status Comme nts Influenza Unknown 09/04/2021 Administered COVID-19 Pfizer BioNTech Vaccine Unknown 09/03/2021 Administered 1st 12/19/2020 2nd 01/09/2021 SOCIAL HISTORY Tobacco Use: Social History Observation Description Date Details (start date - stop date) Former Smoker NA - NA Sex Assigned At : Social History Observation Description Sex Assigned At Unknown Tobacco Use/Smoking Question Answer Notes Are you a: former smoker Additional Findings: Tobacco Non-User Current no n-smoker Alcohol Screen Question Answer Notes Did you have a drink containing alcohol in the p ast year? Yes Points 0 Interpretation Negative Tobacco use other than smoking: Question Answer Notes Are you an other tobacco user? No PROBLEMS Problem Type ICD Code Onset Dates Problem Status W/U Status Risk SNOMED Code Notes Problem Other hammer toe(s) (acquired), right foot (M20.41) Active confirmed Acquired hammer toe of right foot (34836780321443 05) Response to treatment,I mprovement Problem Other hammer toe(s) (acquired), left foot (M20.42) Active confirmed Acquired hammer toe of left foot (64828235437327 03) Response to treatment,I mprovement Problem Plantar wart (B07.0) Active confirmed Plantar wart (95827581) Problem Type 2 diabetes mellitus without complication (E11.9) Active confirmed Type 2 diabetes mellitus without complication (808909445) VITAL SIGNS Blood pressure diastolic 80 mm Hg 10/21/2023 Height 5 ft 1 in in 10/21/2023 Blood pressure systolic 124 mm Hg 10/21/2023 Weight 197 lbs 10/21/2023 BMI 37.22 kg/m2 10/21/2023 PROCEDURES Procedure Date Ordered Date Performed Result Body Sit e 60027-RYUZEHA NAIL, 6 OR MORE 12/03/2022 N/A 21375-Vnii Destruction, 1-14 12/03/2022 N/A 96649-QHKJGFC NAIL, 6 OR MORE 02/11/2023 N/A 22862-Uhgb Destruction, 1-14 02/11/2023 N/A 49010-ZDWIGBG NAIL, 6 OR MORE 04/15/2023 N/A 09694-Pctn Destruction, 1-14 04/15/2023 N/A 46787-JVXGVDQ NAIL, 6 OR MORE 06/17/2023 N/A 31304-Veak Destruction, 1-14 06/17/2023 N/A 53704-RLHPKXP NAIL, 6 OR MORE 08/19/2023 N/A 92094-Kbur Destruction, 1-14 08/19/2023 N/A 00001-PLCVMRN NAIL, 6 OR MORE 10/21/2023 N/A 88905-Sype Destruction, 1-10/21/2023 N/A Encounters Encounter Location Date Provider Diagnosis [address] [address] 12/03/2022 Francisco Fry Type 2 diabetes mellitus without complication E11.9 ; Pain in right toe(s) M79.674 ; Tinea unguium B35.1 ; Pain in left toe(s) M79.675 ; Plantar wart B07.0 and Pain in right foot M79.[address] [address] 02/11/2023 Franciscochelsea Fry Type 2 diabetes mellitus without complication E11.9 ; Pain in right toe(s) M79.674 ; Tinea unguium B35.1 ; Pain in left toe(s) M79.675 ; Plantar wart B07.0 ; Pain in right foot M79.671 ; Other hammer toe(s) (acquired), right foot M20.41 and Other hammer toe(s) (acquired), left foot M20.[address] [address] 04/15/2023 Franciscochelsea Fry Type 2 diabetes mellitus without complication E11.9 ; Pain in right toe(s) M79.674 ; Tinea unguium B35.1 ; Pain in left toe(s) M79.675 ; Plantar wart B07.0 ; Pain in right foot M79.671 ; Other hammer toe(s) (acquired), right foot M20.41 and Other hammer toe(s) (acquired), left foot M20.[address] [address] 06/17/2023 Francisco Fry Type 2 diabetes mellitus without complication E11.9 ; Pain in right toe(s) M79.674 ; Tinea unguium B35.1 ; Pain in left toe(s) M79.675 ; Plantar wart B07.0 and Pain in right foot M79.[address] [address] 08/19/2023 Francisco Fry Type 2 diabetes mellitus without complication E11.9 ; Pain in right toe(s) M79.674 ; Tinea unguium B35.1 ; Pain in left toe(s) M79.675 ; Plantar wart B07.0 and Pain in right foot M79.[address] [address] 09/30/2023 Francisco Fry [address] [address] 10/21/2023 Francisco Fry Type 2 diabetes mellitus without complication E11.9 ; Pain in right toe(s) M79.674 ; Tinea unguium B35.1 ; Pain in left toe(s) M79.675 ; Plantar wart B07.0 and Pain in right foot M79.671 ASSESSMENTS Encounter Date Diagnosis Assessment Notes Treatment Notes Treatment Clinical Notes 12/03/2022 Type 2 diabetes mellitus without complication (ICD-10 - E11.9) 02/11/2023 Type 2 diabetes mellitus without complication (ICD-10 - E11.9) 04/15/2023 Type 2 diabetes mellitus without complication (ICD-10 - E11.9) 06/17/2023 Type 2 diabetes mellitus without complication (ICD-10 - E11.9) 08/19/2023 Type 2 diabetes mellitus without complication (ICD-10 - E11.9) 10/21/2023 Type 2 diabetes mellitus without complication (ICD-10 - E11.9) 10/21/2023 Pain in right toe(s) (ICD-10 - M79.674) 08/19/2023 Pain in right toe(s) (ICD-10 - M79.674) 06/17/2023 Pain in right toe(s) (ICD-10 - M79.674) 04/15/2023 Pain in right toe(s) (ICD-10 - M79.674) 02/11/2023 Pain in right toe(s) (ICD-10 - M79.674) 12/03/2022 Pain in right toe(s) (ICD-10 - M79.674) 12/03/2022 Tinea unguium (ICD-10 - B35.1) 12/03/2022 Pain in left toe(s) (ICD-10 - M79.675) 02/11/2023 Tinea unguium (ICD-10 - B35.1) 02/11/2023 Pain in left toe(s) (ICD-10 - M79.675) 06/17/2023 Tinea unguium (ICD-10 - B35.1) 06/17/2023 Pain in left toe(s) (ICD-10 - M79.675) 04/15/2023 Tinea unguium (ICD-10 - B35.1) 04/15/2023 Pain in left toe(s) (ICD-10 - M79.675) 08/19/2023 Tinea unguium (ICD-10 - B35.1) 08/19/2023 Pain in left toe(s) (ICD-10 - M79.675) 10/21/2023 Tinea unguium (ICD-10 - B35.1) 10/21/2023 Pain in left toe(s) (ICD-10 - M79.675) 10/21/2023 Plantar wart (ICD-10 - B07.0) 08/19/2023 Plantar wart (ICD-10 - B07.0) 06/17/2023 Plantar wart (ICD-10 - B07.0) 02/11/2023 Plantar wart (ICD-10 - B07.0) 04/15/2023 Plantar wart (ICD-10 - B07.0) 12/03/2022 Plantar wart (ICD-10 - B07.0) 12/03/2022 Pain in right foot (ICD-10 - M79.671) 02/11/2023 Pain in right foot (ICD-10 - M79.671) 04/15/2023 Pain in right foot (ICD-10 - M79.671) 06/17/2023 Pain in right foot (ICD-10 - M79.671) 08/19/2023 Pain in right foot (ICD-10 - M79.671) 10/21/2023 Pain in right foot (ICD-10 - M79.671) 04/15/2023 Other hammer toe(s) (acquired), right foot (ICD-10 - M20.41) Patient Educated with: DIABETIC FOOT CARE INSTRUCTIONS.pdf (DIABETIC FOOT CARE INSTRUCTIONS.pdf) 02/11/2023 Other hammer toe(s) (acquired), right foot (ICD-10 - M20.41) Patient Educated with: DIABETIC FOOT CARE INSTRUCTIONS.pdf (DIABETIC FOOT CARE INSTRUCTIONS.pdf) 02/11/2023 Other hammer toe(s) (acquired), left foot (ICD-10 - M20.42) 04/15/2023 Other hammer toe(s) (acquired), left foot (ICD-10 - M20.42) 06/17/2023 Other 08/19/2023 Other 10/21/2023 Other PLAN OF TREATMENT Pending Test Test Name Order Date 45408-WCCJYKS NAIL, 6 OR MORE 03/23/2021 66564-HQKINYZ NAIL, 6 OR MORE 06/22/2021 35824-ZFBGUOU NAIL, 6 OR MORE 09/11/2021 89271-TEZXMZA NAIL, 6 OR MORE 11/23/2021 93660-ZEPDDAI NAIL, 6 OR MORE 02/12/2022 32824-STBXPJQ NAIL, 6 OR MORE 04/26/2022 31142-CBFIHEI NAIL, 6 OR MORE 07/16/2022 08394-RSNGGEL NAIL, 6 OR MORE 09/24/2022 28553-ZDZRSGF NAIL, 6 OR MORE 12/03/2022 25623-ASZMDTQ NAIL, 6 OR MORE 02/11/2023 68042-QALDHAE NAIL, 6 OR MORE 04/15/2023 00737-CSOTJKI NAIL, 6 OR MORE 06/17/2023 96169-PXXIVPR NAIL, 6 OR MORE 08/19/2023 49161-FDYZHEO NAIL, 6 OR MORE 10/21/2023 67295-IARJDCC NAIL, 6 OR MORE 12/22/2020 89821-Sobe Destruction, 1-14 10/21/2023 92687-Erke Destruction, -14 08/19/2023 68547-Ccko Destruction, -14 06/17/2023 77984-Cohc Destruction, -14 04/15/2023 89386-Yjtc Destruction, 1-14 02/11/2023 26011-Djqd Destruction, 1-14 12/03/2022 Next Appt Details Provider Name:Francisco Fry , 01/13/2024 09:00:00 AM, [address] [place] [address], [phone], Provider Name:Francisco Fry , 03/23/2024 08:45:00 AM, [address] [place] [address], [phone], Insurance Providers Payer Name Payer Address Payer Phone Subscriber Number Group Number Insured Name Patient Relationship to Insured Coverage Start Date Coverage End Date Medicare National [employer] [address] [facility] [place] [place] [address] [id number] Guadalupe Muro Self - patient is the insured [facility] [address] [place] [address] [id number] Guadalupe Muro Self - patient is the insured MEDICAL (GENERAL) HISTORY Medical History History ICD Code Arthritis Back,Hip,and Knee pain Broken bones CAD (Cholesterol) Cataracts Depression Gall bladder problems High blood pressure Kidney disease Osteoporosis Psoriasis Sciatica chronic sinusitis thyroid Mumps Joint implants/screws Transfusions type II diabetes Surgical History Surgery Date(Month/Year) left TKR 2012 right TKR 2013 right TKR revision 2014 Hospitalization History Reason Date(Month/Year) [facility] [place] ER-L humerus-tripped 11/23/21 Orthopedic surgeon- L foot b roken 5th metatarsal - tripped on cruise vacation 01/06/22 01/24/22
[2023-12-02] MEDS: Lactated Ringers 1,000 ML 100 ML IVCONT ×3 (07:15→20:05)
--- NOTE | 2023-12-02 07:23 | PC.NURSE ---
changed lr to ns per anti
--- NOTE | 2023-12-02 07:27 | P.HPSUR_ITS ---
Pre-Procedural Eval Section A Date of Service: 12/02/23 The patient is an INPATIENT: No Changes since office visit: No Cold of Flu in the past 2 weeks, No New Medical Problems, No Changes in Medication and No Patient answered all questions The History & Physical has been completed within 30 days and I have reviewed it.: Yes Section B Chief Complaint: LT ANGEAL Allergies: Allergies Allergy/AdvReac Type Severity Reaction Status Date / Time LEFTY Inhibitors Allergy Severe SWELLING Verified 11/27/23 13:20 [Lefty Inhibitors] beta blockers Allergy Severe leg Verified 11/27/23 13:20 swelling oxycodone [OXYCODONE] Allergy Severe NAUSEA & Verified 11/27/23 13:20 VOMITING/FATIGUE rivaroxaban [From XARELTO] Allergy Severe severe Verified 11/27/23 13:20 swelling semaglutide [From Ozempic] Allergy Severe Swelling Verified 11/27/23 13:20 cat dander Allergy Intermediate + allergy Verified 11/27/23 13:20 tesy grass pollen Allergy Intermediate + allergy Verified 11/27/23 13:20 test mold Allergy Intermediate + allergy Verified 11/27/23 13:20 test rosuvastatin [From Crestor] Allergy Intermediate Swelling Verified 11/27/23 1 3:20 Plan I have reviewed the history and physical and performed a pertinent physical examination on my patient. No changes have occurred unless specified. Time Spent With Patient Time: Total time managing care of this patient today ____ minutes.
--- NOTE | 2023-12-02 07:50 | PHA.MEDREC ---
Pharmacy Consult ? Medication Reconciliation Pharmacy has completed the medication reconciliation. Reviewed med rec done by nursing (Ny).
--- NOTE | 2023-12-02 09:32 | P.BOP_ITS ---
Brief Operative Note Date of Service: 12/02/23 Pre-op diagnosis: Left hip OA Post-op diagnosis: same Procedure: Left ANGELA Implants: [place] Trident2 50 [place] Accolade2 #4 132/+0/32 ceramic Surgeon: Dionicio Dove MD Anesthesia: GETA and local Was an Religion Department Chair used for this Procedure?: Yes Religion Department Chair: Axel Zuniga Estimated blood loss (mL): 150 IV fluids (mL): 1,000 Pathology: other Condition: stable Disposition: PACU
[2023-12-02 11:44] LABS: Creatinine Clr Calc Pharmacy 23.8; Estimated Glomerular Filt Rate 24
[2023-12-02 11:44] LABS: Glucose, Whole Blood 191 mg/dL (60-115)
[2023-12-02] MEDS: HYDROmorphone HCl 0.5 MG/0.5 ML SYRINGE 0.25 MG IVPUSH (11:55)
--- NOTE | 2023-12-02 11:59 | P.CONHOSP_ITS ---
History of Present Illness Data of Consult Service Date: 12/02/23 Requesting physician: Axel Zuniga Primary Care Provider: Fadi Craig MD HPI Reason for consult: medical management 78 year old female with history non insulin dependent type 2 diabetes, hypothyroidismm, hld, ckd stage 4, EMANI not on cpap, htn, depression admitted to orthopedic surgery for management of OA L hip s/p ANGELA with consult placed to hospitalist service for medical management. Reports pain in the joint is well controlled. She is complaining of some midline non radiating pain in the neck. She remains on 2L supplemental O2 post-operatively and denies any chronic lung disease, though does have unmanaged EMANI. Vitals otherwise stable. Renal function baseline. Review of Systems 2 Review of Systems: General: No fevers, malaise, unintentional weight loss HEENT: No blurred vision, diplopia. No sore throat, nasal congestion, rhinorrhea, sinus pain, ear pain Cardiovascular: No chest pain, palpitations, or leg edema Respiratory: No shortness of breath, wheezing, cough GI: No abdominal pain, nausea, vomiting, diarrhea, constipation, melena, hematochezia : No dysuria, hematuria, increased urinary frequency, decreased urinary output MSK: No myalgia, back pain. +neck pain Neuro: No headaches, weakness, paresthesias Skin: No rashes or lesions PMFSH Medical History Shoulder pain, bilateral Lumbar disc disease Sacroiliac joint disease Sleep apnea RBBB (right bundle branch block) CKD (chronic kidney disease) Hyperlipidemia Osteoporosis Hypothyroidism Depression Diabetes type 2, controlled Essential hypertension Family History Father CAD (coronary artery disease) CVD (cardiovascular disease) Mother Colon cancer Brother Cancer of prostate Throat cancer Tongue cancer Surgical History H/O colonoscopy History of tonsillectomy History of total right knee replacement (TKR) History of breast biopsy History of total left knee replacement (TKR) Social History Housing: House Are you a primary livestock caretaker to a significant other at home: No Do you presently have visiting nurse or other home services: No Alcohol intake: current Alcohol intake frequency: holidays/special occasions only Patient Tobacco Use Status: Former Tobacco user Quit Date: age 38 Tobacco use type: Cigarette Years Smoked: 5 e-Cigarette/Vaping Use: Never Used Second Hand Smoke Exposure: No Use of substances other than those prescribed or required for medical reasons: No Have you been hit, kicked, punched, or otherwise hurt by someone within the past year? 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al exposures/hazards: No Cognitive needs: No Hearing needs: No Vision needs: No Meds Allergies Allergy/AdvReac Type Severity Reaction Status Date / Time LEFTY Inhibitors Allergy Severe SWELLING Verified 11/27/23 13:20 [Lefty Inhibitors] beta blockers Allergy Severe leg Verified 11/27/23 13:20 swelling oxycodone [OXYCODONE] Allergy Severe NAUSEA & Verified 11/27/23 13:20 VOMITING/FATIGUE rivaroxaban [From XARELTO] Allergy Severe severe Verified 11/27/23 13:20 swelling semaglutide [From Ozempic] Allergy Severe Swelling Verified 11/27/23 13:20 cat dander Allergy Intermediate + allergy Verified 11/27/23 13:20 tesy grass pollen Allergy Intermediate + allergy Verified 11/27/23 13:20 test mold Allergy Intermediate + allergy Verified 11/27/23 13:20 test rosuvastatin [From Crestor] Allergy Intermediate Swelling Verified 11/27/23 13:20 Active Medications: Current Medications Acetaminophen (Acetaminophen 325 Mg Tablet) 650 mg PO Q6H PRN PRN Reason: Pain, Mild (Pain Scale 1-3) Docusate Sodium (Docusate Sodium 100 Mg Capsule) 100 mg PO BID DEVORAH Empagliflozin (Empagliflozin 10 Mg Tablet) 10 mg PO DAILY DEVORAH Enoxaparin Sodium (Enoxaparin Sodium 30 Mg/0.3 Ml Syringe) 30 mg SUBCUT Q24H DEVORAH Fluoxetine HCl (Fluoxetine Hcl 10 Mg Capsule) 10 mg PO DAILY [facility] Furosemide (Furosemide 20 Mg Tablet) 20 mg PO DAILY DEVORAH; Protocol Hydromorphone HCl (Hydromorphone Hcl 0.5 Mg/0.5 Ml Syringe) 0.25 mg IVPUSH Q4H PRN; Protocol PRN Reason: Pain, Severe (Pain Scale 7-10) Last Admin: 12/02/23 11:55 Dose: 0.25 mg Hydromorphone HCl (Hydromorphone Hcl 2 Mg Tablet) 2 mg PO Q4H DEVORAH Last Admin: 12/02/23 10:51 Dose: Not Given Hydromorphone HCl (Hydromorphone Hcl 2 Mg Tablet) 2 mg PO Q4H PRN PRN Reason: Pain, Severe (Pain Scale 7-10) Lactated Ringer's (Lr) 1,000 mls @ 100 mls/hr IVCONT .Q10H DEVORAH Stop: 12/03/23 09:23 Last Admin: 12/02/23 10:52 Dose: 100 mls/hr Cefazolin Sodium/Dextrose (Ancef) 2 gm in 50 mls @ 100 mls/hr IV POSTOP ONE Stop: 12/02/23 14:29 Levothyroxine Sodium (Levothyroxine Sodium 50 Mcg Tablet) 50 mcg PO DAILY@0600 [facility] Loratadine (Loratadine 10 Mg Tablet) 10 mg PO DAILY PRN PRN Reason: Allergy Symptoms Non-Formulary Medication (Aliskiren) 75 mg PO DAILY [facility] Nystatin (Nystatin Cream 15 Gm Tube) 1 appl TOPICAL DAILY [facility]; Protocol Ondansetron HCl (Ondansetron Hcl 4 Mg/2 Ml Vial) 4 mg IVPUSH Q8H PRN PRN Reason: Nausea and Vomiting Oxycodone HCl (Oxycodone Hcl Er 10 Mg Tab.Er.12h) 10 mg PO BID [facility] Sodium Chloride (0.9 % Sodium Chloride Flush 3 Ml Syringe) 3 ml IVFLUSH QSHIFT [facility] Triamcinolone Acetonide (Triamcinolone Acet 0.5 % Cream 15 Gm Tube) 1 appl TOPICAL DAILY [facility] Home Medications Medication Instructions Recorded Confirmed Last Taken Type blood sugar diagnostic #10 ea 10/03/20 11/12/23 Unknown History blood-glucose meter #1 ea 10/03/20 11/12/23 Unknown History lancets #100 ea 10/03/20 11/12/23 Unknown History ergocalciferol (vitamin D2) 1,250 1,250 mcg PO Q2W 03/27/21 11/27/23 Unknown History mcg (50,000 unit) capsule nystatin 100,000 unit/gram topical 1 appl topical DIRECTED 03/27/21 11/21/23 Unknown History cream cetirizine 10 mg capsule (Zyrtec) 10 mg PO DAILY PRN Allergy Symptoms 07/16/21 11/21/23 Unknown History betamethasone dipropionate 0.05 % 1 appl topical DAILY 06/19/22 11/21/23 Unknown History topical cream triamcinolone acetonide 0.1 % 1 appl topical DAILY 06/19/22 11/21/23 Unknown History topical cream furosemide 20 mg tablet 20 mg PO DAILY 04/11/23 11/27/23 12/01/23 History dapagliflozin propanediol 10 mg 10 mg PO DAILY 09/01/23 11/24/23 11/14/23 History tablet (Farxiga) aliskiren 150 mg tablet 75 mg PO QAM 11/24/23 11/27/23 12/01/23 History atorvastatin 20 mg tablet 20 mg PO BEDTIME 11/24/23 11/27/23 12/01/23 History glipizide 10 mg tablet, extended 10 mg PO BID 11/24/23 11/27/23 12/01/23 History release 24 hr levothyroxine 50 mcg tablet 50 mcg PO DAILY@0600 12/02/23 12/02/23 12/02/23 History lidocaine 5 % topical patch 1 patch topical DAILY PRN Pain 12/02/23 11/21/23 Unknown History (Lidoderm) (Scale Score 4-6) Physical Exam 2 Vital Signs and Narrative: Vital Signs: Last Vital Signs Temp 96.8 F 12/02/23 10:55 Pulse 82 12/02/23 10:55 Resp 16 12/02/23 10:55 BP 133/74 12/02/23 10:55 Pulse Ox 99 12/02/23 10:55 O2 Del Method Nasal Cannula 12/02/23 10:55 O2 Flow Rate 2 12/02/23 10:55 BMI result Body Mass Index 37.7 Constitutional - Awake and Alert, No apparent distress Eyes - PERRLA, EOMI Neck - supple, full rom. midline ttp without any paraspinal ttp Cardiovascular - S1S2, RRR, No edema Respiratory - Normal lung expansion, Normal respiratory effort, No respiratory distress, CTA bilaterally Gastrointestinal - NT / ND; +BS; No rebound or guarding Extremities - no calf tenderness bilaterally, no swelling Skin - Warm/Dry Neurological - Alert & oriented x3 Psychological - Appropriate affect Results Labs 12/02/23 11:18 Labs: Laboratory Results - last 24 hr 12/02/23 12/02/23 12/02/23 06:38 11:18 11:37 Estim Creat Clear Calc 23.8 Estimated GFR 24 POC Glucose 141 H 191 H Assessment and Plan (1) Osteoarthritis of left hip: Qualifiers: Osteoarthritis type: unspecified Qualified Code(s): M16.12 - Unilateral primary osteoarthritis, left hip Status: Acute Plan 78 year old female with history non insulin dependent type 2 diabetes, hypothyroidismm, hld, ckd stage 4, EMANI not on cpap, htn, depression admitted to orthopedic surgery for management of OA L hip s/p ANGELA with consult placed to hospitalist service for medical management. #OA Left hip s/p ANGELA POD0 -plan per ortho surgery -recommend IS for post-operative hypoxia, complicated by obesity hypoventilation syndrome. Continue supplemental OS with goal >92%, wean as tolerated #EMANI -discussed importance of CPAP usage for prevent complications. Has not attempted use in 15 years or so. recommend outpt home sleep study #HTN -bp reasonably controlled -resume antihypertensives am #HLD -continue statin #Non insulin dependent type 2 diabetes -controlled with A1c 6.9% -POC glucose, diabetic diet -Humalog on sliding scale #Hypothyroidism -continue synthroid Thank you for allowing me to participate in this consult. Signing off at this time. Please do not hesitate to call for further questions or for any acute medical issues.
[2023-12-02] MEDS: Lidocaine 4 % Patch ADH..PATCH 1 PATCH TRANSDERMA (13:43)
[2023-12-02] MEDS: ceFAZolin Sodium/Dextrose,Iso 2 GM/50 ML PIGGYBACK IV (13:46)
[2023-12-02] MEDS: HYDROmorphone HCl 2 MG TABLET PO ×3 (14:50→20:05)
[2023-12-02] MEDS: ondansetron HCL 4 MG/2 ML VIAL IVPUSH (15:08)
[2023-12-02 16:32] LABS: Glucose, Whole Blood 211 mg/dL (60-115)
[2023-12-02] MEDS: Insulin Lispro 100 UNIT/ML 3 ML VIAL SUBCUT (16:54)
[2023-12-02] MEDS: Docusate Sodium 100 MG CAPSULE PO (20:05)
[2023-12-02] MEDS: 0.9 % Sodium Chloride Flush 3 ML SYRINGE IVFLUSH (20:06)
[2023-12-02 20:28] LABS: Glucose, Whole Blood 159 mg/dL (60-115)
[2023-12-03] MEDS: HYDROmorphone HCl 2 MG TABLET PO ×6 (02:32→21:34)
[2023-12-03 03:54] VITALS: BP 130/60; PULSE 78; RESP 16; TEMP 36.1; O2SAT 96
[2023-12-03] MEDS: Levothyroxine Sodium 50 MCG TABLET PO (06:14)
[2023-12-03] MEDS: Lactated Ringers 1,000 ML 100 ML IVCONT (06:15)
[2023-12-03 06:31] LABS: MANUAL DIFF FLAG NO
[2023-12-03 06:50] LABS: Basophils Percent Auto 0.2 % (0-2); Hematocrit 30.1 % (37.0-47.0); Hemoglobin 9.7 g/dl (12.0-16.0); Imm Gran Abs Auto 0.03 X10*3/uL (0.00-0.03); Imm Gran Pct Auto 0.3 % (0.0-0.4); Lymphocytes Absolute Auto 1.7 X10*3/uL (1.2-4.9); Lymphocytes Percent Auto 16.9 % (20-40); Mean Corpuscular HGB Conc 32.2 g/dl (31.0-35.0); Mean Corpuscular Hemoglobin 28.3 pg (27.0-33.0); Mean Corpuscular Volume 87.8 fL (80.0-98.0); Mean Platelet Volume 9.8 fL (9.4-12.3); Monocytes Absolute Auto 0.9 X10*3/uL (0.1-1.2); Monocytes Percent Auto 9.5 % (2-11); Neutrophils Absolute Auto 7.2 x10*3/uL (2.0-8.3); Neutrophils Percent Auto 73.1 % (45-73); Platelet Count 268 X10*3/uL (160-400); Red Blood Count 3.43 X10*6/uL (4.20-5.50); Red Cell Distribution Width 13.6 % (11.0-16.0); White Blood Count 9.9 X10*3/uL (4.8-10.8)
[2023-12-03 06:52] LABS: Anion Gap 12 (12-20); Blood Urea Nitrogen 31 mg/dL (9-16); Carbon Dioxide 22 mmol/L (22-29); Chloride 108 mmol/L (96-108); Creatinine Clr Calc Pharmacy 21.3; Estimated Glomerular Filt Rate 21; Glucose Fasting 112 mg/dL (60-99); Potassium 3.7 mmol/L (3.3-5.1); Sodium 138 mmol/L (135-145)
[2023-12-03 07:25] VITALS: BP 133/64; PULSE 96; RESP 16; TEMP 36.9; O2SAT 97
[2023-12-03 07:34] LABS: Glucose, Whole Blood 104 mg/dL (60-115)
--- NOTE | 2023-12-03 08:00 | PM.PNORT ---
Subjective Subjective Date of Service: 12/03/23 Interval history: POD1 s/p LTHA Patient is resting in bed comfortably No overnight events Pain is managed No additional complaints Physical Exam Vital Signs: Vital Signs: Last Vital Signs Temp 98.5 F 12/03/23 07:25 Pulse 96 12/03/23 07:25 Resp 16 12/03/23 07:25 BP 133/64 12/03/23 07:25 Pulse Ox 97 12/03/23 07:25 O2 Del Method Room Air 12/03/23 07:25 O2 Flow Rate 2 12/02/23 10:55 BMI result Body Mass Index 37.7 Const: General: cooperative, healthy appearing and no acute distress Resp: Effort & Inspection: normal respiratory effort and able to speak in complete sentences Cardio: Rate: regular rate Peripheral pulses: Peripheral pulses 2+ throughout GI: Palpation (GI): Soft to palpation Skin: Lesions: no lesions Rashes: no rashes Extrem: Other: left hip dressing is c/d/i. Able to dorsi/plantar flex. Calf is supple and nontender. Sensation intact. Pedal pulse intact. Procedures Date of Service Date of Service: 12/03/23 Progress Note: A&P Assessment and plan (1) Osteoarthritis of left hip: Status: Acute (2) Uncontrolled diabetes mellitus with hyperglycemia: Status: Acute (3) Diabetes type 2, controlled: Status: Acute (4) Status post total replacement of left hip: Status: Acute Assessment and Plan: Continue pain mgmnt Begin dvt ppx -Lovenox begin PT/OT for LTHA Dispo planning-Pending PT eval, pain mgmnt, rehab placement for safe discharge as patient lives alone, Will need continued hospitalization for pain management, DM management, and PT/OT. Time Spent With Patient Time: Total time managing care of this patient today ____ minutes. Quality Stroke Does the patient have a stroke diagnosis?: No VTE Prior VTE?: No VTE Risk Level:: Surgical - high VTE Device Contraindication: N/A - Device Ordered VTE Drug Contraindication: N/A - Med Ordered
[2023-12-03 08:14] VITALS: BP 133/64; PULSE 96; O2SAT 97
[2023-12-03] MEDS: Docusate Sodium 100 MG CAPSULE PO ×2 (08:29→21:34)
[2023-12-03] MEDS: Furosemide 20 MG TABLET PO (08:29)
[2023-12-03] MEDS: FLUoxetine HCl 10 MG CAPSULE PO (08:29)
[2023-12-03] MEDS: Lidocaine 4 % Patch ADH..PATCH 1 PATCH TRANSDERMA (08:30)
[2023-12-03] MEDS: Enoxaparin Sodium 30 MG/0.3 ML SYRINGE SUBCUT (08:47)
--- NOTE | 2023-12-03 08:54 | HO.POSTANES ---
Post Anesthesia Evaluation Post Anesthesia Evaluation Date of Service: 12/03/23 Vital Signs: Vital Signs Temp Pulse Resp BP Pulse Ox O2 Del Method 12/03/23 08:14 96 133/64 97 12/03/23 07:25 98.5 F 96 16 133/64 97 Room Air 12/03/23 03:54 96.9 F 78 16 130/60 96 Room Air Anesthesia: General Mental Status: Awake Pain Control: Satisfactory Nausea/Vomiting: None Hydration: Adequate Anesthesia-Related Issues: No Anes. Related Issues
--- NOTE | 2023-12-03 09:16 | MHC.CLN ---
NUTRITION DIET CHANGED TO DIABETIC 1800 KCAL PER PROVIDER NOTE.
--- NOTE | 2023-12-03 09:53 | MHC.CM.PN ---
IMM delivered. Patient is from home alone. Ambulates with a cane. Otherwise independent. No other medical equipment. No services. PCP: Fadi Craig MD HCP: CM assisted patient in completing. Patient named brother Lokesh Muro as agent. [phone]. DP: PT rec STR. Choices are 1) [facility] 2) [facility] and 3) [facility]. Referrals in. CM will continue to follow for dc needs.
[2023-12-03 11:27] LABS: Glucose, Whole Blood 138 mg/dL (60-115)
[2023-12-03 14:07] VITALS: BP 133/64; PULSE 96; O2SAT 97
[2023-12-03] MEDS: Acetaminophen 325 MG TABLET 650 MG PO (14:07)
[2023-12-03 15:49] VITALS: BP 143/62; PULSE 98; RESP 16; TEMP 36.6; O2SAT 93
[2023-12-03 16:24] LABS: Glucose, Whole Blood 152 mg/dL (60-115)
[2023-12-03] MEDS: Insulin Lispro 100 UNIT/ML 3 ML VIAL SUBCUT (16:44)
[2023-12-03] MEDS: 0.9 % Sodium Chloride Flush 3 ML SYRINGE IVFLUSH ×2 (16:46→21:34)
[2023-12-03 19:59] VITALS: BP 121/61; PULSE 77; RESP 18; TEMP 37.1; O2SAT 94
[2023-12-03 20:41] LABS: Glucose, Whole Blood 135 mg/dL (60-115)
--- NOTE | 2023-12-03 21:17 | PM.DS ---
DS: Providers Provider Date of Service: 12/04/23 Date of admission: 12/02/23 06:05 Primary care physician: Fadi Craig MD Consults: 12/02/23 10:23 Consult to Hospitalist Routine Comment: Consulting Provider: Hospitalist Reason For Exam: DM DS: Diagnosis Discharge Diagnosis (1) Status post total replacement of left hip: Status: Acute DS: Summary Hospital Course Hospital Course: The patient underwent a successful left total hip arthroplasty on , was transferred to PACU and then to the floor to recover. During their stay, their vitals were stable, afebrile at . Labs were unremarkable, H/H 8.6/26.5. POD 1 she was started on lovenox once a day for DVT ppx, they also received Physical Therapy and Occupational therapy services twice a day. Physical therapy should include gait training, core and lumbar strength, glute strength. Posterior precautions intact. WBAT. Prior to discharge, her dressing was changed, incision clean dry and intact, new Aquacel dressing applied. The Aquacel dressing should remain intact and dry at all times. Any concerns with the dressing, please contact orthopedic office. No showering. The plan is to be discharged to [facility] Time Attestation Discharge coordination time: Less than 30 minutes Quality: Safe Use of Opioids Does Pt have an Active Cancer Diagnosis on the Problem List?: No Quality: Stroke Does the patient have a stroke diagnosis?: No Physical Exam Vital Signs: Vital Signs: Last Vital Signs Temp 98.7 F 12/03/23 19:59 Pulse 77 12/03/23 19:59 Resp 18 12/03/23 19:59 BP 121/61 12/03/23 19:59 Pulse Ox 94 12/03/23 19:59 O2 Del Method Room Air 12/03/23 19:59 O2 Flow Rate 2 12/02/23 10:55 BMI result Body Mass Index 37.7 Const: General: cooperative, healthy appearing and no acute distress Resp: Effort & Inspection: normal respiratory effort and able to speak in complete sentences Cardio: Rate: regular rate Peripheral pulses: Peripheral pulses 2+ throughout GI: Palpation (GI): Soft to palpation Skin: General skin exam: no rashes or lesions noted Extrem: Other: incision clean dry and intact. Marivel intact. No erythema or effusion. Calf supple nontender. Neurovascularly intact. DS: Data Data Completed and Pending Completed studies during hospitalization [Text1]: Pending at discharge 12/02/23 08:59 Surgical [PTH] Routine Labs on day of discharge: Laboratory Results - last 24 hr 12/03/23 12/03/23 12/03/23 06:16 07:29 11:16 WBC 9.9 RBC 3.43 L Hgb 9.7 L Hct 30.1 L MCV 87.8 MCH 28.3 MCHC 32.2 RDW 13.6 Plt Count 268 MPV 9.8 Immature Gran % (Auto) 0.3 Neut % (Auto) 73.1 H Lymph % (Auto) 16.9 L Wheeler % (Auto) 9.5 Eos % (Auto) 0.0 Baso % (Auto) 0.2 Lymph # (Auto) 1.7 Wheeler # (Auto) 0.9 Eos # (Auto) 0.0 Baso # (Auto) 0.0 Abs Immat Gran (auto) 0.03 Absolute Neuts (auto) 7.2 Absolute Nucleated RBC 0.000 Nucleated RBC % (auto) 0.0 Sodium 138 Potassium 3.7 Chloride 108 Carbon Dioxide 22 Anion Gap 12 BUN 31 H Creatinine 2.22 H Estim Creat Clear Calc 21.3 Estimated GFR 21 POC Glucose 104 138 H Fasting Glucose 112 H Calcium 9.0 12/03/23 12/03/23 16:03 20:37 WBC RBC Hgb Hct MCV MCH MCHC RDW Plt Count MPV Immature Gran % (Auto) Neut % (Auto) Lymph % (Auto) Wheeler % (Auto) Eos % (Auto) Baso % (Auto) Lymph # (Auto) Wheeler # (Auto) Eos # (Auto) Baso # (Auto) Abs Immat Gran (auto) Absolute Neuts (auto) Absolute Nucleated RBC Nucleated RBC % (auto) Sodium Potassium Chloride Carbon Dioxide Anion Gap BUN Creatinine Estim Creat Clear Calc Estimated GFR POC Glucose 152 H 135 H Fasting Glucose Calcium Discharge Plan Discharge Anticipated Discharge Date/Time: 12/05/23 08:06 Patient Disposition: Xfer SNF Discharge Diagnosis: LT ANGELA Referrals: Jacquelin Talamantes [Outside] - 1 Week Axel Zuniga PA-C [Physician Fermentologist] - 12/18/23 1:30 pm Discharge Medications: New hydromorphone 2 mg Tablet 2 mg PO Q4H 7 Days Qty: 42 0RF Rx Instructions: Partial Fill upon patient request. acetaminophen 325 mg Tablet 650 mg PO Q6H PRN (Reason: Pain, Mild (Pain Scale 1-3)) 30 Days Qty: 240 0RF docusate sodium 100 mg Capsule 100 mg PO BID 14 Days Qty: 28 0RF enoxaparin 30 mg/0.3 mL Syringe 30 mg subcut Q24H 30 Days Qty: 9 0RF Continued fluoxetine [Prozac] 10 mg capsule 10 mg PO DAILY 90 Days Qty: 90 3RF (DME) Accu-Chek SmartView Test Strip Strip See Rx Instructions .Route Qty: 200 6RF Rx Instructions: 2 times a day As directed, 90 days atorvastatin 20 mg tablet 20 mg PO BEDTIME glipizide 10 mg tablet extended release 24hr 10 mg PO BID aliskiren 150 mg tablet 75 mg PO QAM lidocaine [Lidoderm] 5 % adhesive patch,medicated 1 patch topical DAILY PRN (Reason: Pain (Scale Score 4-6)) Rx Instructions: leave on most painful area for up to 12 hrs levothyroxine 50 mcg tablet 50 mcg PO DAILY@0600 (DME) lancets Misc See Rx Instructions Not Applicable DAILY Qty: 100 Rx Instructions: As directed (DME) blood sugar diagnostic Strip See Rx Instructions Not Applicable DAILY Qty: 10 Rx Instructions: As directed (DME) blood-glucose meter Misc See Rx Instructions Not Applicable DAILY Qty: 1 Rx Instructions: As directed ergocalciferol (vitamin D2) 1,250 mcg (50,000 unit) capsule 1,250 mcg PO Q2W nystatin 100,000 unit/gram cream 1 appl topical DIRECTED Zyrtec 10 mg capsule 10 mg PO DAILY PRN (Reason: Allergy Symptoms) (DME) compr.stocking,knee,long,large Misc See Rx Instructions .Route Qty: 12 1RF Rx Instructions: Daily As directed. 30 days. 10-20 mm Hg furosemide 20 mg tablet 20 mg PO DAILY betamethasone dipropionate 0.05 % cream 1 appl topical DAILY triamcinolone acetonide 0.1 % cream 1 appl topical DAILY Farxiga 10 mg tablet 10 mg PO DAILY Discharge Orders: Discharge Order (Routine); Ordered 12/05/23 Ordered By: Axel Zuniga Diet: Advance to usual diet Activity on Discharge: Use cane or walker Stand Alone Forms: Patient Portal Discharge page Activity Restrictions/Additional Instructions: Physical Therapy for total hip arthroplasty: posterior precautions, gait training, ROM, strength Limit stair climbing No showering, no tub bath-keep dressing clean, dry and intact No driving x6 weeks Continue Lovenox injections x 6 weeks Follow up with [facility] Orthopedics in 2 weeks Care Plan Goals: Restore function of joint Health Concerns: none Plan of Treatment: Physical Therapy Pain management DVT prophylaxis Assessment: Physical Therapy for Total hip arthroplasty: wbat, posterior precautions, gait training, ROM, strength Limit stair climbing No showering, no tub bath-keep dressing clean, dry and intact No driving x6 weeks Continuelovenox once a day x 6 weeks Follow up with [facility] Orthopedics in 2 weeks:
[2023-12-04 03:46] VITALS: BP 138/73; PULSE 99; RESP 18; TEMP 36.8; O2SAT 93
[2023-12-04] MEDS: HYDROmorphone HCl 2 MG TABLET PO ×5 (05:26→21:59)
[2023-12-04] MEDS: Levothyroxine Sodium 50 MCG TABLET PO (05:26)
[2023-12-04 06:30] LABS: MANUAL DIFF FLAG NO
[2023-12-04 06:36] LABS: Basophils Percent Auto 0.4 % (0-2); Eosinophils Percent Auto 0.1 % (0-4); Hematocrit 27.2 % (37.0-47.0); Hemoglobin 8.9 g/dl (12.0-16.0); Imm Gran Abs Auto 0.04 X10*3/uL (0.00-0.03); Imm Gran Pct Auto 0.5 % (0.0-0.4); Lymphocytes Absolute Auto 1.5 X10*3/uL (1.2-4.9); Lymphocytes Percent Auto 18.9 % (20-40); Mean Corpuscular HGB Conc 32.7 g/dl (31.0-35.0); Mean Corpuscular Hemoglobin 28.8 pg (27.0-33.0); Mean Platelet Volume 9.7 fL (9.4-12.3); Monocytes Absolute Auto 0.8 X10*3/uL (0.1-1.2); Monocytes Percent Auto 10.4 % (2-11); Neutrophils Absolute Auto 5.6 x10*3/uL (2.0-8.3); Neutrophils Percent Auto 69.7 % (45-73); Platelet Count 215 X10*3/uL (160-400); Red Blood Count 3.09 X10*6/uL (4.20-5.50); Red Cell Distribution Width 13.8 % (11.0-16.0); White Blood Count 8.1 X10*3/uL (4.8-10.8)
[2023-12-04 06:51] LABS: Anion Gap 15 (12-20); Blood Urea Nitrogen 32 mg/dL (9-16); Calcium 8.8 mg/dL (8.4-10.2); Carbon Dioxide 21 mmol/L (22-29); Chloride 106 mmol/L (96-108); Creatinine Clr Calc Pharmacy 20.7; Estimated Glomerular Filt Rate 21; Glucose Fasting 132 mg/dL (60-99); Potassium 3.5 mmol/L (3.3-5.1); Sodium 138 mmol/L (135-145)
[2023-12-04 07:48] VITALS: BP 128/71; PULSE 75; RESP 18; TEMP 36.6; O2SAT 95
[2023-12-04 07:57] LABS: Glucose, Whole Blood 122 mg/dL (60-115)
[2023-12-04] MEDS: FLUoxetine HCl 10 MG CAPSULE PO (08:24)
[2023-12-04] MEDS: Enoxaparin Sodium 30 MG/0.3 ML SYRINGE SUBCUT (08:24)
[2023-12-04] MEDS: Lidocaine 4 % Patch ADH..PATCH 1 PATCH TRANSDERMA (08:24)
[2023-12-04] MEDS: Acetaminophen 325 MG TABLET 650 MG PO (08:24)
[2023-12-04] MEDS: Furosemide 20 MG TABLET PO (08:24)
[2023-12-04] MEDS: Docusate Sodium 100 MG CAPSULE PO ×2 (08:24→21:04)
[2023-12-04] MEDS: 0.9 % Sodium Chloride Flush 3 ML SYRINGE IVFLUSH ×3 (08:28→21:04)
--- NOTE | 2023-12-04 08:42 | PM.PNORT ---
Subjective Subjective Date of Service: 12/04/23 Interval history: POD2 s/p LTHA Patient is resting in bed comfortably No overnight events Pain is managed No additional complaints Physical Exam Vital Signs: Vital Signs: Last Vital Signs Temp 97.8 F 12/04/23 07:48 Pulse 75 12/04/23 07:48 Resp 18 12/04/23 07:48 BP 128/71 12/04/23 07:48 Pulse Ox 95 12/04/23 07:48 O2 Del Method Room Air 12/04/23 07:48 O2 Flow Rate 2 12/02/23 10:55 BMI result Body Mass Index 37.7 Const: General: cooperative, healthy appearing and no acute distress Resp: Effort & Inspection: normal respiratory effort and able to speak in complete sentences Cardio: Rate: regular rate Peripheral pulses: Peripheral pulses 2+ throughout GI: Palpation (GI): Soft to palpation Skin: Lesions: no lesions Rashes: no rashes Extrem: Other: left hip dressing is c/d/i. Able to dorsi/plantar flex. Calf is supple and nontender. Sensation intact. Pedal pulse intact. Procedures Date of Service Date of Service: 12/04/23 Progress Note: A&P Assessment and plan (1) Osteoarthritis of left hip: Status: Acute (2) Uncontrolled diabetes mellitus with hyperglycemia: Status: Acute (3) Diabetes type 2, controlled: Status: Acute (4) Status post total replacement of left hip: Status: Acute Assessment and Plan: Continue pain mgmnt Continue dvt ppx -Lovenox Continue PT/OT for LTHA Dispo planning-Pending PT eval, pain mgmnt, rehab placement for safe discharge as patient lives alone, Will need continued hospitalization for pain management, DM management, and PT/OT. Time Spent With Patient Time: Total time managing care of this patient today ____ minutes. Quality Stroke Does the patient have a stroke diagnosis?: No VTE Prior VTE?: No VTE Risk Level:: Surgical - high VTE Device Contraindication: N/A - Device Ordered VTE Drug Contraindication: N/A - Med Ordered
[2023-12-04 08:58] VITALS: BP 128/71; PULSE 75; O2SAT 95
[2023-12-04 11:07] LABS: Glucose, Whole Blood 156 mg/dL (60-115)
[2023-12-04] MEDS: Insulin Lispro 100 UNIT/ML 3 ML VIAL SUBCUT ×2 (11:38→21:04)
[2023-12-04 13:41] VITALS: BP 128/71; PULSE 75; O2SAT 95
[2023-12-04 15:10] VITALS: BP 114/61; PULSE 76; RESP 18; TEMP 36.7; O2SAT 97
[2023-12-04 16:02] LABS: Glucose, Whole Blood 145 mg/dL (60-115)
[2023-12-04 19:34] VITALS: BP 149/65; PULSE 89; RESP 18; TEMP 36.7; O2SAT 94
[2023-12-04 20:29] LABS: Glucose, Whole Blood 186 mg/dL (60-115)
[2023-12-05] MEDS: HYDROmorphone HCl 2 MG TABLET PO ×3 (02:12→09:20)
[2023-12-05 03:45] VITALS: BP 107/51; PULSE 78; RESP 17; TEMP 37; O2SAT 95
[2023-12-05] MEDS: Levothyroxine Sodium 50 MCG TABLET PO (05:38)
[2023-12-05 05:53] LABS: MANUAL DIFF FLAG NO
[2023-12-05 06:12] LABS: Basophils Percent Auto 0.5 % (0-2); Eosinophils Absolute Auto 0.1 X10*3/uL (0.0-0.4); Eosinophils Percent Auto 1.8 % (0-4); Hematocrit 26.5 % (37.0-47.0); Hemoglobin 8.6 g/dl (12.0-16.0); Imm Gran Abs Auto 0.03 X10*3/uL (0.00-0.03); Imm Gran Pct Auto 0.4 % (0.0-0.4); Lymphocytes Absolute Auto 2.5 X10*3/uL (1.2-4.9); Lymphocytes Percent Auto 34.4 % (20-40); Mean Corpuscular HGB Conc 32.5 g/dl (31.0-35.0); Mean Corpuscular Hemoglobin 28.9 pg (27.0-33.0); Mean Corpuscular Volume 88.9 fL (80.0-98.0); Mean Platelet Volume 10.1 fL (9.4-12.3); Monocytes Absolute Auto 0.6 X10*3/uL (0.1-1.2); Monocytes Percent Auto 8.5 % (2-11); Neutrophils Percent Auto 54.4 % (45-73); Platelet Count 218 X10*3/uL (160-400); Red Blood Count 2.98 X10*6/uL (4.20-5.50); Red Cell Distribution Width 13.7 % (11.0-16.0); White Blood Count 7.3 X10*3/uL (4.8-10.8)
[2023-12-05 06:22] LABS: Anion Gap 11 (12-20); Blood Urea Nitrogen 35 mg/dL (9-16); Calcium 8.9 mg/dL (8.4-10.2); Carbon Dioxide 23 mmol/L (22-29); Chloride 106 mmol/L (96-108); Creatinine Clr Calc Pharmacy 20.7; Estimated Glomerular Filt Rate 21; Glucose Fasting 122 mg/dL (60-99); Potassium 3.6 mmol/L (3.3-5.1); Sodium 136 mmol/L (135-145)
[2023-12-05 07:37] VITALS: BP 122/61; PULSE 73; RESP 18; TEMP 36; O2SAT 95
[2023-12-05 07:53] VITALS: BP 122/61; PULSE 73; O2SAT 95
[2023-12-05 07:54] LABS: Glucose, Whole Blood 126 mg/dL (60-115)
--- NOTE | 2023-12-05 08:59 | MHC.CM.PN ---
Pt has been medically cleared for DC. She will transfer to [facility] today via ambulance for STR.
[2023-12-05] MEDS: Furosemide 20 MG TABLET PO (09:18)
[2023-12-05] MEDS: FLUoxetine HCl 10 MG CAPSULE PO (09:18)
[2023-12-05] MEDS: Docusate Sodium 100 MG CAPSULE PO (09:19)
[2023-12-05] MEDS: Enoxaparin Sodium 30 MG/0.3 ML SYRINGE SUBCUT (09:20)
[2023-12-05 11:05] LABS: Glucose, Whole Blood 174 mg/dL (60-115)
[2023-12-05] MEDS: Insulin Lispro 100 UNIT/ML 3 ML VIAL SUBCUT (12:01)
--- NOTE | 2023-12-09 07:51 | W.PM.OPN ---
Operative Note Operative Note Date of Service: 12/02/23 Narrative: Date of Service: 12/02/23 Pre-op diagnosis: Left hip OA Post-op diagnosis: same Procedure: Left ANGELA Implants: Dougherty Trident2 50 Ellis Accolade2 #4 132/+0/32 ceramic Surgeon: Dionicio Dvoe MD Anesthesia: GETA and local Was an Visual Inspector used for this Procedure?: Yes Visual Inspector: Axel Zuniga Estimated blood loss (mL): 150 IV fluids (mL): 1,000 Pathology: other Condition: stable Disposition: PACU Procedure in detail: Patient was brought into the operating room and placed in the right lateral decubitus position. All bony prominences were well padded and the limb was prepped and draped in standard sterile fashion. A time-out was called to identify proper site procedure proper surgeon IV antibiotics and 1 g of transaxemic acid were administered. I began by making a curvilinear incision over the posterolateral aspect of the greater trochanter. Dissection was taken down to the tensor fascia which was incised in line with the incision and a Charnley retractor was placed. Cautery was used to maintain hemostasis. The hip was internally rotated and the external rotators were identified. The vessels were cauterized and a full-thickness capsular/external rotator layer was developed starting just proximal to the piriformis. This layer was tagged and a dull Hohmann retractor was placed underneath the neck in the hip was dislocated. A neck cut was made 1 cm proximal to the lesser trochanter and the head and neck were removed and measured 46-48 mm on the back table. The head was eburnated and deformed. I then removed the labrum and cauterized the fovea. I started with a 42 reamer and medialized to the inner table. I sequentially reamed up to a size 50 and impacted a 50 mm cup at 45 degrees of inclination and 25 degrees of version. I then placed a 10 deg posterior lipped liner and turned my attention to the femur. I identified the piriformis insertion and used this as a starting point for my merritt cutter. The medius tendon was protected with a Hibs retractor. A Charnley awl was inserted in the canal and a curved curette used to remove the lateral bone. I irrigated copiously. I then sequentially broached in the patient's natural version to a size 4 and placed my trial implants. I used a #4/132/+0 based on my pre-operative template. Using a trail 32mm head I took the hip through range of motion. I was satisfied with the stability and length. I removed all instrumentation and copiously irrigated. I placed my final femoral implant and again took the hip through range of motion and was satisfied with the stability and length. The final +0 implant was impacted in place and the hip reduced. I then irrigated placed 1 g of local transaxemic acid. I performed a capsular closure with 2.0 fiberwire, Phil's fascia with 0 Vicryl, subcuticular with 2-0 Vicryl and the skin with akash. Patient was placed into a sterile dressing. Patient was extubated brought to the recovery room in stable condition. There were no known complications.
== END 2023-12-05 12:57 | disposition skilled nursing facility (03) | DRG 470 ==
LOC: HO.SSSA 06:40 → HO.S3 09:37
PROVIDERS: Orthopaedic Surgery; Student in an Organized Health Care Education/Training Program; Admitting Provider Physician Assistant; PCP Family Medicine; Visit Provider Physician Assistant
PROC: 0SRB0JA Replacement of Left Hip Joint with Synthetic Substitute, Uncemented, Open Approach (ICD-10-PCS; CPT 27130; principal; 2023-12-02 07:30)
DX: M16.12 Unilateral primary osteoarthritis, left hip (principal); N18.4 Chronic kidney disease, stage 4 (severe); E66.2 Morbid (severe) obesity with alveolar hypoventilation; E03.9 Hypothyroidism, unspecified; Z68.37 Body mass index [BMI] 37.0-37.9, adult; E78.5 Hyperlipidemia, unspecified; I12.9 Hypertensive chronic kidney disease with stage 1 through stage 4 chronic kidney disease, or unspecified chronic kidney disease; F32.A Depression, unspecified; Z79.84 Long term (current) use of oral hypoglycemic drugs; Z79.890 Hormone replacement therapy; Z79.899 Other long term (current) drug therapy
CPT/HCPCS: 36415; 72170; 80048; 82565; 82947; 85025; 86850; 86900; 86901; 87640; 87641; 88304; 88311; 93005; 97110; 97116; 97162; 97166; 97530; 97535; 99024; C1776; J0131; J0690; J1100; J1170; J1650; J2250; J2371; J2405; J2704; J2795; J3010; J7120

== ENCOUNTER → 2023-12-02 06:05 | Outpatient (BNV) | payer MEDICARE, SELFPAY | PROVIDERS: Admitting Provider Physician Assistant; PCP Family Medicine; Visit Provider Orthopaedic Surgery | DX: Z47.1 Aftercare following joint replacement surgery (principal); Z96.642 Presence of left artificial hip joint | CPT/HCPCS: 27130; 99024 ==

== ENCOUNTER → 2023-12-02 06:05 | Outpatient (BNV) | payer MEDICARE, SELFPAY | PROVIDERS: Admitting Provider Physician Assistant; PCP Family Medicine; Visit Provider Physician Assistant | DX: M16.12 Unilateral primary osteoarthritis, left hip (principal) | CPT/HCPCS: 99222 ==

== ENCOUNTER 2023-12-18 13:06 | Outpatient (AMB) | payer MEDICARE, SELFPAY ==
--- NOTE | 2023-12-18 13:10 | A.OFFVIS_ITS ---
Intake Intake Visit Reasons: PO-LT ANGELA 12/02/2023 NE Intake Note: Guadalupe a 78 year old male presents today for a preoperative left ANGELA on 12/02/23. States she has mild pain and discomfort. States she is doing well over all and is ready to have dressing and akash removed today. Allergies LEFTY Inhibitors [Lefty Inhibitors] Allergy (Severe, Verified 12/18/23 13:11) SWELLING beta blockers Allergy (Severe, Verified 12/18/23 13:11) leg swelling oxycodone [OXYCODONE] Allergy (Severe, Verified 12/18/23 13:11) NAUSEA & VOMITING/FATIGUE rivaroxaban [From XARELTO] Allergy (Severe, Verified 12/18/23 13:11) severe swelling semaglutide [From Ozempic] Allergy (Severe, Verified 12/18/23 13:11) Swelling cat dander Allergy (Intermediate, Verified 12/18/23 13:11) + allergy tesy grass pollen Allergy (Intermediate, Verified 12/18/23 13:11) + allergy test mold Allergy (Intermediate, Verified 12/18/23 13:11) + allergy test rosuvastatin [From Crestor] Allergy (Intermediate, Verified 12/18/23 13:11) Swelling Medication List - Last Reconciled 12/18/23 by Axel Zuniga PA-C acetaminophen 650 mg (2 x 325 mg) PO Q6H PRN 30 days aliskiren 75 mg PO QAM atorvastatin 20 mg PO BEDTIME betamethasone dipropionate 0.05% 1 appl topical DAILY blood sugar diagnostic As directed blood sugar diagnostic (Accu-Chek SmartView Test Strips) 2 times a day As directed, 90 days blood-glucose meter As directed cetirizine (Zyrtec) 10 mg PO DAILY PRN compr.stocking,knee,long,large Daily As directed. 30 days. 10-20 mm Hg dapagliflozin propanediol (Farxiga) 10 mg PO DAILY docusate sodium 100 mg PO BID 14 days ergocalciferol (vitamin D2) 1,250 mcg PO Q2W fluoxetine (Prozac) 10 mg PO DAILY 90 days furosemide 20 mg PO DAILY glipizide ER 10 mg PO BID hydromorphone 2 mg PO Q4H 7 days lancets As directed levothyroxine 50 mcg PO DAILY@0600 lidocaine 5% (Lidoderm) 1 patch topical DAILY PRN nystatin 1 appl topical DIRECTED triamcinolone acetonide 0.1% 1 appl topical DAILY HPI PO-LT ANGELA 12/02/2023 NE HPI Details 78-year-old female who [facility] for post-op left ANGELA, 12/02/[address] Dove. She continues to have mild pain and discomfort in her hip but is doing well otherwise. She states with her Knee replacement, she was on xarelto and she developed bilat lower ext edema and she is concerned the same is occurring with the lovenox. She denies calf pain or cramping. Denies sob/chest pain or palpitations. [facility] Medical History Shoulder pain, bilateral Lumbar disc disease Sacroiliac joint disease Sleep apnea RBBB (right bundle branch block) CKD (chronic kidney disease) Hyperlipidemia Osteoporosis Hypothyroidism Depression Diabetes type 2, controlled Essential hypertension Surgical History H/O colonoscopy History of tonsillectomy History of total right knee replacement (TKR) History of breast biopsy History of total left knee replacement (TKR) Family History Father CAD (coronary artery disease) CVD (cardiovascular disease) Mother Colon cancer Brother Cancer of prostate Throat cancer Tongue cancer Social History (Reviewed 12/18/23 @ 13:11 by Selena Squires [facility]) Household Members: None Housing: House Are you a primary career development counselor to a significant other at home: No Do you presently have visiting nurse or other home services: Yes (Melani MITCHELL) Alcohol intake: current Alcohol intake frequency: holidays/special occasions only Patient Tobacco Use Status: Former Tobacco user Quit Date: age 38 Tobacco use type: Cigarette Years Smoked: 5 e-Cigarette/Vaping Use: Never Used Second Hand Smoke Exposure: No Advance Directives Date on File: 03/17/12 service: No 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al status: retired 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 No erythema or drainage. She has good ROM of the hip. Mild discomfort with hip flexion. She has pitting edema bilat lower extremities. Calf supple, non tender, pulses present. NVI. Assessment & Plan Assessment & Plan (1) Status post total replacement of left hip: Code(s): Z96.642 - Presence of left artificial hip joint Plan New Site removed, steri strips applied. She will continue with PT to continue working on Gait training, ROM and strength. No driving for another 4 weeks. She is going to dc the lovenox as it may be interfeering with her kidneys and causing the lower ext edema; however, I did explain she is at a risk for DVT not being on anticoag. She is active and moving around which is helpful. I did explain the warning signs such as calf pain, bruising, excessive unilateral swelling to name a few, if she develops either of these she will contact us or go to the emergency department. She will require ppx abx for dental procedures. She will f/u in 4 weeks, sooner if needed. Patient Instructions: Scribed for Axel Zuniga PA-C, by Joaquin Weiss medical case worker, on 12/18/2023 at 1:30 PM EST. I, Axel Zuniga PA-C, have personally reviewed and agree with the information entered by the scribe. Coding Level of Care Code Global (62635) Diagnoses Status post total replacement of left hip Z96.642
== END 2023-12-18 13:41 | disposition home or self-care (01) ==
PROVIDERS: PCP Family Medicine; Visit Provider Physician Assistant
DX: Z96.642 Presence of left artificial hip joint (principal)
CPT/HCPCS: 99024

== ENCOUNTER → 2023-12-18 13:06 | Outpatient (BNVA) | payer MEDICARE, SELFPAY | PROVIDERS: PCP Family Medicine; Visit Provider Physician Assistant | DX: Z47.1 Aftercare following joint replacement surgery (principal); Z96.642 Presence of left artificial hip joint | CPT/HCPCS: 99212 ==

== ENCOUNTER 2024-01-15 13:02 | Outpatient (AMB) | payer MEDICARE, SELFPAY ==
--- NOTE | 2024-01-15 13:31 | A.OFFVIS_ITS ---
Intake Intake Visit Reasons: PO - LT ANGELA 12/02/23 NE Intake Note: Guadalupe a 78 year old female who presents today for a post operative appointment s/p Left Hip Arthroplasty 12/02/23 Allergies LEFTY Inhibitors [Lefty Inhibitors] Allergy (Severe, Verified 12/18/23 13:11) SWELLING beta blockers Allergy (Severe, Verified 12/18/23 13:11) leg swelling oxycodone [OXYCODONE] Allergy (Severe, Verified 12/18/23 13:11) NAUSEA & VOMITING/FATIGUE rivaroxaban [From XARELTO] Allergy (Severe, Verified 12/18/23 13:11) severe swelling semaglutide [From Ozempic] Allergy (Severe, Verified 12/18/23 13:11) Swelling cat dander Allergy (Intermediate, Verified 12/18/23 13:11) + allergy tesy grass pollen Allergy (Intermediate, Verified 12/18/23 13:11) + allergy test mold Allergy (Intermediate, Verified 12/18/23 13:11) + allergy test rosuvastatin [From Crestor] Allergy (Intermediate, Verified 12/18/23 13:11) Swelling HPI PO - LT ANGELA 12/02/23 NE HPI Details Guadalupe is a 78 year old woman who returns ~6 weeks S/P left ANGELA. She says she is doing well. [facility] Medical History Shoulder pain, bilateral Lumbar disc disease Sacroiliac joint disease Sleep apnea RBBB (right bundle branch block) CKD (chronic kidney disease) Hyperlipidemia Osteoporosis Hypothyroidism Depression Diabetes type 2, controlled Essential hypertension Surgical History H/O colonoscopy History of tonsillectomy History of total right knee replacement (TKR) History of breast biopsy History of total left knee replacement (TKR) Family History Father CAD (coronary artery disease) CVD (cardiovascular disease) Mother Colon cancer Brother Cancer of prostate Throat cancer Tongue cancer Social History Household Members: None Housing: House Are you a primary associate director career services to a significant other at home: No Do you presently have visiting nurse or other home services: Yes (Melani MITCHELL) Alcohol intake: current Alcohol intake frequency: holidays/special occasions only Patient Tobacco Use Status: Former Tobacco user Quit Date: age 38 Tobacco use type: Cigarette Years Smoked: 5 e-Cigarette/Vaping Use: Never Used Second Hand Smoke Exposure: No Advance Directives Date on File: 03/17/12 service: No 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al status: retired 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al exposures/hazards: No Cognitive needs: No Hearing needs: No Vision needs: No Review of Systems Const All systems reviewed & are unremarkable except as noted in HPI and below Physical Exam Const General: no acute distress, alert and awake Orientation/consciousness: patient oriented x3 HEENT Head: Yes normocephalic and Yes atraumatic Eyes EOM: EOMs intact bilaterally Resp Effort & Inspection: normal respiratory effort and able to speak in complete sentences Cardio Jugular venous distension: no JVD Skin General skin exam: turgor normal Rashes: no rashes Neuro General: patient oriented x3 Extrem Other: Mild trendelenberg gait inc c/d/i no pain with hip ROM Psych Appearance: grossly normal Affect: normal affect Attitude: cooperative Assessment & Plan Assessment & Plan (1) Status post total replacement of left hip: Code(s): Z96.642 - Presence of left artificial hip joint Plan: Doing well s/p left ANGELA. Continue WBAT and PT exercises. F/u 6 weeks. March d/c anticoag Plan Prepared for Dionicio Dove MD by Pk Nelson, biomedical electronics technician, on 01/15/24 at 1:41 PM, EST. Coding Level of Care Code Global (72080) Diagnoses Status post total replacement of left hip Z96.642
== END 2024-01-15 13:43 | disposition home or self-care (01) ==
PROVIDERS: PCP Family Medicine; Visit Provider Orthopaedic Surgery
DX: Z96.642 Presence of left artificial hip joint (principal)
CPT/HCPCS: 99024

== ENCOUNTER → 2024-01-15 13:02 | Outpatient (BNVA) | payer MEDICARE, SELFPAY | PROVIDERS: PCP Family Medicine; Visit Provider Orthopaedic Surgery | DX: Z47.1 Aftercare following joint replacement surgery (principal); Z96.642 Presence of left artificial hip joint | CPT/HCPCS: 99212 ==

== ENCOUNTER 2024-02-03 08:03 | Outpatient (REF) | payer MEDICARE, SELFPAY ==
[2024-02-03 10:47] LABS: MANUAL DIFF FLAG NO
[2024-02-03 10:56] LABS: Appearance Urine Clear; Color Urine Yellow; Glucose Urine UA Negative (Negative); Leukocyte Esterase Urine Negative (Negative); Nitrite Urine Negative (Negative); PH 5.5 (5.0-9.0); Urine Blood Negative (Negative); Urine Ketones Negative (Negative); Urine Protein Trace mg/dL (Neg-Trace)
[2024-02-03 10:59] LABS: Basophils Percent Auto 0.8 % (0-2); Eosinophils Absolute Auto 0.2 X10*3/uL (0.0-0.4); Eosinophils Percent Auto 3.9 % (0-4); Hemoglobin 10.2 g/dl (12.0-16.0); Imm Gran Abs Auto 0.02 X10*3/uL (0.00-0.03); Imm Gran Pct Auto 0.4 % (0.0-0.4); Lymphocytes Absolute Auto 1.4 X10*3/uL (1.2-4.9); Lymphocytes Percent Auto 28.3 % (20-40); Mean Corpuscular HGB Conc 30.9 g/dl (31.0-35.0); Mean Corpuscular Hemoglobin 27.7 pg (27.0-33.0); Mean Corpuscular Volume 89.7 fL (80.0-98.0); Mean Platelet Volume 9.6 fL (9.4-12.3); Monocytes Absolute Auto 0.4 X10*3/uL (0.1-1.2); Monocytes Percent Auto 7.3 % (2-11); Neutrophils Percent Auto 59.3 % (45-73); Platelet Count 272 X10*3/uL (160-400); Red Blood Count 3.68 X10*6/uL (4.20-5.50); Red Cell Distribution Width 14.1 % (11.0-16.0); White Blood Count 5.1 X10*3/uL (4.8-10.8)
[2024-02-03 11:02] LABS: Bacteria Urine None Seen (None Seen); Hyaline Casts Urine 0-2 /LPF (0-2); RBC Urine 0-2 /HPF (0-2); Squamous Epithelial Cell Urine 0-2 /HPF (0-2); WBC Urine 0-5 /HPF (0-5)
[2024-02-03 11:12] LABS: Albumin Level 3.3 g/dL (3.5-5.0); Anion Gap 12 (12-20); Blood Urea Nitrogen 20 mg/dL (9-16); Calcium 8.9 mg/dL (8.4-10.2); Carbon Dioxide 22 mmol/L (22-29); Chloride 111 mmol/L (96-108); Estimated Glomerular Filt Rate 27; Phosphorus 3.5 mg/dL (2.7-4.5); Potassium 3.7 mmol/L (3.3-5.1); Sodium 141 mmol/L (135-145)
[2024-02-03 11:26] LABS: Creatinine Urine 163.57 mg/dL; Microalbum/Creatinine Ratio Ur 15.2 ug/mg cr (<30); Protein/Creatinine Ratio, Ur 0.09 (<0.2); Total Protein Urine Random 14 mg/dL (<12)
[2024-02-03 11:31] LABS: Vitamin D 25-OH Total 22.3 ng/mL (>30)
[2024-02-03 11:34] LABS: Parathyroid Hormone Intact 162.2 pg/mL (8.7-77.1)
== END 2024-02-03 08:04 | disposition home or self-care (01) ==
LOC: HO.10HDL 08:03
PROVIDERS: Visit Provider Internal Medicine Nephrology
DX: N18.4 Chronic kidney disease, stage 4 (severe) (principal); I12.9 Hypertensive chronic kidney disease with stage 1 through stage 4 chronic kidney disease, or unspecified chronic kidney disease; N25.0 Renal osteodystrophy; E11.9 Type 2 diabetes mellitus without complications
CPT/HCPCS: 36415; 80051; 81001; 82040; 82043; 82306; 82310; 82565; 82570; 83735; 83970; 84100; 84156; 84520; 85025

== ENCOUNTER 2024-02-11 08:31 | Outpatient (AMB) | payer MEDICARE, SELFPAY ==
--- NOTE | 2024-02-11 08:36 | MHC.PC.OV ---
Vital Signs 02/11/24 08:50 02/11/24 09:02 Height 5 ft 1 in Weight 216 lb 4 oz BMI 40.9 BP 158/92 H 158/88 H Blood Pressure Location Rt brachial Rt brachial Position Sitting Sitting Respiration 16 Pulse 65 Pulse Source Pulse Oximeter Temp 98 F Temp Source Oral Pulse Oximetry (%) 97 Oxygen Delivery Method Room Air Intake Visit Reasons: f/u diabetes Intake Note: Three month follow up diabetes. 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: No Allergies LEFTY Inhibitors [Lefty Inhibitors] Allergy (Severe, Verified 02/11/24 08:39) SWELLING beta blockers Allergy (Severe, Verified 02/11/24 08:39) leg swelling oxycodone [OXYCODONE] Allergy (Severe, Verified 02/11/24 08:39) NAUSEA & VOMITING/FATIGUE rivaroxaban [From XARELTO] Allergy (Severe, Verified 02/11/24 08:39) severe swelling semaglutide [From Ozempic] Allergy (Severe, Verified 02/11/24 08:39) Swelling cat dander Allergy (Intermediate, Verified 02/11/24 08:39) + allergy tesy grass pollen Allergy (Intermediate, Verified 02/11/24 08:39) + allergy test mold Allergy (Intermediate, Verified 02/11/24 08:39) + allergy test rosuvastatin [From Crestor] Allergy (Intermediate, Verified 02/11/24 08:39) Swelling lovenox Allergy (Severe, Uncoded 02/11/24 08:39) swelling extremeties Tobacco use date assessed: 12/24/22 Fall risk assessment: No Falls in past year Dental Screening Did you have a dental visit in the last 12 months?: Yes Did you have a dental problem in the last 6 months where you did not have access to dental care?: Yes Was dental information given to patient?: Patient has dentist [facility] Medical History (Updated 02/11/24 @ 09:12 by Reji Lopez) Diabetes type 2, controlled Osteoarthritis of left hip Uncontrolled diabetes mellitus with hyperglycemia Shoulder pain, bilateral Lumbar disc disease Sacroiliac joint disease Sleep apnea RBBB (right bundle branch block) CKD (chronic kidney disease) Hyperlipidemia Osteoporosis Hypothyroidism Depression Essential hypertension Surgical History (Updated 12/13/23 @ 00:04 by Heath Barclay) H/O colonoscopy History of tonsillectomy History of total right knee replacement (TKR) History of breast biopsy History of total left knee replacement (TKR) Family History Father CAD (coronary artery disease) CVD (cardiovascular disease) Mother Colon cancer Brother Cancer of prostate Throat cancer Tongue cancer Social History Household Members: None Housing: House Are you a primary nanny caregiver to a significant other at home: No Do you presently have visiting nurse or other home services: Yes (Melani MITCHELL) Alcohol intake: current Alcohol intake frequency: holidays/special occasions only Patient Tobacco Use Status: Former Tobacco user Quit Date: age 38 Tobacco use type: Cigarette Years Smoked: 5 e-Cigarette/Vaping Use: Never Used Second Hand Smoke Exposure: No Advance Directives Date on File: 03/17/12 service: No 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al status: retired 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 1. Little interest or pleasure in doing things: not at all 2. Feeling down, depressed, or hopeless: not at all 3. Trouble falling or staying asleep, or sleeping too much: not at all 4. Feeling tired or having little energy: nearly every day 5. Poor appetite or overeating: not at all 6. Feeling bad about yourself - or that you are a failure or have let yourself or your family down: not at all 7. Trouble concentrating on things, such as reading the newspaper or watching television: not at all 8. Moving or speaking so slowly that other people could have noticed. Or the opposite - being so fidgety or restless that you have been moving around a lot more than usual: nearly every day 9. Thoughts that you would be better off or of hurting yourself in some way: not at all Total score: 6 Depression Screening Interpretation: Positive Depression Screening Done: Yes 48034 - PHQ-9 Billing: Yes Source: Developed by Drs. Aubrey Barbour, Fozia Rod, Tomas Leung and colleagues, with an educational darwin from [employer]. Thrive Questionnaire Date Thrive assessed: 12/03/23 What is your living situation today?: I have a steady place to live Within the past 12 months, did the food you bought not last and you didn't have the money to get more?: Never true Within the past 12 months, did you worry whether your food would run out before you got money to buy more?: Never true Do you have trouble paying for medicines?: Yes Do you have trouble getting transportation to medical appointments?: No Do you have trouble paying your heating and electricity bill?: No Do you have trouble taking care of your child, family member or friend?: No Do you have trouble with day-to-day activities such as bathing, preparing meals, shopping, managing finances, etc.?: Yes Are you currently unemployed and looking for a job?: No Are you interested in more education?: No Please select the resources that you would like help with: None Currently or been in a relationship where the following occur: no concerns reported THRIVE Score: 0 AUDIT C Alcohol Use Questionnaire (AUDIT-C) 1. How often do you have a drink containing alcohol?: 2-4 times a month 2. How many drinks containing alcohol do you have on a typical day when you are drinking?: 1 or 2 3. How often do you have six or more drinks on one occasion?: Never Total Score: 2 CHARLENE-7 AMB Questionnaire CHARLENE-7 Date CHARLENE - 7 assessed: 12/24/22 Feeling nervous, anxious, or on edge: 0 = Not at all Not being able to stop or control worryin = Not at all Worrying too much about different things: 0 = Not at all Trouble relaxin = Not at all Being so restless that it is hard to sit still: 0 = Not at all Becoming easily annoyed or irritable: 0 = Not at all Feeling afraid as if something awful might happen: 0 = Not at all Total CHARLENE-7 score (0-4 normal; 5-9 mild; 10-14 moderate; 15-21 severe): 0 Source: Developed by Drs. Aubrey Barbour, Fozia Rod, Tomas Leung and colleagues, with an educational darwin from [employer]. CHARLENE-7 Assessment Billing CHARLENE-7 Assessment Tool: CHARLENE-7 Assessment 74971 Physical exam (Primary Care) Vital Signs: Last Vital Signs Temp 98 F 02/11/24 08:50 Pulse 65 02/11/24 08:50 Resp 16 02/11/24 08:50 BP 158/88 H 02/11/24 09:02 Pulse Ox 97 02/11/24 08:50 Oxygen Delivery Method Room Air 02/11/24 08:50 BMI result Body Mass Index 40.9 Tobacco/Smoking Status: Tobacco use Status Tobacco use date assessed 12/24/22 02/11/24 09:03 Patient Tobacco Use Status Former Tobacco user 02/11/24 09:03 Tobacco use type Cigarette 02/11/24 09:03 e-Cigarette/Vaping Use Never Used 02/11/24 09:03 PHQ-9: PHQ-9 Score PHQ-9: Total score 6 02/11/24 09:18 Depression Screening Interpretation: Positive Thrive Assessment: Date of Thrive Assessment Date Thrive assessed 12/03/23 02/11/24 09:03 Currently or been in a relationship where the following occur: no concerns reported Results AMB Hemoglobin A1c AMB Hemoglobin A1c 8.5 % Last Edit by Rakel Brown CMA on 02/11/24 09:20 Results Reviewed Results Reviewed: Laboratory Last Values Hgb A1c (Clinic) 8.5 % (4.0-6.0) H 02/11/24 09:14 Assessment and Plan Assessment & Plan Orders: Orders AMB Hemoglobin A1c Today E11.9 - Type 2 diabetes mellitus without complications Hemoglobin A1c Today E11.9 - Type 2 diabetes mellitus without complications, R73.01 - Impaired fasting glucose Comprehensive [place]. Panel Fast Today E11.9 - Type 2 diabetes mellitus without complications, Z00.00 - Encounter for general adult medical examination without abnormal findings Medications: New polyethylene glycol 3350 (Miralax) 17 grams PO DAILY 14 ea 0RF 14 days Coding Additional Codes CHARLENE-7 Assessment Billing - CHARLENE-7 Assessment Tool: CHARLENE-7 Assessment [id number] ([id number])
[2024-02-11 08:50] VITALS: BP 158/92; PULSE 65; RESP 16; TEMP 36.6; O2SAT 97; BMI 40.9
--- NOTE | 2024-02-11 08:50 | A.OFFPC_ITS ---
Vital Signs 02/11/24 08:50 02/11/24 09:02 Height 5 ft 1 in Weight 216 lb 4 oz BMI 40.9 BP 158/92 H 158/88 H Blood Pressure Location Rt brachial Rt brachial Position Sitting Sitting Respiration 16 Pulse 65 Pulse Source Pulse Oximeter Temp 98 F Temp Source Oral Pulse Oximetry (%) 97 Oxygen Delivery Method Room Air Intake Visit Reasons: f/u diabetes Allergies LEFTY Inhibitors [Lefty Inhibitors] Allergy (Severe, Verified 02/11/24 08:39) SWELLING beta blockers Allergy (Severe, Verified 02/11/24 08:39) leg swelling oxycodone [OXYCODONE] Allergy (Severe, Verified 02/11/24 08:39) NAUSEA & VOMITING/FATIGUE rivaroxaban [From XARELTO] Allergy (Severe, Verified 02/11/24 08:39) severe swelling semaglutide [From Ozempic] Allergy (Severe, Verified 02/11/24 08:39) Swelling cat dander Allergy (Intermediate, Verified 02/11/24 08:39) + allergy tesy grass pollen Allergy (Intermediate, Verified 02/11/24 08:39) + allergy test mold Allergy (Intermediate, Verified 02/11/24 08:39) + allergy test rosuvastatin [From Crestor] Allergy (Intermediate, Verified 02/11/24 08:39) Swelling lovenox Allergy (Severe, Uncoded 02/11/24 08:39) swelling extremeties Tobacco use date assessed: 12/24/22 HPI f/u diabetes HPI Details 78 y/o female presents to f/u diabetes. s/p total replacement of L hip and pt reports surgery went well. A1c today 02/11/24 is 8.5%. She is taking glipizide 10mg b.i.d. and had stopped farxiga in November due to surgery. Blood pressure today 158/88. She notes blood pressure at home tends to be bett er. She states she sees her shipyard laborer next week. [facility] Medical History (Updated 02/11/24 @ 09:12 by Reji Lopez) Diabetes type 2, controlled Osteoarthritis of left hip Uncontrolled diabetes mellitus with hyperglycemia Shoulder pain, bilateral Lumbar disc disease Sacroiliac joint disease Sleep apnea RBBB (right bundle branch block) CKD (chronic kidney disease) Hyperlipidemia Osteoporosis Hypothyroidism Depression Essential hypertension Surgical History (Updated 12/13/23 @ 00:04 by Heath Barclay) H/O colonoscopy History of tonsillectomy History of total right knee replacement (TKR) History of breast biopsy History of total left knee replacement (TKR) Family History Father CAD (coronary artery disease) CVD (cardiovascular disease) Mother Colon cancer Brother Cancer of prostate Throat cancer Tongue cancer Social History Household Members: None Housing: House Are you a primary acute care surgeon to a significant other at home: No Do you presently have visiting nurse or other home services: Yes (Melani MITCHELL) Alcohol intake: current Alcohol intake frequency: holidays/special occasions only Patient Tobacco Use Status: Former Tobacco user Quit Date: age 38 Tobacco use type: Cigarette Years Smoked: 5 e-Cigarette/Vaping Use: Never Used Second Hand Smoke Exposure: No Advance Directives Date on File: 03/17/12 service: No 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al status: retired 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 1. Little interest or pleasure in doing things: not at all 2. Feeling down, depressed, or hopeless: not at all 3. Trouble falling or staying asleep, or sleeping too much: not at all 4. Feeling tired or having little energy: nearly every day 5. Poor appetite or overeating: not at all 6. Feeling bad about yourself - or that you are a failure or have let yourself or your family down: not at all 7. Trouble concentrating on things, such as reading the newspaper or watching television: not at all 8. Moving or speaking so slowly that other people could have noticed. Or the opposite - being so fidgety or restless that you have been moving around a lot more than usual: nearly every day 9. Thoughts that you would be better off or of hurting yourself in some way: not at all Total score: 6 Depression Screening Interpretation: Positive Depression Screening Done: Yes 56134 - PHQ-9 Billing: Yes Source: Developed by Drs. Aubrey Barbour, Fozia Rod, Tomas Leung and colleagues, with an educational darwin from [employer]. Thrive Questionnaire Date Thrive assessed: 12/03/23 What is your living situation today?: I have a steady place to live Within the past 12 months, did the food you bought not last and you didn't have the money to get more?: Never true Within the past 12 months, did you worry whether your food would run out before you got money to buy more?: Never true Please select the resources that you would like help with: None THRIVE Score: 0 AUDIT C Alcohol Use Questionnaire (AUDIT-C) 1. How often do you have a drink containing alcohol?: 2-4 times a month 2. How many drinks containing alcohol do you have on a typical day when you are drinking?: 1 or 2 3. How often do you have six or more drinks on one occasion?: Never Total Score: 2 CHARLENE-7 AMB Questionnaire CHARLENE-7 Date CHARLENE - 7 assessed: 12/24/22 Feeling nervous, anxious, or on edge: 0 = Not at all Not being able to stop or control worryin = Not at all Worrying too much about different things: 0 = Not at all Trouble relaxin = Not at all Being so restless that it is hard to sit still: 0 = Not at all Becoming easily annoyed or irritable: 0 = Not at all Feeling afraid as if something awful might happen: 0 = Not at all Total CHARLENE-7 score (0-4 normal; 5-9 mild; 10-14 moderate; 15-21 severe): 0 Source: Developed by Drs. Aubrey Barbour, Fozia Rod, Tomas Leung and colleagues, with an educational darwin from [employer]. Review of Systems Const Denies chills, Denies fatigue, Denies fever(s), Denies headache(s) and Denies weakness ENT Denies dizziness and Denies headache(s) Card Denies dyspnea Resp Denies cough, Denies dyspnea, Denies wheezing and Denies other (shortness of breath) Musc Denies numbness and Denies tingling Neuro Denies dizziness, Denies headache(s), Denies numbness, Denies tingling and Denies weakness Psych Denies anxiety and Denies depression Endo Denies fatigue Aller/Immun Denies wheezing Physical exam (Primary Care) Vital Signs: Last Vital Signs Temp 98 F 02/11/24 08:50 Pulse 65 02/11/24 08:50 Resp 16 02/11/24 08:50 BP 158/88 H 02/11/24 09:02 Pulse Ox 97 02/11/24 08:50 Oxygen Delivery Method Room Air 02/11/24 08:50 BMI result Body Mass Index 40.9 Tobacco/Smoking Status: Tobacco use Status Tobacco use date assessed 12/24/22 02/11/24 09:03 Patient Tobacco Use Status Former Tobacco user 02/11/24 09:03 Tobacco use type Cigarette 02/11/24 09:03 e-Cigarette/Vaping Use Never Used 02/11/24 09:03 PHQ-9: PHQ-9 Score PHQ-9: Total score 6 02/11/24 09:03 Depression Screening Interpretation: Positive Thrive Assessment: Date of Thrive Assessment Date Thrive assessed 12/03/23 02/11/24 09:03 Const General: well developed; No acute distress Nutritional Appearance: well nourished Orientation/consciousness: patient oriented x3 HENMT Head: Yes normocephalic and Yes atraumatic Eyes General: appearance normal, both eyes and all related structures Pupils: Equal, round and reactive pupils present EOM: EOMs intact bilaterally Resp Effort & Inspection: normal respiratory effort Neuro General: patient oriented x3 and gait normal Cranial nerves: Yes Equal, round and reactive pupils present Psych Affect: normal affect Results AMB Hemoglobin A1c AMB Hemoglobin A1c 8.5 % Last Edit by Rakel Brown CMA on 02/11/24 09:20 Assessment and Plan Assessment & Plan (1) Essential hypertension: Code(s): I10 - Essential (primary) hypertension Plan: Blood?pressure?is?high?but?she?notes?that?at?home?her?blood?pressures?are?well?c ontrolled.??Goal?is?less?than?140/90 No?change?to?her?blood?pressure?medication. She?will?bring?a?log?of?her?blood?pressures?to?her?next?visit Follow-up?with?nephrology (2) Diabetes type 2, controlled: Code(s): E11.9 - Type 2 diabetes mellitus without complications Plan: A1c 8.5%. Goal?is?less?than?7.0% Significantly?increased?from?prior?measurement?in?October; 6.9% She?is?still?taking?glipizide?ER?10?mg?b.i.d. She?had?been?on?Farxiga?and?was?tolerating?this?but?stopped?it?prior?to?her?surg jeff?and?has?not?resumed?this?medication. Advised?she?resume?it?but?she?wants?to?c heck?with?her?surgeon?1st.??Asked?her?to?call?the?surgeon?today. (3) Status post total replacement of left hip: Code(s): Z96.642 - Presence of left artificial hip joint Plan: No?significant?pain?now Doing?well Still?has?some?swelling?however Elevate?leg (4) Constipation: Code(s): K59.00 - Constipation, unspecified Plan: No?longer?on?opioid?medications?but?still?having?significant?constipation Increase?hydration?as?tolerated Continue?Colace Can?also?use?MiraLax (5) Chronic renal failure: Code(s): N18.9 - Chronic kidney disease, unspecified Plan: Creatinine?and?GFR?are?little?improved. She?has?an?upcoming?appointment?with?Nephrology Orders: Orders AMB Hemoglobin A1c Today E11.9 - Type 2 diabetes mellitus without complications Hemoglobin A1c Today E11.9 - Type 2 diabetes mellitus without complications, R73.01 - Impaired fasting glucose Comprehensive [place]. Panel Fast Today E11.9 - Type 2 diabetes mellitus without complications, Z00.00 - Encounter for general adult medical examination without abnormal findings Medications: New polyethylene glycol 3350 (Miralax) 17 grams PO DAILY 14 ea 0RF 14 days Coding Level of Care Code Est Pt Level 4 (77585) Diagnoses Essential hypertension I10 Diabetes type 2, controlled E11.9 Status post total replacement of left hip Z96.642 Constipation K59.00 Chronic renal failure N18.9
[2024-02-11 09:02] VITALS: BP 158/88
== END 2024-02-11 09:25 | disposition home or self-care (01) ==
LOC: HO.HMGFM 08:31
PROVIDERS: PCP Family Medicine; Visit Provider Family Medicine
DX: I12.9 Hypertensive chronic kidney disease with stage 1 through stage 4 chronic kidney disease, or unspecified chronic kidney disease (principal); E11.22 Type 2 diabetes mellitus with diabetic chronic kidney disease; Z96.642 Presence of left artificial hip joint; N18.9 Chronic kidney disease, unspecified; K59.00 Constipation, unspecified
CPT/HCPCS: 83036; 99214

== ENCOUNTER 2024-02-26 10:15 | Outpatient (REF) | payer MEDICARE, SELFPAY ==
--- NOTE | ~2024-02-26 | XR_ITS ---
EXAMINATION: XR PELVIS CLINICAL INFORMATION: Pain in unspecified hip. COMPARISON: 12/02/2023, 08/12/2023. TECHNIQUE: AP view of the pelvis. FINDINGS: Redemonstration of left total hip arthroplasty. The acetabular component appears well seated. Hardware appears intact. Redemonstration of advanced degenerative changes in the right hip with joint space narrowing and hypertrophic change. Degenerative changes in the bilateral sacroiliac joints. Pubic symphysis is stable. XR/XR pelvis 1-2V IMPRESSION: 1. Redemonstration of left total hip arthroplasty. Hardware appears intact. 2. Redemonstration of advanced degenerative changes in the right hip.
== END 2024-02-26 10:16 | disposition home or self-care (01) ==
LOC: HO.HOSX 10:15
PROVIDERS: Visit Provider Orthopaedic Surgery
DX: Z47.1 Aftercare following joint replacement surgery (principal); Z96.642 Presence of left artificial hip joint
CPT/HCPCS: 72170; 99212

== ENCOUNTER 2024-02-26 10:20 | Outpatient (AMB) | payer MEDICARE, SELFPAY ==
--- NOTE | 2024-02-26 10:27 | MHC.OFFVIS ---
Intake Intake Visit Reasons: PO-LT ANGELA 12/02/23 NE Intake Note: Guadalupe a 78 year old female who presents today for a post operative appointment s/p Left Hip Arthroplasty 12/02/23. At her last visit she was instructed to continue WBAT and discontinue blood thinners. Patient reports that she is doing well with no concerns. Allergies JOHNNIE Inhibitors [Johnnie Inhibitors] Allergy (Severe, Verified 02/26/24 10:46) SWELLING beta blockers Allergy (Severe, Verified 02/26/24 10:46) leg swelling oxycodone [OXYCODONE] Allergy (Severe, Verified 02/26/24 10:46) NAUSEA & VOMITING/FATIGUE rivaroxaban [From XARELTO] Allergy (Severe, Verified 02/26/24 10:46) severe swelling semaglutide [From Ozempic] Allergy (Severe, Verified 02/26/24 10:46) Swelling cat dander Allergy (Intermediate, Verified 02/26/24 10:46) + allergy tesy grass pollen Allergy (Intermediate, Verified 02/26/24 10:46) + allergy test mold Allergy (Intermediate, Verified 02/26/24 10:46) + allergy test rosuvastatin [From Crestor] Allergy (Intermediate, Verified 02/26/24 10:46) Swelling lovenox Allergy (Severe, Uncoded 02/26/24 10:46) swelling extremeties HPI PO-LT ANGELA 12/02/23 NE HPI Details Guadalupe is doing well with respect to her left hip. She is 3 months status post left hip replacement. She describes difficulty with some swelling that is persisting but she is seeing her parachute cushion installer and this is resolving. [facility] Medical History (Updated 02/11/24 @ 09:12 by Reji Lopez) Diabetes type 2, controlled Osteoarthritis of left hip Uncontrolled diabetes mellitus with hyperglycemia Shoulder pain, bilateral Lumbar disc disease Sacroiliac joint disease Sleep apnea RBBB (right bundle branch block) CKD (chronic kidney disease) Hyperlipidemia Osteoporosis Hypothyroidism Depression Essential hypertension Surgical History (Updated 12/13/23 @ 00:04 by Heath Barclay) H/O colonoscopy History of tonsillectomy History of total right knee replacement (TKR) History of breast biopsy History of total left knee replacement (TKR) Family History Father CAD (coronary artery disease) CVD (cardiovascular disease) Mother Colon cancer Brother Cancer of prostate Throat cancer Tongue cancer Social History Household Members: None Housing: House Are you a primary health care consultant to a significant other at home: No Do you presently have visiting nurse or other home services: Yes (Melani MITCHELL) Alcohol intake: current Alcohol intake frequency: holidays/special occasions only Patient Tobacco Use Status: Former Tobacco user Quit Date: age 38 Tobacco use type: Cigarette Years Smoked: 5 e-Cigarette/Vaping Use: Never Used Second Hand Smoke Exposure: No Advance Directives Date on File: 03/17/12 service: No 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al status: retired 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al exposures/hazards: No Cognitive needs: No Hearing needs: No Vision needs: No Physical Exam Extrem Other: No pain with hip ROM Nl gait Inc c/d/i Results Reviewed Results Reviewed: I personally reviewed relevant radiographs. Left ANGELA in expected post operative position with no hardware complications or evidence of loosening Assessment & Plan Assessment & Plan (1) Status post total replacement of left hip: Code(s): Z96.642 - Presence of left artificial hip joint Plan: Guadalupe is doing well status post left hip replacement. Amoxicillin sent to her pharmacy for dental prophylaxis. Discussed hip precautions. She can follow-up at the year time point if she likes but otherwise as needed. Orders: Orders XR pelvis 1-2V Today M25.559 - Pain in unspecified hip Medications: New amoxicillin Take one hour prior to dental cleaning 2,000 mg (4 x 500 mg) PO ONCE 4 caps 0RF dental prophylaxis Coding Level of Care Code Global (07404) Diagnoses Status post total replacement of left hip Z96.642
== END 2024-02-26 11:51 | disposition home or self-care (01) ==
PROVIDERS: PCP Family Medicine; Visit Provider Orthopaedic Surgery
DX: Z96.642 Presence of left artificial hip joint (principal)
CPT/HCPCS: 99024

== ENCOUNTER 2024-03-11 09:00 | Outpatient (RCR) | payer MEDICARE, SELFPAY ==
--- NOTE | 2024-02-11 13:54 | MHC.PT.EP ---
[facility] [place] Office [place] Office [place] Office [address] Supa Alvarado [address] [phone] F: [phone] F: [phone] F: [phone] F: [phone] Physical Therapy Plan of Care Date of Evaluation: 02/11/24 Date of Surgery: 12/02/23 Diagnosis: s/p L ANGELA Assessment: Patient is a 78 year old R handed female who presents with s/s consistent with L ANGELA 12/02/23. She does not work but does value being active. Patient past medical history includes CKD, osteoporosis, and TKA. Current impairments include pain, posture, balance, ROM, strength, activity tolerance and functional mobility. Functional limitations include decreased ability to stand, transfer, get in/out of cars, walk, negotiate stairs, and enter into the community. Patient is motivated with good rehab potential. Skilled PT will address impairments and functional limitations in order to achieve goals. Frequency and Duration: The patient will be seen 2x/week for 5 weeks Short Term Goals: I with HEP - 2 weeks Symmetrical gait with amb and stairs - 3 weeks Able to walk 10 minutes without rest or increased pain - 3 weeks Penitentiary Goals: LEFS 54/80 - 5 weeks Able to walk 20 minutes without rest or increased pain - 5 weeks LE strength 4/5 grossly - 5 weeks No difficulty in/out of car - 5 weeks SLB > 10 seconds b/l - 5 weeks Treatment Plan: Modalities to reduce pain, spasms and effusion. Manual therapy to restore motion and function. Therapeutic exercise to improve strength and flexibility. Neuromuscular re-education for posture and balance. Therapeutic activities to return to functional activities of daily living. Electronically signed by: Marcel Daigle, PT Please sign and return to therapist. Thank you for your referral.
--- NOTE | 2024-08-19 07:37 | MHC.PT.EP ---
[facility] [place] [facility] [place] [facility] [place] [facility] [address] Supa Alvarado [address] [phone] F: [phone] F: [phone] F: [phone] F: [phone] Physical Therapy Plan of Care Date of Evaluation: 02/11/24 Date of Surgery: 12/02/23 Diagnosis: s/p L ANGELA Assessment: Patient is a 78 year old R handed female who presents with s/s consistent with L ANGELA 12/02/23. She does not work but does value being active. Patient past medical history includes CKD, osteoporosis, and TKA. Current impairments include pain, posture, balance, ROM, strength, activity tolerance and functional mobility. Functional limitations include decreased ability to stand, transfer, get in/out of cars, walk, negotiate stairs, and enter into the community. Patient is motivated with good rehab potential. Skilled PT will address impairments and functional limitations in order to achieve goals. Frequency and Duration: The patient will be seen 2x/week for 5 weeks Short Term Goals: I with HEP - 2 weeks Symmetrical gait with amb and stairs - 3 weeks Able to walk 10 minutes without rest or increased pain - 3 weeks Care Home Goals: LEFS 54/80 - 5 weeks Able to walk 20 minutes without rest or increased pain - 5 weeks LE strength 4/5 grossly - 5 weeks No difficulty in/out of car - 5 weeks SLB > 10 seconds b/l - 5 weeks Treatment Plan: Modalities to reduce pain, spasms and effusion. Manual therapy to restore motion and function. Therapeutic exercise to improve strength and flexibility. Neuromuscular re-education for posture and balance. Therapeutic activities to return to functional activities of daily living. Electronically signed by: Marcel Daigle, PT Please sign and return to therapist. Thank you for your referral.
== END 2024-08-19 07:38 | disposition home or self-care (01) ==
LOC: HO.PTCHIC 09:00
PROVIDERS: PCP Family Medicine; Visit Provider Orthopaedic Surgery
DX: Z96.642 Presence of left artificial hip joint (principal)
CPT/HCPCS: 97110; 97112; 97163

== ENCOUNTER 2024-03-16 07:39 | Outpatient (REF) | payer MEDICARE, SELFPAY ==
[2024-03-16 10:28] LABS: MANUAL DIFF FLAG NO
[2024-03-16 10:38] LABS: Basophils Absolute Auto 0.1 X10*3/uL (0.0-0.2); Eosinophils Absolute Auto 0.3 X10*3/uL (0.0-0.4); Eosinophils Percent Auto 4.2 % (0-4); Hematocrit 35.5 % (37.0-47.0); Hemoglobin 11.1 g/dl (12.0-16.0); Imm Gran Abs Auto 0.02 X10*3/uL (0.00-0.03); Imm Gran Pct Auto 0.3 % (0.0-0.4); Lymphocytes Absolute Auto 2.2 X10*3/uL (1.2-4.9); Lymphocytes Percent Auto 36.5 % (20-40); Mean Corpuscular HGB Conc 31.3 g/dl (31.0-35.0); Mean Corpuscular Hemoglobin 27.6 pg (27.0-33.0); Mean Corpuscular Volume 88.3 fL (80.0-98.0); Mean Platelet Volume 9.4 fL (9.4-12.3); Monocytes Absolute Auto 0.5 X10*3/uL (0.1-1.2); Monocytes Percent Auto 8.1 % (2-11); Neutrophils Percent Auto 49.9 % (45-73); Platelet Count 283 X10*3/uL (160-400); Red Blood Count 4.02 X10*6/uL (4.20-5.50)
[2024-03-16 10:43] LABS: Appearance Urine Clear; Color Urine Yellow; Glucose Urine UA >=1000 mg/dL (Negative); Leukocyte Esterase Urine Negative (Negative); Nitrite Urine Negative (Negative); PH 5.5 (5.0-9.0); Specific Gravity - Urine 1.015 (1.005-1.025); UMIC TRIGGER UA YES; Urine Blood Negative (Negative); Urine Ketones Negative (Negative); Urine Protein Negative (Neg-Trace)
[2024-03-16 10:50] LABS: Bacteria Urine None Seen (None Seen); RBC Urine 0-2 /HPF (0-2); Squamous Epithelial Cell Urine 0-2 /HPF (0-2); WBC Urine 0-5 /HPF (0-5)
[2024-03-16 11:14] LABS: Albumin Level 3.6 g/dL (3.5-5.0); Anion Gap 14 (12-20); Blood Urea Nitrogen 25 mg/dL (9-16); Calcium 9.4 mg/dL (8.4-10.2); Carbon Dioxide 26 mmol/L (22-29); Chloride 103 mmol/L (96-108); Estimated Glomerular Filt Rate 20; Magnesium 2.4 mg/dL (1.6-2.6); Phosphorus 4.4 mg/dL (2.7-4.5); Potassium 4.2 mmol/L (3.3-5.1); Sodium 139 mmol/L (135-145)
[2024-03-16 11:19] LABS: Vitamin D 25-OH Total 24.3 ng/mL (>30)
[2024-03-16 11:46] LABS: Creatinine Urine 109.84 mg/dL; Microalbum/Creatinine Ratio Ur 8.1 ug/mg cr (<30); Total Protein Urine Random < 7 mg/dL (<12)
== END 2024-03-16 07:40 | disposition home or self-care (01) ==
LOC: HO.10HDL 07:39
PROVIDERS: Visit Provider Internal Medicine Nephrology
DX: N18.4 Chronic kidney disease, stage 4 (severe) (principal); I10 Essential (primary) hypertension; I12.9 Hypertensive chronic kidney disease with stage 1 through stage 4 chronic kidney disease, or unspecified chronic kidney disease; N25.0 Renal osteodystrophy; E11.9 Type 2 diabetes mellitus without complications
CPT/HCPCS: 36415; 80051; 81001; 82040; 82043; 82306; 82310; 82565; 82570; 83735; 83970; 84100; 84156; 84520; 85025

== ENCOUNTER 2024-04-06 12:06 | Outpatient (REF) | payer MEDICARE, SELFPAY ==
--- NOTE | ~2024-04-06 | US_ITS ---
EXAMINATION: US VENOUS ULTRASOUND WITH DOPPLER LOWER EXTREMITY, LEFT CLINICAL INFORMATION: Left leg swelling COMPARISON: None available. TECHNIQUE: Ultrasound of the deep veins is performed from the hip to the calf with compression sonography and color and pulse Doppler assessment. Spectral analysis with color-flow imaging is performed. FINDINGS: There is normal venous compression and respiratory variation and augmented flow. The visualized common femoral vein, superficial femoral vein, profunda femoral vein and popliteal vein show no evidence of deep venous thrombosis. One of the 2 posterior tibial veins seen and patent. Peroneal and second posterior tibial vein are not identified due to edema. Right common femoral vein scanned for comparison is unremarkable. If the patient's symptoms persist, followup ultrasound in 5 days 7 days might be of value to exclude proximal propagation from a non-visualized calf vein. No Ng's cyst. US/US venous duplex LE IMPRESSION: No DVT demonstrated in the left lower extremity. Left lower extremity soft tissue edema.
== END 2024-04-06 12:07 | disposition home or self-care (01) ==
LOC: HO.US 12:06
PROVIDERS: PCP Family Medicine; Visit Provider Internal Medicine Nephrology
DX: M79.89 Other specified soft tissue disorders (principal); I12.9 Hypertensive chronic kidney disease with stage 1 through stage 4 chronic kidney disease, or unspecified chronic kidney disease; E11.22 Type 2 diabetes mellitus with diabetic chronic kidney disease; N18.4 Chronic kidney disease, stage 4 (severe); N25.0 Renal osteodystrophy
CPT/HCPCS: 93971

== ENCOUNTER 2024-05-07 07:38 | Outpatient (REF) | payer MEDICARE, SELFPAY ==
[2024-05-07 11:07] LABS: Estimated Average Glucose 160 mg/dL; Hemoglobin A1c % 7.2 % (<6.0)
[2024-05-07 11:15] LABS: Alanine Aminotransferase 10 U/L (0-31); Albumin Level 3.7 g/dL (3.5-5.0); Alkaline Phosphatase 125 U/L (39-117); Anion Gap 13 (12-20); Aspartate Amino Transferase 13 U/L (5-31); Bilirubin Total 0.6 mg/dL (0.0-1.0); Blood Urea Nitrogen 25 mg/dL (9-16); Calcium 9.3 mg/dL (8.4-10.2); Carbon Dioxide 25 mmol/L (22-29); Chloride 106 mmol/L (96-108); Estimated Glomerular Filt Rate 21; Glucose Fasting 138 mg/dL (60-99); Potassium 3.3 mmol/L (3.3-5.1); Sodium 141 mmol/L (135-145); Total Protein 6.7 g/dL (6.5-8.0)
== END 2024-05-07 07:39 | disposition home or self-care (01) ==
LOC: HO.10HDL 07:38
PROVIDERS: Visit Provider Family Medicine
DX: Z00.00 Encounter for general adult medical examination without abnormal findings (principal); E11.9 Type 2 diabetes mellitus without complications
CPT/HCPCS: 36415; 80053; 83036

== ENCOUNTER 2024-05-12 08:20 | Outpatient (AMB) | payer MEDICARE, SELFPAY ==
[2024-05-12 08:25] VITALS: BP 134/74; PULSE 66; RESP 15; TEMP 36.6; O2SAT 99; BMI 38.4
--- NOTE | 2024-05-12 08:25 | MHC.PC.OV ---
Vital Signs 05/12/24 08:25 Height 5 ft 1 in Weight 203 lb 6 oz BMI 38.4 BP 134/74 Blood Pressure Location Rt brachial Position Sitting Respiration 15 Pulse 66 Pulse Source Pulse Oximeter Temp 97.8 F Temp Source Temporal Artery Scan Pulse Oximetry (%) 99 Oxygen Delivery Method Room Air Intake Visit Reasons: f/u diabetes, hypertension Intake Note: Patient states that her eye swelled up this morning and something is wrong with it. As400 Developer Required: No Accompanied by: Self / Same As Patient Allergies JOHNNIE Inhibitors [Johnnie Inhibitors] Allergy (Severe, Verified 05/12/24 08:33) SWELLING beta blockers Allergy (Severe, Verified 05/12/24 08:33) leg swelling oxycodone [OXYCODONE] Allergy (Severe, Verified 05/12/24 08:33) NAUSEA & VOMITING/FATIGUE rivaroxaban [From XARELTO] Allergy (Severe, Verified 05/12/24 08:33) severe swelling semaglutide [From Ozempic] Allergy (Severe, Verified 05/12/24 08:33) Swelling cat dander Allergy (Intermediate, Verified 05/12/24 08:33) + allergy tesy grass pollen Allergy (Intermediate, Verified 05/12/24 08:33) + allergy test mold Allergy (Intermediate, Verified 05/12/24 08:33) + allergy test rosuvastatin [From Crestor] Allergy (Intermediate, Verified 05/12/24 08:33) Swelling lovenox Allergy (Severe, Uncoded 02/26/24 10:46) swelling extremeties Tobacco use date assessed: 05/12/24 Fall risk assessment: 2 + Falls in past year Last assessed Fall Risk: 05/12/24 Dental Screening Dental Screen Date: 05/12/24 Did you have a dental visit in the last 12 months?: Yes Did you have a dental problem in the last 6 months where you did not have access to dental care?: No Was dental information given to patient?: Patient has dentist HPI f/u diabetes, hypertension HPI Details 78 y/o female presents to f/u diabetes, hypertension. Blood pressure today 134/74. She reports blood pressure still controlled at home. She is on farxiga and glipizide for her diabetes. A1c 05/07/24 7.2%. She notes she has been watching her diet. Some decreased sensation with monofilament test L foot. Has complaints of a stye L eye. HPI Comments History of Present Illness Details Documentation assistance for Fadi Craig MD, was provided by Reji Lopez, [employer] Sales Beauty Advisor on 05/12/2024 at 8:56 AM EST. I, Dr. Craig, have read, observed, and verified documentation. [facility] Medical History Diabetes type 2, controlled Osteoarthritis of left hip Uncontrolled diabetes mellitus with hyperglycemia Shoulder pain, bilateral Lumbar disc disease Sacroiliac joint disease Sleep apnea RBBB (right bundle branch block) CKD (chronic kidney disease) Hyperlipidemia Osteoporosis Hypothyroidism Depression Essential hypertension Surgical History History of hip surgery H/O colonoscopy History of tonsillectomy History of total right knee replacement (TKR) History of breast biopsy History of total left knee replacement (TKR) Family History Father CAD (coronary artery disease) CVD (cardiovascular disease) Mother Colon cancer Brother Cancer of prostate Throat cancer Tongue cancer Social History Household Members: None Housing: House Are you a primary career counselor to a significant other at home: No Do you presently have visiting nurse or other home services: Yes (Melani MITCHELL) Alcohol intake: current Alcohol intake frequency: holidays/special occasions only Patient Tobacco Use Status: Former Tobacco user Tobacco use type: Cigarette Years Smoked: 5 e-Cigarette/Vaping Use: Never Used Second Hand Smoke Exposure: No Advance Directives Date on File: 03/17/12 service: No 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al status: retired 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 Aubrey Barbour, Fozia Rod, Tomas Leung and colleagues, with an educational darwin from [employer]. Review of Systems Const Denies chills, Denies fatigue, Denies fever(s), Denies headache(s) and Denies weakness ENT Denies dizziness and Denies headache(s) Card Denies dyspnea Resp Denies cough, Denies dyspnea, Denies wheezing and Denies other (shortness of breath) Musc Denies numbness and Denies tingling Neuro Denies dizziness, Denies headache(s), Denies numbness, Denies tingling and Denies weakness Psych Denies anxiety and Denies depression Endo Denies fatigue Aller/Immun Denies wheezing Physical exam (Primary Care) Vital Signs: Last Vital Signs Temp 97.8 F 05/12/24 08:25 Pulse 66 05/12/24 08:25 Resp 15 05/12/24 08:25 BP 134/74 05/12/24 08:25 Pulse Ox 99 05/12/24 08:25 Oxygen Delivery Method Room Air 05/12/24 08:25 BMI result Body Mass Index 38.4 Tobacco/Smoking Status: Tobacco use Status Tobacco use date assessed 05/12/24 05/12/24 08:36 Patient Tobacco Use Status Former Tobacco user 05/12/24 08:25 Tobacco use type Cigarette 05/12/24 08:25 e-Cigarette/Vaping Use Never Used 05/12/24 08:25 Thrive Assessment: Date of Thrive Assessment Date Thrive assessed 12/03/23 05/12/24 08:25 Const General: well developed; No acute distress Nutritional Appearance: well nourished Orientation/consciousness: patient oriented x3 [facility] Head: Yes normocephalic and Yes atraumatic Eyes General: appearance normal, both eyes and all related structures Pupils: Equal, round and reactive pupils present EOM: EOMs intact bilaterally Resp Effort & Inspection: normal respiratory effort Neuro General: patient oriented x3 and gait normal Cranial nerves: Yes Equal, round and reactive pupils present Extrem Other: Monofilament test with mildly decreased sensation distal toetips bilaterally Lower extremity edema 1+ in the R ankle, 2+ edema in the L Psych Affect: normal affect Assessment and Plan Assessment & Plan (1) Diabetes type 2, controlled: Code(s): E11.9 - Type 2 diabetes mellitus without complications Plan: A1c?much?improved?from?8.5%?down?to?7.2%?with?restarting?Farxiga.??She?also?continues?glipizide.??Goal?is?about?7.0% Continue?current?medication?regimen.??She?would?like?to?also?try?a?low?dose?of?Wegovy?which I?will?send?script?for. Encouraged?diet?low?in?sugars?and?starches (2) Essential hypertension: Code(s): I10 - Essential (primary) hypertension Plan: Blood?pressure?is?controlled.??Goal?is?less?than?140/90 Continue?current?medication (3) Stye: Code(s): H00.019 - Hordeolum externum unspecified eye, unspecified eyelid Plan: Stye?at?left?eye Will?give?her?a?script?for?erythromycin?ointment?and?she?can?use?warm?compresses She?will?let?me?know?if?worsens?or?not?improving (4) Swelling of lower extremity: Code(s): M79.89 - Other specified soft tissue disorders Plan: Lower?extremity?edema?bilaterally?with?left?leg?worse?than?right?and?she?just?had?a?left?hip?surgery. 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 Continue?furosemide?as?prescribed (5) Chronic renal failure: Code(s): N18.9 - Chronic kidney disease, unspecified Plan: Stable Follow-up?with?nephrology?as?recommended Orders: Orders Comprehensive [place]. Panel Fast Today Z00.00 - Encounter for general adult medical examination without abnormal findings Lipid Panel Today Z00.00 - Encounter for general adult medical examination without abnormal findings UA and rflx microscopic Today Z00.00 - Encounter for general adult medical examination without abnormal findings Complete Blood Count Auto Diff Today Z00.00 - Encounter for general adult medical examination without abnormal findings Microalbumin, Random (w Creat) Today I10 - Essential (primary) hypertension TSH reflex Free T4 Today Z00.00 - Encounter for general adult medical examination without abnormal findings Hemoglobin A1c Today R73.01 - Impaired fasting glucose Medications: New erythromycin 0.5 inches ophthalmic (eye) TID 7 days 3.5 grams 0RF semaglutide (weight loss) (Robert) administer weeks 1 through 4 of therapy 0.25 mg (0.5 mL) subcut QWEEK 28 days 2 mL 3RF E11.9 - Type 2 diabetes mellitus without complications Coding Level of Care Code Est Pt Level 4 (59327) Diagnoses Diabetes type 2, controlled E11.9 Essential hypertension I10 Stye H00.019 Swelling of lower extremity M79.89 Chronic renal failure N18.9
== END 2024-05-12 09:09 | disposition home or self-care (01) ==
PROVIDERS: PCP Family Medicine; Visit Provider Family Medicine
DX: E11.22 Type 2 diabetes mellitus with diabetic chronic kidney disease (principal); I12.9 Hypertensive chronic kidney disease with stage 1 through stage 4 chronic kidney disease, or unspecified chronic kidney disease; H00.019 Hordeolum externum unspecified eye, unspecified eyelid; N18.9 Chronic kidney disease, unspecified; M79.89 Other specified soft tissue disorders
CPT/HCPCS: 99214

== ENCOUNTER 2024-07-22 07:36 | Outpatient (REF) | payer MEDICARE, SELFPAY ==
[2024-07-22 10:51] LABS: MANUAL DIFF FLAG NO
[2024-07-22 10:54] LABS: Basophils Absolute Auto 0.1 X10*3/uL (0.0-0.2); Basophils Percent Auto 0.8 % (0-2); Eosinophils Absolute Auto 0.3 X10*3/uL (0.0-0.4); Eosinophils Percent Auto 4.8 % (0-4); Hematocrit 39.4 % (37.0-47.0); Hemoglobin 12.7 g/dl (12.0-16.0); Imm Gran Abs Auto 0.01 X10*3/uL (0.00-0.03); Imm Gran Pct Auto 0.2 % (0.0-0.4); Lymphocytes Absolute Auto 2.2 X10*3/uL (1.2-4.9); Lymphocytes Percent Auto 34.3 % (20-40); Mean Corpuscular HGB Conc 32.2 g/dl (31.0-35.0); Mean Corpuscular Hemoglobin 28.3 pg (27.0-33.0); Mean Corpuscular Volume 87.8 fL (80.0-98.0); Mean Platelet Volume 9.3 fL (9.4-12.3); Monocytes Absolute Auto 0.5 X10*3/uL (0.1-1.2); Monocytes Percent Auto 7.1 % (2-11); Neutrophils Absolute Auto 3.3 x10*3/uL (2.0-8.3); Neutrophils Percent Auto 52.8 % (45-73); Platelet Count 273 X10*3/uL (160-400); Red Blood Count 4.49 X10*6/uL (4.20-5.50); White Blood Count 6.3 X10*3/uL (4.8-10.8)
[2024-07-22 11:13] LABS: Appearance Urine Clear; Color Urine Yellow; Glucose Urine UA >=1000 mg/dL (Negative); Leukocyte Esterase Urine Negative (Negative); Nitrite Urine Negative (Negative); PH 5.5 (5.0-9.0); UMIC TRIGGER UA YES; Urine Blood Negative (Negative); Urine Ketones Negative (Negative); Urine Protein Negative (Neg-Trace)
[2024-07-22 11:19] LABS: Bacteria Urine None Seen (None Seen); Hyaline Casts Urine 0-2 /LPF (0-2); RBC Urine 0-2 /HPF (0-2); Squamous Epithelial Cell Urine 0-2 /HPF (0-2); WBC Urine 0-5 /HPF (0-5)
[2024-07-22 11:37] LABS: Parathyroid Hormone Intact 217.1 pg/mL (8.7-77.1)
[2024-07-22 11:39] LABS: Albumin Level 3.9 g/dL (3.5-5.0); Anion Gap 13 (12-20); Blood Urea Nitrogen 22 mg/dL (9-16); Calcium 9.5 mg/dL (8.4-10.2); Carbon Dioxide 24 mmol/L (22-29); Chloride 107 mmol/L (96-108); Estimated Glomerular Filt Rate 21; Magnesium 2.3 mg/dL (1.6-2.6); Phosphorus 4.1 mg/dL (2.7-4.5); Potassium 3.9 mmol/L (3.3-5.1); Sodium 140 mmol/L (135-145)
[2024-07-22 11:58] LABS: Vitamin D 25-OH Total 28.8 ng/mL (>30)
[2024-07-22 11:59] LABS: Creatinine Urine 100.11 mg/dL; Microalbum/Creatinine Ratio Ur 15.9 ug/mg cr (<30); Protein/Creatinine Ratio, Ur 0.08 (<0.2); Total Protein Urine Random 8 mg/dL (<12)
== END 2024-07-22 07:37 | disposition home or self-care (01) ==
LOC: HO.10HDL 07:36
PROVIDERS: Visit Provider Internal Medicine Nephrology
DX: I12.9 Hypertensive chronic kidney disease with stage 1 through stage 4 chronic kidney disease, or unspecified chronic kidney disease (principal); E11.22 Type 2 diabetes mellitus with diabetic chronic kidney disease; N18.4 Chronic kidney disease, stage 4 (severe); N25.0 Renal osteodystrophy; R82.90 Unspecified abnormal findings in urine
CPT/HCPCS: 36415; 80051; 81001; 82040; 82043; 82306; 82310; 82565; 82570; 83735; 83970; 84100; 84156; 84520; 85025; 87086

== ENCOUNTER 2024-08-11 09:18 | Outpatient (REF) | payer MEDICARE, SELFPAY ==
[2024-08-11 09:58] LABS: MANUAL DIFF FLAG NO
[2024-08-11 10:06] LABS: Basophils Absolute Auto 0.1 X10*3/uL (0.0-0.2); Basophils Percent Auto 1.1 % (0-2); Eosinophils Absolute Auto 0.2 X10*3/uL (0.0-0.4); Eosinophils Percent Auto 3.5 % (0-4); Hematocrit 38.8 % (37.0-47.0); Hemoglobin 12.5 g/dl (12.0-16.0); Imm Gran Abs Auto 0.02 X10*3/uL (0.00-0.03); Imm Gran Pct Auto 0.4 % (0.0-0.4); Lymphocytes Absolute Auto 1.8 X10*3/uL (1.2-4.9); Lymphocytes Percent Auto 31.1 % (20-40); Mean Corpuscular HGB Conc 32.2 g/dl (31.0-35.0); Mean Corpuscular Hemoglobin 28.3 pg (27.0-33.0); Mean Platelet Volume 9.1 fL (9.4-12.3); Monocytes Absolute Auto 0.4 X10*3/uL (0.1-1.2); Neutrophils Absolute Auto 3.3 x10*3/uL (2.0-8.3); Neutrophils Percent Auto 56.9 % (45-73); Platelet Count 298 X10*3/uL (160-400); Red Blood Count 4.41 X10*6/uL (4.20-5.50); Red Cell Distribution Width 14.6 % (11.0-16.0); White Blood Count 5.7 X10*3/uL (4.8-10.8)
[2024-08-11 10:14] LABS: Estimated Average Glucose 154 mg/dL
[2024-08-11 10:45] LABS: Alanine Aminotransferase 13 U/L (0-31); Albumin Level 3.9 g/dL (3.5-5.0); Alkaline Phosphatase 96 U/L (39-117); Anion Gap 11 (12-20); Aspartate Amino Transferase 14 U/L (5-31); Bilirubin Total 0.6 mg/dL (0.0-1.0); Blood Urea Nitrogen 26 mg/dL (9-16); Calcium 9.6 mg/dL (8.4-10.2); Carbon Dioxide 25 mmol/L (22-29); Chloride 110 mmol/L (96-108); Cholesterol 177 mg/dL (<200); Estimated Glomerular Filt Rate 22; Glucose Fasting 128 mg/dL (60-99); HDL Cholesterol 39 mg/dL (>40); LDL Cholesterol Calculated 121 mg/dL (<100); Potassium 4.2 mmol/L (3.3-5.1); Sodium 142 mmol/L (135-145); Total Protein 6.8 g/dL (6.5-8.0); Triglycerides 86 mg/dL (<150)
[2024-08-11 11:05] LABS: TSH reflex Free T4 1.95 uIU/mL (0.32-4.0)
== END 2024-08-11 09:19 | disposition home or self-care (01) ==
LOC: HO.10HDL 09:18
PROVIDERS: Visit Provider Family Medicine
DX: Z00.00 Encounter for general adult medical examination without abnormal findings (principal); Z13.6 Encounter for screening for cardiovascular disorders; R73.01 Impaired fasting glucose
CPT/HCPCS: 36415; 80053; 80061; 83036; 84443; 85025

== ENCOUNTER 2024-08-18 07:40 | Outpatient (REF) | payer MEDICARE, SELFPAY ==
[2024-08-18 11:12] LABS: Appearance Urine Clear; Color Urine Yellow; Glucose Urine UA >=1000 mg/dL (Negative); Leukocyte Esterase Urine Negative (Negative); Nitrite Urine Negative (Negative); PH 5.5 (5.0-9.0); UMIC TRIGGER UA YES; Urine Blood Negative (Negative); Urine Ketones Negative (Negative); Urine Protein Negative (Neg-Trace)
[2024-08-18 11:57] LABS: Creatinine Urine 60.34 mg/dL; Microalbum/Creatinine Ratio Ur 9.9 ug/mg cr (<30)
[2024-08-18 12:03] LABS: Bacteria Urine None Seen (None Seen); Hyaline Casts Urine 0-2 /LPF (0-2); RBC Urine 0-2 /HPF (0-2); Squamous Epithelial Cell Urine 0-2 /HPF (0-2); WBC Urine 0-5 /HPF (0-5)
== END 2024-08-18 07:41 | disposition home or self-care (01) ==
LOC: HO.10HDLNP 07:40
PROVIDERS: Visit Provider Family Medicine
DX: I10 Essential (primary) hypertension (principal)
CPT/HCPCS: 81001; 81003; 82043; 82570

== ENCOUNTER 2024-08-19 10:51 | Outpatient (AMB) | payer MEDICARE, SELFPAY ==
--- NOTE | 2024-08-19 11:20 | A.OFFPC_ITS ---
Vital Signs 08/19/24 11:27 Height 5 ft 1 in Weight 209 lb 6 oz BMI 39.6 BP 130/70 Blood Pressure Location Lt brachial Position Sitting Respiration 14 Pulse 69 Pulse Source Pulse Oximeter Pulse Oximetry (%) 100 Oxygen Delivery Method Room Air Intake Visit Reasons: CPE Intake Note: CPE Is last menstrual period known: No Post menopausal: Yes Patient : No Allergies JOHNNIE Inhibitors [Johnnie Inhibitors] Allergy (Severe, Verified 08/19/24 11:21) SWELLING beta blockers Allergy (Severe, Verified 08/19/24 11:21) leg swelling oxycodone [OXYCODONE] Allergy (Severe, Verified 08/19/24 11:21) NAUSEA & VOMITING/FATIGUE rivaroxaban [From XARELTO] Allergy (Severe, Verified 08/19/24 11:21) severe swelling semaglutide [From Ozempic] Allergy (Severe, Verified 08/19/24 11:21) Swelling cat dander Allergy (Intermediate, Verified 08/19/24 11:21) + allergy tesy grass pollen Allergy (Intermediate, Verified 08/19/24 11:21) + allergy test mold Allergy (Intermediate, Verified 08/19/24 11:21) + allergy test rosuvastatin [From Crestor] Allergy (Intermediate, Verified 08/19/24 11:21) Swelling lovenox Allergy (Severe, Uncoded 08/19/24 11:21) swelling extremeties Medication List - Last Reconciled 08/19/24 by Fadi Craig MD acetaminophen 650 mg (2 x 325 mg) PO Q6H PRN 30 days aliskiren 75 mg PO QAM atorvastatin 20 mg PO BEDTIME betamethasone dipropionate 0.05% 1 appl topical DAILY blood sugar diagnostic As directed blood sugar diagnostic (Accu-Chek SmartView Test Strips) 2 times a day As directed, 90 days blood-glucose meter As directed cetirizine (Zyrtec) 10 mg PO DAILY PRN compr.stocking,knee,long,large Daily As directed. 30 days. 10-20 mm Hg dapagliflozin propanediol 10 mg PO DAILY docusate sodium 100 mg PO BID 14 days ergocalciferol (vitamin D2) 1,250 mcg PO Q2W fluoxetine (Prozac) 10 mg PO DAILY 90 days furosemide 20 mg PO DAILY glipizide ER 10 mg PO BID 90 days lancets As directed levothyroxine 50 mcg PO DAILY@0600 90 days lidocaine 5% (Lidoderm) 1 patch topical DAILY PRN nystatin 1 appl topical DIRECTED triamcinolone acetonide 0.1% 1 appl topical DAILY Tobacco use date assessed: 08/19/24 Fall risk assessment: No Falls in past year Last assessed Fall Risk: 08/19/24 Dental Screening Dental Screen Date: 08/19/24 Did you have a dental visit in the last 12 months?: Yes Did you have a dental problem in the last 6 months where you did not have access to dental care?: No Was dental information given to patient?: Patient has dentist HPI CPE HPI Details 79 y/o female presents for an extended e xam with f/u labs and health maintenance. Labs drawn 08/11/24. Reviewed labs with pt. A1c 7.0%. She is on glipizide 10mg b.i.d. She states she has been unable to take wegovy due to the cost. She would like to trial mounjaro. Triglycerides 86. TC 177. LDL 121. HDL low at 39. She is on artovastatin 20mg but has not been taking this due to muscle aches/pain. She reports imbalance and feels she is unable to walk well. She reports hearing changes. HPI Comments History of Present Illness Details Documentation assistance for Fadi Craig MD, was provided by Reji Lopez, [employer] Supervisor on 08/19/2024 at 11:45 AM EST. I, Dr. Craig, have read, observed, and verified documentation. [facility] Medical History Diabetes type 2, controlled Osteoarthritis of left hip Uncontrolled diabetes mellitus with hyperglycemia Shoulder pain, bilateral Lumbar disc disease Sacroiliac joint disease Sleep apnea RBBB (right bundle branch block) CKD (chronic kidney disease) Hyperlipidemia Osteoporosis Hypothyroidism Depression Essential hypertension Surgical History History of hip surgery H/O colonoscopy History of tonsillectomy History of total right knee replacement (TKR) History of breast biopsy History of total left knee replacement (TKR) Family History Father CAD (coronary artery disease) CVD (cardiovascular disease) Mother Colon cancer Brother Cancer of prostate Throat cancer Tongue cancer Social History (Updated 08/19/24 @ 11:25 by Paula Purcell [facility]) Household Members: None Housing: House Are you a primary nursing care partner to a significant other at home: No Do you presently have visiting nurse or other home services: Yes (Melani MITCHELL) Alcohol intake: current Alcohol intake frequency: holidays/special occasions only Patient Tobacco Use Status: Former Tobacco user Tobacco use type: Cigarette Years Smoked: 5 e-Cigarette/Vaping Use: Never Used Second Hand Smoke Exposure: No Advance Directives Date on File: 03/17/12 service: No 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al status: retired 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 1. Little interest or pleasure in doing things: not at all 2. Feeling down, depressed, or hopeless: not at all 3. Trouble falling or staying asleep, or sleeping too much: several days 4. Feeling tired or having little energy: several days 5. Poor appetite or overeating: not at all 6. Feeling bad about yourself - or that you are a failure or have let yourself or your family down: not at all 7. Trouble concentrating on things, such as reading the newspaper or watching television: not at all 8. Moving or speaking so slowly that other people could have noticed. Or the opposite - being so fidgety or restless that you have been moving around a lot more than usual: not at all 9. Thoughts that you would be better off or of hurting yourself in some way: not at all Total score: 2 Depression Screening Interpretation: Negative Depression Screening Done: Yes [id number] - PHQ-9 Billing: Yes Source: Developed by Drs. Aubrey Barbour, oFzia Rod, Tomas Leung and colleagues, with an educational darwin from [employer]. Thrive Questionnaire Date Thrive assessed: 08/19/24 I am a: Patient What is your living situation today?: I have a steady place to live Within the past 12 months, did the food you bought not last and you didn't have the money to get more?: Never true Within the past 12 months, did you worry whether your food would run out before you got money to buy more?: Never true Do you have trouble paying for medicines?: No Do you have trouble getting transportation to medical appointments?: No Do you have trouble paying your heating and electricity bill?: No Do you have trouble taking care of your child, family member or friend?: No Do you have trouble with day-to-day activities such as bathing, preparing meals, shopping, managing finances, etc.?: No Are you currently unemployed and looking for a job?: No Are you interested in more education?: Yes Please select the resources that you would like help with: None Currently or been in a relationship where the following occur: No concerns re ported THRIVE Score: 0 AUDIT C Alcohol Use Questionnaire (AUDIT-C) 1. How often do you have a drink containing alcohol?: 2-4 times a month 2. How many drinks containing alcohol do you have on a typical day when you are drinking?: 1 or 2 3. How often do you have six or more drinks on one occasion?: Never Total Score: 2 CHARLENE-7 AMB Questionnaire CHARLENE-7 Date CHARLENE - 7 assessed: 08/19/24 Feeling nervous, anxious, or on edge: 0 = Not at all Not being able to stop or control worryin = Not at all Worrying too much about different things: 0 = Not at all Trouble relaxin = Not at all Being so restless that it is hard to sit still: 0 = Not at all Becoming easily annoyed or irritable: 0 = Not at all Feeling afraid as if something awful might happen: 0 = Not at all Total CHARLENE-7 score (0-4 normal; 5-9 mild; 10-14 moderate; 15-21 severe): 0 Source: Developed by Drs. Aubrey Barbour, Fozia Rod, Tomas Leung and colleagues, with an educational darwin from [employer]. CHARLENE-7 Assessment Billing CHARLENE-7 Assessment Tool: CHARLENE-7 Assessment [id number] Review of Systems Const Denies chills, Denies fatigue, Denies fever(s), Denies headache(s) and Denies weakness Eyes Denies change in vision ENT Denies dizziness, Denies headache(s), Denies hearing loss, Denies nasal congestion, Denies sinus pain, Denies sinus pressure and Denies sore throat Card Denies chest pain, Denies lightheadedness, Denies dyspnea and Denies other (palpitations) Resp Denies cough, Denies dyspnea and Denies wheezing GI Denies abdominal pain, Denies melena, Denies hematochezia, Denies change in bowel habits, Denies dyspepsia and Denies nausea Denies hematuria and Denies dysuria Musc Denies abnormal gait, Denies myalgias, Denies arthralgias, Denies numbness and Denies tingling Skin/Breast Denies rash, Denies unusual bruising and Denies wounds Neuro Denies abnormal gait, Denies dizziness, Denies headache(s), Denies memory loss, Denies numbness, Denies Sensory deficit (Neuro), Denies tingling and Denies weakness Psych Denies anxiety, Denies depression and Denies memory loss Endo Denies cold intolerance, Denies fatigue, Denies heat intolerance, Denies polydipsia and Denies polyuria Casa/Lymph Denies easy bleeding and Denies easy bruising Aller/Immun Denies wheezing Physical exam (Primary Care) Vital Signs: Last Vital Signs Pulse 69 08/19/24 11:27 Resp 14 08/19/24 11:27 BP 130/70 08/19/24 11:27 Pulse Ox 100 08/19/24 11:27 Oxygen Delivery Method Room Air 08/19/24 11:27 BMI result Body Mass Index 39.6 Tobacco/Smoking Status: Tobacco use Status Tobacco use date assessed 08/19/24 08/19/24 11:29 Patient Tobacco Use Status Former Tobacco user 08/19/24 11:29 Tobacco use type Cigarette 08/19/24 11:29 e-Cigarette/Vaping Use Never Used 08/19/24 11:29 PHQ-9: PHQ-9 Score PHQ-9: Total score 2 08/19/24 11:29 Depression Screening Interpretation: Negative Thrive Assessment: Date of Thrive Assessment Date Thrive assessed 08/19/24 08/19/24 11:29 Currently or been in a relationship where the following occur: No concerns reported Const General: no acute distress, well developed, alert and awake Nutritional Appearance: well nourished Orientation/consciousness: patient oriented x3 HENMT Head: Yes normocephalic and Yes atraumatic Ears: hearing grossly normal bilaterally and TM's normal bilaterally General nose exam: Normal external nose present and Normal nares present Mouth: Normal oral and palatal mucosa present and moist mucous membranes Teeth and gingiva: dentition normal Throat: Yes posterior oropharynx normal Eyes General: appearance normal, both eyes and all related structures Pupils: Equal, round and reactive pupils present and Pupil accommodation reflex normal EOM: EOMs intact bilaterally Neck Neck: Yes normal visual inspection, Yes no lymphadenopathy and Yes trachea midline Thyroid: Thyroid normal Carotids: no bruits Lymphatic: no lymphadenopathy noted Chest Chest palpation & inspection: normal inspection of the chest Resp Effort & Inspection: normal respiratory effort Auscultation: clear to auscultation bilaterally Cardio Rate: regular rate Rhythm: regular rhythm Heart sounds: S1 normal heart sound present, S2 normal heart sound present, no gallops, no murmurs and no rubs Bruits: no abdominal aortic bruits and no carotid bruits GI Palpation (GI): No Abdominal aortic bruit present, Soft to palpation, nontender, No hepatosplenomegaly present and No Rebound tenderness present Auscultation: normal bowel sounds General: Yes no CVA tenderness Back/Spine/Pelvis Back: no CVA tenderness Cervical Spine: cervical ROM normal and No Cervical spine tenderness Thoracic/Lumbar Spine: thoraco-lumbar ROM normal, No pain with thoraco-lumbar ROM, No thoracic spinal tenderness and No lumbar spinal tenderness Skin Lesions: no lesions Rashes: no rashes Trauma: no lacerations or abrasions Wounds: no wounds Nails: normal Neuro General: patient oriented x3 Cranial nerves: Yes Equal, round and reactive pupils present Cognition (Neuro): normal cognition Gait exam (Neuro): Normal gait present Motor exam (neuro): 5/5 motor strength present throughout Sensory Exam: No Sensory deficit (Neuro) Deep tendon reflexes (DTR's): Right patellar reflex intensity grade: 2+ and Left patellar reflex intensity grade: 2+ Extrem General: Yes normal to inspection and No edema Psych Appearance: grossly normal Affect: normal affect Attitude: cooperative Thought process: Normal thought process present Coding Level of Care Code Est Pt Level 4 (34332) Diagnoses Hyperlipidemia E78.5 Diabetes type 2, controlled E11.9 Essential hypertension I10 Change in hearing H91.90 Imbalance R26.89 Screening for osteoporosis Z13.820 Breast cancer screening by mammogram Z12.31 Screening for colon cancer Z12.11 Adult general medical exam Z00.00 Additional Codes CHARLENE-7 Assessment Billing - CHARLENE-7 Assessment Tool: CHARLENE-7 Assessment 62631 ([id number]) Assessment & Plan Assessment & Plan (1) Hyperlipidemia: Code(s): E78.5 - Hyperlipidemia, unspecified Category: Medical Plan: Patient?notes?that?she?has?not?been?taking?her?atorvastatin?due?to?muscle?aches? and?pain She?will?break?her?20?mg?tablets?in?half?and?see?if?she?tolerates?this?better. Work?at?consistency Will?follow (2) Diabetes type 2, controlled: Code(s): E11.9 - Type 2 diabetes mellitus without complications Category: Medical Plan: A1c?7.0%. ?Good?control Continue?current?medication?reg imen?but?adding?some?Mounjaro?for?better?blood?sugar?control?and?weight?loss.??M ay?also?add?some?renal?protection?though?with?patient's?current?renal?function,? will?use?cautiously. Rechecking?renal?function?labs?prior?to?next?visit (3) Essential hypertension: Code(s): I10 - Essential (primary) hypertension Category: Medical Plan: Blood?pressure?is?controlled.??Goal?is?less?than?140/90 Continue?current?medication (4) Change in hearing: Code(s): H91.90 - Unspecified hearing loss, unspecified ear Category: Medical Plan: Referred?to?audiology (5) Imbalance: Code(s): R26.89 - Other abnormalities of gait and mobility Category: Medical Plan: Mostly?due?to?lower?extremity?edema See?below (6) Screening for osteoporosis: Code(s): Z13.820 - Encounter for screening for osteoporosis Category: Medical Plan: Check?bone?density?test?as?patient?is?overdue?for?this (7) Breast cancer screening by mammogram: Code(s): Z12.31 - Encounter for screening mammogram for malignant neoplasm of breast Category: Medical Plan: Patient?gets?a?mammogram?eac h?year?and?says?she?had?1?recently?which?was?negative. [facility]??Will?request?report (8) Screening for colon cancer: Code(s): Z12.11 - Encounter for screening for malignant neoplasm of colon Category: Medical Plan: Patient?of??[facility]?who?has?told?her?she?does?not?need?any?further?screening. (9) Adult general medical exam: Code(s): Z00.00 - Encounter for general adult medical examination without abnormal findings Category: Medical Plan: 79-year-old?female?presents?for?an?extended?exam Encouraged?healthy?diet?with?active?lifestyle?and?exercise?as?tolerated Orders: Orders XR DEXA axial skeleton Today M81.0 - Age-related osteoporosis without current pathological fracture Comprehensive Met. Panel Today M79.89 - Other specified soft tissue disorders Referrals Lymphedema Clinic Referral M79.89 - Other specified soft tissue disorders, R60.9 - Edema, unspecified Audiology Referral H91.90 - Unspecified hearing loss, unspecified ear Medications: New tirzepatide (Mounjaro) for 4 weeks 2.5 mg (0.5 mL) subcut QWEEK 28 days 2 mL 1RF
[2024-08-19 11:27] VITALS: BP 130/70; PULSE 69; RESP 14; O2SAT 100; BMI 39.6
== END 2024-08-19 12:08 | disposition home or self-care (01) ==
PROVIDERS: PCP Family Medicine; Visit Provider Family Medicine
DX: E78.5 Hyperlipidemia, unspecified (principal); E11.9 Type 2 diabetes mellitus without complications; I10 Essential (primary) hypertension; H91.90 Unspecified hearing loss, unspecified ear; R26.89 Other abnormalities of gait and mobility; Z13.820 Encounter for screening for osteoporosis; Z12.31 Encounter for screening mammogram for malignant neoplasm of breast; Z12.11 Encounter for screening for malignant neoplasm of colon; Z00.00 Encounter for general adult medical examination without abnormal findings

== ENCOUNTER → 2024-08-19 10:51 | Outpatient (BNVA) | payer MEDICARE, SELFPAY | PROVIDERS: PCP Family Medicine; Visit Provider Family Medicine | DX: Z00.01 Encounter for general adult medical examination with abnormal findings (principal); E78.5 Hyperlipidemia, unspecified; E11.9 Type 2 diabetes mellitus without complications; I10 Essential (primary) hypertension; H91.90 Unspecified hearing loss, unspecified ear; R26.89 Other abnormalities of gait and mobility; Z79.85 Long-term (current) use of injectable non-insulin antidiabetic drugs | CPT/HCPCS: 96127; 99212 ==

== ENCOUNTER 2024-09-07 08:51 | Outpatient (REF) | payer MEDICARE, SELFPAY | END 2024-09-07 08:52 | disposition home or self-care (01) | LOC: HO.SH 08:51 | PROVIDERS: Visit Provider Family Medicine | DX: Z01.118 Encounter for examination of ears and hearing with other abnormal findings (principal); H90.3 Sensorineural hearing loss, bilateral | CPT/HCPCS: 92557 ==

== ENCOUNTER 2024-09-28 08:32 | Outpatient (REF) | payer MEDICARE, SELFPAY ==
--- NOTE | ~2024-09-28 | MM_ITS ---
EXAMINATION: BONE DENSITOMETRY CLINICAL INDICATION: Age-related osteoporosis without current pathological fracture. COMPARISON: Previous BD dated 04/25/2021 and baseline BD dated 06/22/2015. TECHNIQUE: Using a [employer] DXA System (software version: 13.1) manufactured by [employer], dual-energy x-ray absorptiometry was performed of the lumbar spine and right hip. The images are of good technical quality. Summary results are attached. FINDINGS: RIGHT FEMUR, NECK: Current: BMD 0.660 g/cm2, Z-score -1.3, T-score -2.7, osteoporosis. Baseline: BMD 0.640 g/cm2. RIGHT FEMUR, TOTAL: Current: BMD 0.674 g/cm2, Z-score -1.4, T-score -2.6, osteoporosis, 7.7% increase from baseline (<5% change is not significant). Baseline: BMD 0.626 g/cm2. AP SPINE L1-L4: Current: BMD 1.173 g/cm2, Z-score 0.8, T-score -0.1, normal, 0.1% decrease from previous, 14.7% increase from baseline (<5% change is not significant). Prior: BMD 1.174 g/cm2. Baseline: BMD 1.023 g/cm2. IDENTIFIED RISK FACTORS: Menopause, height loss, osteoporosis, renal, history of fracture (adult), thiazide, secondary osteoporosis (type 1 diabetes). HISTORY OF FRACTURE: Shoulder, spine. MEDICATIONS: Calcium, vitamin D. MM/XR DEXA axial skeleton IMPRESSION: 1. DIAGNOSIS: Severe osteoporosis based on the lowest T-score value of -2.7 in the femoral neck and history of fracture of shoulder and spine applying World Health Organization criteria. 2. 10-YEAR FRACTURE RISK PREDICTION, FRAX: According to the guidelines, FRAX calculation should only be performed on patients in the osteopenia bone density category. Therefore, FRAX was not performed on this patient. 3. Treatment Recommendations: NOF guidelines recommend consideration for treatment in postmenopausal women and men age 50 and older presenting with the following: -A hip or vertebral (clinical or morphometric) fracture. -T-score less than or equal to -2.5 at the femoral neck or spine after appropriate evaluation to exclude secondary causes. -Low bone mass at the hip or spine and a 10-year fracture probability by FRAX of greater than or equal to 3% for hip fracture or greater than or equal to 20% for major osteoporotic fracture based on the [place] adapted WHO algorithm. 4. Other Recommendations: All treatment decisions require clinical judgment and consideration of individual patient factors, including patient preferences, comorbidities, previous drug use, risk factors not captured in the FRAX model (e.g. frailty, falls, vitamin D deficiency, increased bone turnover, interval significant decline in bone density) and possible under or overestimation of fracture risk by FRAX. Additional medical evaluation for secondary cause of low bone mineral density may be appropriate. FUTURE SCAN RECOMMENDATION: People with diagnosed cases of osteoporosis or at high risk for fracture should have regular bone mineral density tests. For patients eligible for Medicare, routine testing is allowed once every 2 years. The testing frequency can be increased to one year for patients who have rapidly progressing disease, those who are receiving or discontinuing medical therapy to restore bone mass, or have additional risk factors. Electronically signed by: Frida Sherman MD 09/30/2024 08:21 AM HARJINDER BERMUDEZ
== END 2024-09-28 08:33 | disposition home or self-care (01) ==
LOC: HO.MAMMO 08:32
PROVIDERS: PCP Family Medicine; Visit Provider Family Medicine
DX: M81.0 Age-related osteoporosis without current pathological fracture (principal)
CPT/HCPCS: 77080

== ENCOUNTER 2024-11-23 08:42 | Outpatient (AMB) | payer MEDICARE, SELFPAY ==
--- NOTE | 2024-11-23 08:57 | A.OFFPC_ITS ---
Vital Signs 11/23/24 09:02 Height 5 ft 1 in Weight 213 lb 2 oz BMI 40.3 BP 140/88 H Blood Pressure Location Lt brachial Position Sitting Respiration 14 Pulse 58 Pulse Source Pulse Oximeter Pulse Oximetry (%) 98 Oxygen Delivery Method Room Air Intake Visit Reasons: f/u diabetes Intake Note: pt here for DM follow up refuses to get in house a1c done she would rather have it order with her lab work Allergies LEFTY Inhibitors [Letfy Inhibitors] Allergy (Severe, Verified 11/23/24 08:59) SWELLING beta blockers Allergy (Severe, Verified 11/23/24 08:59) leg swelling oxycodone [OXYCODONE] Allergy (Severe, Verified 11/23/24 08:59) NAUSEA & VOMITING/FATIGUE rivaroxaban [From XARELTO] Allergy (Severe, Verified 11/23/24 08:59) severe swelling semaglutide [From Ozempic] Allergy (Severe, Verified 11/23/24 08:59) Swelling cat dander Allergy (Intermediate, Verified 11/23/24 08:59) + allergy tesy grass pollen Allergy (Intermediate, Verified 11/23/24 08:59) + allergy test mold Allergy (Intermediate, Verified 11/23/24 08:59) + allergy test rosuvastatin [From Crestor] Allergy (Intermediate, Verified 11/23/24 08:59) Swelling lovenox Allergy (Severe, Uncoded 08/19/24 11:21) swelling extremeties Tobacco use date assessed: 08/19/24 Dental Screening Dental Screen Date: 08/19/24 HPI f/u diabetes HPI Details 79 y/o female presents to f/u diabetes. Last A1c in July 7.0%. Notes she has been going to the lymphedema clinic. Blood pressure today 140/88, 58p. [facility] Medical History Diabetes type 2, controlled Osteoarthritis of left hip Uncontrolled diabetes mellitus with hyperglycemia Shoulder pain, bilateral Lumbar disc disease Sacroiliac joint disease Sleep apnea RBBB (right bundle branch block) CKD (chronic kidney disease) Hyperlipidemia Osteoporosis Hypothyroidism Depression Essential hypertension Surgical History History of hip surgery H/O colonoscopy History of tonsillectomy History of total right knee replacement (TKR) History of breast biopsy History of total left knee replacement (TKR) Family History Father CAD (coronary artery disease) CVD (cardiovascular disease) Mother Colon cancer Brother Cancer of prostate Throat cancer Tongue cancer Social History (Updated 08/19/24 @ 11:25 by LOYDA Porter) Household Members: None Housing: House Are you a primary toddler caregiver to a significant other at home: No Do you presently have visiting nurse or other home services: Yes (Melani MITCHELL) Alcohol intake: current Alcohol intake frequency: holidays/special occasions only Patient Tobacco Use Status: Former Tobacco user Tobacco use type: Cigarette Years Smoked: 5 e-Cigarette/Vaping Use: Never Used Second Hand Smoke Exposure: No Advance Directives Date on File: 03/17/12 service: No 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al status: retired 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 1. Little interest or pleasure in doing things: not at all 2. Feeling down, depressed, or hopeless: not at all 3. Trouble falling or staying asleep, or sleeping too much: not at all 4. Feeling tired or having little energy: several days 5. Poor appetite or overeating: not at all 6. Feeling bad about yourself - or that you are a failure or have let yourself or your family down: not at all 7. Trouble concentrating on things, such as reading the newspaper or watching television: not at all 8. Moving or speaking so slowly that other people could have noticed. Or the opposite - being so fidgety or restless that you have been moving around a lot more than usual: not at all 9. Thoughts that you would be better off or of hurting yourself in some way: not at all Total score: 1 Source: Developed by Drs. Aubrey Barbour, Fozia Rod, Tomas Leung and colleagues, with an educational darwin from [employer]. Thrive Questionnaire Date Thrive assessed: 08/19/24 I am a: Patient What is your living situation today?: I have a steady place to live Within the past 12 months, did the food you bought not last and you didn't have the money to get more?: Never true Within the past 12 months, did you worry whether your food would run out before you got money to buy more?: Never true Do you have trouble paying for medicines?: No Do you have trouble getting transportation to medical appointments?: No Do you have trouble paying your heating and electricity bill?: No Do you have trouble taking care of your child, family member or friend?: No Do you have trouble with day-to-day activities such as bathing, preparing meals, shopping, managing finances, etc.?: No Are you currently unemployed and looking for a job?: No Are you interested in more education?: No Please select the resources that you would like help with: None Currently or been in a relationship where the following occur: No concerns reported THRIVE Score: 0 AUDIT C Alcohol Use Questionnaire (AUDIT-C) 1. How often do you have a drink containing alcohol?: 2-4 times a month 2. How many drinks containing alcohol do you have on a typical day when you are drinking?: 1 or 2 3. How often do you have six or more drinks on one occasion?: Never Total Score: 2 CHARLENE-7 AMB Questionnaire CHARLENE-7 Date CHARLENE - 7 assessed: 08/19/24 Feeling nervous, anxious, or on edge: 0 = Not at all Not being able to stop or control worryin = Not at all Worrying too much about different things: 0 = Not at all Trouble relaxin = Not at all Being so restless that it is hard to sit still: 0 = Not at all Becoming easily annoyed or irritable: 0 = Not at all Feeling afraid as if something awful might happen: 0 = Not at all Total CHARLENE-7 score (0-4 normal; 5-9 mild; 10-14 moderate; 15-21 severe): 0 Source: Developed by Drs. Aubrey Barbour, Fozia Rod, Tomas Leung and colleagues, with an educational darwin from [employer]. Review of Systems Const Denies chills, Denies fatigue, Denies fever(s), Denies headache(s) and Denies weakness ENT Denies dizziness and Denies headache(s) Card Denies dyspnea Resp Denies cough, Denies dyspnea, Denies wheezing and Denies other (shortness of breath) Musc Denies numbness and Denies tingling Neuro Denies dizziness, Denies headache(s), Denies numbness, Denies tingling and Denies weakness Psych Denies anxiety and Denies depression Endo Denies fatigue Aller/Immun Denies wheezing Physical exam (Primary Care) Vital Signs: Last Vital Signs Pulse 58 11/23/24 09:02 Resp 14 11/23/24 09:02 BP 140/88 H 11/23/24 09:02 Pulse Ox 98 11/23/24 09:02 Oxygen Delivery Method Room Air 11/23/24 09:02 BMI result Body Mass Index 40.3 Tobacco/Smoking Status: Tobacco use Status Tobacco use date assessed 08/19/24 11/23/24 09:05 Patient Tobacco Use Status Former Tobacco user 11/23/24 09:05 Tobacco use type Cigarette 11/23/24 09:05 e-Cigarette/Vaping Use Never Used 11/23/24 09:05 PHQ-9: PHQ-9 Score PHQ-9: Total score 1 11/23/24 09:51 Thrive Assessment: Date of Thrive Assessment Date Thrive assessed 08/19/24 11/23/24 09:05 Currently or been in a relationship where the following occur: No concerns reported Const General: well developed; No acute distress Nutritional Appearance: obese morbidly obese Orientation/consciousness: patient oriented x3 [facility]: Yes normocephalic and Yes atraumatic Eyes General: appearance normal, both eyes and all related structures Pupils: Equal, round and reactive pupils present EOM: EOMs intact bilaterally Resp Effort & Inspection: normal respiratory effort Neuro General: patient oriented x3 and gait normal Cranial nerves: Yes Equal, round and reactive pupils present Psych Affect: normal affect Coding Level of Care Code Est Pt Level 4 (46367) Diagnoses Diabetes type 2, controlled E11.9 Chronic renal failure N18.9 Lymphedema I89.0 Essential hypertension I10 Assessment & Plan Assessment & Plan (1) Diabetes type 2, controlled: Code(s): E11.9 - Type 2 diabetes mellitus without complications Category: Medical Plan: Patient?will?get?A1c?drawn?today?as?she?prefers?this?to?fingersticks Will?follow-up?and?call?patient?is?action?is?required Continue?current?diabetic?regimen (2) Chronic renal failure: Code(s): N18.9 - Chronic kidney disease, unspecified Category: Medical Plan: Patient?has?not?had?her?labs?drawn?yet?and?is?getting?them Drawn?today. Will?call?patient?if?action?is?required (3) Lymphedema: Code(s): I89.0 - Lymphedema, not elsewhere classified Category: Medical Plan: Chronic?lymphedema. Patient?was?referred?to?lymphedema?clinic?at?[facility]ana Needs?script?for?compression?garments?which?was?sent?today. Velcro?based?knee-high?length?compression?garments?and?hybrid?liners.??Compressi on?class?30-40?mm?Hg. DX?lymphedema. Will?fax?order?to?the?lymphedema?clinic?and?give?patient?a?copy. (4) Essential hypertension: Code(s): I10 - Essential (primary) hypertension Category: Medical Plan: Blood?pressure?mildly?elevated?today. No?change?to?current?regimen Will?continue?to?monitor Orders: Orders Comprehensive [facility]. Panel Fast 2 Months Z00.00 - Encounter for general adult medical examination without abnormal findings Hemoglobin A1c Today E11.9 - Type 2 diabetes mellitus without complications, R73.01 - Impaired fasting glucose [facility]. Panel Fast Today I10 - Essential (primary) hypertension, Z00.00 - Encounter for general adult medical examination without abnormal findings Hemoglobin A1c 2 Months R73.01 - Impaired fasting glucose Medications: New miscellaneous medical supply B-Velcro based knee high length Compression Garments and hybrid liners. Compression Class 30-40mmHG. Daily As directed. 999 days 1 ea 0RF I89.0 - Lymphedema, not elsewhere classified
[2024-11-23 09:02] VITALS: BP 140/88; PULSE 58; RESP 14; O2SAT 98; BMI 40.3
== END 2024-11-23 09:40 | disposition home or self-care (01) ==
PROVIDERS: PCP Family Medicine; Visit Provider Family Medicine
DX: I12.9 Hypertensive chronic kidney disease with stage 1 through stage 4 chronic kidney disease, or unspecified chronic kidney disease (principal); E11.9 Type 2 diabetes mellitus without complications; N18.9 Chronic kidney disease, unspecified; I89.0 Lymphedema, not elsewhere classified

== ENCOUNTER 2024-11-23 10:06 | Outpatient (REF) | payer MEDICARE, SELFPAY ==
[2024-11-23 11:48] LABS: Estimated Average Glucose 160 mg/dL; Hemoglobin A1c % 7.2 % (<6.0)
[2024-11-23 12:49] LABS: Alanine Aminotransferase 17 U/L (0-31); Alkaline Phosphatase 126 U/L (39-117); Anion Gap 10 (12-20); Aspartate Amino Transferase 18 U/L (5-31); Bilirubin Total 0.6 mg/dL (0.0-1.0); Blood Urea Nitrogen 19 mg/dL (9-16); Calcium 9.5 mg/dL (8.4-10.2); Carbon Dioxide 25 mmol/L (22-29); Chloride 111 mmol/L (96-108); Estimated Glomerular Filt Rate 23; Glucose Fasting 146 mg/dL (60-99); Potassium 4.1 mmol/L (3.3-5.1); Sodium 142 mmol/L (135-145); Total Protein 7.2 g/dL (6.5-8.0)
== END 2024-11-23 10:07 | disposition home or self-care (01) ==
LOC: HO.WFDLDS 10:06
PROVIDERS: Visit Provider Family Medicine
DX: E11.22 Type 2 diabetes mellitus with diabetic chronic kidney disease (principal); I12.9 Hypertensive chronic kidney disease with stage 1 through stage 4 chronic kidney disease, or unspecified chronic kidney disease; N18.9 Chronic kidney disease, unspecified; I89.0 Lymphedema, not elsewhere classified; Z00.00 Encounter for general adult medical examination without abnormal findings
CPT/HCPCS: 36415; 80053; 83036; 96127; 99212

== ENCOUNTER → 2024-12-23 08:40 | Outpatient (AMB) | payer MEDICARE, SELFPAY ==
--- OUTSIDE RECORDS SUMMARY | 2024-12-23 08:56 | XMS_ITS | Encounter Summary ---
Author Organization [facility] Address [address] [place] [address] Care Team Providers Care Hose Mender Name Role Phone Physician, No Pcp Primary Care Provider Unavaila ble Reason for Visit * Consultation (Routine) - Authorized Specialty Diagnoses / Procedures Referred By Annalisa birmingham Referred To Contact Occupational Therapy Diagnoses Other specified soft tissue disorders Edema, unspecified Fadi Craig MD [address] [place] [address] Referral ID Status Reason Start Date Expiration Date Visits Requested Visits Authorized [id number] Authorized Specialty Services Required 08/19/2024 08/19/2025 19 19 Encounter Details Date Type Department Care Team (Late st Contact Info) Description 12/13/2024 9:00 AM EST Treatment [facility] Occupational Therapy [address] [place] [address] [phone] Jaqui Easley OTR/L Lymphatic edema (Primary Dx) Social History Tobacco Use Types Packs/Day Years Used Date Smoking Tobacco: Never Assessed Sex and Gender Information Value Date Recorded Sex Assigned at Not on file Gender Identity Not on file Sexual Orientation Not on file Job Start Date Occupation Industry Not on file Not on file Not on file documented as of this encounter Progress Notes * JAKE Napoles - 12/13/2024 9:00 AM EST Images from the original note were not included. [facility] - Outpatient OCCUPATIONAL THERAPY DAILY TREATMENT NOTE Date: 12/13/2024 Visit Number: [id number] Patient Name: Guadalupe Mittaloney : 1945 Age: 79 y.o. Gender: female Diagnosis: ICD-10-CM ICD-9-CM 1. Lymphatic edema I89.0 457.1 Date of Onset: 10/12/2024 Referring Provider: Fadi Craig MD Insurance: Payor: MEDICARE / Plan: MEDICARE PART A & B / Product Type: Medicare / Language: Speaks and understands Libyan as preferred language with no oncology physician required Allergies: has no allergies on file. Precautions: None stated SUBJECTIVE Subjective Report: I cannot wait till I get these velcro wraps because I really like the one you loaned me. I can finally see my ankles Pain: No pain OBJECTIVE Patient presents with decreased size of both LE's Patient has been able to independently manage loaner velcro compression garment TREATMENT INTERVENTION Procedures: MLD according to Dr. Juan method Increased lymph flow through termini/ profundus ( neck routine), Deep abdomen , B inguinals, B QL'sand B paraspinals Stimulated lymph flow from B LE's into these drainage areas. Used fibrosis techniques to left calf Patient in prone to stimulate lymph flow into QL/ Paraspinals and Mid gluteal areas and to allow for fibrosis techniques to left calf Self care Applied hybrid liner to left LE and uses one layer of foam and 2 layers of short stretch bandages from ankle to knee to provide compression Applied loaner Farrow wrap to right lower leg / used patients sock and stockinet as a liner Pain Reassessment: No reports of pain related to lymph edema Assessment/Response To Treatment: Good My legs are finally coming down to a normal size Patient Education: Education provided: Yes Education Provided To: Patient utilizing Explanation mode(s) of education Response to Education: Good PLAN POC Development/Review: No Change in the Plan of Care; Participants: Patient Equipment Recommended: juzo compression wraps ; Equipment Provided: none GOALS Goals reduce size of legs (pt-stated) I want my legs to be smaller so they are not so heavy to lift then onto the bed and into my car I want my feet to be smaller so they fit better into my shoes and I am not feeling that unbalanced 12/13/ My legs are finally getting better and I feel that I have more balance and my legs are not that heavy self management STG; patient will be able to demo at least 3 exercises to increase lymph flow Patient will be able to tolerate multi layer short stretch compression bandages STG's have been met LTG Patien will be independent in lymph edema management: she will have appropriate compression in place which she can manage and is effective 12/13 ; script for garments has been send to [employer] [facility] LTG; Patient will be able to fit into appropriate footwear for [facility] 12/13/2024 Progressing Patient reports that she finally is able to see her ankles Total Treatment Time: 60 minutes Documentation completed by SUKHJINDER Napoles/Eliceo documented in this encounter Plan of Treatment Upcoming Encounters Date Type Department Care Team (Late st Contact Info) Description 12/30/2024 2:00 PM EST Treatment [facility] Occupational Therapy [address] [phone] Jaqui Easley OTR/Eliceo documented as of this encounter Goals Goal Patient Goal Type Associated Problems Recent Progress Patient-Stated? Author reduce size of legs General On track( 025 5:39 PM EST) Yes Jaqui Easley OTR/L Note: I want my legs to be smaller so they are not so heavy to lift then onto the bed and into my car I want my feet to be smaller so they fit better into my shoes and I am not feeling that unbalanced 12/13/ My legs are finally getting better and I feel that I have more balance and my legs are not that heavy self management General On track( 024 4:50 PM EST) No Jaqui Easley OTR/L Note: STG; patient will be able to demo at least 3 exercises to increase lymph flow Patient will be able to tolerate multi layer short stretch compression bandages STG's have been met LTG Patien will be independent in lymph edema management: she will have appropriate compression in place which she can manage and is effective 12/13 ; script for garments has been send to [employer] [facility] General Improving( 5:45 PM EST) No Jaqui Easley, OTR/L Note: LTG; Patient will be able to fit into appropriate footwear for [facility] 12/13/2024 Progressing Patient reports that she finally is able to see her ankles documented as of this encounter Visit Diagnoses Diagnosis Lymphatic edema- Primary Other noninfectious lymphedema documented in this encounter Additional Health Concerns Assessment Noted Time A fall risk assessment has been complete d for the patient 10/12/2024 10:13 AM EST documented as of this encounter Care Teams Hose Mender Relationship Specialty Start Date End Date Physician, No Pcp PCP - General 10/12/24 documented as of this encounter
--- OUTSIDE RECORDS SUMMARY | 2024-12-23 08:56 | XMS_ITS | Clinical Summary ---
Author Organization [facility] [place] [address] Care Team Providers Care Credit Card Specialist Name Role Phone Physician, No Pcp Primary Care Provider Unavaila ble Active Problems Problem Noted Date Diagnosed Date Lymphedema of both lower extremities 10/12/2024 Encounters Date Type Department Care Team Description 12/13/2024 9:00 AM EST Treatment [facility]ational [facility] [address] [phone] Gijrody, Jaqui P, OTR/L Lymphatic edema (Primary Dx) 12/08/2024 9:00 AM EST Treatment [facility] [address] [phone] Gijrody, Jaqui P, OTR/L Lymphatic edema (Primary Dx) 11/30/2024 9:00 AM EST Treatment [facility] [address] [phone] MarlajYael fineJaqui P, OTR/L Lymphatic edema (Primary Dx) 11/18/2024 9:00 AM EST Treatment [facility] [address] [phone] Kaushal Jaqui P, OTR/L Lymphatic edema (Primary Dx) 11/08/2024 9:00 AM EST Treatment [facility] [address] [phone] Kaushal Jaqui P, OTR/L Lymphatic edema (Primary Dx) 11/04/2024 2:00 PM EST Treatment [facility] Occupational Therapy [address] [phone] Jaqui Easley P, OTR/L Other specified soft tissue disorders; Edema, unspecified 11/01/2024 1:30 PM EST Treatment [facility] Occupational Therapy [address] [place] [phone] Jaqui Easley P, OTR/L Lymphatic edema (Primary Dx) 10/27/2024 1:30 PM EST Treatment [facility] Occupational Therapy [address] [place] [phone] Jaqui Easley P, OTR/L Lymphatic edema (Primary Dx) 10/25/2024 1:30 PM EST Treatment [facility] Occupational Therapy [address] [place] [phone] Jaqui Easley P, OTR/L Lymphatic edema (Primary Dx) 10/12/2024 10:00 AM EST Treatment [facility] Occupational Therapy [address] [place] [phone] Jaqui Easley P, OTR/L Lymphatic edema (Primary Dx) 10/12/2024 Plan of Care Documentation [facility] Occupational Therapy [address] [place] [phone] from Last 3 Months Social History Tobacco Use Types Packs/Day Years Used Date Smoking Tobacco: Never Assessed Sex and Gender Information Value Date Recorded Sex Assigned at Not on file Gender Identity Not on file Sexual Orientation Not on file Job Start Date Occupation Industry Not on file Not on file Not on file Plan of Treatment Upcoming Encounters Date Type Department Care Team (Late st Contact Info) Description 12/30/2024 2:00 PM EST Treatment [facility] Occupational Therapy [address] [place] [phone] Jaqui Easley P, OTR/L Health Maintenance Due Date Last Done Comments Diabetes: Annual GFR (Glomerular Filtration Rate) 1945 Diabetes: Annual Foot Exam 1955 Diabetes: Annual Retina Eye Exam 1955 DTaP,Tdap,and Td Vaccines (1 - Tdap) 1964 Zoster Vaccines (1 of 2) 1995 RSV Immunization Patients 60+ Years Old (1 - 1-dose 75+ series) 2020 COVID-19 Vaccine (6 - 2023- season) 2024 09/05/2023, 06/21/2022, 09/03/2021, Additional history exists Influenza Vaccine (#1) 2024 , 09/03/2021, 09/07/2019, Additional history exists Cholesterol Screening (Lipid Panel) 09/04/2024 Depression Screening 09/04/2024 Hepatitis C Screening 09/04/2024 Medicare Annual Wellness Visit 09/04/2024 Osteoporosis Screening (Bone Density Screening) 09/04/2024 Social Influencers of Health Screening 09/04/2024 Diabetes: Blood Sugar Control Test (HGBA1C) 10/12/2024 03/16/2020 Hypertension/CHF/CAD Annual BMP Blood Test 10/12/2024 Diabetes: Annual Urine Albumin-Creatinine Ratio (uACR) 07/22/2025 07/22/2024 Falls Risk Assessment 10/12/2025 10/12/2024 Pneumococcal Vaccine: 65+ Years Completed 09/28/2019, 10/23/2016 HIB Vaccines Aged Out No longer eligi ble based on patient's age to complete this topic HPV Vaccines Aged Out No longer eligi ble based on patient's age to complete this topic Hepatitis A Vaccines Aged Out No long er eligible based on patient's age to complete this topic Hepatitis B Vaccines Aged Out No long er eligible based on patient's age to complete this topic IPV Vaccines Aged Out No longer eligi ble based on patient's age to complete this topic MMR Vaccines Aged Out No longer eligi ble based on patient's age to complete this topic Meningococcal ACWY Vaccine Aged Out N o longer eligible based on patient's age to complete this topic RSV Immunization Patients Under 20 months Aged Out No longer eligible based on patient's age to complete this topic Varicella Vaccines Aged Out No longer eligible based on patient's age to complete this topic Goals Goal Patient Goal Type Associated Problems Recent Progress Patient-Stated? Author reduce size of legs General On track( 025 5:39 PM EST) Yes Jaqui Easley, OTR/L Note: I want my legs to [...] track( 024 4:50 PM EST) No Jaqui Easley, OTR/L Note: STG; patient will be able [...] script for garments has been send to [employer] [facility] General Improving( 5:45 PM EST) No Jaqui Easley, OTR/L Note: LTG; Patient will be able to fit into appropriate footwear for [facility] 12/13/2024 Progressing Patient reports that she finally is able to see her ankles Care Teams Credit Card Specialist Relationship Specialty Start Date End Date Physician, No Pcp PCP - General 10/12/24
--- OUTSIDE RECORDS SUMMARY | 2024-12-23 08:56 | XMS_ITS | Clinical Summary ---
Author Organization [facility] Address [address] [place] [address] Phone Care Team Providers Care [employer] Name Role Phone Unavailable Primary Care Provider Unavailabl e Allergies Active Allergy Reactions Criticality Noted Date Comments Amlodipine Other (see comments) 04/27/2021 Atenolol Other (see comments) 04/27/2021 Hydralazine 04/30/2021 Lisinopril Other (see comments) 04/27/2021 Nebivolol Other (see comments) 07/28/2015 Oxycodone Other (see comments) 04/27/2021 Rivaroxaban Other (see comments) 11/23/2021 Sulfa Antibiotics Other (see comments) 11/23/19 Valsartan Other (see comments) 04/27/2021 Medications atorvastatin (LIPITOR) 20 MG tablet Take 20 mg by mouth 1 (one) time each day 12/09/2020 Active Zinc 50 MG capsule Take 1 tablet by mouth 1 (one) time per week Active FLUoxetine (PROzac) 10 MG capsule Take 10 mg by mouth 1 (one) time each day 12/31/2020 Active glipiZIDE (GLUCOTROL XL) 10 MG 24 hr tablet Take 20 mg by mouth 1 (one) time each day 12/31/2020 Active levothyroxine (SYNTHROID, LEVOTHROID) 50 MCG tablet Take 50 mcg by mouth 1 (one) time each day in the morning 01/16/2021 Active aliskiren (TEKTURNA) 150 MG tablet TAKE 1/2 TABLET (75 MG TOTAL) BY MOUTH 1 (ONE) TIME EACH DAY 45 tablet 7 10/07/2022 Active Ozempic, 0.25 or 0.5 MG/DOSE, 2 MG/3ML solution pen-injector Inject 0.5 mg under the skin every 7 (seven) days 05/12/2023 Active ergocalciferol 1.25 MG (19011 UT) capsule TAKE 1 CAPSULE (50,000 UNITS TOTAL) BY MOUTH EVERY 14 DAYS 18 capsule 1 06/07/2024 Active calcitriol (ROCALTROL) 0.25 MCG capsule Take 1 capsule (0.25 mcg total) by mouth every other day 45 capsule 5 06/15/2024 Active furosemide (LASIX) 20 MG tablet TAKE 2 TABLETS BY MOUTH ONCE DAILY 180 tablet 1 07/21/2024 Active Farxiga 10 MG tablet TAKE 1 TABLET BY MOUTH EVERY DAY 30 tablet 8 08/16/2024 Active Active Problems Problem Noted Date Diagnosed Date Chronic kidney disease, stage 4 (severe) 023 Renal osteodystrophy 08/21/2023 Type 2 diabetes mellitus without complication Hypertensive renal disease 04/27/2021 Essential hypertension 04/27/2021 Chronic kidney disease stage 3 04/27/2021 Family History Medical History Relation Comments Diabetes Father Heart disease Father Cancer Mother colon Hypertension Mother Gout Sibling 1 Cancer Sibling 2 brother throat c ancer Relation Status Comments Father Mother Sibling 1 Sibling 2 Social History Tobacco Use Types Packs/Day Years Used Date Smoking Tobacco: Former Cigarettes Q uit: 11/17/1984 Smokeless Tobacco: Never Tobacco Cessation:Counseling Given: No Alcohol Use Standard Drinks/Week Comments Yes 0 (1 standard drink = 0.6 oz pure alcohol) Alcoholic Drinks/day: Occasional social drink Comments Unknown Sex and Gender Information Value Date Recorded Sex Assigned at Not on file Legal Sex Female 4:59 PM EST Gender Identity Not on file Sexual Orientation Not on file Last Filed Vital Signs Vital Sign Reading Time Taken Comments Blood Pressure 154/85 08/09/2024 1:02 PM EDT Pulse 82 08/09/2024 1:02 PM EDT Temperature - - Respiratory Rate - - Oxygen Saturation 95% 08/09/2024 1:02 PM EDT Inhaled Oxygen Concentration - - Weight 99.8 kg (220 lb) 08/09/2024 1:02 PM EDT Height 154.9 cm (5' 1 ) 05/15/2023 1:04 PM EDT Body Mass Index 41.57 05/15/2023 1:04 PM EDT Plan of Treatment Upcoming Encounters Date Type Department Care Team (Late st Contact Info) Description 01/09/2025 Orders Only [facility] [address] [place] [phone] Hubert Lin MD [address] [phone] Chronic kidney disease, stage 4 (severe) (HCC); Type 2 diabetes mellitus without complication (HCC); Renal osteodystrophy; Hypertensive renal disease 02/07/2025 1:45 PM EDT Office Visit [facility] [address] [place] [phone] Hubert Lin MD [address] [phone] Health Maintenance Due Date Last Done Comments Pneumococcal Vaccine: 65+ Ye ars (1 of 2 - PCV) 1951 Diabetes: Hemoglobin A1C 02/07/2022 03/16/2020 Diabetes: Ophthalmology Exam 02/07/2022 Diabetes: Pedal Pulse Checked 02/07/2022 Diabetes: Sensory Foot Exam 02/07/2022 Diabetes: Visual Foot Exam 02/07/2022 Influenza Vaccine (#1) 2024 Hepatitis B Vaccine Aged Out No longe r eligible based on patient's age to complete this topic Procedures Procedure Name Priority Date/Time Associated Diagnosis Comments HEMOGLOBIN A1C Routine 03/16/2020 8:33 AM EDT from Last 3 Months or Most Recently Relevant to Health Maintenance Results * Hemoglobin A1c (03/16/2020 8:33 AM EDT) Hemoglobin A1C 6.8 % MIC Comment: ?Hemoglobin A1C Reference Range ? Adults: ??4.8 - 6.0 % ? Non diabetic: ??< 6.0 % ? Goal: ??< 7.0 % Additional Action Suggested: ??> 8.0 % Note: ??Hemoglobin A1c results are invalid for patients ? with abnormal amounts of HbF. ??Blood transfusions ? may impact the HbA1c concentration in the patient ? sample. Estimated Average Glucose 148 MG/DL MIC Comment: eAG = Estimated average glucose which is %A1C expressed as average glucose, using the formula of the [id number] Average Glucose study (ADAG), Diabetes Care, Vol.31,#8, Jun. 2007 03/16/2020 8:33 AM EDT us Fadi Craig MD LAB BLOOD ORDERABLES Final Result MIC from Last 3 Months or Most Recently Relevant to Health Maintenance Insurance [facility] MED[facility]
--- OUTSIDE RECORDS SUMMARY | 2024-12-23 08:56 | XMS_ITS | Encounter Summary ---
Author Organization [facility] Address [address] [place] [address] Care Team Providers Care Squeegee Tender Name Role Phone Physician, No Pcp Primary Care Provider Unavaila ble Reason for Visit * Consultation (Routine) - Authorized Specialty Diagnoses / Procedures Referred By Annalisa birmingham Referred To Contact Occupational Therapy Diagnoses Other specified soft tissue disorders Edema, unspecified Fadi Craig MD [address] [place], [place] [address], [place] Referral ID Status Reason Start Date Expiration Date Visits Requested Visits Authorized [id number] Authorized Specialty Services Required 08/19/2024 08/19/2025 19 19 Encounter Details Date Type Department Care Team (Late st Contact Info) Description 12/08/2024 9:00 AM EST Treatment [facility] Occupational Therapy [address] [place] [phone] Jaqui Easley OTR/L Lymphatic edema (Primary Dx) [...] encounter Progress Notes * JAKE Napoles - 12/08/2024 9:00 AM EST [facility] - Outpatient OCCUPATIONAL THERAPY DAILY TREATMENT NOTE Date: 12/08/2024 Visit Number: 6 Patient Name: Guadalupe Mittaloney : 1945 Age: 79 y.o. Gender: female Diagnosis: ICD-10-CM ICD-9-CM 1. Lymphatic edema I89.0 457.1 Date of Onset: 10/12/2024 Referring Provider: Fadi Craig MD Insurance: Payor: MEDICARE / Plan: MEDICARE PART A & B / Product Type: Medicare / Language: Speaks and understands Khmer as preferred language with no staff interpreter required Allergies: has no allergies on file. Precautions: None stated SUBJECTIVE Subjective Report: I liked the velcro thing you loaned me. It is so much easier than the bandages Pain: Dorsum aspect of left foot is painful when the foot swells and touches the shoe OBJECTIVE Patient presents with visible decreased lymph edema in her left lower leg Patient has been able to successfully apply velcro garment which was on loan from therapist TREATMENT INTERVENTION Procedures: MLD according to Dr. [...] and stockinet as a liner Pain Reassessment: patient did not report pain in left foot at end of session Assessment/Response To Treatment: Good My leg is so much better but my foot still seems to swell up Patient Education: Education provided: Yes Education Provided To: Patient utilizing Explanation mode(s) of education Response to Education: Good PLAN POC Development/Review: No Change in the Plan of Care; Participants: Patient Equipment Recommended: B Knee high velcro based compression garment ; Equipment Provided: continueswith loaner classic Farrow GOALS Patient is MOD I in management of hybrid liner and loaner velcro garment Patient presents with decreased Lymph edema in her left LE ( visual assessment ) Total Treatment Time: 60 minutes Documentation completed by JAKE Napoles documented in this encounter Plan of Treatment Upcoming Encounters Date Type Department Care Team (Late st Contact Info) Description 12/30/2024 2:00 PM EST Treatment [facility] Occupational Therapy [address] [place] [phone] Jaqui Easley, OTR/L documented as of this encounter Goals Goal [...] and I am not feeling that unbalanced My legs are finally getting better and [...] script for garments has been send to [employer] shoe management General Improving( 5:45 PM EST) Jaqui Allen, OTR/L Note: LTG; Patient will be able to fit into appropriate footwear for [place] [facility] 12/13/2024 Progressing Patient reports that she finally is able to see her ankles documented as of this encounter Visit Diagnoses Diagnosis Lymphatic edema- Primary Other noninfectious lymphedema documented in this encounter Additional Health Concerns Assessment Noted Time A fall risk assessment has been complete d for the patient 10/12/2024 10:13 AM EST documented as of this encounter Care Teams Squeegee Tender Relationship Specialty Start Date End Date Physician, No Pcp PCP - General 10/12/24 documented as of this encounter
--- OUTSIDE RECORDS SUMMARY | 2024-12-23 08:56 | XMS_ITS | Encounter Summary ---
Author Organization [facility] Address [address] [facility] [address] [place] [address] Phone Care Team Providers Care Junior Graphic Designer Name Role Phone Unavailable Primary Care Provider Unavailabl e Reason for Referral * Cardiac Services (Routine) - Closed Specialty Diagnoses / Procedures Referred By Contac t Referred To Contact Diagnoses Swelling of lower leg <Left side> Procedures Ultrasound doppler venous leg left Hubert Lin MD Phone: tel: fax: Referral ID Status Reason Start Date Expiration Date Visits Re quested Visits Authorized [id number] Closed 04/06/2024 04/06/2025 1 1 Encounter Details Date Type Department Care Team (Latest Contact Info) Description 04/06/2024 Office Communication [facility] [address] [facility] [address] [place] [phone] Hubert Lin MD [address] [facility] [address] [place] [phone] Swelling of lower leg <Left side> (Primary Dx) Social History Tobacco Use Types Packs/Day Years Used Date Smoking Tobacco: Former Cigarettes Q uit: 11/17/1984 Smokeless Tobacco: Never Alcohol Use Standard Drinks/Week Comments Yes 0 (1 standard drink = 0.6 oz pure alcohol) Alcoholic Drinks/day: Occasional social drink Comments Unknown Sex and Gender Information Value Date Recorded Sex Assigned at Not on file Legal Sex Female 4:59 PM EST Gender Identity Not on file Sexual Orientation Not on file documented as of this encounter Plan of Treatment Upcoming Encounters Date Type Department Care Team (Late st Contact Info) Description 01/09/2025 Orders Only [facility] [address] [place] [phone] Hubert Lin MD [address] [phone] Chronic kidney disease, stage 4 (severe) (HCC); Type 2 diabetes mellitus without complication (HCC); Renal osteodystrophy; Hypertensive renal disease 02/07/2025 1:45 PM EDT Office Visit [facility] [address] [place] [phone] Hubert Lin MD [address] [phone] Scheduled Orders Name Type Priority Associated Diagnoses Order Schedule Ultrasound doppler venous leg left Vascular Ultrasound Today Swelling of lower leg <Left side> Expected: 04/06/2024, Expires: 04/06/2026 documented as of this encounter Visit Diagnoses Diagnosis Swelling of lower leg <Left side>- Primary Chronic kidney disease, stage 4 (severe) (HCC) Type 2 diabetes mellitus without complication (HCC) Renal osteodystrophy Hypertensive renal disease documented in this encounter
--- OUTSIDE RECORDS SUMMARY | 2024-12-23 08:56 | XMS_ITS | Encounter Summary ---
Author Organization [facility] Address [address] [place] [address] Care Team Providers Care Business Continuity Management Director Name Role Phone Physician, No Pcp Primary Care Provider Unavaila ble Reason for Visit * Consultation (Routine) - Authorized Specialty Diagnoses / Procedures Referred By Annalisa birmingham Referred To Contact Occupational Therapy Diagnoses Other specified soft tissue disorders Edema, unspecified Fadi Craig MD [address] [place], [place] [address] Referral ID Status Reason Start Date Expiration Date Visits Requested Visits Authorized [id number] Authorized Specialty Services Required 08/19/2024 08/19/2025 19 19 Encounter Details Date Type Department Care Team (Late st Contact Info) Description 11/30/2024 9:00 AM EST Treatment [facility] Occupational Therapy [address] [place] [phone] Jaqui Easley OTR/L Lymphatic edema (Primary Dx) [...] encounter Progress Notes * JAKE Napoles - 11/30/2024 9:00 AM EST [facility] - Outpatient OCCUPATIONAL THERAPY DAILY TREATMENT NOTE Date: 11/30/2024 Visit Number: 5 Patient Name: Guadalupe Mittaloney : 1945 Age: 79 y.o. Gender: female Diagnosis: ICD-10-CM ICD-9-CM 1. Lymphatic edema I89.0 457.1 Date of Onset: 10/12/2024 Referring Provider: Fadi Craig MD Insurance: Payor: MEDICARE / Plan: MEDICARE PART A & B / Product Type: Medicare / Language: Speaks and understands Kyrgyz as preferred language with no car sales consultant required Allergies: has no allergies on file. Precautions: None stated SUBJECTIVE Subjective Report: I have a hard copy of the script that you have been trying to get My doctor was embarrassed that you had to call that many times,. He said it was finally faxed but just to make sure he gave me a copy Pain: No pain just stiffness and tightness in left lower leg mostly OBJECTIVE Patient arriving at therapy bringing medi sock giancarlo ( iron frame) Patient reports that she bought it but was never able to use it and maybe I could show her how to use it Left LE has not been compressed for extended period of time and lymph edema has returned TREATMENT INTERVENTION Procedures: MLD according to Dr. [...] fibrosis techniques to left calf Self care Demo use of medi sock giancarlo and patient did make an unsuccessfully attempt as she does not have sufficient hip flexion She did use a regular sock giancarlo successfully Therapist provided patient with loaner Farrow wrap to allow for increased carry over of compression Therapist donned classic Farrow wrap over hybrid sock and educated patient in proper management of this garment Pain Reassessment: Patient tolerated session well and did not report any discomfort with compression in place Assessment/Response To Treatment: Good I will try this ( Farrow wrap) because at least that allows me to have a shower Patient Education: Education provided: Yes Education Provided To: Patient utilizing Explanation and Demonstration mode(s) of education Response to Education: Good PLAN POC Development/Review: Changes in the Plan of Care will f/u next week to allow compression garments to be in place; Participants: Patient Equipment Recommended: velcro knee high compression garments ; Equipment Provided: loaner classic Farrow wrap GOALS Therapist received script and office noted from PCP and forwarded this with request for B knee highjuzo wraps ( XL / regular length) with hybrid liners Progress towards obtaining appropriate compression Total Treatment Time: 60 ,minutes Documentation completed by SUKHJINDER Napoles/Eliceo documented in this encounter Plan of Treatment Upcoming Encounters Date Type Department Care Team (Late st Contact Info) Description 12/30/2024 2:00 PM EST Treatment [facility] Occupational Therapy [address] [phone] Jaqui Easley OTR/Eliceo documented as of this encounter Goals Goal Patient Goal Type Associated Problems Recent Progress Patient-Stated? Author reduce size of legs General On track( 025 5:39 PM EST) Yes Jaqui Easley OTR/Elieco Note: I want my legs to be [...] 024 4:50 PM EST) No Jaqui Easley OTR/Eliceo Note: STG; patient will be able to [...] script for garments has been send to [employer] shoe management General Improving( 5:45 PM EST) No Jaqui Easley OTR/L Note: LTG; Patient will be able to fit into appropriate footwear for [facility] 12/13/2024 Progressing Patient reports that she finally is able to see her ankles documented as of this encounter Visit Diagnoses Diagnosis Lymphatic edema- Primary Other noninfectious lymphedema documented in this encounter Additional Health Concerns Assessment Noted Time A fall risk assessment has been complete d for the patient 10/12/2024 10:13 AM EST documented as of this encounter Care Teams Business Continuity Management Director Relationship Specialty Start Date End Date Physician, No Pcp PCP - General 10/12/24 documented as of this encounter
--- NOTE | 2024-12-23 08:57 | A.OFFVIS_ITS ---
Vital Signs 12/23/24 08:58 Height 5 ft 1 in Weight 213 lb BMI 40.2 Intake Visit Reasons: New Prob - Bilateral Shoulder Pain - L>R Intake Note: Guadalupe is a 79 year old ambidextrous female who presents today for a new problem visit with complaints of bilateral shoulder pain. Left shoulder is worse than right shoulder. Left Humerus Fracture 11/24/21. Patient rpeorts that she would like a cortisone injection in her left shoulder. She has had one done over 20 years ago in the shoulder but she is not sure what one. Allergies LEFTY Inhibitors [Lefty Inhibitors] Allergy (Severe, Verified 11/23/24 08:59) SWELLING beta blockers Allergy (Severe, Verified 11/23/24 08:59) leg swelling oxycodone [OXYCODONE] Allergy (Severe, Verified 11/23/24 08:59) NAUSEA & VOMITING/FATIGUE rivaroxaban [From XARELTO] Allergy (Severe, Verified 11/23/24 08:59) severe swelling semaglutide [From Ozempic] Allergy (Severe, Verified 11/23/24 08:59) Swelling cat dander Allergy (Intermediate, Verified 11/23/24 08:59) + allergy tesy grass pollen Allergy (Intermediate, Verified 11/23/24 08:59) + allergy test mold Allergy (Intermediate, Verified 11/23/24 08:59) + allergy test rosuvastatin [From Crestor] Allergy (Intermediate, Verified 11/23/24 08:59) Swelling lovenox Allergy (Severe, Uncoded 08/19/24 11:21) swelling extremeties HPI HPI New Prob - Bilateral Shoulder Pain - L>R: Details: Guadalupe is a 79 year old ambidextrous female who presents today for a new problem visit with complaints of bilateral shoulder pain. Left shoulder is worse than right shoulder. Left Humerus Fracture 12/08. She describes difficulty with overhead motion and pain throughout the day. She is able to sleep however. She has not received treatment for this. She did have a cortisone injections in her shoulders many years ago. [facility] Medical History Diabetes type 2, controlled Osteoarthritis of left hip Uncontrolled diabetes mellitus with hyperglycemia Shoulder pain, bilateral Lumbar disc disease Sacroiliac joint disease Sleep apnea RBBB (right bundle branch block) CKD (chronic kidney disease) Hyperlipidemia Osteoporosis Hypothyroidism Depression Essential hypertension Surgical History History of hip surgery H/O colonoscopy History of tonsillectomy History of total right knee replacement (TKR) History of breast biopsy History of total left knee replacement (TKR) Family History Father CAD (coronary artery disease) CVD (cardiovascular disease) Mother Colon cancer Brother Cancer of prostate Throat cancer Tongue cancer Social History (Updated 08/19/24 @ 11:25 by LOYDA Porter) Household Members: None Housing: House Are you a primary daycare director to a significant other at home: No Do you presently have visiting nurse or other home services: Yes (Melani MITCHELL) Alcohol intake: current Alcohol intake frequency: holidays/special occasions only Patient Tobacco Use Status: Former Tobacco user Tobacco use type: Cigarette Years Smoked: 5 e-Cigarette/Vaping Use: Never Used Second Hand Smoke Exposure: No Advance Directives Date on File: 03/17/12 service: No 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al status: retired 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al exposures/hazards: No Cognitive needs: No Hearing needs: No Vision needs: No Physical Exam Vital Signs: BMI result Body Mass Index 40.2 Extrem Other: Left shoulder with 15 degrees of external rotation 80 degrees of active abduction and 110 degrees of forward flexion. Internal rotation to hip pocket at best. Positive Juan. Negative empty can. Office Procedures Joint Inj/Aspir; Non-Pain Clin Joint Injection/Drain Details: Injected 1 mL of Decadron and 3 mL 1% lidocaine and 3 mL of 0.25% Marcaine. Site was prepped using aseptic technique. Patient tolerated the procedure well. Shoulders, Hips, Knees, Shoulder Injection Large joint : Left Shoulder Coding Procedure code (CPT) selection complete Assessment & Plan Assessment & Plan (1) Post-traumatic osteoarthritis, left shoulder: Code(s): M19.112 - Post-traumatic osteoarthritis, left shoulder Category: Medical Plan: This is a 79-year-old woman with posttraumatic osteoarthritis of the left shoulder. I injected her shoulder today. She does not want additional treatment. Overall she is doing well. I discussed the hyperglycemic effects of steroids. (2) Diabetes type 2, controlled: Code(s): E11.9 - Type 2 diabetes mellitus without complications Category: Medical Plan: I discussed the hyperglycemic effects of steroids. Coding Level of Care Code Est Pt Level 4 (94896) Diagnoses Post-traumatic osteoarthritis, left shoulder M19.112 Diabetes type 2, controlled E11.9 CPT Codes Shoulders, Hips, Knees, - Shoulder Injection Large joint 56021: Left Shoulder ([id number])
== END | disposition home or self-care (01) ==
PROVIDERS: PCP Family Medicine; Visit Provider Orthopaedic Surgery
CPT/HCPCS: 20610; 99214

== ENCOUNTER → 2024-12-23 08:40 | Outpatient (BNVA) | payer MEDICARE, SELFPAY | PROVIDERS: PCP Family Medicine; Visit Provider Orthopaedic Surgery | DX: M19.112 Post-traumatic osteoarthritis, left shoulder (principal); E11.9 Type 2 diabetes mellitus without complications | CPT/HCPCS: 20610; 99212; J0665; J1100; J2003 ==

== ENCOUNTER 2025-01-27 07:35 | Outpatient (REF) | payer MEDICARE, SELFPAY ==
--- OUTSIDE RECORDS SUMMARY | 2025-01-27 07:40 | XMS_ITS ---
Author Organization [facility] Address [address] [place] [address] Care Team Providers Care Kiln Door Builder Name Role Phone Fadi Craig MD Primary Care Provider Francisco Whittaker Unavailable [phone] Allergies Allergen (clinical drug ingredient) Drug/Non Drug Allergy documented on EMR Reaction Allergy Type Onset Date Status blood pressure meds (uncoded) Unknown Allergy Active enoxaparin Lovenox Unknown Drug Allergy Active rivaroxaban Xarelto Unknown Drug Allergy Activ e oxycodone Oxycodone Unknown Drug Allergy Active Substance with sulfonamide structure and antibacterial mechanism of action (substance) Sulfa Antibiotics Unknown Drug Allergy Active REASON FOR VISIT At Risk Footcare, Painful Nail(s) aggravated by shoes and causing difficulty standing/walking., Swelling, Toe Irritation Medications Medication SIG (Take, Route, Frequency, Duration) Notes Start Date End Date Status amLODIPine Besylate 5 MG Oral for 90 Not-Taking Tekturna 150 MG Oral for 30 No t-Taking Amoxicillin 500 MG Oral for 30 Not-Taking Triamterene-HCTZ 37.5-25 MG Oral for 84 Not-Taking Zinc 50 MG 1 tablet Orally Once a day for 30 day(s) Not-Taking Ammonium Lactate 12 % 1 application to affected area Externally to feet Twice a day for 30 days Not-Taking Edema Clinic Referral . . . . for 365 days 07/23/2024 Active Betamethasone Dipropionate 0.05 % External for 30 Activ e Vitamin B 12 500 MCG 1 tablet Orally Onc e a day for 30 day(s) Not-Taking CoQ-10 Not-Taking Nystatin 476711 UNIT/GM External for 14 Active Extra Depth Orthopedic Shoes (1 Pair) with Customized Heat Molded Multidensity Innersoles (3 Pair) as directed Dx: NIDDM (E11.9), Hammertoe Foot Deformity (M20.41,M20.42), Preulcerative Skin Lesion(s) (L85.1) 05/14/2024 Active Calcitriol 0.25 MCG Oral for 90 Active Vitamin D2 Active Levothyroxine Sodium 50 MCG Oral for 90 Active Aliskiren Fumarate 150 MG Oral for 60 Active Lasix Active glipiZIDE ER 2.5 MG Oral for 90 2 times monthly Active FLUoxetine HCl 10 MG 1 capsule Orally Once a day for 30 day(s) Active Atorvastatin Calcium 20 MG Oral for 90 Active Farxiga 10 MG 1 tablet Orally Once a day for 30 day(s) Active Social History Tobacco Use: Social History Observation Description Date Details (start date - stop date) Former Smoker NA - NA Tobacco Use/Smoking Question Answer Notes Are you a: former smoker Additional Findings: Tobacco Non-User Current no n-smoker Alcohol Screen Question Answer Notes Did you have a drink containing alcohol in the p ast year? Yes Points 0 Interpretation Negative Tobacco use other than smoking: Question Answer Notes Are you an other tobacco user? No Vital Signs Height 5 ft 1 in in 10/01/2024 Weight 199 lbs 10/01/2024 BMI 37.6 kg/m2 10/01/2024 Blood pressure systolic 130 mm Hg 10/01/20 24 Blood pressure diastolic 74 mm Hg 024 Procedures Procedure Date Ordered Date Performed Result Body Sit e 26577-ITFEWJT NAIL, 6 OR MORE 10/01/2024 N/A Encounters Encounter Location Date Provider Diagnosis [facility] [address] [place] [address] 10/01/2024 Francisco Ang Pain in right toe(s) M79.674 ; Tinea unguium B35.1 ; Pain in left toe(s) M79.675 ; Type 2 diabetes mellitus without complication E11.9 and Edema, lower extremity R60.0 Assessments Encounter Date Diagnosis (ICD Code) Assessment Notes Treatment Notes Treatment Clinical Notes Section Notes 10/01/2024 Pain in right toe(s) (ICD-10 - M79.674) 10/01/2024 Tinea unguium (ICD-10 - B35.1) 10/01/2024 Pain in left toe(s) (ICD-10 - M79.675) 10/01/2024 Type 2 diabetes mellitus without complication (ICD-10 - E11.9) 10/01/2024 Edema, lower extremity (ICD-10 - R60.0) Plan Of Treatment Pending Test Test Name Order Date 53248-[id number] NAIL, 6 OR MORE 10/01/2024 Next Appt Details Follow Up: prn, Reason: Provider Name:Francisco Fry , 02/22/2025 08:45:00 AM, [address] [place] [address], [phone], Provider Name:Francisco Fry , 04/26/2025 08:45:00 AM, [address] [place] [address], [phone], Procedure Notes * Category Sub-Category Detail Notes Debride Nail 6-10 Nail debridement Performance o f this nail treatment by a nonprofessional would put this patients foot and overall health at risk. Therefore, debridement to affected nail(s), as described in exam, was performed extensively to reduce/remove overall nail length, girth, thickness, subungual debris, and necrotic tissue, by manual and/or electrical means through the use of a nail nipper and/or dremel-type cinnamon grinder, to a more viable healthy nail plate or bed tissue 6-10. Silver nitrate used for any petechial bleeding as necessary. Definitive antifungal treatment options have been reviewed and discussed with the patient. The patient chooses, no pharmaceutical tx - 23560 Progress Notes * BRANDTGuadalupe ADOB:1944 (79 yo F)Acc No.[id number]:10/01/2024 Progress Note Patient:?Guadalupe BRANDT A Provider:?Francisco Fry DPM :1945???Age:79 Y???Sex:Female D ate:10/01/2024 Address:[address] [place] [address] Pcp:Fadi Craig MD Subjective: * Chief Complaints: * ???At Risk FootcarePainful N ail(s) aggravated by shoes and causing difficulty standing/walking.SwellingToe Irritation * HPI: ???At Risk footcare:?Pt States Last PCP Visit:?Date?09/13/2024 ???Toe pain:?Treatments:?Rx shoes , states still needs?.?Swelling:?Location:?Both feet/leg.?Treatment:?elevation , compression stockings , medication, [facility] outpatient referral pending - states appt in 2 weeks.? * ROS:?General/Constitutional:?Nausea?denies.?Vomiting?denies.?Hunger Thirst?denies.?Loss appetite?denies.?Chills?denies.?Fatigue?denies.?Fever?denies.?Night Sweats?denies.?Unexplained weight loss?denies.?Unexplained weight gain?denies.?HEENTM:?Dentures?denies.?Dizziness?denies.?Glasses/contacts?admits.?Retinopathy?de nies.?Blurred/double vision?denies.?TMJ?denies.?Discharge/drainage?denies.?Implants?denies.?Sore throat?denies.?Dental implants?denies.?Hard of hearing ?denies.?Difficulty chewing/swallowing/speaking?denies.?Nose bleeds?denies.?Sore mouth?denies.?Respiratory:?On Oxygen?denies.?Pneumonia/pleurisy?denies.?Bronchitis?denies.?Emphysema?denies.?C oughing?denies.?Cough blood?denies.?Shortness of breath?denies.?Wheezing?denies.?Cardiovascular:?Pacemaker?denies.?MVP?denies.?WPW?denies.?CHF?denies.?Heart attack?denies.?Septal defect?denies.?Rapid beat?denies.?Chest pain ?denies.?Atrial Fib.?denies.?Murmur/Palpitations?denies.?Gastrointestinal:?Hemorrhoids?admits.?Stomach/Abdominal pain?denies.?Dark blood stool?denies.?Irritable bowel ?denies.?Constipation?denies.?Diarrhea?denies.?Hematology:?Swelling?denies.?Clots?denies.?Varicose Veins?denies.?Bruising?denies.?Bleeding problem?denies.?Genitourinary:?Blood urine?denies.?Frequent/Painfu/urination/bladder control?denies.?Kidney stones?denies.?Infection (UTI)?denies.?Nephropathy?denies.?sex trans dis (STD)?denies.?Prostate?denies.?Musculoskeletal:?Hammertoes?admits.?Bunions?denies.?Back Pain?admits.?Muscle Cramps/ Resting?denies.?Muscle cramps / walking?denies.?Generalized aches and pains?admits.?Weakness?denies.?Integ.:?Temple?denies.?Scars?admits.?Corns/calluses?admits.?Ingrown nails?admits.?Painful nails?admits.?Open Sores?denies.?Rashes?denies.?Neurologic:?Difficulty sleeping?denies.?Brain disorder?denies.?Numbness?denies.?Balance trouble?admits.?Confusion?denies.?Fainting/blackouts?denies.?Tingling?denies.?Tr emors?denies.? * Medical History:? * Surgical History:?left TKR 2 013right TKR 2014right TKR revision 2015Left hip replacement surgery 11/2023 * Hospitalization/Major Diagno stic [place] [place]23/21Orthopedic surgeon- L foot broken 5th metatarsal - tripped on cruise vacation 01/06/22 01/24/22 * Family History:?Mother: dece ased, diagnosed with Other malignant neoplasm of unspecified site, Unspecified essential hypertension.?Father: , diagnosed with Diabetic - NIDDM, Family history of arthritis.?Paternal Grand Father: diagnosed with Diabetic - NIDDM.? * Social History:?Tobacco Use:?Tobacco Use/Smoking?Are you a:?former smoker ?Additional Findings: Tobacco Non-User?Current non-smoker ?Tobacco use other than smoking?Are you an other tobacco user??No ???Drugs/Alcohol:?Drugs?Have you used drugs other than those for medical reasons in the past 12 months??No ?Alcohol Screen?Did you have a drink containing alcohol in the past year??Yes ?Points?0 ?Interpretation?Negative ???Miscellaneous:?Caffeine: no, frequency:, 1-2 cups per day diet soda. ?Children: no. ?Exercise: yes, walking. ?Marital status: single. ?Occupation: Retired- [employer]. * Medications:?TakingFarxiga 1 0 MG Tablet 1 tablet Orally Once a day Lasix Aliskiren Fumarate 150 MG Tablet Oral Atorvastatin Calcium 20 MG Tablet Oral FLUoxetine HCl 10 MG Capsule 1 capsule Orally Once a day glipiZIDE ER 2.5 MG Tablet Extended Release 24 Hour Oral , Notes to Pharmacist: 2 times monthlyLevothyroxine Sodium 50 MCG Tablet Oral Vitamin D2 Calcitriol 0.25 MCG Capsule Oral Extra Depth Orthopedic Shoes (1 Pair) with Customized Heat Molded Multidensity Innersoles (3 Pair) as directed Dx: NIDDM (E11.9), Hammertoe Foot Deformity (M20.41,M20.42), Preulcerative Skin Lesion(s) (L85.1) Nystatin 358610 UNIT/GM Cream External Betamethasone Dipropionate 0.05 % Lotion External Edema Clinic Referral . . . . . Taking Farxiga 10 MG Tablet 1 tablet Orally Once a day Taking Lasix Taking Aliskiren Fumarate 150 MG Tablet Oral Taking Atorvastatin Calcium 20 MG Tablet Oral Taking FLUoxetine HCl 10 MG Capsule 1 capsule Orally Once a day Taking glipiZIDE ER 2.5 MG Tablet Extended Release 24 Hour Oral , Notes to Pharmacist: 2 times monthlyTaking Levothyroxine Sodium 50 MCG Tablet Oral Taking Vitamin D2 Taking Calcitriol 0.25 MCG Capsule Oral Taking Extra Depth Orthopedic Shoes (1 Pair) with Customized Heat Molded Multidensity Innersoles (3 Pair) as directed Dx: NIDDM (E11.9), Hammertoe Foot Deformity (M20.41,M20.42), Preulcerative Skin Lesion(s) (L85.1) Taking Nystatin 446559 UNIT/GM Cream External Taking Betamethasone Dipropionate 0.05 % Lotion External Taking Edema Clinic Referral . . . . . Not-Taking/PRNAmmonium Lactate 12 % Cream 1 application to affected area Externally to feet Twice a day CoQ-10 Vitamin B 12 500 MCG Tablet 1 tablet Orally Once a day Zinc 50 MG Tablet 1 tablet Orally Once a day Triamterene-HCTZ 37.5-25 MG Tablet Oral Amoxicillin 500 MG Capsule Oral Tekturna 150 MG Tablet Oral amLODIPine Besylate 5 MG Tablet Oral Medication List reviewed and reconciled with the patientNot-Taking/PRN Ammonium Lactate 12 % Cream 1 application to affected area Externally to feet Twice a day Not-Taking/PRN CoQ-10 Not-Taking/PRN Vitamin B 12 500 MCG Tablet 1 tablet Orally Once a day Not-Taking/PRN Zinc 50 MG Tablet 1 tablet Orally Once a day Not-Taking/PRN Triamterene-HCTZ 37.5-25 MG Tablet Oral Not-Taking/PRN Amoxicillin 500 MG Capsule Oral Not-Taking/PRN Tekturna 150 MG Tablet Oral Not-Taking/PRN amLODIPine Besylate 5 MG Tablet Oral Medication List reviewed and reconciled with the patient * Allergies:?XareltoOxycodoneb lood pressure medsSulfa AntibioticsLovenoxyes[Allergies Verified] Objective: * Vitals:?Ht: 5 ft 1 in, Wt:19 9, BMI: 37.6, Shoe size:8.5, BP:130/74mm Hg, BS:not taken, Wt-k.26 kg. * ???Past Orders: ???Lab:HEMOGLOBIN A1C (GLYCO HEMOGLOBIN) (Order Date - 10/01/2024) (Collection Date & Time - 08/17/2024 09:01 AM) ? Value Reference Range ?TOTAL HEMOGLOBIN (HGBA1C) 7.2 * Examination: ???Nails: ?NAILS are:?Elongated, overgrown, dystrophic, lytic, greater than 3mm thick, discolored and friable with crumbly malodorous subungual debris, with pain on palpation, T1, T2, T4, T5, T7, T9.?Vascular: ?DP PULSES(B):? 2/4, B/L.?PT PULSES(B):? 2/4, B/L.?CAPILLARY FILL TIME:?immediate, all digits, B/L.?TROPHIC CONDITION-TEXTURE/ELASTICITY/TURGOR/HAIR GROWTH(B):?normal, B/L.?TEMPERTURE GRADIENT(C):?normal, warm to cool, proximal to distal, B/L, B/L.?PIGMENTATION:?normal, B/L.?EDEMA(C):?CONT 4/4 , pitting , with MILD, aching pain , Leg(s) , Ankle(s) , Foot , B/L.?NICHOL'S SIGN:?absent, B/L.?PALPABLE CORDS:?absent, B/L.? Assessment: * Assessment: 1.?Tinea unguium - B35.1 (Pr imary)???2.?Pain in right toe(s) - M79.674???3.?Pain in left toe(s) - M79.675???4.?Type 2 diabetes mellitus without complication - E11.9???5.?Edema, lower extremity - R60.0???Specify :Acute problem, Uncomplicated (3), Rx Management (4)??? Plan: * Treatment: * Procedures:?Debride Nail 6-10:?Nail debridement?Performance of this nail treatment by a nonprofessional would put this patients foot and overall health at risk. Therefore, debridement to affected nail(s), as described in exam, was performed extensively to reduce/remove overall nail length, girth, thickness, subungual debris, and necrotic tissue, by manual and/or electrical means through the use of a nail nipper and/or dremel-type cinnamon grinder, to a more viable healthy nail plate or bed tissue 6-10. Silver nitrate used for any petechial bleeding as necessary. Definitive antifungal treatment options have been reviewed and discussed with the patient. The patient chooses, no pharmaceutical tx - 10851.? * Procedure Codes:?12447 DEBRI DE NAIL, 6 OR MORE * Preventive Medicine:? ??Counseling:?Consult:?Consult with the [facility] [place] due to increased risk of potential pedal complications pending.?Edema:?I explained to the patient the possible etiologies for Edema, including genetic, surgery, infection, medications, heart disease, kidney disease, excess dietary salt, and various cancer treatments. We discussed the risks/benefits of the treatment options available including rest, elevation, OTC compression stockings, Rx compression stockings, Unna Boot application, diet modification to limit salt intake, and Rx segmental compression boots provided the absence of CHD in the patients medical history. The advantages and disadvantages of each option were discussed and the patients questions re: risk of infection(cellulitis), medications, diet, and the daily use of compression stockings(not to be worn at night), and consistency in these home treatment regimens for optimal success were answered to their verbally confirmed satisfaction. Given the risk for vessel clotting disease, the patient was instructed to go immediately to the ER of hospital should they experience any calf pain, SOB, or discomfort. Any changes to the patients medication regimen will be performed by the PCP or patients kidney/heart/cancer specialist. , Discussed other tx options for the patients condition, The patient wishes to continue with the present treatment plan for their condition.?Shoe Gear Counseling:?Patient to obtain shoes hopefully soon.? * Follow Up:?prn * Images: * Sign off status: Completed true * Provider:?Francisoc Fry DPM Date:?2023 Generated for Keiko morales/Jose/Naomi on:?01/27/2025 07:40 AM EDT History and Physical Notes * HPI (History of Present Illness) Category Sub-Category Detail Notes Category Not es Toe pain Treatments: Rx shoes , state s still needs At Risk footcare Pt States Last PCP Visit: Date: 4 Swelling Location: Both feet/leg Treatment: elevation , compress ion stockings , medication, [facility] outpatient referral pending - states appt in 2 weeks Examination Category Sub-Category Detail Notes Category Not es Vascular DP PULSES (B): 2/4, B/L PT PULSES (B): 2/4, B/L CAPILLARY FILL TIME: immediate, all digi ts, B/L TEMPERTURE GRADIENT (C): normal, warm to cool, proximal to distal, B/L, B/L TROPHIC CONDITION-TEXTURE/ELASTICITY/TURGOR/HAIR GROWTH (B): normal, B/L EDEMA (C): CONT 4/4 , pitting , with MILD, aching pain , Leg(s) , Ankle(s) , Foot , B/L NICHOL'S SIGN: absent, B/L PALPABLE CORDS: absent, B/L PIGMENTATION: normal, B/L Nails NAILS are: Elongated, overg rown, dystrophic, lytic, greater than 3mm thick, discolored and friable with crumbly malodorous subungual debris, with pain on palpation, T1, T2, T4, T5, T7, T9
--- OUTSIDE RECORDS SUMMARY | 2025-01-27 07:40 | XMS_ITS | Clinical Summary ---
Author Organization [facility] [place] [address] Care Team Providers Care Banquet Server On Call Name Role Phone Physician, No Pcp Primary Care Provider Unavaila ble Active Problems Problem Noted Date Diagnosed Date Lymphedema of both lower extremities 10/12/2024 Encounters Date Type Department Care Team Description 01/20/2025 9:00 AM EST Treatment [facility] [address] [phone] Gijrody, Jaqui P, OTR/L Lymphatic edema (Primary Dx) 01/10/2025 11:00 AM EST Treatment [facility] [address] [phone] Marlajrody, Jaqui P, OTR/L Lymphatic edema (Primary Dx) 12/27/2024 12:30 PM EST Treatment [facility] [address] [phone] Yael Easleyamaria P, OTR/L Lymphatic edema (Primary Dx) 12/13/2024 9:00 AM EST Treatment [facility] [address] [phone] Kaushal Jaqui P, OTR/L Lymphatic edema (Primary Dx) 12/08/2024 9:00 AM EST Treatment [facility] [address] [phone] Kaushal Jaqui P, OTR/L Lymphatic edema (Primary Dx) 11/30/2024 9:00 AM EST Treatment [facility] [address] [phone] Beth Easleya P, OTR/L Lymphatic edema (Primary Dx) 11/18/2024 9:00 AM EST Treatment [facility] [address] [place] [phone] Beth Easleya P, OTR/L Lymphatic edema (Primary Dx) 11/08/2024 9:00 AM EST Treatment [facility] [address] [phone] GiBeth malcolma P, OTR/L Lymphatic edema (Primary Dx) 11/04/2024 2:00 PM EST Treatment [facility] [address] [place] [phone] Beth Easleya P, OTR/L Other specified soft tissue disorders; Edema, unspecified 11/01/2024 1:30 PM EST Treatment [facility] [address] [place] [phone] Beth Easleya P, OTR/L Lymphatic edema (Primary Dx) from Last 3 Months Social History Tobacco Use Types Packs/Day Years Used Date Smoking Tobacco: Never Assessed Comments Unknown Sex and Gender Information Value Date Recorded Sex Assigned at Not on file Legal Sex Female 6:31 PM EDT Gender Identity Not on file Sexual Orientation Not on file Plan of Treatment Upcoming Encounters Date Type Department Care Team (Late st Contact Info) Description 02/01/2025 9:00 AM EDT Treatment [facility] [address] [place] [phone] Jaqui Easley P, OTR/L Health Maintenance Due Date Last Done Comments Diabetes: Annual GFR (Glomerular Filtration Rate) 1945 Diabetes: Annual Foot Exam 1955 Diabetes: Annual Retina Eye Exam 1955 DTaP,Tdap,and Td Vaccines (1 - Tdap) 1964 Zoster Vaccines (1 of 2) 1995 RSV Immunization Patients 60+ Years Old (1 - 1-dose 75+ series) 2020 COVID-19 Vaccine ( season) 2024 09/05/2023, 06/21/2022, 09/03/2021, Additional history [...] Falls Risk Assessment 10/12/2025 10/12/2024 Pneumococcal Vaccine: 50+ Years Completed 09/28/2019, 10/23/2016 HIB Vaccines Aged [...] patient's age to complete this topic Meningococcal B Vacine Aged Out No lo nger eligible based on patient's age to complete this topic RSV Immunization Patients Under 20 months Aged Out No longer eligible based on patient's age to complete this topic Varicella Vaccines Aged Out No longer eligible based on patient's age to complete this topic Goals Goal Patient Goal Type Associated Problems Recent Progress Patient-Stated? Author reduce size of legs General No change(01/10 1:52 PM EST) Yes Jaqui Easley P, OTR/L Note: I want my legs to [...] and my legs are not that heavy 01/10/2025 after interruption in therapy of 2 weeks patient presented with return of lymph edema in both LE's self management General No change(01/10 1:51 PM EST) No Jaqui Easley, OTR/L Note: [...] script for garments has been send to [facility] 01/10 Patient did not receive garments yet. As per [facility] garments on order and should be received in 2 weeks. Patient presented with increased volumes when arriving at therapy shoe management General Worsening( 1:49 PM EST) Jaqui Allen, OTR/L Note: LTG; Patient will be able to fit into appropriate footwear for [facility] 12/13/2024 Progressing Patient reports that she finally is able to see her ankles 01/10 After interruption in therapy 2nd to winter weather patient presents with return of lymph edema in both LE's Insurance MEDICARE [facility] Care Teams Banquet Server On Call Relationship Specialty Start Date End Date Physician, No Pcp PCP - General 10/12/24
--- OUTSIDE RECORDS SUMMARY | 2025-01-27 07:41 | XMS_ITS | Patient Health Record ---
Author Organization [facility] Address [address] [place] [address] Care Team Providers Care Bung Remover Name Role Phone Fadi Craig MD Primary Care Provider Francisco Whittaker Unavailable [phone] Allergies Allergen (clinical drug ingredient) Drug/Non Drug Allergy documented on EMR Reaction Allergy Type Onset Date Status blood pressure meds (uncoded) Unknown Allergy Active enoxaparin Lovenox Unknown Drug Allergy Active rivaroxaban Xarelto Unknown Drug Allergy Activ e oxycodone Oxycodone Unknown Drug Allergy Active Substance with sulfonamide structure and antibacterial mechanism of action (substance) Sulfa Antibiotics Unknown Drug Allergy Active Results Component Value Reference Range Notes HEMOGLOBIN A1C (GLYCOHEMOGLO BIN) Reviewed date:10/01/2024 09:01:51 AM Interpretation: Performing Lab: Notes/Report: TOTAL HEMOGLOBIN (HGBA1C) 7.2 HEMOGLOBIN A1C (GLYCOHEMOGLO BIN) Reviewed date:12/14/2024 09:04:27 AM Interpretation: Performing Lab: Notes/Report: HEMOGLOBIN A1C % (HH) 7.2 HEMOGLOBIN A1C (GLYCOHEMOGLO BIN) Reviewed date:12/14/2024 08:48:51 AM Interpretation: Performing Lab: Notes/Report: Reason For Referral No Information Medications Medication SIG (Take, Route, Frequency, Duration) Notes Start Date End Date Status Nystatin 833555 UNIT/GM External for 14 Active Farxiga 10 MG 1 tablet Orally Once a day for 30 day(s) Active Betamethasone Dipropionate 0.05 % External for 30 Activ e Lasix Active Edema [facility] Referral . . . . for 365 days 07/23/2024 Active Aliskiren Fumarate 150 MG Oral for 60 Active Ammonium Lactate 12 % 1 application to affected area Externally to feet Twice a day for 30 days Not-Taking Extra Depth Orthopedic Shoes (1 Pair) with Customized Heat Molded Multidensity Innersoles (3 Pair) as directed Dx: NIDDM (E11.9), Hammertoe Foot Deformity (M20.41,M20.42), Preulcerative Skin Lesion(s) (L85.1) Active Atorvastatin Calcium 20 MG Oral for 90 Active CoQ-10 Not-Taking FLUoxetine HCl 10 MG 1 capsule Orally Once a day for 30 day(s) Active Vitamin B 12 500 MCG 1 tablet Orally Onc e a day for 30 day(s) Not-Taking glipiZIDE ER 2.5 MG Oral for 90 2 times monthly Active Zinc 50 MG 1 tablet Orally Once a day for 30 day(s) Not-Taking Levothyroxine Sodium 50 MCG Oral for 90 Active Triamterene-HCTZ 37.5-25 MG Oral for 84 Not-Taking Vitamin D2 Active Amoxicillin 500 MG Oral for 30 Not-Taking Calcitriol 0.25 MCG Oral for 90 Active Tekturna 150 MG Oral for 30 No t-Taking amLODIPine Besylate 5 MG Oral for 90 Not-Taking Immunizations Vaccine Route Administration Date Status Comme nts COVID-19 Pfizer BioNTech Vaccine Unknown 09/03/2021 Administered 1st 12/19/2020 2nd 01/09/2021 Influenza Unknown 09/04/2021 Administered Influenza Unknown 08/17/2023 Administered Social History Tobacco Use: Social History Observation Description Date Details (start date - stop date) Never Smoker NA - NA Tobacco use other than smoking: Question Answer Notes Are you an other tobacco user? No Tobacco Control (Standard) Question Answer Notes Tobacco use: Nonsmoker Additional Findings: Tobacco non-user Current no nsmoker AUDIT-C (Standard) Question Answer Notes Did you have a drink containing alcohol in the p ast year? No Points 0 Interpretation Negative Problems Problem Type SNOMED Code ICD Code Onset Dates Problem Status W/U Status Risk Notes Problem Acquired hammer toe of right foot (92233246406060 05) Other hammer toe(s) (acquired), right foot (M20.41) Active confirmed Response to treatment,I mprovement Problem Acquired hammer toe of left foot (65877299858744 03) Other hammer toe(s) (acquired), left foot (M20.42) Active confirmed Response to treatment,I mprovement Problem Type 2 diabetes mellitus without complication (419551569) Type 2 diabetes mellitus without complication (E11.9) Active confirmed Vital Signs Blood pressure diastolic 70 mm Hg 12/14/2024 Height 5 ft 1 in in 12/14/2024 Blood pressure systolic 120 mm Hg 12/14/2024 Weight 199 lbs 12/14/2024 BMI 37.6 kg/m2 12/14/2024 Procedures Procedure Date Ordered Date Performed Result Body Sit e 85986-CXJJDKM NAIL, 6 OR MORE 02/20/2024 N/A 45071-JMOTNMW NAIL, 6 OR MORE 05/14/2024 N/A 90142-KVYENFE NAIL, 6 OR MORE 07/23/2024 N/A 42651-DPXTNGP NAIL, 6 OR MORE 10/01/2024 N/A 49747-UTJRJXL NAIL, 6 OR MORE 12/14/2024 N/A Encounters Encounter Location Date Provider Diagnosis [address] [address] 02/20/2024 Francisco Fry Type 2 diabetes mellitus without complication E11.9 ; Pain in right toe(s) M79.674 ; Tinea unguium B35.1 and Pain in left toe(s) M79.[address] [address] 05/14/2024 Francisco Fry Type 2 diabetes mellitus without complication E11.9 ; Pain in right toe(s) M79.674 ; Tinea unguium B35.1 ; Pain in left toe(s) M79.675 ; Other hammer toe(s) (acquired), right foot M20.41 and Other hammer toe(s) (acquired), left foot M20.[address] [address] 07/23/2024 Francisco Fry Pain in right toe(s) M79.674 ; Tinea unguium B35.1 ; Pain in left toe(s) M79.675 ; Type 2 diabetes mellitus without complication E11.9 and Edema, lower extremity R60.[address] [address] 10/01/2024 Francisco Fry Pain in right toe(s) M79.674 ; Tinea unguium B35.1 ; Pain in left toe(s) M79.675 ; Type 2 diabetes mellitus without complication E11.9 and Edema, lower extremity R60.[address] [address] 12/14/2024 Francisco Fry Type 2 diabetes mellitus without complication E11.9 ; Pain in right toe(s) M79.674 ; Tinea unguium B35.1 ; Pain in left toe(s) M79.675 ; Other hammer toe(s) (acquired), right foot M20.41 and Other hammer toe(s) (acquired), left foot M20.42 Assessments Encounter Date Diagnosis (ICD Code) Assessment Notes Treatment Notes Treatment Clinical Notes Section Notes 02/20/2024 Type 2 diabetes mellitus without complication (ICD-10 - E11.9) 05/14/2024 Type 2 diabetes mellitus without complication (ICD-10 - E11.9) 07/23/2024 Tinea unguium (ICD-10 - B35.1) 07/23/2024 Pain in right toe(s) (ICD-10 - M79.674) 10/01/2024 Pain in right toe(s) (ICD-10 - M79.674) 10/01/2024 Tinea unguium (ICD-10 - B35.1) 12/14/2024 Type 2 diabetes mellitus without complication (ICD-10 - E11.9) 05/14/2024 Pain in right toe(s) (ICD-10 - M79.674) 12/14/2024 Pain in right toe(s) (ICD-10 - M79.674) 10/01/2024 Pain in left toe(s) (ICD-10 - M79.675) 07/23/2024 Pain in left toe(s) (ICD-10 - M79.675) 02/20/2024 Pain in right toe(s) (ICD-10 - M79.674) 02/20/2024 Tinea unguium (ICD-10 - B35.1) 02/20/2024 Pain in left toe(s) (ICD-10 - M79.675) 07/23/2024 Type 2 diabetes mellitus without complication (ICD-10 - E11.9) 05/14/2024 Tinea unguium (ICD-10 - B35.1) 05/14/2024 Pain in left toe(s) (ICD-10 - M79.675) 12/14/2024 Tinea unguium (ICD-10 - B35.1) 12/14/2024 Pain in left toe(s) (ICD-10 - M79.675) 10/01/2024 Type 2 diabetes mellitus without complication (ICD-10 - E11.9) 10/01/2024 Edema, lower extremity (ICD-10 - R60.0) 07/23/2024 Edema, lower extremity (ICD-10 - R60.0) 05/14/2024 Other hammer toe(s) (acquired), right foot (ICD-10 - M20.41) Patient Educated with: DIABETIC FOOT CARE INSTRUCTIONS.p df (DIABETIC FOOT CARE INSTRUCTIONS.p df) 12/14/2024 Other hammer toe(s) (acquired), right foot (ICD-10 - M20.41) Patient Educated with: DIABETIC FOOT CARE INSTRUCTIONS.p df (DIABETIC FOOT CARE INSTRUCTIONS.p df) 12/14/2024 Other hammer toe(s) (acquired), left foot (ICD-10 - M20.42) 05/14/2024 Other hammer toe(s) (acquired), left foot (ICD-10 - M20.42) 02/20/2024 Other 05/14/2024 Other 12/14/2024 Other Plan Of Treatment Pending Test Test Name Order Date 61130-IPFRDHM NAIL, 6 OR MORE 12/22/2020 09702-TDOSZEJ NAIL, 6 OR MORE 03/23/2021 24287-JILTMHY NAIL, 6 OR MORE 06/22/2021 62613-NNMRMCI NAIL, 6 OR MORE 09/11/2021 18176-ZQSLDQR NAIL, 6 OR MORE 11/23/2021 28207-OZYLTJN NAIL, 6 OR MORE 02/12/2022 83969-GZINCSA NAIL, 6 OR MORE 04/26/2022 79809-KHQXGVT NAIL, 6 OR MORE 07/16/2022 06761-TBTSRCW NAIL, 6 OR MORE 09/24/2022 23889-XTUMJMM NAIL, 6 OR MORE 12/03/2022 48890-NOIMEYI NAIL, 6 OR MORE 02/11/2023 74663-IOGRDTA NAIL, 6 OR MORE 04/15/2023 66610-HHMXYHO NAIL, 6 OR MORE 06/17/2023 96087-EVDAMFB NAIL, 6 OR MORE 08/19/2023 18319-NTALALA NAIL, 6 OR MORE 02/20/2024 75818-CVLREUT NAIL, 6 OR MORE 05/14/2024 49696-THANIJK NAIL, 6 OR MORE 07/23/2024 58789-JDSZQDU NAIL, 6 OR MORE 10/01/2024 75348-HHDLDXT NAIL, 6 OR MORE 12/14/2024 70102-ALYBWWI NAIL, 6 OR MORE 10/21/2023 68985-Xghd Destruction, 1-14 10/21/2023 91336-Hbmp Destruction, 1-14 08/19/2023 78831-Awoc Destruction, 1-14 06/17/2023 80289-Nras Destruction, 1-14 04/15/2023 02231-Swbz Destruction, 1-14 02/11/2023 70706-Wnge Destruction, 1-14 12/03/2022 Next Appt Details Provider Name:Francisco Fry , 02/22/2025 08:45:00 AM, [address] [place] [address], [phone], Provider Name:Francisco Fry , 04/26/2025 08:45:00 AM, [address] [place], [address], Insurance Providers Payer Name Payer Address Payer Phone Subscriber Number Group Number Insured Name Patient Relationship to Insured Coverage Start Date Coverage End Date Medicare National [employer] [address] [place] [address] [id number] Guadalupe Muro Self - patient is the insured [employer] [facility] [address] [place] [address] [id number] Guadalupe Muro Self - patient is the insured Medical (General) History Medical History History ICD Code Arthritis Back,Hip,and Knee pain Broken bones CAD (Cholesterol) Cataracts Depression Gall bladder problems High blood pressure Kidney disease Osteoporosis Psoriasis Sciatica chronic sinusitis thyroid Mumps Joint implants/screws Transfusions type II diabetes Surgical History Surgery Date(Month/Year) left TKR 2012 right TKR 2013 right TKR revision 2014 Left hip replacement surgery 11/2023 Hospitalization History Reason Date(Month/Year) Orthopedic surgeon- L foot b roken 5th metatarsal - tripped on [place] 01/06/22 [place]24[place] [facility] [place]23/21
--- OUTSIDE RECORDS SUMMARY | 2025-01-27 07:41 | XMS_ITS | Encounter Summary ---
Author Organization [facility] Address [address] [facility] [address] [place] [address] Phone Care Team Providers Care Birthing Nurse Name Role Phone Unavailable Primary Care Provider Unavailabl e Reason for Referral * Cardiac Services (Routine) - Closed Specialty Diagnoses / Procedures Referred By Contac t Referred To Contact Diagnoses Swelling of lower leg <Left side> Procedures Ultrasound doppler venous leg left Hubert Lin MD Phone: tel: fax: Referral ID Status Reason Start Date Expiration Date Visits Re quested Visits Authorized [id number] Closed 04/06/2024 04/06/2025 1 1 Encounter Details Date Type Department Care Team (Latest Contact Info) Description 04/06/2024 Office Communication [facility] [address] [facility] [address] [place] [phone] Hubert Lin MD [address] [facility] [address] [place] [phone] Swelling of lower leg <Left side> (Primary [...] Care Team (Late st Contact Info) Description 02/07/2025 1:45 PM EDT Office Visit [facility] [address] [place] [address] Hubert Lin MD [address] [facility] [address] [place] [phone] Scheduled Orders Name Type Priority Associated Diagnoses Order Schedule Ultrasound doppler venous leg left Vascular Ultrasound Today Swelling of lower leg <Left side> Expected: 04/06/2024, Expires: 04/06/2026 documented as of this encounter Visit Diagnoses Diagnosis Swelling of lower leg <Left side>- Primary documented in this encounter
--- OUTSIDE RECORDS SUMMARY | 2025-01-27 07:41 | XMS_ITS | Patient Health Record ---
Author Organization [facility] Address [address] [place] [address] Care Team Providers Care Ball Machine Operator Name Role Phone Fadi Craig Primary Care Provider UnavailAubrey Roman [phone] Allergies Allergen (clinical drug ingredient) Drug/Non Drug Allergy documented on EMR Reaction Allergy Type Onset Date Status oxycodone Oxycodone HCl Unknown Drug Allergy Act giancarlo rivaroxaban xarelto (uncoded) Unknown Allergy Active angiotensin-converting enzyme inhibitor (FN) vaibhav inhibitors (uncoded) Unknown Allergy Active Substance with beta adrenergic receptor antagonist mechanism of action (substance) beta blockers (uncoded) Unknown Allergy Active Reason For Referral No Information Medications Medication [...] IN THE EVENING Oral for 90 Active Immunizations Vaccine Route Administration Date Status Comme nts Influenza Unknown 07/18/2017 Administered Social History Alcohol Screen Question Answer Notes Did you [...] Never (0 point) Points 2 Interpretation Negative Section Notes: Nonsmoker; no sig. alcohol Nonsmoker; no sig. alcohol Nonsmoker; no sig. alcohol Problems Problem Type SNOMED Code ICD Code Onset Dates Problem Status W/U Status Risk Notes Problem 738445469 Colon cancer screening (Z12.11) Active confirmed Problem 792549699 Encounter for screening for malignant neoplasm of colon (Z12.11) Active confirmed Problem 378216836 History of adenomatous polyp of colon (Z86.010) Active confirmed Problem 702132583 Change in bowel habits (R19.4) Active confirmed Problem Diverticular disease of colon (387658486) Diverticulosis of large intestine without perforation or abscess without bleeding (K57.30) Active confirmed Problem 476446861 Family history o f colon cancer (Z80.0) Active confirmed Plan Of Treatment Future Test Test Name Order Date COLONOSCOPY 07/16/2013 COLONOSCOPY 06/09/2018 COLONOSCOPY 03/11/2023 Insurance Providers Payer Name Payer Address Payer Phone Subscriber Number Group Number Insured Name Patient Relationship to Insured Coverage Start Date Coverage End Date MEDICARE OF [place] [address] [place] [address] [id number] LULU BRANDT Self - patient is the insured [employer] CLAIM[employer] [address] [place] [address] [id number] LULU BRANDT Self - patient is the insured Medical (General) History Medical History History ICD Code Hypothyroidism Denies AK,CVA,Lung disease Hyperlipidemia HTN 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 replacement [place] [address] Lilly hutson Gingivectcarlos Right knee revision 2013
--- OUTSIDE RECORDS SUMMARY | 2025-01-27 07:41 | XMS_ITS | Encounter Summary ---
Author Organization [facility] Address [address] [address] Phone Care Team Providers Care Qc Tech Name Role Phone Unavailable Primary Care Provider Unavailabl e Encounter Details Date Type Department Care Team (Late st Contact Info) Description 01/09/2025 Orders Only [facility] [address] [place] [address] Hubert Lin MD [address] [address] Chronic kidney disease, stage 4 (severe) (HCC); Type 2 diabetes mellitus without complication (HCC); Renal osteodystrophy; Hypertensive renal disease Social History Tobacco Use Types Packs/Day Years [...] Visit [facility] [address] [place] [address] Hubert Lin MD [address] [address] documented as of this encounter Visit Diagnoses Diagnosis Chronic kidney disease, stage 4 (severe) (HCC) Type 2 diabetes mellitus without complication (HCC) Renal osteodystrophy Hypertensive renal disease documented in this encounter
--- OUTSIDE RECORDS SUMMARY | 2025-01-27 07:41 | XMS_ITS ---
[facility] Address [address] [place] [address] Care Team Providers Care Log Turner Name Role Phone Fadi Craig MD Primary Care Provider Francisco Whittaker Unavailable [phone] Allergies Allergen (clinical drug ingredient) Drug/Non Drug [...] aggravated by shoes and causing difficulty standing/walking., Swelling Medications Medication SIG (Take, Route, Frequency, Duration) Notes Start Date End Date Status amLODIPine Besylate 5 MG Oral for 90 Not-Taking Tekturna 150 MG Oral for 30 No t-Taking Amoxicillin 500 MG Oral for 30 Not-Taking Triamterene-HCTZ 37.5-25 MG Oral for 84 Not-Taking Zinc 50 MG 1 tablet Orally Once a day for 30 day(s) Not-Taking Edema Clinic Referral . . . . for 365 days 07/23/2024 Active Betamethasone Dipropionate 0.05 % External for 30 Activ e Vitamin B 12 500 MCG 1 tablet Orally Onc e a day for 30 day(s) Not-Taking CoQ-10 Not-Taking Ammonium Lactate 12 % 1 application to affected area Externally to feet Twice a day for 30 days Not-Taking Vitamin D2 Active Levothyroxine Sodium 50 MCG Oral for 90 Active Nystatin 358165 UNIT/GM External for 14 Active Extra Depth Orthopedic Shoes (1 Pair) with Customized Heat Molded Multidensity Innersoles (3 Pair) as directed Dx: NIDDM (E11.9), Hammertoe Foot Deformity (M20.41,M20.42), Preulcerative Skin Lesion(s) (L85.1) 05/14/2024 Active Calcitriol 0.25 MCG Oral for 90 Active Atorvastatin Calcium 20 MG Oral for 90 Active Aliskiren Fumarate 150 MG Oral for 60 Active Lasix Active glipiZIDE ER 2.5 MG Oral for 90 2 times monthly Active FLUoxetine HCl 10 MG 1 capsule Orally Once a day for 30 day(s) Active Farxiga 10 MG 1 tablet Orally [...] Signs Height 5 ft 1 in in 07/23/2024 Weight 199 lbs 07/23/2024 BMI 37.60 kg/m2 07/23/2024 Blood pressure systolic 130 mm Hg 07/23/20 24 Blood pressure diastolic 74 mm Hg 024 Procedures Procedure Date Ordered Date Performed Result Body Sit e 38308-NNJORCN NAIL, 6 OR MORE 07/23/2024 N/A Encounters Encounter Location Date Provider Diagnosis [facility] [address] [place] [address] 07/23/2024 Francisco Ang Pain in right toe(s) M79.674 ; Tinea unguium B35.1 ; Pain in left toe(s) M79.675 ; Type 2 diabetes mellitus without complication E11.9 and Edema, lower extremity R60.0 Assessments Encounter Date Diagnosis (ICD Code) Assessment Notes Treatment Notes Treatment Clinical Notes Section Notes 07/23/2024 Pain in right toe(s) (ICD-10 - M79.674) 07/23/2024 Tinea unguium (ICD-10 - B35.1) 07/23/2024 Pain in left toe(s) (ICD-10 - M79.675) 07/23/2024 Type 2 diabetes mellitus without complication (ICD-10 - E11.9) 07/23/2024 Edema, lower extremity (ICD-10 - R60.0) Plan Of Treatment Medication Medication Name Sig Start Date Stop Date Notes Edema Clinic Referral . . . . for 365 days 07/23/2024 Pending Test Test Name Order Date 10451-SOVFGKO NAIL, 6 OR MORE 07/23/2024 Next Appt Details Follow Up: prn, Reason: Provider Name:Francisco Fry , 02/22/2025 08:45:00 AM, [address] [place] [address], [phone], Provider Name:Francisco Fry , 04/26/2025 08:45:00 AM, [address] [place] [address], [phone], Procedure Notes * Category Sub-Category Detail Notes Debride Nail 6-10 Nail debridement Performance o f this nail treatment by a nonprofessional would put this patients foot and overall health at risk. Therefore, nail debridement was performed extensively to reduce/remove overall nail length, girth, thickness, subungual debris, and necrotic tissue, by manual and/or electrical means through the use of a nail nipper and/or dremel-type carbide grinder, to a more viable healthy nail plate or bed tissue 6-10. Silver nitrate used for any petechial bleeding as necessary. Definitive antifungal treatment options have been reviewed and discussed with the patient. The patient chooses, no pharmaceutical tx - 23038 Progress Notes * Guadalupe BRADNT ADOB:1944 (78 yo F)Acc No.[id number]:07/23/2024 Progress Note Patient:?Jerri Brandtureen A Provider:?Francisco Fry DPM :1945???Age:78 Y???Sex:Female D ate:07/23/2024 Address:[address] [place], [place] [address] , [place] Pcp:Fadi Craig MD Subjective: * Chief Complaints: * ???At Risk FootcarePainful N ail(s) aggravated by shoes and causing difficulty standing/walking.Swelling * HPI: ???At Risk footcare:?Pt States Last PCP Visit:?Date?05/12/2024 ???Toe pain:?Treatments:?Rx shoes , states still needs - appt scheduled for end of this month.?Swelling:?Location:?Both feet/leg.?Duration:?several weeks.?Course:?worse.?Treatment:?elevation , compression stockings , medication.? * ROS:?General/Constitutional:?Nausea?denies.?Vomiting?denies.?Hunger Thirst?denies.?Loss appetite?denies.?Chills?denies.?Fatigue?denies.?Fever?denies.?Night Sweats?denies.?Unexplained weight loss?denies.?Unexplained [...] replacement surgery 11/2023 * Hospitalization/Major Diagno stic Procedure:[place] [place] 11[place]23/21Orthopedic surgeon- L foot broken 5th metatarsal - tripped on cruise vacation 01/06/22 01/24/22 * Family History:?Mother: dece ased, diagnosed with Unspecified essential hypertension, Other malignant neoplasm of unspecified site.?Father: , diagnosed with Family history of arthritis, Diabetic - NIDDM.?Paternal Grand Father: diagnosed with Diabetic - NIDDM.? * Social History:?Tobacco Use:?Tobacco Use/Smoking?Are you a:?former smoker ?Additional Findings: Tobacco Non-User?Current non-smoker ?Tobacco use other than smoking?Are you an other tobacco user??No ???Drugs/Alcohol:?Drugs?Have you used drugs other than those for medical reasons in the past 12 months??No ?Alcohol Screen?Did you have a drink containing alcohol in the past year??Yes ?Points?0 ?Interpretation?Negative ???Miscellaneous:?no Caffeine, frequency:, 1-2 cups per day diet soda. ?no Children. ?Exercise: yes, walking. ?Marital status: single. 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 * Medications:?TakingFarxiga 1 0 MG Tablet 1 tablet Orally Once a dayLasix Aliskiren Fumarate 150 MG Tablet Oral Atorvastatin Calcium 20 MG Tablet Oral FLUoxetine HCl 10 MG Capsule 1 capsule Orally Once a dayglipiZIDE ER 2.5 MG Tablet Extended Release 24 Hour Oral , Notes: 2 times monthlyLevothyroxine Sodium 50 MCG Tablet Oral Vitamin D2 Calcitriol 0.25 MCG Capsule Oral Extra Depth Orthopedic Shoes (1 Pair) with Customized Heat Molded Multidensity Innersoles (3 Pair) as directed Dx: NIDDM (E11.9), Hammertoe Foot Deformity (M20.41,M20.42), Preulcerative Skin Lesion(s) (L85.1)Nystatin 675629 UNIT/GM Cream External Betamethasone Dipropionate 0.05 % Lotion External Taking Farxiga 10 MG Tablet 1 tablet Orally Once a dayTaking Lasix Taking Aliskiren Fumarate 150 MG Tablet Oral Taking Atorvastatin Calcium 20 MG Tablet Oral Taking FLUoxetine HCl 10 MG Capsule 1 capsule Orally Once a dayTaking glipiZIDE ER 2.5 MG Tablet Extended Release 24 Hour Oral , Notes: 2 times monthlyTaking Levothyroxine Sodium 50 MCG Tablet Oral Taking Vitamin D2 Taking Calcitriol 0.25 MCG Capsule Oral Taking Extra Depth Orthopedic Shoes (1 Pair) with Customized Heat Molded Multidensity Innersoles (3 Pair) as directed Dx: NIDDM (E11.9), Hammertoe Foot Deformity (M20.41,M20.42), Preulcerative Skin Lesion(s) (L85.1)Taking Nystatin 719694 UNIT/GM Cream External Taking Betamethasone Dipropionate 0.05 % Lotion External Not-Taking/PRNAmmonium Lactate 12 % Cream 1 application to affected area Externally to feet Twice a dayCoQ-10 Vitamin B 12 500 MCG Tablet 1 tablet Orally Once a dayZinc 50 MG Tablet 1 tablet Orally Once a dayTriamterene-HCTZ 37.5-25 MG Tablet Oral Amoxicillin 500 MG Capsule Oral Tekturna 150 MG Tablet Oral amLODIPine Besylate 5 MG Tablet Oral Medication List reviewed and reconciled with the patientNot- Taking/PRN Ammonium Lactate 12 % Cream 1 application to affected area Externally to feet Twice a dayNot-Taking/PRN CoQ-10 Not-Taking/PRN Vitamin B 12 500 MCG Tablet 1 tablet Orally Once a dayNot-Taking/PRN Zinc 50 MG Tablet 1 tablet Orally Once a dayNot- Taking/PRN Triamterene-HCTZ 37.5-25 MG Tablet Oral Not-Taking/PRN Amoxicillin 500 MG Capsule Oral Not-Taking/PRN Tekturna 150 MG Tablet Oral Not-Taking/PRN amLODIPine Besylate 5 MG Tablet Oral Medication List reviewed and reconciled with the patient * Allergies:?XareltoOxycodoneb lood pressure medsSulfa AntibioticsLovenoxyes[Allergies Verified] Objective: * Vitals:?Ht: 5 ft 1 in, Wt:19 9, BMI:37.60, Shoe size:8.5, BP:130/74 mm Hg, BS:not taken. * ???Past Orders: ???Lab:HEMOGLOBIN A1C (GLYCO HEMOGLOBIN) (Order Date - 06/17/2023) (Collection Date - 05/26/2023) ? Value Reference Range ?HEMOGLOBIN A1C (HH) 7.2 * Examination: ???Nails: ?NAILS are:?Elongated, overgrown, dystrophic, lytic, greater than 3mm thick, discolored and friable with crumbly malodorous subungual debris, with pain on palpation, T1, T2, T4, T5, T7, T9.?Vascular: ?DP PULSES:? 2/4, B/L.?PT PULSES:? 2/4, B/L.?CAPILLARY FILL TIME:?immediate, all digits, B/L.?SKIN TEMPERTURE GRADIENT OF THE LOWER EXTERMITIES:?normal, warm to cool, proximal to distal, B/L, B/L.?HAIR GROWTH/TEXTURE/ELASTICITY/TURGOR:?normal, B/L.?PIGMENTATION:?normal, B/L.?EDEMA:?4/4 , pitting , with MILD, aching pain , Leg(s) , Ankle(s) , Foot , B/L.?NICHOL'S SIGN:?absent, B/L.?PALPABLE CORDS:?absent, B/L.? Assessment: * Assessment: 1.?Tinea unguium - B35.1?2.? Pain in right toe(s) - M79.674?3.?Pain in left toe(s) - M79.675?4.?Type 2 diabetes mellitus without complication - E11.9?5.?Edema, lower extremity - R60.0, Acute problem, Uncomplicated (3), Rx Management (4)? Plan: * Treatment: 2.?Edema, lower extremity? Start Edema Clinic Referral ., ., ., ., ., 365 days, 1.?? * Procedures:?Debride Nail 6-10:?Nail debridement?Performance of this nail treatment by a nonprofessional would put this patients foot and overall health at risk. Therefore, nail debridement was performed extensively to reduce/remove overall nail length, girth, thickness, subungual debris, and necrotic tissue, by manual and/or electrical means through the use of a nail nipper and/or dremel-type carbide grinder, to a more viable healthy nail plate or bed tissue 6-10. Silver nitrate used for any petechial bleeding as necessary. Definitive antifungal treatment options have been reviewed and discussed with the patient. The patient chooses, no pharmaceutical tx - 44609.? * Procedure Codes:?03169 DEBRI DE NAIL, 6 OR MORE * Preventive Medicine:? ??Counseling:?Discussion:?-13: Office or other outpatient visit for the evaluation and management of an established patient, which required a medically appropriate history and/or examination and LOW level of DECISION MAKING for: 1 STABLE ACUTE UNCOMPLICATED PROBLEM, 2 OR MORE MINOR PROBLEMS, OR 1 STABLE CHRONIC PROBLEM, THAT POSE(S) A LOW RISK FOR MORBIDITY/MORTALITY. The visit on the day of the encounter encompassed interpreting the data and educating the patient as to the nature of their condition, treatment options available according to their individual PMH, meds, allergies, and overall health/living conditions, as well as any potential risks or complications that may occur from a failure to adhere to, and participate in, the recommended course of therapy. The discussion included a complete verbal, and/or written explanation of the examination results, any x-rays taken, the proposed diagnosis, and outline of the treatment plan. A schedule for future care needs was also explained. The patient verbalized an understanding of the instructions at this time and agreed to be an active participant in their treatment. If the patient should think of any questions or concerns after the visit, I have encouraged the patient to call the office.?Edema:?I explained to the patient the possible etiologies [...] by the PCP or patients kidney/heart/cancer specialist. The patient has elected to receive compression stockings. Such were Rxed today with instructions for use.?Shoe Gear Counseling:?Patient to obtain shoes hopefully soon.? * Follow Up:?prn * Images: * Sign off status: Completed true * Provider:?Francisoc Fry DPM Date:?2023 Generated for Keiko morales/Jose/Naomi on:?01/27/2025 07:40 AM EDT History and Physical Notes * HPI (History of Present Illness) Category Sub-Category Detail Notes Category Not es Toe pain Treatments: Rx shoes , state s still needs - appt scheduled for end of this month At Risk footcare Pt States Last PCP Visit: Date: 4 Swelling Location: Both feet/leg Duration: several weeks Course: worse Treatment: elevation , compress ion stockings , medication Examination Category Sub-Category Detail Notes Category Not es Vascular DP PULSES (B): 2/4, B/L PT PULSES (B): 2/4, B/L CAPILLARY FILL TIME: immediate, all digi ts, B/L TEMPERTURE GRADIENT (C): normal, warm to cool, proximal to distal, B/L, B/L TROPHIC CONDITION-TEXTURE/ELASTICITY/TURGOR/HAIR GROWTH (B): normal, B/L EDEMA (C): 4/4 , pitting , with MILD, aching [...]
--- OUTSIDE RECORDS SUMMARY | 2025-01-27 07:41 | XMS_ITS | Encounter Summary ---
Author Organization [facility] Address [address] [place] [address] Care Team Providers Care Director Industrial Nursing Name Role Phone Physician, No Pcp Primary Care Provider Unavaila ble Reason for Visit * Consultation (Routine) - Authorized Specialty Diagnoses / Procedures Referred By Annalisa birmingham Referred To Contact Occupational Therapy Diagnoses Other specified soft tissue disorders Edema, unspecified Fadi Craig MD [address] [place] [address] [place] Phone: tel: fax: Referral ID Status Reason Start Date Expiration Date Visits Requested Visits Authorized [id number] Authorized Specialty Services Required 08/19/2024 08/19/2025 19 19 Encounter Details Date Type Department Care Team (Late st Contact Info) Description 01/10/2025 11:00 AM EST Treatment [facility] Occupational Therapy [address] [place] [phone] Jaqui Easley OTR/L Lymphatic edema (Primary Dx) Social History Tobacco Use Types Packs/Day Years Used Date Smoking Tobacco: Never Assessed Comments Unknown Sex and Gender Information Value Date Recorded Sex Assigned at Not on file Legal Sex Female 6:31 PM EDT Gender Identity Not on file Sexual Orientation Not on file documented as of this encounter Progress Notes * SUKHJINDER Napoles/Eliceo - 01/10/2025 11:00 AM EST Images from the original note were not included. [facility] - Outpatient OCCUPATIONAL THERAPY progress note Date: 01/10/2025 Visit Number: [id number] Patient Name: Guadalupe Muro : 1945 Age: 79 y.o. Gender: female Diagnosis: ICD-10-CM ICD-9-CM 1. Lymphatic edema I89.0 457.1 Date of Onset: 10/12/2024 Referring Provider: Fadi Craig MD Insurance: Payor: MEDICARE / Plan: MEDICARE PART A & B / Product Type: Medicare / Patient identified by: Jaqui Easley, OTR/L Language: Speaks and understands Syriac as preferred language with no hotel operations manager required Allergies: has no allergies on file. Precautions: None stated SUBJECTIVE Subjective Report: I have been really bad with my legs I went out to eat a lot and I know that there is a lot of salt in the room Pain: None state OBJECTIVE Patient arriving at therapy TREATMENT INTERVENTION Procedures: MLD according to Dr. Juan method Increased lymph flow through termini/ profundus ( neck routine), Deep abdomen , B inguinals, Stimulated lymph flow from B LE's into these drainage areas. Self care Re measured circumferences both LE's Applied hybrid liner to left LE and uses one layer of foam and 2 layers of short stretch bandages from ankle to knee to provide compression Applied loaner Farrow wrap to right lower leg / used patients sock and stockinet as a liner Pain Reassessment: no pain Assessment/Response To Treatment: Good I know this will help to get the swelling back down Patient Education: Education provided: Yes compression management Education Provided To: Patient utilizing Explanation mode(s) of education/ demonstration Response to Education: Good PLAN POC Development/Review: Other: will f/u with patient on weekly basis until she has appropriate compression in place ; Participants: Patient Equipment Recommended: B knee high velcro based compression ; Equipment Provided: loaner classic Farrow wrap and set of short stretch compression bandages GOALS Goals reduce size of legs (pt-stated) [...] patient presented with return of lymph edema inboth LE's self management STG; patient will be able [...] script for garments has been send to [employer] 01/10 Patient did not receive garments yet. As per [employer] garments on order and should be received in 2 weeks. Patient presented with increased volumes when arriving at therapy shoe management LTG; Patient will be able to fit into appropriate footwear for [place] 12/13/2024 Progressing Patient reports that she finally is able to see her ankles 01/10 After interruption in therapy to winter weather patient presents with return of lymph edema in both LE's Total Treatment Time: 60 minutes Documentation completed by SUKHJINDER Napoles/Eliceo documented in this encounter Plan of Treatment Upcoming Encounters Date Type Department Care Team (Late st Contact Info) Description 02/01/2025 9:00 AM EDT Treatment [facility] Occupational Therapy [address] [place] [phone] Jaqui Easley OTR/Eliceo documented as of this encounter Goals Goal Patient Goal Type Associated Problems Recent Progress Patient-Stated? Author reduce size of legs General No change(01/10 1:52 PM EST) Yes Jaqui Easley OTR/Eliceo Note: I want my legs to be [...] management General No change(01/10 1:51 PM EST) Jaqui Allen, OTR/L Note: STG; patient will be able [...] script for garments has been send to [employer] 01/10 Patient did not receive garments yet. As per [employer] garments on order and should be received in 2 weeks. Patient presented with increased volumes when arriving at therapy shoe management General Worsening( 1:49 PM EST) Jaqui Allen, OTR/L Note: LTG; Patient will be able to fit into appropriate footwear for [place] 12/13/2024 Progressing Patient reports that she finally is able to see her ankles 01/10 After interruption in therapy 2nd to winter weather patient presents with return of lymph edema in both LE's documented as of this encounter Visit Diagnoses Diagnosis Lymphatic edema- Primary Other noninfectious lymphedema documented in this encounter Additional Health Concerns Assessment Noted Time A fall risk assessment has been complete d for the patient 10/12/2024 10:13 AM EST documented as of this encounter Care Teams Director Industrial Nursing Relationship Specialty Start Date End Date Physician, No Pcp PCP - General 10/12/24 documented as of this encounter
--- OUTSIDE RECORDS SUMMARY | 2025-01-27 07:41 | XMS_ITS | Clinical Summary ---
Author Organization [facility] Address [address] [address] [place] [phone] Phone Care Team Providers Care Gem Technician Name Role Phone Unavailable Primary Care Provider [...] (seven) days 05/12/2023 Active ergocalciferol 1.25 MG (61909 UT) capsule TAKE 1 CAPSULE (50,000 UNITS [...] 04/27/2021 Chronic kidney disease stage 3 04/27/2021 Encounters Date Type Department Care Team Description 01/09/2025 Orders Only [facility] [address] [place] [address] Hubert Lin MD Chronic kidney disease, stage 4 (severe) (HCC); Type 2 diabetes mellitus without complication (HCC); Renal osteodystrophy; Hypertensive renal disease from Last 3 Months Family History Medical History Relation Comments Diabetes [...] Office Visit [facility] [address] [address] [place] [phone] Hubert Lin MD [address] [facility] [facility] [address] [place] [address] Health Maintenance Due Date Last Done Comments [...] average glucose, using the formula of the Z9S-Cwbiaov Average Glucose study (ADAG), Diabetes Care, Vol.31,#8, Jun. 2007 03/16/2020 8:33 AM EDT us Fadi Craig MD LAB BLOOD ORDERABLES Final Result MIC from Last 3 Months or Most Recently Relevant to Health Maintenance Insurance [facility] MEDICARE [facility] MEDICARE
--- OUTSIDE RECORDS SUMMARY | 2025-01-27 07:41 | XMS_ITS ---
[facility] Address [address] [place] [address] Care Team Providers Care Vice President Diversity Name Role Phone Fadi Craig MD Primary Care Provider Francisco Whittaker Unavailable [phone] Allergies Allergen (clinical drug ingredient) Drug/Non Drug [...] FOR VISIT At Risk Footcare, Painful Nail(s) aggrevated by shoes and causing difficulty standing/walking., ToeIrritation, Swelling Medications Medication SIG (Take, Route, Frequency, Duration) Notes Start Date End Date Status Extra Depth Orthopedic Shoes (1 Pair) with Customized Heat Molded Multidensity Innersoles (3 Pair) as directed Dx: NIDDM (E11.9), Hammertoe Foot Deformity (M20.41,M20.42), Preulcerative Skin Lesion(s) (L85.1) Active Triamterene-HCTZ 37.5-25 MG Oral for 84 Not-Taking Amoxicillin 500 MG Oral for 30 Not-Taking Tekturna 150 MG Oral for 30 No t-Taking amLODIPine Besylate 5 MG Oral for 90 Not-Taking Ammonium Lactate 12 % 1 application to affected area Externally to feet Twice a day for 30 days Not-Taking CoQ-10 Not-Taking Vitamin B 12 500 MCG 1 tablet Orally Onc e a day for 30 day(s) Not-Taking Zinc 50 MG 1 tablet Orally Once a day for 30 day(s) Not-Taking Edema Clinic Referral . . . . for 365 days 07/23/2024 Active Levothyroxine Sodium 50 MCG Oral for 90 Active Vitamin D2 Active Calcitriol 0.25 MCG Oral for 90 Active Nystatin 529472 UNIT/GM External for 14 Active Betamethasone Dipropionate 0.05 % External for 30 Activ e Atorvastatin Calcium 20 MG Oral for 90 Active FLUoxetine HCl 10 MG 1 capsule Orally Once a day for 30 day(s) Active glipiZIDE ER 2.5 MG Oral for 90 2 times monthly Active Lasix Active Aliskiren Fumarate 150 MG Oral for 60 Active Farxiga 10 MG 1 tablet Orally [...] ast year? No Points 0 Interpretation Negative Vital Signs Height 5 ft 1 in in 12/14/2024 Weight 199 lbs 12/14/2024 BMI 37.6 kg/m2 12/14/2024 Blood pressure systolic 120 mm Hg 12/14/19 25 Blood pressure diastolic 70 mm Hg 025 Procedures Procedure Date Ordered Date Performed Result Body Sit e 13144-EKXKJFO NAIL, 6 OR MORE 12/14/2024 N/A Encounters Encounter Location Date Provider Diagnosis [facility] [address] [place] [address] 12/14/2024 Francisco Fry Type 2 diabetes mellitus without complication E11.9 ; Pain in right toe(s) M79.674 ; Tinea unguium B35.1 ; Pain in left toe(s) M79.675 ; Other hammer toe(s) (acquired), right foot M20.41 and Other hammer toe(s) (acquired), left foot M20.42 Assessments Encounter Date Diagnosis (ICD Code) Assessment Notes Treatment Notes Treatment Clinical Notes Section Notes 12/14/2024 Type 2 diabetes mellitus without complication (ICD-10 - E11.9) 12/14/2024 Pain in right toe(s) (ICD-10 - M79.674) 12/14/2024 Tinea unguium (ICD-10 - B35.1) 12/14/2024 Pain in left toe(s) (ICD-10 - M79.675) 12/14/2024 Other hammer toe(s) (acquired), right foot (ICD-10 - M20.41) Patient Educated with: DIABETIC FOOT CARE INSTRUCTIONS.p df (DIABETIC FOOT CARE INSTRUCTIONS.p df) 12/14/2024 Other hammer toe(s) (acquired), left foot (ICD-10 - M20.42) 12/14/2024 Other Plan Of Treatment Medication Medication Name Sig Start Date Stop Date Notes Extra Depth Orthopedic Shoes (1 Pair) with Customized Heat Molded Multidensity Innersoles (3 Pair) as directed Dx: NIDDM (E11.9), Hammertoe Foot Deformity (M20.41,M20.42), Preulcerative Skin Lesion(s) (L85.1) Treatment Notes Assessment Notes Other hammer toe(s) (acquired), right fo ot Patient Educated with: DIABETIC FOOT CARE INSTRUCTIONS.pdf (DIABETIC FOOT CARE INSTRUCTIONS.pdf) Pending Test Test Name Order Date [id number] NAIL, 6 OR MORE 12/14/2024 Next Appt Details Follow Up: prn, Reason: Provider Name:Francisco Fry , 02/22/2025 08:45:00 AM, [address] [place] [address], [phone], Provider Name:Francisco Fry , 04/26/2025 08:45:00 AM, [address] [place] [address], [phone], Procedure Notes * Category Sub-Category Detail Notes Debride Nail 6-10 Nail debridement Due to the cl inical pathology outlined in the exam findings, performance of this nail treatment is medically necessary as its management by an unskilled/untrained nonprofessional would put this patients foot and overall health at risk. Therefore, debridement to affected nail(s), as described in exam ( T1, T2, T4, T5, T7, T9 ), was performed exclusively by the physician of record to reduce/remove overall nail length, girth, thickness, subungual debris, and necrotic tissue, by manual and/or electrical means through the use of a nail nipper and/or dremel-type needle grinder, to a more viable healthy nail plate or bed tissue 6-10 nails in total. Silver nitrate was used for any petechial bleeding as necessary. Definitive antifungal treatment options, both pharmaceutical and surgical, have been reviewed and discussed with the patient. The patient solely prefers the use of intermittent/as needed professional debridement services for their nail condition and understands the need for additional periodic treatments to maintain effectiveness in symptomatic relief - 23336 Progress Notes * Guadalupe BRANDT ADOB:1944 (79 yo F)Acc No.[id number]:12/14/2024 Progress Note Patient:?BRANDT Guadalupe A Provider:?Francisco Fry DPM :1945???Age:79 Y???Sex:Female D ate:12/14/2024 [facility] [place], [facility] Pcp:Fadi Craig MD Subjective: * Chief Complaints: * ???At Risk FootcarePainful N ail(s) aggrevated by shoes and causing difficulty standing/walking.Toe IrritationSwelling * HPI: ???At Risk footcare:?Pt States Last PCP Visit:?Date?12/02/2024 ???Toe pain:?Location:?B/L feet.?Duration:?several years.?Course:?worse.?Aggravated by:?shoes, any pressure.?Treatments:?change in shoes.?Swelling:?Location:?Both feet/leg.?Treatment:?elevation , compression stockings , medication, Edema Clinic [facility].? * ROS:?General/Constitutional:?Nausea?denies.?Vomiting?denies.?Hunger Thirst?denies.?Loss appetite?denies.?Chills?denies.?Fatigue?denies.?Fever?denies.?Night Sweats?denies.?Unexplained weight loss?denies.?Unexplained weight gain?denies.?HEENTM:?Dentures?denies.?Dizziness?denies.?Glasses/contacts?admits.?Retinopathy?den ies.?Blurred/double vision?denies.?TMJ?denies.?Discharge/drainage?denies.?Implants?denies.?Sore throat?denies.?Dental implants?denies.?Hard of hearing ?denies.?Difficulty chewing/swallowing/speaking?denies.?Nose bleeds?denies.?Sore mouth?denies.?Respiratory:?On O xygen?denies.?Pneumonia/pleurisy?denies.?Bronchitis?denies.?Emphysema?denies.?Co ughing?denies.?Cough blood?denies.?Shortness of breath?denies.?Wheezing?denies.?Cardiovascular:?Pacemaker?denies.?MVP?denies.?WPW?denies.?CHF?denies.?Heart attack?denies.?Septal defect?denies.?Rapid beat?denies.?Chest pain ?denies.?Atrial Fib.?denies.?Murmur/Palpitations?denies.?Gastrointestinal:?Hemorrhoids?admits.?Stomach/Abdominal pain?denies.?Dark blood stool?denies.?Irritable bowel ?denies.?Constipation?denies.?Diarrhea?denies.?Hematology:?Swelling?denies.?Clots?denies.?Varicose Veins?denies.?Bruising?denies.?Bleeding problem?denies.?Genitourinary:?Blood urine?denies.?Frequent/Painfu/urination/bladder control?denies.?Kidney stones?denies.?Infection (UTI)?denies.?Nephropathy?denies.?sex trans dis (STD)?denies.?Prostate?denies.?Musculoskeletal:?Hammertoes?admits.?Bunions?denies.?Back Pain?admits.?Muscle Cramps/ Resting?denies.?Muscle cramps / walking?denies.?Generalized aches and pains?admits.?Weakness?denies.?Integ.:?Temple?denies.?Scars?admits.?Corns/calluses?admits.?Ingrown nails?admits.?Painful nails?admits.?Open Sores?denies.?Rashes?denies.?Neurologic:?Difficulty sleeping?denies.?Brain disorder?denies.?Numbness?denies.?Balance t rouble?admits.?Confusion?denies.?Fainting/blackouts?denies.?Tingling?denies.?Cliff mors?denies.? * Medical History:? * Surgical History:?left TKR 2 013right TKR 2014right TKR revision 2015Left hip replacement surgery 11/2023 * Hospitalization/Major Diagno stic Procedure:?[facility] ER-L humerus-tripped 11/23/21Orthopedic surgeon- L foot broken 5th metatarsal - tripped on cruise vacation 01/06/22 01/24/22 * Family History:?Mother: dece ased, diagnosed with Other malignant neoplasm of unspecified site, Unspecified essential hypertension.?Father: , diagnosed with Diabetic - NIDDM, Family history of arthritis.?Paternal Grand Father: diagnosed with Diabetic - NIDDM.? * Social History:?Tobacco Use:?Tobacco use other than smoking?Are you an other tobacco user??No ?Tobacco Control (Standard)?Tobacco use:?Nonsmoker ?Additional Findings: Tobacco non-user?Current nonsmoker ???Drugs/Alcohol:?Drugs?Have you used drugs other than those for medical reasons in the past 12 months??No ???Miscellaneous:?Caffeine: no, frequency:, 1-2 cups per day diet soda. ?Children: no. ?Exercise: yes, walking. ?Marital status: single. ?Occupation: Retired- [employer]. ???Drug/Alcohol:?AUDIT-C (Standard)?Did you have a drink containing alcohol in the past year??No ?Points?0 ?Interpretation?Negative * Medications:?TakingFarxiga 1 0 MG Tablet 1 [...] Deformity (M20.41,M20.42), Preulcerative Skin Lesion(s) (L85.1) Nystatin 293164 UNIT/GM Cream External Betamethasone Dipropionate 0.05 % [...] (M20.41,M20.42), Preulcerative Skin Lesion(s) (L85.1) Taking Nystatin 371558 UNIT/GM Cream External Taking Betamethasone Dipropionate 0.05 [...] in, Wt:19 9, BMI: 37.6, Shoe size:8.5, BP:120/70mm Hg, BS:not taken, Wt-k.27 kg. * ???Past Orders: ???Lab:HEMOGLOBIN A1C (GLYCO HEMOGLOBIN) (Order Date - 11/26/2024) (Collection Date & Time - 11/26/2024 09:03 AM) ? Value Reference Range ?HEMOGLOBIN A1C % (HH) 7.2 * Examination: ???Ophthalmology Referral: ?DIABETES EYE EXAM?Procedure Performed:?Yes ?Date of Exam Performed?10/07/2023 States next appt soon - January 2025 ?Diabetic Retinopathy Screening:?Yes ?Findings of Diabetic Eye Exam:?no retinopathy?Nails: ?NAILS are:?Elongated, overgrown, dystrophic, lytic, greater than 3mm thick, discolored and friable with crumbly malodorous subungual debris, with pain on palpation, T1, T2, T4, T5, T7, T9, all other nails not described with characteristics as possessing mycosis are elongated, overgrown, and dystrophic, SAVE Absent nail plate, TA.?Dermatologic: ?SKIN FINDINGS:?Skin exam reveals Keratotic lesion(s) located at, SUB MTH (s), 2, B/L.?Orthopedic: ?MUSCLE STRENGTH:?5/5 all groups in a symmetrical fashion , B/L.?FOOT MORPHOLOGY:?Pes Planus structure , No Charcot collapse/destruction noted at MTJ.?DIGITAL DEFORMITIES:?Digital contracture, PIPJ, 2-5 B/L, incompl-reducible to push-up test, no over, nor underlapping,?with evidence of shoe producing skin irritation.?FOOTWEAR:?worn, OT were inspected and noted to be severely worn , in poor condition not giving proper support at the present time , shoe gear properties exacerbate patients foot/toe deformity.?Vascular: ?DP PULSES (B):?0/4, B/L.?PT PULSES (B):?0/4, B/L.?CAPILLARY FILL TIME:?delayed, all digits, B/L.?TROPHIC CONDITION-TEXTURE/ELASTICITY/TURGOR/HAIR GROWTH (B):?decreased, with sparse to absent hair growth, B/L.?TEMPERTURE GRADIENT (C):?decreased, cool to cool, proximal to distal, B/L.?PIGMENTATION:?rubrous, B/L.?EDEMA (C):?CONT 4/4 , pitting , with MILD, aching pain , Leg(s) , Ankle(s) , Foot , B/L.?NICHOL'S SIGN:?absent, B/L.?PALPABLE CORDS:?absent, B/L.?Neurological: ?SENSORY:?Neurological exam demonstrates, reduced vibration sensation, B/L, pain sensation normal, pinprick sensation is normal in the lower extremities, 5.07 monofilament test performed at plantar aspects of 5 varied sites per foot shows sensation reduced, at Forefoot, B/L, Pt denies, anesthesia, burning, paresthesia, tingling, B/L.?DEEP TENDON REFLEXES:?Achilles , 1/4, B/L.?Neuroma Pain: ?PALPATION:?No interspace pain noted on palpation.?General Examination: ?GENERAL APPEARANCE:?Reveals a pleasant, alert, well nourished, well developed, well hydrated individual, who demonstrates proper attention to hygiene/body habitus, and is in no acute distress.?ORIENTED:?person, place, and time.?FOOT EXAM:?Lower Extremity Neurological Exam performed:?Yes ?Visual exam of foot performed:?Yes ?Date?12/14/2024 ?Footwear Evaluation?Footwear Evaluation performed:?Yes??? Assessment: * Assessment: 1.?Type 2 diabetes mellitus without complication - E11.9???2.?Pain in right toe(s) - M79.674???3.?Tinea unguium - B35.1 (Primary)???4.?Pain in left toe(s) - M79.675???5.?Other hammer toe(s) (acquired), right foot - M20.41???Specify :Chronic problem, Worse (4),Rx Management (4)???6.?Other hammer toe(s) (acquired), left foot - M20.42???Specify :Chronic problem, Worse (4),Rx Management (4)??? Plan: * Treatment: 2.?Other hammer toe(s) (acqu ired), right foot? Start Extra Depth Orthopedic Shoes (1 Pair) with Customized Heat Molded Multidensity Innersoles (3 Pair), as directed, Dx: NIDDM (E11.9), Hammertoe Foot Deformity (M20.41,M20.42), Preulcerative Skin Lesion(s) (L85.1), 1, Refills 0.?? Notes: Patient Educated with: DIABETIC FOOT CARE INSTRUCTIONS.pdf (DIABETIC FOOT CARE INSTRUCTIONS.pdf)?? * Procedures:?Debride Nail 6-10:?Nail debridement?Due to the clinical pathology outlined in the exam findings, performance of this nail treatment is medically necessary as its management by an unskilled/untrained nonprofessional would put this patients foot and overall health at risk. Therefore, debridement to affected nail(s), as described in exam (?T1,?T2,?T4,?T5,?T7,?T9?), was performed exclusively by the physician of record to reduce/remove overall nail length, girth, thickness, subungual debris, and necrotic tissue, by manual and/or electrical means through the use of a nail nipper and/or dremel-type needle grinder, to a more viable healthy nail plate or bed tissue 6-10 nails in total. Silver nitrate was used for any petechial bleeding as necessary. Definitive antifungal treatment options, both pharmaceutical and surgical, have been reviewed and discussed with the patient. The patient solely prefers the use of intermittent/as needed professional debridement services for their nail condition and understands the need for additional periodic treatments to maintain effectiveness in symptomatic relief - 90002.? * Procedure Codes:?32366 DEBRI DE NAIL, 6 OR MORE * Preventive Medicine:? ??Counseling:?Discussion:?-14: Office or other outpatient visit for the evaluation and management of an established patient, which required a medically appropriate history and/or examination and MODERATE level of DECISION MAKING for: 1 OR MORE CHRONIC PROBLEM(S) THATS WORSENING, 2 STABLE CHRONIC PROBLEMS, A NEWLY DIAGNOSED PROBLEM WITH UNCERTAIN PROGNOSIS, AN ACUTE COMPLICATED INJURY WITH MULTIPLE TREATMENT OPTIONS, OR AN ACUTE PROBLEM WITH ACCOMPANYING SYSTEMIC SYMPTOMS, THAT POSE(S) A MODERATE RISK OF MORBIDITY. THIS CONDITION MAY ALSO INCLUDE RX DRUG MANAGEMENT, OR A DECISON FOR MINOR SURGERY. The visit on the day of the [...] have encouraged the patient to call the office.?Digital Surgery:?Digital surgery was discussed with the patient, We elected to try conservative treatment at the present time, due to the patients medical history and increased asssociated post-operative risks.?Digital Treatment:?HT- I explained to the patient the possible etiologies of Hammertoes, including genetics/foot type/shoegear/activity level/exercise routine and the risks/benefits of all the different treatment options for their pain including: No treatment at all, Rest, Ice, New/supportive/wider/deeper Shoegear, Digital Padding/Strapping/Taping/Bracing/Gel protective sleeves, Foot/Ankle AFO Bracing, Stretching exercises, Deep Tissue Massage, Arch support/shoe inserts with splay metatarsal padding, and Custom orthoses. I insisted that any digital devices be removed daily and not worn overnight for safety. The patient is to carefully examine the toes daily for any skin irritation while using any splinting or padding device. The advantages and disadvantages of each option were discussed and the patients questions re: shoegear, padding, custom vs prefabricated inserts, activity level, and consistency in home treatment regimens for optimal success were answered to their verbally confirmed satisfaction.?Edema:?Cont Edema Clinic consultation, consider Vein Vascular Consult if unresponsive.?Shoe Gear Counseling:?SHOE Rx - The patient was counseled in great detail on their muscoloskeletal foot and toe deformities which coincided with the dermatological presentations visualized on exam. We discussed how their deformities put the integrity of their feet at risk for potential pedal complications which makes the accomidative diabetic shoes and cutomizable inserts medically necessary. We discussed the different shoe and insert treatment types and options, as well as the important advantages for adhering to regularly wearing these accomidative devices daily. The patient was made aware of the fact that a failure to abide by these recommedations may be deleterious to their foot health as they are able to prevent many pedal complications such as skin irritation, skin ulceration, infection, and even loss of toe/foot/leg/or life. Time was also spent with the patient dispensing and discussing proper diabetic footcare techniques including daily skin moisturization, daily foot inspection for any interruption in skin integrity including open lesions, or sign of infection such as redness/malodor/drainage/swelling. Also discussed and recommended were procedures regarding daily shoe inspection for the presence of internal foreign bodies as well as any visualized irregular shoe or insert wear. Patient questions re: shoes, inserts, and self foot inspections were answered to their satisfaction as the patient verbally confirmed a full understanding of the above information. A Rx for Extra Depth Orthopedic Shoes with 3 pair of custom heat-molded inserts was dispensed.? ??Screening/Special Tests:?Fall Risk?Screening:?No falls in the past year ?FALLS: Screening for Future Fall Risk?Have you had any falls with injury in the past year??No * Follow Up:?prn * Images: * Sign off status: Completed true * Provider:?MARCUS CanalesM Date:?2024 Generated for Keiko morales/Jose/Francesitting on:?01/27/2025 07:40 AM EDT History and Physical Notes * HPI (History of Present Illness) Category Sub-Category Detail Notes Category Not es Toe pain Location: B/L feet Duration: several years Course: worse Aggravated by: shoes, any pressure Treatments: change in shoes At Risk footcare Pt States Last PCP Visit: Date: Swelling Location: Both feet/leg Treatment: elevation , compress ion stockings , medication, Edema [facility] outpatient Examination Category Sub-Category Detail Notes Category Not es Neuroma Pain PALPATION: No interspace pain noted on palpation Neurological SENSORY: Neurological exa m demonstrates, reduced vibration sensation, B/L, pain sensation normal, pinprick sensation is normal in the lower extremities, 5.07 monofilament test performed at plantar aspects of 5 varied sites per foot shows sensation reduced, at Forefoot, B/L, Pt denies, anesthesia, burning, paresthesia, tingling, B/L DEEP TENDON REFLEXES: Achilles , 1/4, B/ L Dermatologic SKIN FINDINGS: Skin exam reveal s Keratotic lesion(s) located at, SUB MTH (s), 2, B/L Orthopedic FOOT MORPHOLOGY: Pes Planus stru cture , No Charcot collapse/destruction noted at MTJ FOOTWEAR: worn, OT were inspec risa and noted to be severely worn , in poor condition not giving proper support at the present time , shoe gear properties exacerbate patients foot/toe deformity DIGITAL DEFORMITIES: Digital contracture , PIPJ, 2-5 B/L, incompl-reducible to push-up test, no over, nor underlapping, with evidence of shoe producing skin irritation MUSCLE STRENGTH: 5/5 all groups in a symmetrical fashion , B/L General Examination GENERAL APPEARANCE: Reveals a pleasant, alert, well nourished, well developed, well hydrated individual, who demonstrates proper attention to hygiene/body habitus, and is in no acute distress FOOT EXAM: Lower Extremity Neurological Exa m performed:: Yes Visual exam of foot performed:: Yes Date: 12/14/2024 ORIENTED: person, place, and t marisel Footwear Evaluation Footwear Evaluation performe d:: Yes Ophthalmology Referral DIABETES EYE EXAM Procedure Perform ed:: Yes ?Date of Exam Performed: 10/07/2023 Stat es next appt soon - January 2025 Diabetic Retinopathy Screening:: Yes Findings of Diabetic Eye Exam:: no retin opathy Vascular DP PULSES (B): 0/4, B/L PT PULSES (B): 0/4, B/L CAPILLARY FILL TIME: delayed, all digits , B/L TEMPERTURE GRADIENT (C): decreased, cool to cool, proximal to distal, B/L TROPHIC CONDITION-TEXTURE/ELASTICITY/TURGOR/HAIR GROWTH (B): decreased, with sparse to absent hair gr owth, B/L EDEMA (C): CONT 4/4 , pitting , with MILD, aching pain , Leg(s) , Ankle(s) , Foot , B/L NICHOL'S SIGN: absent, B/L PALPABLE CORDS: absent, B/L PIGMENTATION: rubrous, B/L Nails NAILS are: Elongated, overg rown, dystrophic, lytic, greater than 3mm thick, discolored and friable with crumbly malodorous subungual debris, with pain on palpation, T1, T2, T4, T5, T7, T9, all other nails not described with characteristics as possessing mycosis are elongated, overgrown, and dystrophic, SAVE Absent nail plate, TA
--- OUTSIDE RECORDS SUMMARY | 2025-01-27 07:41 | XMS_ITS | Encounter Summary ---
Author Organization [facility] Address [address] [place] [address] Care Team Providers Care Brick Layer Name Role Phone Physician, No Pcp Primary Care Provider Unavaila ble Reason for Visit * Consultation (Routine) - Authorized Specialty Diagnoses / Procedures Referred By Annalisa birmingham Referred To Contact Occupational Therapy Diagnoses Other specified soft tissue disorders Edema, unspecified Fadi Craig MD [address] [place], [place] [address] Phone: tel: fax: Referral ID Status Reason Start Date Expiration Date Visits Requested Visits Authorized [id number] Authorized Specialty Services Required 08/19/2024 08/19/2025 19 19 Encounter Details Date Type Department Care Team (Late st Contact Info) Description 01/20/2025 9:00 AM EST Treatment [facility] Occupational Therapy [address] [place] [phone] Jaqui Easley OTR/L Lymphatic edema (Primary Dx) Social History Tobacco Use Types Packs/Day Years Used Date Smoking Tobacco: Never Assessed Comments Unknown Sex and Gender Information Value Date Recorded Sex Assigned at Not on file Legal Sex Female 6:31 PM EDT Gender Identity Not on file Sexual Orientation Not on file documented as of this encounter Progress Notes * SUKHJINDER Napoles/Eliceo - 01/20/2025 9:00 AM EST [facility] - Outpatient OCCUPATIONAL THERAPY DAILY TREATMENT NOTE Date: 01/20/2025 Visit Number: [id number] Patient Name: Guadalupetony Muro : 1945 Age: 79 y.o. Gender: female Diagnosis: ICD-10-CM ICD-9-CM 1. Lymphatic edema I89.0 457.1 Date of Onset: 10/12/2024 Referring Provider: Fadi Craig MD Insurance: Payor: MEDICARE / Plan: MEDICARE PART A & B / Product Type: Medicare / Patient identified by: Jaqui Easley, OTR/L Language: Speaks and understands Latvian as preferred language with no patient transport officer required Allergies: has no allergies on file. Precautions: None stated SUBJECTIVE Subjective Report: I got the wraps but I think that especially the socks that go under it are to big Pain: No pain OBJECTIVE Patient arriving at therapy wearing B knee high juzo wraps with fusion liners Liners are to large and heel is pulled up mid calf. Visible and palpable edema noted after removing compression garments TREATMENT INTERVENTION Procedures: Manual therapy Consisted of MLD according to Dr. Juan method Increased lymph flow through termini/ profundus ( neck routine), Deep abdomen , B inguinals, B QL'sand B paraspinals. Stimulated lymph flow from B LE's into these drainage areas. NOTE that patient is in prone to stimulate lymph flow from back of legs into mid gluteal / paraspinals/ QL's drainage areas. Self care : Assessed size/ effectiveness of compression garments Liners are to big and suggested new pair of Farrow hybrid liners size Medium / wide foot CC1 to order via [employer] ( provided patient with info ) Demo proper donning of juzo wrap ( secure garment with top strap first to ease donning) Patient to keep donated Farrow classic and use on her left Lower leg Pain Reassessment: no pain Assessment/Response To Treatment: I will order the liners you suggested and I guess I will get use to putting these new straps on It is easier the way you showed me Patient Education: Education provided: Yes suggestions for new liners/ donning method Juzo wraps Education Provided To: Patient utilizing Explanation and Demonstration mode(s) of education Response to Education: Good PLAN POC Development/Review: Other: will f/u with patient in 2 weeks ; Participants: Patient Equipment Recommended: appropriate fitting pair of hybrid liners ( medium Farrow) ; Equipment Provided: patient to keep donated Farrow wrap with hybrid liner GOALS Patient did receive compression wraps / fusion liners ( Juzo ) However liners are to big and did not provide enough compression to feet Patient reports difficulties managing compression wraps Therapist suggested new pair of hybrid liners ( Farrow ) / to keep donated Farrow wrap and demo donning method Juzo wraps Total Treatment Time: 60 minutes Documentation completed by SUKHJINDER Napoles/Eliceo documented in this encounter Plan of Treatment Upcoming Encounters Date Type Department Care Team (Late st Contact Info) Description 02/01/2025 9:00 AM EDT Treatment [facility] Occupational Therapy [address] [place] [phone] Jaqui Easley OTR/Eliceo documented as of this encounter Goals Goal Patient Goal Type Associated Problems Recent Progress Patient-Stated? Author reduce size of legs General No change(01/10 1:52 PM EST) Yes Jaqui Easley OTR/L Note: [...] No change(01/10 1:51 PM EST) No Jaqui Easley OTR/L Note: [...] script for garments has been send to [employer] 01/10 Patient did not receive garments yet. As per DME company garments on order and should be received in 2 weeks. Patient presented with increased volumes when arriving at therapy shoe management General Worsening( 1:49 PM EST) Jaqui Allen, OTR/L Note: LTG; Patient will be able to fit into appropriate footwear for [place] 12/13/2024 Progressing Patient reports that she finally [...] documented as of this encounter Care Teams Brick Layer Relationship Specialty Start Date End Date Physician, No Pcp PCP - General 10/12/24 documented as of this encounter
[2025-01-27 10:37] LABS: MANUAL DIFF FLAG NO
[2025-01-27 10:52] LABS: Basophils Absolute Auto 0.1 X10*3/uL (0.0-0.2); Basophils Percent Auto 1.1 % (0-2); Eosinophils Absolute Auto 0.2 X10*3/uL (0.0-0.4); Eosinophils Percent Auto 3.9 % (0-4); Hematocrit 41.9 % (37.0-47.0); Hemoglobin 13.5 g/dl (12.0-16.0); Imm Gran Abs Auto 0.02 X10*3/uL (0.00-0.03); Imm Gran Pct Auto 0.3 % (0.0-0.4); Lymphocytes Absolute Auto 1.9 X10*3/uL (1.2-4.9); Lymphocytes Percent Auto 30.6 % (20-40); Mean Corpuscular HGB Conc 32.2 g/dl (31.0-35.0); Mean Corpuscular Hemoglobin 28.4 pg (27.0-33.0); Mean Corpuscular Volume 88.2 fL (80.0-98.0); Mean Platelet Volume 9.4 fL (9.4-12.3); Monocytes Absolute Auto 0.5 X10*3/uL (0.1-1.2); Monocytes Percent Auto 7.2 % (2-11); Neutrophils Absolute Auto 3.5 x10*3/uL (2.0-8.3); Neutrophils Percent Auto 56.9 % (45-73); Platelet Count 284 X10*3/uL (160-400); Red Blood Count 4.75 X10*6/uL (4.20-5.50); Red Cell Distribution Width 14.2 % (11.0-16.0); White Blood Count 6.2 X10*3/uL (4.8-10.8)
[2025-01-27 10:59] LABS: Albumin Level 3.7 g/dL (3.5-5.0); Anion Gap 9 (12-20); Blood Urea Nitrogen 21 mg/dL (9-16); Calcium 9.2 mg/dL (8.4-10.2); Carbon Dioxide 28 mmol/L (22-29); Chloride 108 mmol/L (96-108); Estimated Glomerular Filt Rate 23; Magnesium 2.3 mg/dL (1.6-2.6); Phosphorus 3.7 mg/dL (2.7-4.5); Potassium 4.4 mmol/L (3.3-5.1); Sodium 141 mmol/L (135-145)
[2025-01-27 11:06] LABS: Appearance Urine Clear; Color Urine Yellow; Glucose Urine UA >=1000 mg/dL (Negative); Leukocyte Esterase Urine Negative (Negative); Nitrite Urine Negative (Negative); PH 5.5 (5.0-9.0); Specific Gravity - Urine 1.015 (1.005-1.025); UMIC TRIGGER UA YES; Urine Blood Negative (Negative); Urine Ketones Negative (Negative); Urine Protein Negative (Neg-Trace)
[2025-01-27 11:07] LABS: Bacteria Urine None Seen (None Seen); Hyaline Casts Urine 0-2 /LPF (0-2); RBC Urine 0-2 /HPF (0-2); Squamous Epithelial Cell Urine 0-2 /HPF (0-2); WBC Urine 0-5 /HPF (0-5)
[2025-01-27 11:15] LABS: Vitamin D 25-OH Total 32.8 ng/mL (>30)
[2025-01-27 11:24] LABS: Creatinine Urine 75.03 mg/dL; Microalbum/Creatinine Ratio Ur 51.9 ug/mg cr (<30); Protein/Creatinine Ratio, Ur 0.12 (<0.2); Total Protein Urine Random 9 mg/dL (<12)
[2025-01-27 11:49] LABS: Parathyroid Hormone Intact 264.4 pg/mL (8.7-77.1)
== END 2025-01-27 07:36 | disposition home or self-care (01) ==
LOC: HO.10HDL 07:35
PROVIDERS: Visit Provider Internal Medicine Nephrology
DX: N18.4 Chronic kidney disease, stage 4 (severe) (principal); E11.9 Type 2 diabetes mellitus without complications; I12.9 Hypertensive chronic kidney disease with stage 1 through stage 4 chronic kidney disease, or unspecified chronic kidney disease
CPT/HCPCS: 36415; 80051; 81001; 82040; 82043; 82306; 82310; 82565; 82570; 83735; 83970; 84100; 84156; 84520; 85025

== ENCOUNTER 2025-02-11 08:49 | Outpatient (REF) | payer MEDICARE, SELFPAY ==
[2025-02-11 10:06] LABS: Estimated Average Glucose 186 mg/dL; Hemoglobin A1c % 8.1 % (<6.0)
[2025-02-11 10:18] LABS: Alanine Aminotransferase 9 U/L (0-31); Albumin Level 3.8 g/dL (3.5-5.0); Alkaline Phosphatase 125 U/L (39-117); Anion Gap 13 (12-20); Aspartate Amino Transferase 15 U/L (5-31); Bilirubin Total 0.5 mg/dL (0.0-1.0); Blood Urea Nitrogen 25 mg/dL (9-16); Calcium 9.4 mg/dL (8.4-10.2); Carbon Dioxide 22 mmol/L (22-29); Chloride 111 mmol/L (96-108); Estimated Glomerular Filt Rate 24; Glucose Fasting 194 mg/dL (60-99); Potassium 4.5 mmol/L (3.3-5.1); Sodium 141 mmol/L (135-145); Total Protein 6.8 g/dL (6.5-8.0)
== END 2025-02-11 08:50 | disposition home or self-care (01) ==
LOC: HO.10HDL 08:49
PROVIDERS: Visit Provider Family Medicine
DX: Z00.00 Encounter for general adult medical examination without abnormal findings (principal); R73.01 Impaired fasting glucose
CPT/HCPCS: 36415; 80053; 83036

== ENCOUNTER 2025-02-23 08:18 | Outpatient (AMB) | payer MEDICARE, SELFPAY ==
--- OUTSIDE RECORDS SUMMARY | 2025-02-23 08:28 | XMS_ITS | Patient Health Record ---
[facility] Address [address] [place] [address] Care Team Providers Care Engraver Pantograph Name Role Phone Fadi Craig MD Primary Care Provider Francisco Whittaker Unavailable [phone] Allergies Allergen (clinical drug ingredient) Drug/Non Drug [...] Date End Date Status Vitamin D2 Active Amoxicillin 500 MG Oral for 30 Not-Taking Calcitriol 0.25 MCG Oral for 90 Active Tekturna 150 MG Oral for 30 No t-Taking Nystatin 318050 UNIT/GM External for 14 Active amLODIPine Besylate 5 MG Oral for 90 Not-Taking Betamethasone Dipropionate 0.05 % External for 30 Activ e Farxiga 10 MG 1 tablet Orally Once a day for 30 day(s) Active Edema [facility] Referral . . . . for 365 days 07/23/2024 Active Lasix Active Extra Depth Orthopedic Shoes (1 Pair) with Customized Heat Molded Multidensity Innersoles (3 Pair) as directed Dx: NIDDM (E11.9), Hammertoe Foot Deformity (M20.41,M20.42), Preulcerative Skin Lesion(s) (L85.1) Active Aliskiren Fumarate 150 MG Oral for 60 Active Ammonium Lactate 12 % 1 application to affected area Externally to feet Twice a day for 30 days Not-Taking Atorvastatin Calcium 20 MG Oral for [...] Triamterene-HCTZ 37.5-25 MG Oral for 84 Not-Taking Immunizations Vaccine Route Administration Date Status [...] Problem Acquired hammer toe of right foot (10394476892510 05) Other hammer toe(s) (acquired), right foot (M20.41) Active confirmed Response to treatment,I mprovement Problem Acquired hammer toe of left foot (16530417521809 03) Other hammer toe(s) (acquired), left foot (M20.42) Active confirmed Response to treatment,I mprovement Problem Type 2 diabetes mellitus without complication (413651512) Type 2 diabetes mellitus without complication (E11.9) Active confirmed Vital Signs Blood pressure diastolic 60 mm Hg 02/22/2025 Height 5 ft 1 in in 02/22/2025 Blood pressure systolic 120 mm Hg 02/22/2025 Weight 199 lbs 02/22/2025 BMI 37.6 kg/m2 02/22/2025 Procedures Procedure Date Ordered Date Performed Result Body Sit e 87784-NAOQWUO NAIL, 6 OR MORE 05/14/2024 N/A 91572-ISFAJSJ NAIL, 6 OR MORE 07/23/2024 N/A 48432-LORZCFQ NAIL, 6 OR MORE 10/01/2024 N/A 13241-IWFZQOD NAIL, 6 OR MORE 12/14/2024 N/A 06274-HUJLLDM NAIL, 6 OR MORE 02/22/2025 N/A Encounters Encounter Location Date Provider Diagnosis [address] [phone] 05/14/2024 Francisco Arteagaier Type 2 diabetes mellitus without complication E11.9 ; Pain in right toe(s) M79.674 ; Tinea unguium B35.1 ; Pain in left toe(s) M79.675 ; Other hammer toe(s) (acquired), right foot M20.41 and Other hammer toe(s) (acquired), left foot M20.[address] [phone] 07/23/2024 Francisco Ang Pain in right toe(s) M79.674 ; Tinea unguium B35.1 ; Pain in left toe(s) M79.675 ; Type 2 diabetes mellitus without complication E11.9 and Edema, lower extremity R60.[address] [phone] 10/01/2024 Francisco Ang Pain in right toe(s) M79.674 ; Tinea unguium B35.1 ; Pain in left toe(s) M79.675 ; Type 2 diabetes mellitus without complication E11.9 and Edema, lower extremity R60.[address] [phone] 12/14/2024 Francisco Fry Type 2 diabetes mellitus without complication E11.9 ; Pain in right toe(s) M79.674 ; Tinea unguium B35.1 ; Pain in left toe(s) M79.675 ; Other hammer toe(s) (acquired), right foot M20.41 and Other hammer toe(s) (acquired), left foot M20.[address] [phone] 02/22/2025 Francisco Fry Type 2 diabetes mellitus without complication E11.9 ; Pain in right toe(s) M79.674 ; Tinea unguium B35.1 ; Pain in left toe(s) M79.675 and Muscle cramp, nocturnal R25.2 Assessments Encounter Date Diagnosis (ICD Code) Assessment Notes Treatment Notes Treatment Clinical Notes Section Notes 05/14/2024 Type 2 diabetes mellitus without complication (ICD-10 - E11.9) 07/23/2024 Tinea unguium (ICD-10 - B35.1) 07/23/2024 Pain in right toe(s) (ICD-10 - M79.674) 10/01/2024 Pain in right toe(s) (ICD-10 - M79.674) 10/01/2024 Tinea unguium (ICD-10 - B35.1) 12/14/2024 Type 2 diabetes mellitus without complication (ICD-10 - E11.9) 02/22/2025 Type 2 diabetes mellitus without complication (ICD-10 - E11.9) 02/22/2025 Pain in right toe(s) (ICD-10 - M79.674) 05/14/2024 Pain in right toe(s) (ICD-10 - [...] diabetes mellitus without complication (ICD-10 - E11.9) 02/22/2025 Tinea unguium (ICD-10 - B35.1) 02/22/2025 Pain in left toe(s) (ICD-10 - M79.675) 10/01/2024 Edema, lower extremity (ICD-10 - R60.0) 07/23/2024 Edema, lower extremity (ICD-10 - R60.0) 05/14/2024 Other hammer toe(s) (acquired), right foot (ICD-10 - M20.41) Patient Educated with: DIABETIC FOOT CARE INSTRUCTIONS.p df (DIABETIC FOOT CARE INSTRUCTIONS.p df) 12/14/2024 Other hammer toe(s) (acquired), right foot (ICD-10 - M20.41) Patient Educated with: DIABETIC FOOT CARE INSTRUCTIONS.p df (DIABETIC FOOT CARE INSTRUCTIONS.p df) 02/22/2025 Muscle cramp, nocturnal (ICD-10 - R25.2) 12/14/2024 Other hammer toe(s) (acquired), left foot (ICD-10 - M20.42) 05/14/2024 Other hammer toe(s) (acquired), left foot (ICD-10 - M20.42) 05/14/2024 Other 12/14/2024 Other 02/22/2025 Other Plan Of Treatment Pending Test Test Name Order Date [id number] NAIL, 6 OR MORE 12/22/2020 79841-CWYMZNN NAIL, 6 OR MORE 03/23/2021 43298-AWBCMID NAIL, 6 OR MORE 06/22/2021 19488-FGATNXB NAIL, 6 OR MORE 09/11/2021 49144-PYZHUJN NAIL, 6 OR MORE 11/23/2021 53307-VEQLCCA NAIL, 6 OR MORE 02/12/2022 94507-RNFIEZO NAIL, 6 OR MORE 04/26/2022 96749-PGBFNTZ NAIL, 6 OR MORE 07/16/2022 78475-LFRCEKN NAIL, 6 OR MORE 09/24/2022 36907-JLNIOJL NAIL, 6 OR MORE 12/03/2022 33780-GVAJRHC NAIL, 6 OR MORE 02/11/2023 61147-QOYTEAE NAIL, 6 OR MORE 04/15/2023 40630-PBOJMSB NAIL, 6 OR MORE 06/17/2023 46634-SFSNTIJ NAIL, 6 OR MORE 08/19/2023 56557-QXYHDGE NAIL, 6 OR MORE 02/20/2024 66524-QKYGGXE NAIL, 6 OR MORE 05/14/2024 34042-DVLRKDT NAIL, 6 OR MORE 07/23/2024 55411-MXAXSEA NAIL, 6 OR MORE 10/01/2024 34123-VZTHINY NAIL, 6 OR MORE 12/14/2024 39638-SMUMTGK NAIL, 6 OR MORE 02/22/2025 94726-NMIJQPH NAIL, 6 OR MORE 10/21/2023 92924-Fgqf Destruction, 1-14 10/21/2023 38346-Qesx Destruction, 1-14 08/19/2023 26026-Xant Destruction, 1-14 06/17/2023 71419-Yewl Destruction, 1-14 04/15/2023 92718-Zxfx Destruction, 1-14 02/11/2023 54171-Oxqu Destruction, 1-14 12/03/2022 Next Appt Details Provider Name:Francisco Fry , 04/26/2025 08:45:00 AM, [address] [place] [address], [phone], Provider Name:Francisco Fry , 06/28/2025 08:45:00 AM, [address] [place], [address], Insurance Providers Payer Name Payer Address Payer Phone Subscriber Number Group Number Insured Name Patient Relationship to Insured Coverage Start Date Coverage End Date Medicare National [employer] [address] [place] [address] [id number] Guadalupe Muro Self - patient is the insured [employer] [address] [place] [address] [phone] [id number] Bhaskar Guadalupe Self - patient is the insured Medical [...] - tripped on cruise vacation 01/06/22 01/24/22 [facility] [place] 11/23/21
--- OUTSIDE RECORDS SUMMARY | 2025-02-23 08:28 | XMS_ITS | Clinical Summary ---
Author Organization [facility] Address [address] [place] [address] Care Team Providers Care Brake Operator Heavy Duty Name Role Phone Physician, No Pcp Primary Care Provider Unavaila ble Active Problems Problem Noted Date Diagnosed Date Lymphedema of both lower extremities 10/12/2024 Encounters Date Type Department Care Team Description 02/21/2025 9:00 AM EDT Treatment [facility] [address] [phone] Beth Easleya P, OTR/L Lymphatic edema (Primary Dx) 02/02/2025 Plan of Care Documentation [facility] [address] [phone] 02/01/2025 9:00 AM EDT Treatment [facility] [address] [phone] Jaqui Easley P, OTR/L Lymphatic edema (Primary Dx); Edema, unspecified type 01/20/2025 9:00 AM EST Treatment [facility] [address] [phone] Jaqui Easley P, OTR/L Lymphatic edema (Primary Dx) 01/10/2025 11:00 AM EST Treatment [facility] [address] [phone] Beth Easleya P, OTR/L Lymphatic edema (Primary Dx) 12/27/2024 12:30 PM EST Treatment [facility] [address] [phone] Gijzen, Jaqui P, OTR/L Lymphatic edema (Primary Dx) 12/13/2024 9:00 AM EST Treatment [facility] Occupational Therapy [address] [phone] Gijzen, Jaqui P, OTR/L Lymphatic edema (Primary Dx) 12/08/2024 9:00 AM EST Treatment [facility] Occupational Therapy [address] [phone] Gijzen, Jaqui P, OTR/L Lymphatic edema (Primary Dx) 11/30/2024 9:00 AM EST Treatment [facility] Occupational Therapy [address] [phone] Gijzen, Jaqui P, OTR/L Lymphatic edema (Primary Dx) from Last 3 Months Social History Tobacco Use Types Packs/Day Years Used Date Smoking Tobacco: Never Assessed Comments Unknown Sex and Gender Information Value Date Recorded Sex Assigned at Not on file Legal Sex Female 6:31 PM EDT Gender Identity Not on file Sexual Orientation Not on file Plan of Treatment Health Maintenance Due Date Last Done Comments Diabetes: Annual GFR (Glomerular Filtration Rate) 1945 Diabetes: Annual Foot Exam 1955 Diabetes: Annual Retina Eye Exam 1955 DTaP,Tdap,and Td Vaccines (1 - Tdap) 1964 Zoster Vaccines (1 of 2) 1995 RSV Immunization Adult Patients (1 - 1-dose 75+ series) 2020 COVID-19 Vaccine ( season) 2024 09/05/2023, 06/21/2022, 09/03/2021, Additional history exists Cholesterol Screening (Lipid Panel) 09/04/2024 Depression Screening 09/04/2024 Hepatitis C Screening 09/04/2024 Medicare Annual Wellness Visit 09/04/2024 Osteoporosis Screening (Bone Density Screening) 09/04/2024 Social Influencers of Health Screening 09/04/2024 Diabetes: Blood Sugar Control Test (HGBA1C) 10/12/2024 03/16/2020 Hypertension/CHF/CAD Annual BMP Blood Test 10/12/2024 Influenza Vaccine (Season Ended) 2025 09/05/2023, 09/03/2021, 09/07/2019, Additional history exists Falls Risk Assessment 10/12/2025 10/12/2024 Diabetes: Annual Urine Albumin-Creatinine Ratio (uACR) 01/27/2026 01/27/2025, 07/22/2024 Pneumococcal Vaccine: 50+ Years Completed 09/28/2019, 10/23/2016 [...] age to complete this topic Meningococcal B Vaccine Aged Out No l onger eligible based on patient's age to complete this topic RSV Immunization Patients Under 20 months Aged Out No longer eligible based on patient's age to complete this topic Varicella Vaccines Aged Out No longer eligible based on patient's age to complete this topic Goals Goal Patient Goal Type Associated Problems Recent Progress Patient-Stated? Author reduce size of legs General On track(2024 12:14 PM EDT) Yes Jaqui Easley, OTR/L Note: I want [...] return of lymph edema in both LE's 02/01/2025 I know my legs got bigger but they are still smaller than when we started with therapy 02/21/2025 I have been wearing the new black stockings with the wraps and I exercise and walk every day so I think that is all I can do self management General On track(2024 12:17 PM EDT) Jaqui Allen, OTR/L Note: STG; patient will [...] script for garments has been send to [employer] 01/10 Patient did not receive garments yet. As per [employer] garments on order and should be received in 2 weeks. Patient presented with increased volumes when arriving at therapy 02/01/2025 Patient did receive garment however not correct liners Patient ordered liners however did not try them on as they looked to small to her. Therapist donned liners and garments and both fit well and are appropriate 02/21/2025 Patient has been using appropriate size hybrid liners. Patient reports that she has been able to manage them using a sock giancarlo shoe management General On track(2024 12:25 PM EDT) Jaqiu Allen, OTR/L Note: LTG; Patient will be able to fit into appropriate footwear for [place] 12/13/2024 Progressing Patient reports that she finally is able to see her ankles 01/10 After interruption in therapy 2nd to winter weather patient presents with return of lymph edema in both LE's 02/01/2025 Patient ordered correct size hybrid liners which will decrease / manage edema in both feet 02/21/2025 Patient does fit into regular footwear Insurance MEDICARE [facility] Care Teams Brake Operator Heavy Duty Relationship Specialty Start Date End Date Physician, No Pcp PCP - General 10/12/24
--- OUTSIDE RECORDS SUMMARY | 2025-02-23 08:28 | XMS_ITS ---
Author Organization [facility] Address [address] [place] [address] Care Team Providers Care Sand Tester Name Role Phone Fadi Craig MD Primary Care Provider Francisco Whittaker Unavailable [phone] Allergies Allergen (clinical drug ingredient) Drug/Non Drug [...] aggrevated by shoes and causing difficulty standing/walking., Foot/Leg pain Medications Medication SIG (Take, Route, Frequency, Duration) Notes Start Date End Date Status Vitamin D2 Active Calcitriol 0.25 MCG Oral for 90 Active Nystatin 182843 UNIT/GM External for 14 Active Betamethasone Dipropionate 0.05 % External for 30 Activ e Levothyroxine Sodium 50 MCG Oral for 90 Active Lasix Active Aliskiren Fumarate 150 MG Oral for 60 Active Atorvastatin Calcium 20 MG Oral for 90 Active FLUoxetine HCl 10 MG 1 capsule Orally Once a day for 30 day(s) Active glipiZIDE ER 2.5 MG Oral for 90 2 times monthly Active Amoxicillin 500 MG Oral for 30 Not-Taking Tekturna 150 MG Oral for 30 No t-Taking amLODIPine Besylate 5 MG Oral for 90 Not-Taking Farxiga 10 MG 1 tablet Orally Once a day for 30 day(s) Active Triamterene-HCTZ 37.5-25 MG Oral for 84 Not-Taking Extra Depth Orthopedic Shoes (1 Pair) with Customized Heat Molded Multidensity Innersoles (3 Pair) as directed Dx: NIDDM (E11.9), Hammertoe Foot Deformity (M20.41,M20.42), Preulcerative Skin Lesion(s) (L85.1) Active Ammonium Lactate 12 % 1 application to affected area Externally to feet Twice a day for 30 days Not-Taking CoQ-10 Not-Taking Vitamin B 12 500 MCG 1 tablet Orally Onc e a day for 30 day(s) Not-Taking Zinc 50 MG 1 tablet Orally Once a day for 30 day(s) Not-Taking Edema Clinic Referral . . . . for 365 days 07/23/2024 Active Social History Tobacco Use: Social History [...] No Points 0 Interpretation Negative Vital Signs Blood pressure systolic 120 mm Hg 02/23/20 25 Blood pressure diastolic 60 mm Hg 025 Height 5 ft 1 in in 02/22/2025 Weight 199 lbs 02/22/2025 BMI 37.6 kg/m2 02/22/2025 Procedures Procedure Date Ordered Date Performed Result Body Sit e 27292-CYDEKNS NAIL, 6 OR MORE 02/22/2025 N/A Encounters Encounter Location Date Provider Diagnosis [facility] [address] [place] [address] 02/22/2025 Francisco Fry Type 2 diabetes mellitus without complication E11.9 ; Pain in right toe(s) M79.674 ; Tinea unguium B35.1 ; Pain in left toe(s) M79.675 and Muscle cramp, nocturnal R25.2 Assessments Encounter Date Diagnosis (ICD Code) Assessment Notes Treatment Notes Treatment Clinical Notes Section Notes 02/22/2025 Type 2 diabetes mellitus without complication (ICD-10 - E11.9) 02/22/2025 Pain in right toe(s) (ICD-10 - M79.674) 02/22/2025 Tinea unguium (ICD-10 - B35.1) 02/22/2025 Pain in left toe(s) (ICD-10 - M79.675) 02/22/2025 Muscle cramp, nocturnal (ICD-10 - R25.2) 02/22/2025 Other Plan Of Treatment Pending Test Test Name Order Date [id number] NAIL, 6 OR MORE 02/22/2025 Next Appt Details Follow Up: prn, Reason: Provider Name:Francisco Fry , 04/26/2025 08:45:00 AM, [address] [place] [address], [phone], Provider Name:Francisco Fry , 06/28/2025 08:45:00 AM, [address] [place] [address], [phone], Procedure Notes * Category Sub-Category Detail Notes [...] use of a nail nipper and/or dremel-type lens grinder and polisher, to a more viable healthy nail plate [...] to maintain effectiveness in symptomatic relief - 45700 Progress Notes * Guadalupe BRANDT ADOB:1944 (79 yo F)Acc No.[id number]:02/22/2025 Progress Note Patient:?Guadalupe BRANDT Provider:?Francisco Fry DPM :1945???Age:79 Y???Sex:Female D ate:02/22/2025 Address:[address], [id number] Pcp:Fadi Craig MD Subjective: * Chief Complaints: * ???At Risk FootcarePainful N ail(s) aggrevated by shoes and causing difficulty standing/walking.Foot/Leg pain * HPI: ???At Risk footcare:?Pt States Last PCP Visit:?Date?12/02/2024 ???Toe pain:?Treatments:?Rx shoes, states still needs?.?Foot Pain:?Nature:?tightness, cramping, pulling, aching.?Location:?Foot, Leg , B/L.?Duration:?several weeks.?Onset:?sudden.?Course:?worse.?Aggravated:?especially toward the end of the day/at rest/at night.? * ROS:?General/Constitutional:?Nausea?denies.?Vomiting?denies.?Hunger Thirst?denies.?Loss appetite?denies.?Chills?denies.?Fatigue?denies.?Fever?denies.?Night Sweats?denies.?Unexplained weight loss?denies.?Unexplained [...] replacement surgery 11/2023 * Hospitalization/Major Diagno stic Procedure:?[facility] ER-L humerus-tripped 11/23/21Orthopedic surgeon- L foot broken [...] yes, walking. ?Marital status: single. ?Occupation: Retired- [employer]. ???Drug/Alcohol:?AUDIT-C (Standard)?Did you have a drink containing [...] Vitamin D2 Calcitriol 0.25 MCG Capsule Oral Nystatin 182980 UNIT/GM Cream External Betamethasone Dipropionate 0.05 % Lotion External Edema Clinic Referral . . . . . Extra Depth Orthopedic Shoes (1 Pair) with Customized Heat Molded Multidensity Innersoles (3 Pair) as directed Dx: NIDDM (E11.9), Hammertoe Foot Deformity (M20.41,M20.42), Preulcerative Skin Lesion(s) (L85.1) Taking Farxiga 10 MG Tablet 1 tablet [...] Taking Calcitriol 0.25 MCG Capsule Oral Taking Nystatin 887468 UNIT/GM Cream External Taking Betamethasone Dipropionate 0.05 % Lotion External Taking Edema Clinic Referral . . . . . Taking Extra Depth Orthopedic Shoes (1 Pair) with Customized Heat Molded Multidensity Innersoles (3 Pair) as directed Dx: NIDDM (E11.9), Hammertoe Foot Deformity (M20.41,M20.42), Preulcerative Skin Lesion(s) (L85.1) Not-Taking/PRNAmmonium Lactate 12 % Cream 1 application [...] in, Wt:19 9, BMI: 37.6, Shoe size:8.5, BP:120/60mm Hg, BS:not taken, Wt-k.27 kg. * ???Past [...] possessing mycosis are elongated, overgrown, and dystrophic, SAVEAbsent nail plate,TA.?Orthopedic: ?FOOT MORPHOLOGY:? Pain in Achilles and intrinsic foot musculature, Decreased Ankle joint dorsiflexion ROM, knee extended, B/L.? Assessment: * Assessment: 1.?Type 2 diabetes mellitus without complication - E11.9???2.?Pain in right toe(s) - M79.674???3.?Tinea unguium - B35.1 (Primary)???4.?Pain in left toe(s) - M79.675???5.?Muscle cramp, nocturnal - R25.2???Specify :Acute problem, Uncomplicated (3)??? Plan: * Treatment: * Procedures:?Debride Nail 6-10:?Nail debridement?Due to the [...] use of a nail nipper and/or dremel-type lens grinder and polisher, to a more viable healthy nail plate [...] to maintain effectiveness in symptomatic relief - 10997.? * Procedure Codes:?96917 DEBRI DE NAIL, 6 OR MORE * [...] have encouraged the patient to call the office.?Myositis/Tendonitis:?NIGHT CRAMPS: I explained to the patient the possible etiologies of their nightly muscle cramps, including, but not limited to: foot type, shoegear, activity level/exercise routine, dehydration due to insufficient fluid intake, caffeine, or alcohol, medications such as diuretics or statins, mineral or electrolyte deficiencies in K, Mg or Ca, nerve compression, or other metabolic/neurologic disease states. We discussed the risks/benefits of the different treatment options for their painful condition including: No treatment at all, proper hydraton, proper metabolite/electrolite consumption, stretching, massage, heat, proper shoegear/arch support, Vit B12/Mg/CoQ-10 supplementation, Tonic water infused with quinine (diet if DM), pickle juice (to be used with caution w/ hx of HTN), coconut water, and adjusting the sleeping position/untuck bedding to decrease foot pressure. The advantages and disadvantages of each option were discussed and the patient's questions re: shoegear, hydration, variuos foods beneficial to prevent night cramps (bananas, pickles, potatoes), electrolyte supplementation, and consistency in home treatment regimens for optimal success, were answered to their verbally confirmed satisfaction.? ??Screening/Special Tests:?Fall Risk?Screening:?No falls in the past year ?FALLS: Screening for Future Fall Risk?Have you had any falls with injury in the past year??No * Follow Up:?prn * Images: * Sign off status: Completed true * Provider:?Francisco Fry DPM Date:?2024 Generated for Christiani carmen/Jose/eTransmitting on:?02/23/2025 08:28 AM EDT History and Physical Notes * HPI (History of Present Illness) Category Sub-Category Detail Notes Category Not es Toe pain Treatments: Rx shoes, states still needs At Risk footcare Pt States Last PCP Visit: Date: Foot Pain Nature: tightness, cramp ing, pulling, aching Location: Foot, Leg , B/L Duration: several weeks Onset: sudden Course: worse Aggravated: especially toward th e end of the day/at rest/at night Examination Category Sub-Category Detail Notes Category Not es Orthopedic FOOT MORPHOLOGY: Pain in Ballard s and intrinsic foot musculature, Decreased Ankle joint dorsiflexion ROM, knee extended, B/L Ophthalmology Referral DIABETES EYE EXAM Procedu re Performed:: Yes ?Date of Exam Performed: 10/07/2023 Stat es next appt - January 2025 Diabetic Retinopathy Screening:: Yes Findings of Diabetic Eye Exam:: no retin opathy Nails NAILS are: Elongated, overg rown, dystrophic, lytic, greater than 3mm thick, discolored and friable with crumbly malodorous subungual debris, with pain on palpation, T1, T2, T4, T5, T7, T9, all other nails not described with characteristics as possessing mycosis are elongated, overgrown, and dystrophic, SAVE Absent nail plate, TA
--- OUTSIDE RECORDS SUMMARY | 2025-02-23 08:28 | XMS_ITS | Encounter Summary ---
Author Organization [facility] Address [address] [place] [address] Care Team Providers Care Export Freight Manager Name Role Phone Physician, No Pcp Primary Care Provider Unavaila ble Reason for Visit * Consultation (Routine) - Authorized Specialty Diagnoses / Procedures Referred By Annalisa birmingham Referred To Contact Occupational Therapy Diagnoses Other specified soft tissue disorders Edema, unspecified Fadi Craig MD [address] [place] [address] Phone: tel: fax: Referral ID Status Reason Start Date Expiration Date Visits Requested Visits Authorized [id number] Authorized Specialty Services Required 08/19/2024 08/19/2025 19 19 Encounter Details Date Type Department Care Team (Late st Contact Info) Description 02/21/2025 9:00 AM EDT Treatment [facility] Occupational Therapy [address] [place] [phone] Jaqui Easley OTR/L Lymphatic edema (Primary Dx) Social History Tobacco Use Types Packs/Day Years Used Date Smoking Tobacco: Never Assessed Comments Unknown Sex and Gender Information Value Date Recorded Sex Assigned at Not on file Legal Sex Female 6:31 PM EDT Gender Identity Not on file Sexual Orientation Not on file documented as of this encounter Progress Notes * Jaqui Easley OTR/Eliceo - 02/21/2025 9:00 AM EDT Images from the original note were not included. [facility] OCCUPATIONAL THERAPY DISCHARGE [facility] NOTE Date: 02/21/2025 Visit Number: [id number] Patient Name: Guadalupe Muro : 1945 Age: 79 y.o. Gender: female Diagnosis: No diagnosis found. Date of Onset: Multiple active episodes found Referring Provider: Fadi Craig MD Insurance: Payor: MEDICARE / Plan: MEDICARE PART A & B / Product Type: Medicare / Patient identified by: Jaqui Easley OTR/L Language: Speaks and understands Comoran as preferred language with no blowing weasand required Allergies: has no allergies on file. Precautions: None stated SUBJECTIVE Subjective Report: I went to see my Kidney doctor and he asked why I don't have a pump I try everything but I just cannot really get my ankles down Pain; The swelling in my legs does not hurt they just feel tight and heavy OBJECTIVE Patient arriving at therapy Independently ambulating Wearing appropriate compression garments Skin intact Decreased fibrosis in both LE's Left Lower Extremity Lymphedema L 2nd Toe Middle Phalange (cm): 6.3 cm L Metatarsal (cm): 22.5 cm L Arch (cm): 26 cm L Ankle (cm): 29.5 cm L 8 cm Above Ankle (cm): 36 cm L 16 cm Above Ankle (cm): 45.5 cm L 24 cm Above Ankle (cm): 51 cm L 32 cm Above Ankle (cm): 51 cm L Knee (cm): 51 cm L 40 cm Above Ankle (cm): 57 cm L 48 cm Above Ankle (cm): 61 cm L 56 cm Above Ankle (cm): 63 cm L 64 cm Above Ankle (cm): 67 cm Total circumferences left LE = 566.8 cm Right Lower Extremity Lymphedema R 2nd Toe Middle Phalange (cm): 5.8 cm R Metatarsal (cm): 22.3 cm R Arch (cm): 24 cm R Ankle (cm): 30 cm R 8 cm Above Ankle (cm): 32.8 cm R 16 cm Above Ankle (cm): 41 cm R 24 cm Above Ankle (cm): 47 cm R 32 cm Above Ankle (cm): 48 cm R Knee (cm): 48 cm R 40 cm Above Ankle (cm): 57 cm R 48 cm Above Ankle (cm): 63 cm R 56 cm Above Ankle (cm): 65 cm R 64 cm Above Ankle (cm): 67 cm Total circumferences Right LE = 550.9 cm TREATMENT INTERVENTION Procedures: Manual therapy Consisted of [...] / paraspinals/ QL's drainage areas. Self care Re measured circumferences both LE's ( to assess effectiveness of new compression garments and selfmanagement ) Reviewed lymph edema self management. Patient receptive to intermittent compression pump to be ableto perform self massage at home on a daily basis Pain Reassessment: no pain Assessment/Response To Treatment: Good Myl legs are better than we started out I just hope that I can keep them smaller Maybe a pump , that I can do on my own at home, can help Patient Education: Education provided: Yes lymph edema self management Education Provided To: Patient utilizing Explanation mode(s) of education Response to Education: Good PLAN POC Development/Review: Other: discharge from active CDT at this time as patient met all her goals ; Participants: Patient Equipment Recommended: intermitttent compression pump to enable daily self treatment of this chronic condition.. ; Patient has been wearing compression / doing daily exercises / adjusted her sodium intake. ( Since 11/30/2024 ) Please consider that non management of chronic lymph edema will affect skin integrity.. Patient suffers diabetes which negatively affects healing of ulcers Goals reduce size of legs (pt-stated) I [...] with return of lymph edema inboth LE's 02/01/2025 I know my legs got bigger but they are still smaller than when we started with therapy 02/21/2025 I have been wearing the new black stockings with the wraps and I exercise and walk every day so I think that is all I can do self management STG; patient will be able [...] script for garments has been send to [facility] 01/10 Patient did not receive garments yet. As per [facility] garments on order and should be received in 2 weeks. Patient presented with increased volumes when arriving at therapy 02/01/2025 Patient did receive garment however not correct liners Patient ordered liners however did not try them on as they looked to small to her. Therapist donnedliners and garments and both fit well and are appropriate 02/21/2025 Patient has been using appropriate size hybrid liners. Patient reports that she has beenable to manage them using a sock giancarlo shoe management LTG; Patient will be able to fit into appropriate footwear for [facility] 12/13/2024 Progressing Patient reports that she finally is able to see her ankles 01/10 After interruption in therapy 2nd to winter weather patient presents with return of lymph edema in both LE's 02/01/2025 Patient ordered correct size hybrid liners which will decrease / manage edema in both feet 02/21/2025 Patient does fit into regular footwear Total Treatment Time: 60 minutes Documentation completed by SUKHJINDER Napoles/Eliceo documented in this encounter Plan of Treatment Not on file documented as of this encounter Goals Goal Patient Goal Type Associated Problems Recent Progress Patient-Stated? Author reduce size of legs General On track(2024 12:14 PM EDT) Yes Jaqui Easley OTR/Eliceo Note: I want [...] script for garments has been send to [facility] 01/10 Patient did not receive garments yet. As per [employer] garments on order and should be received [...] management General On track(2024 12:25 PM EDT) Jaqui Allen, OTR/L Note: LTG; Patient will be able to fit into appropriate footwear for [facility] 12/13/2024 Progressing Patient reports that she finally is able to see her ankles 01/10 After interruption in therapy 2nd to winter weather patient presents with return of lymph edema in both LE's 02/01/2025 Patient ordered correct size hybrid liners which will decrease / manage edema in both feet 02/21/2025 Patient does fit into regular footwear documented as of this encounter Visit Diagnoses Diagnosis Lymphatic edema- Primary Other noninfectious lymphedema documented in this encounter Additional Health Concerns Assessment Noted Time A fall risk assessment has been complete d for the patient 10/12/2024 10:13 AM EST documented as of this encounter Care Teams Export Freight Manager Relationship Specialty Start Date End Date Physician, No Pcp PCP - General 10/12/24 documented as of this encounter
--- OUTSIDE RECORDS SUMMARY | 2025-02-23 08:28 | XMS_ITS ---
[facility] Address [address] [place] [address] Care Team Providers Care Transport Corps Officer Name Role Phone Fadi Craig MD Primary Care Provider Francisco Whittaker Unavailable [phone] Allergies Allergen (clinical drug ingredient) Drug/Non Drug [...] for 30 day(s) Not-Taking CoQ-10 Not-Taking Nystatin 020694 UNIT/GM External for 14 Active Extra Depth [...] an other tobacco user? No Vital Signs Blood pressure systolic 130 mm Hg 10/01/20 24 Blood pressure diastolic 74 mm Hg 024 Height 5 ft 1 in in 10/01/2024 Weight 199 lbs 10/01/2024 BMI 37.6 kg/m2 10/01/2024 Procedures Procedure Date Ordered Date Performed Result Body Sit e 68247-JFQDPGP NAIL, 6 OR MORE 10/01/2024 N/A Encounters Encounter Location Date Provider Diagnosis [facility] [address] [place] [address] 10/01/2024 Francisco Ang Pain in right toe(s) [...] Treatment Pending Test Test Name Order Date [id number] NAIL, 6 OR MORE 10/01/2024 Next Appt Details Follow Up: prn, Reason: Provider Name:Francisco Fry , 04/26/2025 08:45:00 AM, [address] [place] [address], [phone], Provider Name:Francisco Fry , 06/28/2025 08:45:00 AM, [address] [place] [address], [phone], Procedure Notes * Category Sub-Category Detail Notes [...] use of a nail nipper and/or dremel-type edge grinder machine, to a more viable healthy nail plate or bed tissue 6-10. Silver nitrate used for any petechial bleeding as necessary. Definitive antifungal treatment options have been reviewed and discussed with the patient. The patient chooses, no pharmaceutical tx - 80031 Progress Notes * BRANDTGuadalupe ADOB:1944 (79 yo F)Acc No.[id number]:10/01/2024 Progress Note Patient:?Guadalupe BRANDT A Provider:?Francisco Fry DPM :1945???Age:79 Y???Sex:Female D ate:10/01/2024 Address:[address] [place] [address] Pcp:Fadi Craig MD Subjective: * Chief Complaints: * ???At Risk FootcarePainful N ail(s) aggravated by shoes and causing difficulty standing/walking.SwellingToe Irritation * HPI: ???At Risk footcare:?Pt States Last PCP Visit:?Date?09/13/2024 ???Toe pain:?Treatments:?Rx shoes , states still needs?.?Swelling:?Location:?Both feet/leg.?Treatment:?elevation , compression stockings , medication, [facility] outpatient referral pending - states appt in [...] replacement surgery 11/2023 * Hospitalization/Major Diagno stic Procedure:[place] [place]23[place]Orthopedic surgeon- L foot broken [...] yes, walking. ?Marital status: single. 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 * Medications:?TakingFarxiga 1 0 MG Tablet 1 [...] Deformity (M20.41,M20.42), Preulcerative Skin Lesion(s) (L85.1) Nystatin 773524 UNIT/GM Cream External Betamethasone Dipropionate 0.05 % [...] (M20.41,M20.42), Preulcerative Skin Lesion(s) (L85.1) Taking Nystatin 023969 UNIT/GM Cream External Taking Betamethasone Dipropionate 0.05 [...] use of a nail nipper and/or dremel-type edge grinder machine, to a more viable healthy nail plate or bed tissue 6-10. Silver nitrate used for any petechial bleeding as necessary. Definitive antifungal treatment options have been reviewed and discussed with the patient. The patient chooses, no pharmaceutical tx - 54840.? * Procedure Codes:?90193 DEBRI DE NAIL, 6 OR MORE * Preventive Medicine:? ??Counseling:?Consult:?Consult with [facility] due to increased risk of potential pedal [...] status: Completed true * Provider:?Francisco Fry DPM Date:?2023 Generated for Keiko morales/Jose/Naomi on:?02/23/2025 08:27 AM EDT History and Physical Notes * HPI (History of Present Illness) Category Sub-Category Detail Notes Category Not es Toe pain Treatments: Rx shoes , state s still needs At Risk footcare Pt States Last PCP Visit: Date: 4 Swelling Location: Both feet/leg Treatment: elevation , compress ion stockings , medication, [facility] outpatient referral pending - states appt in [...]
--- OUTSIDE RECORDS SUMMARY | 2025-02-23 08:28 | XMS_ITS | Patient Health Record ---
Author Organization [facility] Address [address] [place] [address] Care Team Providers Care Health And Wellness Director Name Role Phone Fadi Craig Primary Care Provider UnavailAubrey Roman [phone] Allergies Allergen (clinical drug ingredient) Drug/Non Drug [...] Problem Status W/U Status Risk Notes Problem 101863591 Colon cancer screening (Z12.11) Active confirmed Problem 621188245 Encounter for screening for malignant neoplasm of colon (Z12.11) Active confirmed Problem 702442198 History of adenomatous polyp of colon (Z86.010) Active confirmed Problem 424019609 Change in bowel habits (R19.4) Active confirmed Problem Diverticular disease of colon (491248517) Diverticulosis of large intestine without perforation or abscess without bleeding (K57.30) Active confirmed Problem 550395205 Family history o f colon cancer (Z80.0) Active confirmed Plan Of Treatment Future Test Test Name Order Date COLONOSCOPY 07/16/2013 COLONOSCOPY 06/09/2018 COLONOSCOPY 03/11/2023 Insurance Providers Payer Name Payer Address Payer Phone Subscriber Number Group Number Insured Name Patient Relationship to Insured Coverage Start Date Coverage End Date MEDICARE OF [place] [address] [place] [address] [phone] [id number] LULU BRANDT Self - patient is the insured [employer] ATT[employer] CLAIMS [address] [place] [address] [id number] LULU BRANDT Self - patient is the insured Medical (General) History Medical History History ICD Code Hypothyroidism Denies [place],CVA,Lung disease Hyperlipidemia HTN 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
--- OUTSIDE RECORDS SUMMARY | 2025-02-23 08:29 | XMS_ITS ---
[facility] Organization [facility] Address [address] [place] [address] Care Team Providers Care Ux Developer Designer Name Role Phone Fadi Craig MD Primary Care Provider Francisco Whittaker Unavailable [phone] Allergies Allergen (clinical drug ingredient) Drug/Non Drug [...] 0.25 MCG Oral for 90 Active Nystatin 639280 UNIT/GM External for 14 Active Betamethasone Dipropionate [...] Signs Blood pressure systolic 120 mm Hg 12/14/19 25 Blood pressure diastolic 70 mm Hg 025 Height 5 ft 1 in in 12/14/2024 Weight 199 lbs 12/14/2024 BMI 37.6 kg/m2 12/14/2024 Procedures Procedure Date Ordered Date Performed Result Body Sit e [id number] NAIL, 6 OR MORE 12/14/2024 N/A Encounters Encounter Location Date Provider Diagnosis [facility] [place] [address] [place] [address] 12/14/2024 Francisco Fry Type 2 diabetes mellitus [...] INSTRUCTIONS.pdf) Pending Test Test Name Order Date [id number] NAIL, 6 OR MORE 12/14/2024 Next Appt Details Follow Up: prn, Reason: Provider Name:Francisco Fry , 04/26/2025 08:45:00 AM, [address] [place] [address], [phone], Provider Name:Francisco Fry , 06/28/2025 08:45:00 AM, [address] [place] [address], [phone], Procedure Notes * Category Sub-Category Detail Notes [...] use of a nail nipper and/or dremel-type meat grinder, to a more viable healthy nail [...] to maintain effectiveness in symptomatic relief - 94239 Progress Notes * Guadalupe BRANDT ADOB:1944 (79 yo F)Acc No.[id number]:12/14/2024 Progress Note Patient:?BRANDT Guadalupe A Provider:?Francisco Fry DPM :1945???Age:79 Y???Sex:Female D ate:12/14/2024 [facility] Pcp:Fadi Craig MD Subjective: * Chief Complaints: * ???At Risk FootcarePainful N ail(s) aggrevated by shoes and causing difficulty standing/walking.Toe IrritationSwelling * HPI: ???At Risk footcare:?Pt States Last PCP Visit:?Date?12/02/2024 ???Toe pain:?Location:?B/L feet.?Duration:?several years.?Course:?worse.?Aggravated by:?shoes, any pressure.?Treatments:?change in shoes.?Swelling:?Location:?Both feet/leg.?Treatment:?elevation , compression stockings , medication, [facility].? * ROS:?General/Constitutional:?Nausea?denies.?Vomiting?denies.?Hunger Thirst?denies.?Loss appetite?denies.?Chills?denies.?Fatigue?denies.?Fever?denies.?Night Sweats?denies.?Unexplained weight [...] replacement surgery 11/2023 * Hospitalization/Major Diagno stic Procedure:?[facility] ER-L humerus-tripped 11/23/21Orthopedic surgeon- L foot broken [...] yes, walking. ?Marital status: single. 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 ???Drug/Alcohol:?AUDIT-C (Standard)?Did you have a drink containing [...] Deformity (M20.41,M20.42), Preulcerative Skin Lesion(s) (L85.1) Nystatin 611440 UNIT/GM Cream External Betamethasone Dipropionate 0.05 % [...] (M20.41,M20.42), Preulcerative Skin Lesion(s) (L85.1) Taking Nystatin 040545 UNIT/GM Cream External Taking Betamethasone Dipropionate 0.05 [...] use of a nail nipper and/or dremel-type meat grinder, to a more viable healthy nail [...] to maintain effectiveness in symptomatic relief - 12566.? * Procedure Codes:?74515 DEBRI DE NAIL, 6 OR MORE * [...] Provider:?MARCUS CanalesM Date:?2024 Generated for Keiko morales/Jose/Francesitting on:?02/23/2025 08:28 AM EDT History and Physical Notes * HPI (History of Present Illness) Category Sub-Category Detail Notes Category Not es Toe pain Location: B/L feet Duration: several years Course: worse Aggravated by: shoes, any pressure Treatments: change in shoes At Risk footcare Pt States Last PCP Visit: Date: Swelling Location: Both feet/leg Treatment: elevation , compress ion stockings , medication, [facility] outpatient Examination Category Sub-Category Detail Notes [...] , No Charcot collapse/destruction noted at [facility] FOOTWEAR EVALUATION: worn, OT were inspe cted and noted to be severely worn , [...]
--- OUTSIDE RECORDS SUMMARY | 2025-02-23 08:29 | XMS_ITS | Encounter Summary ---
Author Organization [facility] Address [address] [facility] [address] [place] [address] Phone Care Team Providers Care Genetics Nurse Name Role Phone Unavailable Primary Care Provider Unavailabl e Reason for Referral * Cardiac Services (Routine) - Closed Specialty Diagnoses / Procedures Referred By Contac t Referred To Contact Diagnoses Swelling of lower leg <Left side> Procedures Ultrasound doppler venous leg left Hubert Lin MD Phone: tel: fax: Referral ID Status Reason Start Date Expiration Date Visits Re quested Visits Authorized [id number] Closed 04/06/2024 04/06/2025 1 1 Encounter Details Date Type Department Care Team (Latest Contact Info) Description 04/06/2024 Office Communication [facility] [address] [facility] [address] [place] [phone] Hubert Lin MD [address] [facility] [address] [place] [phone] Swelling of lower leg <Left side> (Primary [...] Care Team (Late st Contact Info) Description 08/29/2025 3:15 PM EDT Office Visit [facility] [address] [place] [phone] Hubert Lin MD [address] [facility] [address] [place] [phone] Scheduled Orders Name Type Priority Associated Diagnoses Order Schedule Ultrasound doppler venous leg left Vascular Ultrasound Today Swelling of lower leg <Left side> Expected: 04/06/2024, Expires: 04/06/2026 documented as of this encounter Visit Diagnoses Diagnosis Swelling of lower leg <Left side>- Primary documented in this encounter
--- OUTSIDE RECORDS SUMMARY | 2025-02-23 08:29 | XMS_ITS | Clinical Summary ---
Author Organization [facility] Address [address] [facility] [address] [place] [address] Phone Care Team Providers Care Distribution Tech Name Role Phone Unavailable Primary Care [...] by mouth 1 (one) time each day 1 Active Zinc 50 MG capsule Take 1 tablet by mouth 1 (one) time per week Active FLUoxetine (PROzac) 10 MG capsule Take 10 mg by mouth 1 (one) time each day 1 Active glipiZIDE (GLUCOTROL XL) 10 MG 24 hr tablet Take 20 mg by mouth 1 (one) time each day 1 Active levothyroxine (SYNTHROID, LEVOTHROID) 50 MCG tablet Take 50 mcg by mouth 1 (one) time each day in the morning 1 Active aliskiren (TEKTURNA) 150 MG tablet TAKE 1/2 TABLET (75 MG TOTAL) BY MOUTH 1 (ONE) TIME EACH DAY 45 tablet 7 2 Active Ozempic, 0.25 or 0.5 MG/DOSE, 2 MG/3ML solution pen-injector Inject 0.5 mg under the skin every 7 (seven) days 3 Active ergocalciferol 1.25 MG (59531 UT) capsule TAKE 1 CAPSULE (50,000 UNITS TOTAL) BY MOUTH EVERY 14 DAYS 18 capsule 1 4 Active furosemide (LASIX) 20 MG tablet TAKE 2 TABLETS BY MOUTH ONCE DAILY 180 tablet 1 4 Active Farxiga 10 MG tablet TAKE 1 TABLET BY MOUTH EVERY DAY 30 tablet 8 4 Active calcitriol (ROCALTROL) 0.25 MCG capsule Take 1 capsule (0.25 mcg total) by mouth 1 (one) time each day 90 capsule 5 05/08/20 25 Active calcitriol (ROCALTROL) 0.25 MCG capsule Take 1 capsule (0.25 mcg total) by mouth every other day 45 capsule 5 4 02/08/20 25 Discontinued Active Problems Problem Noted Date Diagnosed Date Chronic kidney disease, stage 4 (severe) 023 Renal osteodystrophy 08/21/2023 Type 2 diabetes mellitus without complication Hypertensive renal disease 04/27/2021 Essential hypertension 04/27/2021 Chronic kidney disease stage 3 04/27/2021 Encounters Date Type Department Care Team Description 02/07/2025 1:45 PM EDT Office Visit [facility] [address] [place] [address] Hubert Lin MD Chronic kidney disease, stage 4 (severe) (HCC) (Primary Dx); Hypertensive renal disease; Type 2 diabetes mellitus without complication (HCC); Renal osteodystrophy 01/09/2025 Orders Only [facility] [address] [place] [address] Hubert Lin MD Chronic kidney disease, stage [...] Sign Reading Time Taken Comments Blood Pressure 132/84 02/07/2025 1:36 PM EDT Pulse 77 02/07/2025 1:36 PM EDT Temperature - - Respiratory Rate - - Oxygen Saturation 97% 02/07/2025 1:36 PM EDT Inhaled Oxygen Concentration - - Weight 97.4 kg (214 lb 12.8 oz) 02/07/2025 1:36 PM EDT Height 154.9 cm (5' 1 ) 05/15/2023 1:04 PM EDT Body Mass Index 40.59 05/15/2023 1:04 PM EDT Plan of Treatment Upcoming Encounters Date Type Department Care Team (Late st Contact Info) Description 08/29/2025 3:15 PM EDT Office Visit [facility] [address] [place] [address] Hubert Lin MD [address] [facility] [address] [place] [address] Health Maintenance Due Date Last Done Comments Pneumococcal Vaccine: 65+ Ye ars (1 of 2 - PCV) 1951 Diabetes: Hemoglobin A1C 02/07/2022 03/16/2020 Diabetes: Ophthalmology Exam 02/07/2022 Diabetes: Pedal Pulse Checked 02/07/2022 Diabetes: Sensory Foot Exam 02/07/2022 Diabetes: Visual Foot Exam 02/07/2022 Influenza Vaccine (Season Ended) 2025 07/18/20 17 Hepatitis B Vaccine Aged Out No longe r eligible based on patient's age to complete this topic Procedures Procedure Name Priority Date/Time Associated Diagnosis Comments PTH, INTACT (HC) Routine 01/27/2025 10:3 1 AM EDT ALBUMIN, URINE, RANDOM Routine 01/27/2025 10:31 AM EDT CREATININE, BLOOD Routine 01/27/2025 10: 31 AM EDT BUN Routine 01/27/2025 10:31 AM EDT ELECTROLYTE PANEL Routine 01/27/2025 10: 31 AM EDT CBC AND DIFFERENTIAL Routine 01/27/2025 10:31 AM EDT CALCIUM Routine 01/27/2025 10:31 AM EDT Chronic kidney disease, stage 4 (severe) (HCC) Type 2 diabetes mellitus without complication (HCC) Renal osteodystrophy Hypertensive renal disease ALBUMIN Routine 01/27/2025 10:31 AM EDT Chronic kidney disease, stage 4 (severe) (HCC) Type 2 diabetes mellitus without complication (HCC) Renal osteodystrophy Hypertensive renal disease MAGNESIUM Routine 01/27/2025 10:31 AM EDT Chronic kidney disease, stage 4 (severe) (HCC) Type 2 diabetes mellitus without complication (HCC) Renal osteodystrophy Hypertensive renal disease PHOSPHATE ( PHOSPHORUS) Routine 01/27/2025 10:31 AM EDT Chronic kidney disease, stage 4 (severe) (HCC) Type 2 diabetes mellitus without complication (HCC) Renal osteodystrophy Hypertensive renal disease VITAMIN D 25 HYDROXY Routine 01/27/2025 10:31 AM EDT Chronic kidney disease, stage 4 (severe) (HCC) Type 2 diabetes mellitus without complication (HCC) Renal osteodystrophy Hypertensive renal disease PROTEIN / CREATININE RATIO, URINE Routine 01/27/2025 10:31 AM EDT Chronic kidney disease, stage 4 (severe) (HCC) Type 2 diabetes mellitus without complication (HCC) Renal osteodystrophy Hypertensive renal disease URINALYSIS WITH MICROSCOPIC Routine 01/27/2025 10:31 AM EDT Chronic kidney disease, stage 4 (severe) (HCC) Type 2 diabetes mellitus without complication (HCC) Renal osteodystrophy Hypertensive renal disease HEMOGLOBIN A1C Routine 03/16/2020 8:33 AM EDT from Last 3 Months or Most Recently Relevant to Health Maintenance Results * (ABNORMAL) Creatinine (01/27/2025 10:31 AM EDT) Creatinine Serum 2.10(H) 0.5 - 1.4 mg/dL See order comments eGFR 23 See order comments Comment: Chronic Kidney Disease: ??Estimated GFR < 60 mL/min/1.73m2 Severe Kidney Disease: ??Estimated GFR < 15 mL/min/1.73m2 01/27/2025 10:3 1 AM EDT 01/27/2025 10:31 AM EDT Hubert Lin MD LAB BLOOD ORDERABLES Final Re sult [place] See order comments [place] [address] * (ABNORMAL) PTH, Intact (01/27/2025 10:31 AM EDT) Parathyroid Hormone, Intact 264.4(H) 8.7 - 77.1 pg/mL See order comments 01/27/2025 10:3 1 AM EDT 01/27/2025 10:31 AM EDT Hubert Lin MD LAB [id number] SOLICITED RESULTS Final Result [place] See order comments [place] [address] * Protein, Total, Random Urine w/Creatinine (Protein/Creat Ratio) (01/27/2025 10:31 AM EDT) Protein Urine Random 9 <12 mg/dL See order comments Protein/Creatin ine Ratio, Urine 0.12 <0.2 See order comments Comment: The spot urine protein:creatinine ratio may increase to 0.3 during normal . Urine (Urine, Clean Catch) 01/27/2025 10:31 AM EDT 01/27/2025 10:31 AM EDT Hubert Lin MD LAB URINE ORDERABLES Final Re sul Performing Organization Address [facility] Phone Number [place] See order comments [place] [address] * (ABNORMAL) Albumin, urine, random (01/27/2025 10:31 AM EDT) Creatinine, Urine 75.03 mg/dL Se e order comments Urine Microalbumin 39.0 mg/L See order comments Microalbumin/Crea tinine Ratio 51.9(H) <30 ug/mg cr See order comments Comment: ?Albumin/Creatinine Ratio Reference Ranges: ?Normal: < 30 ug/mg creatinine ?Microalbuminuria: ??30 - 300 ug/mg creatinine Clinical Albuminuria: ??> 300 ug/mg creatinine 01/27/2025 10:3 1 AM EDT 01/27/2025 10:31 AM EDT Result [facility] Hubert Lin MD LAB URINE ORDERABLES Final Re sult Performing Organization Address [facility] Phone Number YAKIMA See order comments [place] [address] * Vitamin D 25 Hydroxy (01/27/2025 10:31 AM EDT) Vitamin D, 25-Hydroxy 32.8 >30 ng/mL See order comments Comment: Health Based Reference Values* < 20 ??ng/mL ??Deficient 20-30 ng/mL ??Insufficient > 30 ??ng/mL ??Sufficient *Chanda LEMUS. N Engl J Med. 2007;357:266-280 There is no well-established upper level of normal vitamin D levels. Some laboratories use 50 ng/mL as an upper limit of normal. However, toxicity is patient-dependent and may occur at any level. Careful correlation with the patient's presentation is necessary and, if there is concern for vitamin D toxicity, treatment should be considered irrespective of the serum level. Care must be taken in interpreting Vitamin D results from different laboratories and methodologies. ??Published data demonstrated that results from patients undergoing hemodialysis may show a negative bias when tested with various automated 25-OH vitamin D assays when compared to LC-MS/MS. When testing samples from patients whose predominant form of Vitamin D is Vitamin D2, such as patients receiving Vitamin D2 supplementation, results that are subtherapeutic should be confirmed with another method such as LC-MS/MS. Blood (Blood, Venous) 01/27/2025 10:31 AM EDT 01/27/2025 10:31 AM EDT Hubert Lin MD LAB BLOOD ORDERABLES Final Re sult [place] See order comments [place] [address] * (ABNORMAL) Urinalysis with microscopic (01/27/2025 10:31 AM EDT) Color Urine Yellow See orde r comments Appearance Urine Clear See order comments pH Urine 5.5 5.0 - 9.0 See order comments Glucose Urine >=1000(A) Negative mg/dL See order comments Blood, Urine Negative Negative See ord er comments Specific [place] Urine 1.015 1.005 - 1.025 See order comments Protein Urine Negative Neg-Trace mg/dL See order comments Ketones, Urine Negative Negative mg/dL See order comments Nitrite, Urine Negative Negative See o rder comments Leukocyte Esterase Urine Negative Negative See order comments RBC, Urine 0-2 0 - 2 /HPF See orde r comments WBC 0-5 0 - 5 /HPF See order comments Squamous Epithelial, Urine 0-2 0 - 2 /HPF See order comments Bacteria, Urine None Seen None Seen See order comments Hyaline Casts, Urine 0-2 0 - 2 /LPF See order comments Urine (Urine, Clean Catch) 01/27/2025 10:31 AM EDT 01/27/2025 10:31 AM EDT Hubert Lin MD LAB URINE ORDERABLES Final Re sult [place] See order comments [place] [address] * CBC and Differential (01/27/2025 10:31 AM EDT) WBC 6.2 4.8 - 10.8 X10*3/uL See order comments RBC 4.75 4.20 - 5.50 X10*6/uL See order comments Hgb 13.5 12.0 - 16.0 g/dl See order comments Hematocrit 41.9 37.0 - 47.0 % See order comments MCV 88.2 80.0 - 98.0 fL See order comments MCH 28.4 27.0 - 33.0 pg See order comments MCHC 32.2 31.0 - 35.0 g/dl See order comments RDW 14.2 11.0 - 16.0 % See order comments Platelets 284 160 - 400 X10*3/uL See order comments MPV 9.4 9.4 - 12.3 fL See order comments Neutrophils % Auto 56.9 45 - 73 % See order comments Immature Granulocytes 0.3 0.0 - 0.4 % See order comments Lymphocytes Relative 30.6 20 - 40 % See order comments Monocytes 7.2 2 - 11 % See order comments Eosinophils Relative 3.9 0 - 4 % See order comments Basophils Relative 1.1 0 - 2 % See order comments nRBC Count 0.0 0.0 - 0.2 /100WBC See order comments Neutrophils Absolute 3.5 2.0 - 8.3 x10*3/uL See order comments Immature Grans (Absolute) 0.02 0.00 - 0.03 X10*3/uL See order comments Lymphocytes Absolute 1.9 1.2 - 4.9 X10*3/uL See order comments Monocytes Absolute 0.5 0.1 - 1.2 X10*3/uL See order comments Eosinophils Absolute 0.2 0.0 - 0.4 X10*3/uL See order comments Basophils Absolute 0.1 0.0 - 0.2 X10*3/uL See order comments NRBC Absolute 0.000 0.0 - 0.012 X10*3/uL See order comments 01/27/2025 10:3 1 AM EDT 01/27/2025 10:31 AM EDT us Hubert Lin MD LAB BLOOD ORDERABLES Final Re sult Performing Organization Address [facility] Phone Number [place] See order comments [place] [address] * (ABNORMAL) BUN (01/27/2025 10:31 AM EDT) BUN 21(H) 9 - 16 mg/dL See order comments 01/27/2025 10:3 1 AM EDT 01/27/2025 10:31 AM EDT us Hubert Lin MD LAB BLOOD ORDERABLES Final Re sult Performing Organization Address [facility] Phone Number [place] See order comments [place] [address] * Phosphorus (01/27/2025 10:31 AM EDT) Phosphorus, Serum 3.7 2.7 - 4.5 mg/dL See order comments Blood (Blood, Venous) 01/27/2025 10:31 AM EDT 01/27/2025 10:31 AM EDT us Hubert Lin MD LAB BLOOD ORDERABLES Final Re sult Performing Organization Address [facility] Phone Number Y[place]IM[place] See order comments [place] [address] * Magnesium (01/27/2025 10:31 AM EDT) Magnesium 2.3 1.6 - 2.6 mg/dL See order comments Blood (Blood, Venous) 01/27/2025 10:31 AM EDT 01/27/2025 10:31 AM EDT us Hubert Lin MD LAB BLOOD ORDERABLES Final Re sult Performing Organization Address [facility] Phone Number [place] See order comments [place] [address] * Calcium (01/27/2025 10:31 AM EDT) Calcium 9.2 8.4 - 10.2 mg/dL See order comments Blood (Blood, Venous) 01/27/2025 10:31 AM EDT 01/27/2025 10:31 AM EDT Hubert Lin MD LAB BLOOD ORDERABLES Final Re sult Performing Organization Address [facility] de Phone Number YAKIM[place] See order comments [place] [address] * Albumin (01/27/2025 10:31 AM EDT) Albumin 3.7 3.5 - 5.0 g/dL See order comments Blood (Blood, Venous) 01/27/2025 10:31 AM EDT 01/27/2025 10:31 AM EDT us Hubert Lin MD LAB BLOOD ORDERABLES Final Re sult Performing Organization Address [facility] Phone Number [place] See order comments [place] [address] * (ABNORMAL) Electrolyte panel (01/27/2025 10:31 AM EDT) Sodium 141 135 - 145 mmol/L See order comments Potassium 4.4 3.3 - 5.1 mmol/L See order comments Chloride 108 96 - 108 mmol/L See order comments Bicarbonate (CO2) 28 22 - 29 mmol/L See order comments Anion Gap 9(L) 12 - 20 See order comments 01/27/2025 10:3 1 AM EDT 01/27/2025 10:31 AM EDT us Hubert Lin MD LAB BLOOD ORDERABLES Final Re sult Performing Organization Address [facility] de Phone Number YAKIMA See order comments [place] [address] * Hemoglobin A1c (03/16/2020 8:33 AM EDT) Hemoglobin A1C 6.8 % YAKIMA Comment: ?Hemoglobin A1C Reference Range ? Adults: [...] average glucose, using the formula of the A0Q-Ariuxkq Average Glucose study (ADAG), Diabetes Care, Vol.31,#8, Jun. 2007 03/16/2020 8:33 AM EDT us Fadi Craig MD LAB BLOOD ORDERABLES Final Result [place] from Last 3 Months or Most Recently Relevant to Health Maintenance Insurance [facility]
--- NOTE | 2025-02-23 08:33 | MHC.PC.OV ---
Vital Signs 02/23/25 08:42 Height 5 ft 1 in Weight 212 lb 2 oz BMI 40.1 BP 130/80 Blood Pressure Location Lt brachial Position Sitting Respiration 14 Pulse 61 Pulse Source Pulse Oximeter Temp 97.6 F Temp Source Oral Pulse Oximetry (%) 98 Oxygen Delivery Method Room Air Intake Visit Reasons: f/u diabetes Intake Note: patient is scheduled for dm follow up Medical Billing Representative Required: No Allergies LEFTY Inhibitors [Lefty Inhibitors] Allergy (Severe, Verified 02/23/25 08:34) SWELLING beta blockers Allergy (Severe, Verified 02/23/25 08:34) leg swelling oxycodone [OXYCODONE] Allergy (Severe, Verified 02/23/25 08:34) NAUSEA & VOMITING/FATIGUE rivaroxaban [From XARELTO] Allergy (Severe, Verified 02/23/25 08:34) severe swelling semaglutide [From Ozempic] Allergy (Severe, Verified 02/23/25 08:34) Swelling cat dander Allergy (Intermediate, Verified 02/23/25 08:34) + allergy tesy grass pollen Allergy (Intermediate, Verified 02/23/25 08:34) + allergy test mold Allergy (Intermediate, Verified 02/23/25 08:34) + allergy test rosuvastatin [From Crestor] Allergy (Intermediate, Verified 02/23/25 08:34) Swelling lovenox Allergy (Severe, Uncoded 08/19/24 11:21) swelling extremeties Medication List - Last Reconciled 02/23/25 by Fadi Craig MD acetaminophen 650 mg (2 x 325 mg) PO Q6H PRN 30 days aliskiren 75 mg (1/2 x 150 mg) PO QAM 90 days atorvastatin 20 mg PO BEDTIME 90 days blood sugar diagnostic As directed blood sugar diagnostic (Accu-Chek SmartView Test Strips) 2 times a day As directed, 90 days blood-glucose meter As directed calcitriol 0.25 mcg PO DAILY cetirizine (Zyrtec) 10 mg PO DAILY PRN compr.stocking,knee,long,large Daily As directed. 30 days. 10-20 mm Hg ergocalciferol (vitamin D2) 1,250 mcg PO Q2W fluoxetine (Prozac) 10 mg PO DAILY 90 days furosemide 20 mg PO DAILY glipizide ER 10 mg PO BID 90 days lancets As directed levothyroxine 50 mcg PO DAILY@0600 90 days lidocaine 5% (Lidoderm) 1 patch topical DAILY PRN miscellaneous medical supply B-Velcro based knee high length Compression Garments and hybrid liners. Compression Class 30-40mmHG. Daily As directed. 999 days nystatin 1 appl topical DIRECTED tirzepatide (Mounjaro) 2.5 mg (0.5 mL) subcut QWEEK 28 days Tobacco use date assessed: 08/19/24 Dental Screening Dental Screen Date: 08/19/24 HPI f/u diabetes HPI Details 79 y/o female presents to f/u diabetes, chronic conditions. Labs drawn 02/11/25. Reviewed labs with pt. Creatinine level 2.03 mg/dL. A1c 8.1%. She is on glipizide 10mg b.i.d. and farxiga. She notes she is no longer on her mounjaro. A1c today 7.8%. Pt reports foot cramps at night along with swelling. [facility], LAT[facility] Medical History Diabetes type 2, controlled Osteoarthritis of left hip Uncontrolled diabetes mellitus with hyperglycemia Shoulder pain, bilateral Lumbar disc disease Sacroiliac joint disease Sleep apnea RBBB (right bundle branch block) CKD (chronic kidney disease) Hyperlipidemia Osteoporosis Hypothyroidism Depression Essential hypertension Surgical History History of hip surgery H/O colonoscopy History of tonsillectomy History of total right knee replacement (TKR) History of breast biopsy History of total left knee replacement (TKR) Family History Father CAD (coronary artery disease) CVD (cardiovascular disease) Mother Colon cancer Brother Cancer of prostate Throat cancer Tongue cancer Social History (Updated 08/19/24 @ 11:25 by LOYDA Porter) Household Members: None Housing: House Are you a primary rn home care to a significant other at home: No Do you presently have visiting nurse or other home services: Yes (Melani MITCHELL) Alcohol intake: current Alcohol intake frequency: holidays/special occasions only Patient Tobacco Use Status: Former Tobacco user Tobacco use type: Cigarette Years Smoked: 5 e-Cigarette/Vaping Use: Never Used Second Hand Smoke Exposure: No Advance Directives Date on File: 03/17/12 service: No 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al status: retired 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al exposures/hazards: No Cognitive needs: No Hearing needs: No Vision needs: No Questionnaire Thrive Questionnaire Date Thrive assessed: 11/23/24 I am a: Patient What is your living situation today?: I have a steady place to live Within the past 12 months, did the food you bought not last and you didn't have the money to get more?: Never true Within the past 12 months, did you worry whether your food would run out before you got money to buy more?: Never true Do you have trouble paying for medicines?: No Do you have trouble getting transportation to medical appointments?: No Do you have trouble paying your heating and electricity bill?: No Do you have trouble taking care of your child, family member or friend?: No Do you have trouble with day-to-day activities such as bathing, preparing meals, shopping, managing finances, etc.?: No Are you currently unemployed and looking for a job?: No Are you interested in more education?: No Please select the resources that you would like help with: None Currently or been in a relationship where the following occur: No concerns reported THRIVE Score: 0 CHARLENE-7 AMB Questionnaire CHARLENE-7 Date CHARLENE - 7 assessed: 08/19/24 Source: Developed by Drs. Aubrey Barbour, Fozia Rod, Tomas Leung and colleagues, with an educational darwin from [employer] ([employer]). Review of Systems Const Denies chills, Denies fatigue, Denies fever(s), Denies headache(s) and Denies weakness ENT Denies dizziness and Denies headache(s) Card Denies dyspnea Resp Denies cough, Denies dyspnea, Denies wheezing and Denies other (shortness of breath) Musc Denies numbness and Denies tingling Neuro Denies dizziness, Denies headache(s), Denies numbness, Denies tingling and Denies weakness Psych Denies anxiety and Denies depression Endo Denies fatigue Aller/Immun Denies wheezing Physical exam (Primary Care) Vital Signs: Last Vital Signs Temp 97.6 F 02/23/25 08:42 Pulse 61 02/23/25 08:42 Resp 14 02/23/25 08:42 BP 130/80 02/23/25 08:42 Pulse Ox 98 02/23/25 08:42 Oxygen Delivery Method Room Air 02/23/25 08:42 BMI result Body Mass Index 40.1 Tobacco/Smoking Status: Tobacco use Status Tobacco use date assessed 08/19/24 02/23/25 08:45 Patient Tobacco Use Status Former Tobacco user 02/23/25 08:45 Tobacco use type Cigarette 02/23/25 08:45 e-Cigarette/Vaping Use Never Used 02/23/25 08:45 Thrive Assessment: Date of Thrive Assessment Date Thrive assessed 11/23/24 02/23/25 08:45 Currently or been in a relationship where the following occur: No concerns reported Const General: well developed; No acute distress Nutritional Appearance: well nourished and obese morbidly obese Orientation/consciousness: patient oriented x3 HENMT Head: Yes normocephalic and Yes atraumatic Eyes General: appearance normal, both eyes and all related structures Pupils: Equal, round and reactive pupils present EOM: EOMs intact bilaterally Resp Effort & Inspection: normal respiratory effort Neuro General: patient oriented x3 and gait normal Cranial nerves: Yes Equal, round and reactive pupils present Extrem Other: Significant?lymphedema?bilateral?lower?extremities Psych Affect: normal affect Coding Level of Care Code Est Pt Level 4 (04785) Diagnoses Diabetes E11.9 Chronic renal failure N18.9 Lymphedema I89.0 Foot cramps R25.2 Assessment & Plan Assessment & Plan (1) Diabetes: Code(s): E11.9 - Type 2 diabetes mellitus without complications Category: Medical Plan: He?was?8.1%?and?repeat?testing?now?7.8%.??Goal?is?less?than?7.0% She?is?maxed?out?on?Farxiga?and?glipizide?though?it?is?unclear?often?she?is?her?glipizide?consistently. She?also?notes?that?she?is?eating?out?multiple?times?per?week. Can?not?take?metformin?due?to?renal?function.??Is?declined?insulins?in?the?past. Yazmin is?currently?too?expensive?for her Will?try?a?low?dose?of?pioglitazone. She?will?let?me?know?if?she?is?having?problems?with?this.??Pioglitazone?could?cause?additional?fluid?retention. (2) Chronic renal failure: Code(s): N18.9 - Chronic kidney disease, unspecified Category: Medical Plan: Renal?function?has?been?improving?slightly Continue?follow-up?with?nephrology?as?recommended (3) Lymphedema: Code(s): I89.0 - Lymphedema, not elsewhere classified Category: Medical Plan: Lower?extremity?edema/lymphedema Elevate?legs?and?continue?compression?stockings. Vascular?is?working?on?getting?her compression?devices (4) Foot cramps: Code(s): R25.2 - Cramp and spasm Category: Medical Plan: Likely?secondary?to?lymphedema Will?hopefully?improve?with?compression?devices
[2025-02-23 08:42] VITALS: BP 130/80; PULSE 61; RESP 14; TEMP 36.4; O2SAT 98; BMI 40.1
== END 2025-02-23 09:21 | disposition home or self-care (01) ==
LOC: HO.HMCFM 08:19
PROVIDERS: PCP Family Medicine; Visit Provider Family Medicine
DX: E11.9 Type 2 diabetes mellitus without complications (principal)

== ENCOUNTER → 2025-02-23 08:18 | Outpatient (BNVA) | payer MEDICARE, SELFPAY | PROVIDERS: PCP Family Medicine; Visit Provider Family Medicine | DX: E11.9 Type 2 diabetes mellitus without complications (principal); N18.9 Chronic kidney disease, unspecified; I89.0 Lymphedema, not elsewhere classified; R25.2 Cramp and spasm | CPT/HCPCS: 83036; 99212 ==

== ENCOUNTER 2025-05-16 07:49 | Outpatient (REF) | payer MEDICARE, SELFPAY ==
--- OUTSIDE RECORDS SUMMARY | 2025-05-16 07:54 | XMS_ITS | Clinical Summary ---
Author Organization [place] [address] Care Team Providers Care Public Health Nutritionist Name Role Phone Physician, No Pcp Primary Care Provider Unavaila ble Active Problems Problem Noted Date Diagnosed Date Lymphedema of both lower extremities 10/12/2024 Encounters Date Type Department Care Team Description 02/21/2025 9:00 AM EDT Treatment [facility] Occupational Therapy [address] [address] Jaqui Easley, OTR/L Lymphatic edema (Primary Dx) from Last [...] 1-dose 75+ series) 2020 COVID-19 Vaccine ( - 2023- season) 2024 09/05/2023, 06/21/2022, 09/03/2021, [...] script for garments has been send to [employer] 01/10 Patient did not receive garments yet. As per [employer] garments on order and should be received [...] able to manage them using a sock giacnarlo shoe management General On track(2024 12:25 PM EDT) Jaqui Allen, OTR/L Note: LTG; Patient will be able to fit into appropriate footwear for [place] 12/13/2024 Progressing Patient reports that she finally is able to see her ankles 01/10 After interruption in therapy 2nd to winter weather patient presents with return of lymph edema in both LE's 02/01/2025 Patient ordered correct size hybrid liners which will decrease / manage edema in both feet 02/21/2025 Patient does fit into regular footwear Insurance MEDICARE [facility] Care Teams Public Health Nutritionist Relationship Specialty Start Date End Date Physician, No Pcp PCP - General 10/12/24
[2025-05-16 09:09] LABS: Estimated Average Glucose 237 mg/dL; Hemoglobin A1c % 9.9 % (<6.0)
[2025-05-16 09:36] LABS: Alanine Aminotransferase 10 U/L (0-31); Albumin Level 3.9 g/dL (3.5-5.0); Alkaline Phosphatase 89 U/L (39-117); Anion Gap 14 (12-20); Aspartate Amino Transferase 16 U/L (5-31); Bilirubin Total 0.6 mg/dL (0.0-1.0); Blood Urea Nitrogen 26 mg/dL (9-16); Calcium 9.6 mg/dL (8.4-10.2); Carbon Dioxide 24 mmol/L (22-29); Chloride 106 mmol/L (96-108); Estimated Glomerular Filt Rate 20; Glucose Fasting 213 mg/dL (60-99); Glucose Random 207 mg/dL (60-115); Potassium 4.3 mmol/L (3.3-5.1); Sodium 140 mmol/L (135-145); Total Protein 6.7 g/dL (6.5-8.0)
== END 2025-05-16 07:50 | disposition home or self-care (01) ==
LOC: HO.LAB 07:49
PROVIDERS: PCP Family Medicine; Visit Provider Family Medicine
DX: Z00.00 Encounter for general adult medical examination without abnormal findings (principal); M79.89 Other specified soft tissue disorders; E11.65 Type 2 diabetes mellitus with hyperglycemia
CPT/HCPCS: 36415; 80053; 83036

== ENCOUNTER 2025-05-18 10:28 | Outpatient (REF) | payer MEDICARE, SELFPAY ==
[2025-05-18 10:37] LABS: Appearance Urine Clear; Glucose Urine UA >=1000 mg/dL (Negative); PH 5.5 (5.0-9.0); Specific Gravity - Urine 1.020 (1.005-1.025); UMIC TRIGGER UACC YES
--- OUTSIDE RECORDS SUMMARY | 2025-05-18 11:05 | XMS_ITS | Clinical Summary ---
Author Organization [facility] [place] [address] Care Team Providers Care Computer Programming Manager Name Role Phone Physician, No Pcp Primary Care Provider Unavaila ble Active Problems Problem Noted Date Diagnosed Date Lymphedema of both lower extremities 10/12/2024 Encounters Date Type Department Care Team Description 02/21/2025 9:00 AM EDT Treatment [facility] Occupational Therapy [address] [address] Jaqui Easley, OTR/L Lymphatic edema [...] script for garments has been send to [employer] 01/10 Patient did not receive garments yet. As per [employer] garments on order and should be received [...] able to fit into appropriate footwear for [place] 12/13/2024 Progressing Patient reports that she finally is able to see her ankles 01/10 After interruption in therapy 2nd to winter weather patient presents with return of lymph edema in both LE's 02/01/2025 Patient ordered correct size hybrid liners which will decrease / manage edema in both feet 02/21/2025 Patient does fit into regular footwear Insurance MEDICARE [facility] Care Teams Computer Programming Manager Relationship Specialty Start Date End Date Physician, No Pcp PCP - General 10/12/24
--- OUTSIDE RECORDS SUMMARY | 2025-05-18 11:05 | XMS_ITS | Patient Health Record ---
Author Organization [facility] Address [address] [place] [address] Care Team Providers Care Head Of Integrated Media Name Role Phone Fadi Craig MD Primary Care Provider Francisco Whittaker Unavailable [phone] Allergies Allergen (clinical drug ingredient) Drug/Non Drug [...] Range Notes HEMOGLOBIN A1C (GLYCOHEMOGLO BIN) Reviewed date:12/14/2024 08:48:51 AM Interpretation: Performing Lab: Notes/Report: HEMOGLOBIN A1C (GLYCOHEMOGLO BIN) Reviewed date:12/14/2024 09:04:27 AM Interpretation: Performing Lab: Notes/Report: HEMOGLOBIN A1C % (HH) 7.2 HEMOGLOBIN A1C (GLYCOHEMOGLO BIN) Reviewed date:04/26/2025 08:52:13 AM Interpretation: Performing Lab: Notes/Report: HEMOGLOBIN A1C % (HH) 7.2 HEMOGLOBIN A1C (GLYCOHEMOGLO BIN) Reviewed date:10/01/2024 09:01:51 AM Interpretation: Performing Lab: Notes/Report: TOTAL HEMOGLOBIN (HGBA1C) 7.2 Reason For Referral No Information Medications Medication SIG (Take, Route, Frequency, Duration) Notes Start Date End Date Status Aliskiren Fumarate 150 MG Oral; Duration: 60 Active CoQ-10 Not-Taking Lasix Active Ammonium Lactate 12 % 1 application to affected area Externally to feet Twice a day; Duration: 30 days Not-Taking FLUoxetine HCl 10 MG 1 capsule Orally Once a day; Duration: 30 day(s) Active Atorvastatin Calcium 20 MG Oral; Duration: 90 Active Vitamin B 12 500 MCG 1 tablet Orally Onc e a day; Duration: 30 day(s) Not-Taking Nystatin 745810 UNIT/GM External; Duration: 14 Active Calcitriol 0.25 MCG Oral; Duration: 90 Active amLODIPine Besylate 5 MG Oral; Duration: 90 Not-Takin g Extra Depth Orthopedic Shoes, (1) Pair With (3) Pair Custom Heat Molded Multidensity Innersoles Dx: NIDDM/PVD(E11.51), Hammertoe Foot Deformity(M20.41,M20 .42), Preulcerative Skin Lesion(s)(L85.1) Wear Daily; Duration: 365 days 04/26/2025 Active Farxiga 10 MG 1 tablet Orally Once a day; Duration: 30 day(s) Active Edema Clinic Referral . . . .; Duration: 365 days 07/23/2024 Active Betamethasone Dipropionate 0.05 % External; Duration: 30 Active glipiZIDE ER 2.5 MG Oral; Duration: 90 2 times monthly Active Triamterene-HCTZ 37.5-25 MG Oral; Duration: 84 Not- Zinc 50 MG 1 tablet Orally Once a day; Duration: 30 day(s) Not-Taking Vitamin D2 Active Tekturna 150 MG Oral; Duration: 30 Not-Taking Levothyroxine Sodium 50 MCG Oral; Duration: 90 Active Amoxicillin 500 MG Oral; Duration: 30 Not-Taking Immunizations Vaccine Route Administration Date Status Comme nts COVID-19 Pfizer BioNTech Vaccine Unknown 09/03/2021 Administered 1st 12/19/2020 2nd 01/09/2021 Influenza Unknown 09/04/2021 Administered Influenza Unknown 08/17/2023 Administered Influenza Unknown 08/17/2024 Administered Social History Tobacco Use: Social History [...] Problem Acquired hammer toe of right foot ([id number] 08195) Other hammer toe(s) (acquired), right foot (M20.41) Active confirmed Response to treatment,Im provement Problem Type 2 diabetes mellitus with diabetic peripheral angiopathy without gangrene (E11.51) Active confirmed Q7(A), Q8(2B), Q9(1B,2C) Problem Acquired hammer toe of left foot ([id number] ) Other hammer toe(s) (acquired), left foot (M20.42) Active confirmed Response to treatment,Im provement Vital Signs Blood pressure diastolic 65 mm Hg 04/26/2025 Height 5 ft 1 in in 04/26/2025 Blood pressure systolic 128 mm Hg 04/26/2025 Weight 200 lbs 04/26/2025 BMI 37.79 kg/m2 04/26/2025 Procedures Procedure Date Ordered Date Performed Result Body Sit e 05981-SPHZWMY NAIL, 6 OR MORE 02/22/2025 N/A 08851-DJZE SKIN LESIONS, 2 TO 4 04/26/2025 N/A 50805-AUPTZJG NAIL, 6 OR MORE 04/26/2025 N/A 70811-TZXXOZQ NAIL, 6 OR MORE 12/14/2024 N/A 16013-KFYJFJP NAIL, 6 OR MORE 07/23/2024 N/A 12569-GLBIWQP NAIL, 6 OR MORE 10/01/2024 N/A Encounters Encounter Location Date Provider Diagnosis [facility] [address] 07/23/2024 Francisco Ang Pain in right toe(s) M79.674 ; Tinea unguium B35.1 ; Pain in left toe(s) M79.675 ; Type 2 diabetes mellitus without complication E11.9 and Edema, lower extremity R60.[facility] [address] 10/01/2024 Francisco Ang Pain in right toe(s) M79.674 ; Tinea unguium B35.1 ; Pain in left toe(s) M79.675 ; Type 2 diabetes mellitus without complication E11.9 and Edema, lower extremity R60.[address] [address] 12/14/2024 Francisco Fry Type 2 diabetes mellitus without complication E11.9 ; Pain in right toe(s) M79.674 ; Tinea unguium B35.1 ; Pain in left toe(s) M79.675 ; Other hammer toe(s) (acquired), right foot M20.41 and Other hammer toe(s) (acquired), left foot M20.[address] [address] 02/22/2025 Francisco Fry Type 2 diabetes mellitus without complication E11.9 ; Pain in right toe(s) M79.674 ; Tinea unguium B35.1 ; Pain in left toe(s) M79.675 and Muscle cramp, nocturnal R25.[address] [address] 04/26/2025 Francisco Fry Pain in right toe(s) M79.674 ; Pain in left toe(s) M79.675 ; Tinea unguium B35.1 ; Other hammer toe(s) (acquired), right foot M20.41 ; Other hammer toe(s) (acquired), left foot M20.42 and Type 2 diabetes mellitus with diabetic peripheral angiopathy without gangrene E11.[address] [address] 03/14/2025 Francisco Fry Assessments Encounter Date Diagnosis (ICD Code) Assessment Notes Treatment Notes Treatment Clinical Notes Section Notes 07/23/2024 Tinea unguium (ICD-10 - B35.1) 07/23/2024 Pain in right toe(s) (ICD-10 - M79.674) 10/01/2024 Pain in right toe(s) (ICD-10 - M79.674) 10/01/2024 Tinea unguium (ICD-10 - B35.1) 12/14/2024 Type 2 diabetes mellitus without complication (ICD-10 - E11.9) 02/22/2025 Type 2 diabetes mellitus without complication (ICD-10 - E11.9) 04/26/2025 Pain in right toe(s) (ICD-10 - M79.674) 02/22/2025 Pain in right toe(s) (ICD-10 - M79.674) 04/26/2025 Pain in left toe(s) (ICD-10 - M79.675) 12/14/2024 Pain in right toe(s) (ICD-10 - M79.674) 10/01/2024 Pain in left toe(s) (ICD-10 - M79.675) 07/23/2024 Pain in left toe(s) (ICD-10 - M79.675) 07/23/2024 Type 2 diabetes mellitus without complication (ICD-10 - E11.9) 12/14/2024 Tinea unguium (ICD-10 - B35.1) 12/14/2024 Pain in left toe(s) (ICD-10 - M79.675) 10/01/2024 Type 2 diabetes mellitus without complication (ICD-10 - E11.9) 02/22/2025 Tinea unguium (ICD-10 - B35.1) 02/22/2025 Pain in left toe(s) (ICD-10 - M79.675) 04/26/2025 Other hammer toe(s) (acquired), right foot (ICD-10 - M20.41) Patient Educated with: DIABETIC FOOT CARE INSTRUCTIONS.p df (DIABETIC FOOT CARE INSTRUCTIONS.p df) 04/26/2025 Tinea unguium (ICD-10 - B35.1) 04/26/2025 Other hammer toe(s) (acquired), left foot (ICD-10 - M20.42) 10/01/2024 Edema, lower extremity (ICD-10 - R60.0) 07/23/2024 Edema, lower extremity (ICD-10 - R60.0) 12/14/2024 Other hammer toe(s) (acquired), right foot (ICD-10 - M20.41) Patient Educated with: DIABETIC FOOT CARE INSTRUCTIONS.p df (DIABETIC FOOT CARE INSTRUCTIONS.p df) 04/26/2025 Type 2 diabetes mellitus with diabetic peripheral angiopathy without gangrene (ICD-10 - E11.51) Q7(A), Q8(2B), Q9(1B,2C) 02/22/2025 Muscle cramp, nocturnal (ICD-10 - R25.2) 12/14/2024 Other hammer toe(s) (acquired), left foot (ICD-10 - M20.42) 12/14/2024 Other 02/22/2025 Other 04/26/2025 Other Plan Of Treatment Pending Test Test Name Order Date 67336-UDEGTIC NAIL, 6 OR MORE 12/22/2020 95969-MTELNWL NAIL, 6 OR MORE 03/23/2021 82530-ZCNWABJ NAIL, 6 OR MORE 06/22/2021 43385-YVLZCFG NAIL, 6 OR MORE 09/11/2021 94940-EWWHVAQ NAIL, 6 OR MORE 11/23/2021 36165-WXWNEUR NAIL, 6 OR MORE 02/12/2022 16669-NGUYLMW NAIL, 6 OR MORE 04/26/2022 78571-OXBSTUT NAIL, 6 OR MORE 07/16/2022 34427-CBQUZDY NAIL, 6 OR MORE 09/24/2022 84196-AJWLKAB NAIL, 6 OR MORE 12/03/2022 25449-BQXGRPX NAIL, 6 OR MORE 02/11/2023 20271-DWMGWSG NAIL, 6 OR MORE 04/15/2023 63002-AHWAMWW NAIL, 6 OR MORE 06/17/2023 86294-CTOYEVV NAIL, 6 OR MORE 08/19/2023 98791-BALTYGN NAIL, 6 OR MORE 02/20/2024 80907-GYIRPGG NAIL, 6 OR MORE 05/14/2024 70338-JAMXJIQ NAIL, 6 OR MORE 07/23/2024 35175-GSVVSXU NAIL, 6 OR MORE 10/01/2024 67715-TLAJOVF NAIL, 6 OR MORE 12/14/2024 82112-PTDCBQN NAIL, 6 OR MORE 02/22/2025 51482-HGHCQUQ NAIL, 6 OR MORE 04/26/2025 77586-CUXNUVO NAIL, 6 OR MORE 10/21/2023 34298-Lokp Destruction, 1-14 10/21/2023 84073-Ylau Destruction, -14 08/19/2023 22970-Khuf Destruction, -14 06/17/2023 38588-Vkbc Destruction, -14 04/15/2023 06080-Aykw Destruction, -14 02/11/2023 90387-Syuu Destruction, 1-14 12/03/2022 63868-VCJB SKIN LESIONS, 2 TO 4 04/26/20 25 Next Appt Details Provider Name:Francisco Fry , 06/28/2025 08:45:00 AM, [address] [place] [address], [phone], Provider Name:Francisco Fry , 08/30/2025 09:15:00 AM, [address] [place] [address], [phone], Insurance Providers Payer Name Payer Address Payer Phone Subscriber Number Group Number Insured Name Patient Relationship to Insured Coverage Start Date Coverage End Date Medicare National [employer] [address] [facility] [address] [id number] Guadalupe Muro Self - patient is the insured [employer] [facility] [address] [place] [address] [id number] Guadalupe Muro Self - patient is the [...] - tripped on cruise vacation 01/06/22 01/24/22 [facility] ER-L humerus-tripped 11/23/21
--- OUTSIDE RECORDS SUMMARY | 2025-05-18 11:05 | XMS_ITS | Clinical Summary ---
Author Organization [facility] Address [address] [place] [address] Phone Care Team Providers Care Band Sawyer Name Role Phone Unavailable Primary Care Provider [...] (seven) days 3 Active ergocalciferol 1.25 MG (82901 UT) capsule TAKE 1 CAPSULE (50,000 UNITS TOTAL) BY MOUTH EVERY 14 DAYS 18 capsule 1 4 Active Farxiga 10 MG tablet TAKE 1 TABLET BY MOUTH EVERY DAY 30 tablet 8 4 Active furosemide (LASIX) 20 MG tablet TAKE 2 TABLETS BY MOUTH EVERY DAY 180 tablet 1 5 Active calcitriol (ROCALTROL) 0.25 MCG capsule TAKE 1 CAPSULE (0.25 MCG TOTAL) BY MOUTH 1 (ONE) TIME EACH DAY 90 capsule 5 08/06/20 25 Active calcitriol (ROCALTROL) 0.25 MCG capsule Take 1 capsule (0.25 mcg total) by mouth 1 (one) time each day 90 capsule 5 05/08/20 Discontinued Active Problems Problem Noted Date Diagnosed Date Chronic kidney disease, stage 4 (severe) 023 Renal osteodystrophy 08/21/2023 Type 2 diabetes mellitus without complication Hypertensive renal disease 04/27/2021 Essential hypertension 04/27/2021 Chronic kidney disease stage 3 04/27/2021 Encounters Date Type Department Care Team Description 05/08/2025 Refill [facility] [address] [place] [address] Hubert Lin MD 04/10/2025 Refill [facility] [address] [place] [address] Hubert Lin MD from Last 3 Months Family History Medical [...] Visit [facility] [address] [place] [phone] Hubert Lin MD [address] [facility] [address] [place] [phone] Health Maintenance Due Date Last Done Comments Pneumococcal Vaccine: 50+ Ye ars (1 of 2 - PCV) 1964 Diabetes: Hemoglobin A1C 02/07/2022 03/16/2020 Diabetes: Ophthalmology [...] EDT) Hemoglobin A1C 6.8 % MIC Comment: Hemoglobin A1C Reference Range Adults: 4.8 - 6.0 % Non diabetic: < 6.0 % Goal: < 7.0 % Additional Action Suggested: > 8.0 % Note: Hemoglobin A1c results are invalid for patients with abnormal amounts of HbF. Blood transfusions may impact the HbA1c concentration in the patient sample. Estimated Average Glucose 148 MG/DL MIC Comment: eAG = Estimated average glucose which is %A1C expressed as average glucose, using the formula of the [id number]-Jfzbkhy Average Glucose study (ADAG), Diabetes Care, Vol.31,#8, Jun. 2007 03/16/2020 8:33 AM EDT us Fadi Craig MD LAB BLOOD ORDERABLES Final Result SAMEERDAVID from Last 3 Months or Most Recently Relevant to Health Maintenance Insurance [facility] Medicare [facility] Medicare
--- OUTSIDE RECORDS SUMMARY | 2025-05-18 11:05 | XMS_ITS | Patient Health Record ---
Author Organization [facility] Address [address] [place] [address] Care Team Providers Care Retail Helper Name Role Phone Fadi Craig Primary Care Provider UnavailAubrey Roman [phone] Allergies Allergen (clinical drug ingredient) Drug/Non Drug [...] Problem Status W/U Status Risk Notes Problem 625692988 Colon cancer screening (Z12.11) Active confirmed Problem 921546782 Encounter for screening for malignant neoplasm of colon (Z12.11) Active confirmed Problem 955842241 History of adenomatous polyp of colon (Z86.010) Active confirmed Problem 170197150 Change in bowel habits (R19.4) Active confirmed Problem Diverticular disease of colon (703850441) Diverticulosis of large intestine without perforation or abscess without bleeding (K57.30) Active confirmed Problem 787886860 Family history o f colon cancer (Z80.0) Active confirmed Plan Of Treatment Future Test Test Name Order Date COLONOSCOPY 07/16/2013 COLONOSCOPY 06/09/2018 COLONOSCOPY 03/11/2023 Insurance Providers Payer Name Payer Address Payer Phone Subscriber Number Group Number Insured Name Patient Relationship to Insured Coverage Start Date Coverage End Date MEDICARE OF [place] [address] [place] [address] [id number] LULU BRANDT Self - patient is the insured [employer] ATT[employer] CLAIMS [address] [place] [address] [id number] LULU BRANDT Self - patient is the insured Medical (General) History Medical History History ICD Code Hypothyroidism Denies [place],CVA,Lung disease Hyperlipidemia HTN 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
[2025-05-18 11:28] LABS: Microalbum/Creatinine Ratio Ur 29.3 ug/mg cr (<30)
== END 2025-05-18 10:29 | disposition home or self-care (01) ==
LOC: HO.LNP 10:28
PROVIDERS: Visit Provider Family Medicine
DX: I10 Essential (primary) hypertension (principal); E11.9 Type 2 diabetes mellitus without complications
CPT/HCPCS: 81001; 82043; 82570

== ENCOUNTER 2025-05-31 08:32 | Outpatient (AMB) | payer MEDICARE, SELFPAY ==
--- OUTSIDE RECORDS SUMMARY | 2025-05-31 08:38 | XMS_ITS | Clinical Summary ---
Author Organization [facility] [place] [address] Care Team Providers Care Builder'S Labourer Name Role Phone Physician, No Pcp Primary Care Provider Unavaila ble Active Problems Problem Noted Date Diagnosed Date Lymphedema of both lower extremities 10/12/2024 Social History Tobacco Use Types Packs/Day Years [...] Annual BMP Blood Test 10/12/2024 Influenza Vaccine (#1) 2025 3, 09/03/2021, 09/07/2019, Additional history exists Falls Risk [...] script for garments has been send to [employer] 01/10 Patient did not receive garments yet. As per [employer] garments on order and should be received [...] able to fit into appropriate footwear for [place] 12/13/2024 Progressing Patient reports that she finally is able to see her ankles 01/10 After interruption in therapy 2nd to winter weather patient presents with return of lymph edema in both LE's 02/01/2025 Patient ordered correct size hybrid liners which will decrease / manage edema in both feet 02/21/2025 Patient does fit into regular footwear Insurance MEDICARE [facility] Care Teams Builder'S Labourer Relationship Specialty Start Date End Date Physician, No Pcp PCP - General 10/12/24
--- OUTSIDE RECORDS SUMMARY | 2025-05-31 08:38 | XMS_ITS | Encounter Summary ---
Author Organization [facility] Address [address] [facility] [address] [place] [address] Phone Care Team Providers Care Rn Cardiology Name Role Phone Unavailable Primary Care Provider Unavailabl e Reason for Visit * Reason Comments Med Refill Encounter Details Date Type Department Care Team (Late st Contact Info) Description 05/28/2025 Refill [facility] [address] [place] [address] Hubert Lin MD [address] [facility] [address] [place] [address] Social History Tobacco Use Types Packs/Day Years [...] Office Visit [facility] [address] [place] [address] Hubert Lin MD [address] [facility] [address] [place] [address] documented as of this encounter Visit Diagnoses Not on filedocumented in this encounter
--- OUTSIDE RECORDS SUMMARY | 2025-05-31 08:38 | XMS_ITS | Patient Health Record ---
Author Organization [facility] Address [address] [place] [address] Care Team Providers Care Bulking Machine Operator Name Role Phone Fadi Craig Primary Care Provider UnavailAubrey Roman [phone] Allergies Allergen (clinical drug ingredient) Drug/Non Drug [...] Problem Status W/U Status Risk Notes Problem 112539280 Colon cancer screening (Z12.11) Active confirmed Problem 753859033 Encounter for screening for malignant neoplasm of colon (Z12.11) Active confirmed Problem 458200076 History of adenomatous polyp of colon (Z86.010) Active confirmed Problem 799223329 Change in bowel habits (R19.4) Active confirmed Problem Diverticular disease of colon (512566105) Diverticulosis of large intestine without perforation or abscess without bleeding (K57.30) Active confirmed Problem 435858808 Family history o f colon cancer (Z80.0) Active confirmed Plan Of Treatment Future Test Test Name Order Date COLONOSCOPY 07/16/2013 COLONOSCOPY 06/09/2018 COLONOSCOPY 03/11/2023 Insurance Providers Payer Name Payer Address Payer Phone Subscriber Number Group Number Insured Name Patient Relationship to Insured Coverage Start Date Coverage End Date MEDICARE OF [place] [address] [place] [address] [id number] LULU BRANDT Self - patient is the insured MED[employer] ATTN CLAIMS [address] [place] [address] [id number] LULU BRANDT Self - patient is the insured Medical (General) History Medical History History ICD Code Hypothyroidism Denies [place],CVA,Lung disease Hyperlipidemia HTN 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
--- OUTSIDE RECORDS SUMMARY | 2025-05-31 08:38 | XMS_ITS | Patient Health Record ---
[facility] Address [address] [place] [address] Care Team Providers Care Electric Tripper Machine Operator Name Role Phone Fadi Craig MD Primary Care Provider Francisco Whittaker Unavailable [phone] Allergies Allergen (clinical drug ingredient) Drug/Non Drug [...] (HGBA1C) 7.2 HEMOGLOBIN A1C (GLYCOHEMOGLO BIN) Reviewed date:04/26/2025 [...] a day; Duration: 30 day(s) Not-Taking Nystatin 123727 UNIT/GM External; Duration: 14 Active Calcitriol 0.25 [...] Problem Acquired hammer toe of right foot (0670317176081 105) Other hammer toe(s) (acquired), right foot (M20.41) Active confirmed Response to treatment,I mprovement Problem Type 2 diabetes mellitus with peripheral angiopathy (521132947) Type 2 diabetes mellitus with diabetic peripheral angiopathy without gangrene (E11.51) Active confirmed Q7(A), Q8(2B), Q9(1B,2C) Problem Acquired hammer toe of left foot (7080331803234 103) Other hammer toe(s) (acquired), left foot (M20.42) Active confirmed Response to treatment,I mprovement Vital Signs Blood pressure diastolic 65 mm Hg 04/26/2025 Height 5 ft 1 in in 04/26/2025 Blood pressure systolic 128 mm Hg 04/26/2025 Weight 200 lbs 04/26/2025 BMI 37.79 kg/m2 04/26/2025 Procedures Procedure Date Ordered Date Performed Result Body Sit e 43216-TKZKOHH NAIL, 6 OR MORE 07/23/2024 N/A 13734-JDQTITY NAIL, 6 OR MORE 10/01/2024 N/A 55190-SEUAESV NAIL, 6 OR MORE 12/14/2024 N/A 44240-MNIRTYY NAIL, 6 OR MORE 02/22/2025 N/A 52808-LIBFSON NAIL, 6 OR MORE 04/26/2025 N/A 36203-EQUM SKIN LESIONS, 2 TO 4 04/26/2025 N/A Encounters Encounter Location Date Provider Diagnosis [facility] [address] 07/23/2024 Francisco Fry Pain in right toe(s) M79.674 ; Tinea unguium B35.1 ; Pain in left toe(s) M79.675 ; Type 2 diabetes mellitus without complication E11.9 and Edema, lower extremity R60.0 [facility] [address] 10/01/2024 Francisco Fry Pain in right toe(s) M79.674 ; Tinea unguium B35.1 ; Pain in left toe(s) M79.675 ; Type 2 diabetes mellitus without complication E11.9 and Edema, lower extremity R60.[address] [address] 12/14/2024 Francisco Fry Type 2 diabetes mellitus without complication E11.9 ; Pain in right toe(s) M79.674 ; Tinea unguium B35.1 ; Pain in left toe(s) M79.675 ; Other hammer toe(s) (acquired), right foot M20.41 and Other hammer toe(s) (acquired), left foot M20.[address] [address] 02/22/2025 Francisco Fry Type 2 diabetes mellitus without complication E11.9 ; Pain in right toe(s) M79.674 ; Tinea unguium B35.1 ; Pain in left toe(s) M79.675 and Muscle cramp, nocturnal R25.[address] [address] 04/26/2025 Francisco Fry Pain in right toe(s) M79.674 ; Pain in left toe(s) M79.675 ; Tinea unguium B35.1 ; Other hammer toe(s) (acquired), right foot M20.41 ; Other hammer toe(s) (acquired), left foot M20.42 and Type 2 diabetes mellitus with diabetic peripheral angiopathy without gangrene E11.[address] [address] 03/14/2025 Francisco Fry Assessments Encounter Date Diagnosis [...] Treatment Pending Test Test Name Order Date 04542-GSBVFOS NAIL, 6 OR MORE 12/22/2020 97167-ODOKSDH NAIL, 6 OR MORE 03/23/2021 93101-XMHDKMC NAIL, 6 OR MORE 06/22/2021 10679-DPRNTUE NAIL, 6 OR MORE 09/11/2021 16448-UHWTDID NAIL, 6 OR MORE 11/23/2021 60900-UCIIEUN NAIL, 6 OR MORE 02/12/2022 28091-MDLYVTO NAIL, 6 OR MORE 04/26/2022 60278-QSFFEZW NAIL, 6 OR MORE 07/16/2022 21337-PPBXFFT NAIL, 6 OR MORE 09/24/2022 35901-UKUMIWH NAIL, 6 OR MORE 12/03/2022 92137-QPALGGO NAIL, 6 OR MORE 02/11/2023 83370-PVBIQZE NAIL, 6 OR MORE 04/15/2023 24994-VHSQPTV NAIL, 6 OR MORE 06/17/2023 06792-MXRNJTC NAIL, 6 OR MORE 08/19/2023 44099-ZWKHKDK NAIL, 6 OR MORE 02/20/2024 53048-QEBIJFP NAIL, 6 OR MORE 05/14/2024 96256-MBPPOHR NAIL, 6 OR MORE 07/23/2024 35842-YWMXFFD NAIL, 6 OR MORE 10/01/2024 57749-ZQEUQTS NAIL, 6 OR MORE 12/14/2024 00866-SDNKFPH NAIL, 6 OR MORE 02/22/2025 65386-VJRSQYJ NAIL, 6 OR MORE 04/26/2025 36557-YVPEBIV NAIL, 6 OR MORE 10/21/2023 86765-Xyeh Destruction, 1-14 10/21/2023 88412-Busw Destruction, 1-14 08/19/2023 66339-Jnvm Destruction, 1-14 06/17/2023 94431-Tnfw Destruction, 1-14 04/15/2023 91800-Ffay Destruction, 1-14 02/11/2023 91040-Jnbp Destruction, 1-14 12/03/2022 19608-IQDC SKIN LESIONS, 2 TO 4 04/26/20 25 Next Appt Details Provider Name:Francisco Fry , 06/28/2025 08:45:00 AM, [address] [place] [address], [phone], Provider Name:Francisco Fry , 08/30/2025 09:15:00 AM, [address] [place] [address], [phone], Insurance Providers Payer Name Payer Address Payer Phone Subscriber Number Group Number Insured Name Patient Relationship to Insured Coverage Start Date Coverage End Date Medicare National Govt Sv[employer] [address] [facility] [place] [address] [id number] Guadalupe Muro Self - patient is the insured Med[employer] Blue Shield [address] [place] [address] [id number] Guadalupe Muro Self - patient is the insured Medical (General) History Medical History History ICD Code Arthritis Back,Hip,and Knee pain Broken bones CAD (Cholesterol) Cataracts Depression Gall bladder problems High blood pressure Kidney disease Osteoporosis Psoriasis Sciatica chronic sinusitis thyroid Mumps Joint implants/screws Transfusions type II diabetes Surgical History Surgery Date(Month/Year) left TKR 2013 right TKR 2014 right TKR revision 2015 Left hip replacement surgery 11/2023 Hospitalization History Reason Date(Month/Year) Orthopedic surgeon- L foot b roken 5th metatarsal - tripped on cruise vacation 01/06/22 01/24/[place] [facility] [place] 11/23/21
--- NOTE | 2025-05-31 08:50 | MHC.PC.OV ---
Vital Signs 05/31/25 08:55 Height 5 ft 1 in Weight 209 lb 6 oz BMI 39.6 BP 130/70 Blood Pressure Location Rt brachial Position Sitting Respiration 14 Pulse 64 Pulse Source Pulse Oximeter Temp 98.0 F Temp Source Oral Pulse Oximetry (%) 98 Oxygen Delivery Method Room Air Intake Visit Reasons: f/u diabetes Intake Note: patient is scheduled to follow up on dm [employer] Ch[employer] Director Required: No Allergies LEFTY Inhibitors (Lefty Inhibitors) Allergy (Severe, Verified 05/31/25 08:51) SWELLING beta blockers Allergy (Severe, Verified 05/31/25 08:51) leg swelling oxycodone (OXYCODONE) Allergy (Severe, Verified 05/31/25 08:51) NAUSEA & VOMITING/FATIGUE rivaroxaban (From XARELTO) Allergy (Severe, Verified 05/31/25 08:51) severe swelling semaglutide (From Ozempic) Allergy (Severe, Verified 05/31/25 08:51) Swelling cat dander Allergy (Intermediate, Verified 05/31/25 08:51) + allergy tesy grass pollen Allergy (Intermediate, Verified 05/31/25 08:51) + allergy test mold Allergy (Intermediate, Verified 05/31/25 08:51) + allergy test rosuvastatin (From Crestor) Allergy (Intermediate, Verified 05/31/25 08:51) Swelling lovenox Allergy (Severe, Uncoded 08/19/24 11:21) swelling extremeties Medication List - Last Reconciled 05/31/25 by Fadi Craig MD acetaminophen 650 mg (2 x 325 mg) PO Q6H PRN 30 days aliskiren 75 mg (1/2 x 150 mg) PO QAM 90 days amoxicillin 2,000 mg (4 x 500 mg) PO ONCE T6-ahajz-T34V17-kkokex-riqcuqbbuk 1.7 mg-400 mcg- 2.4 mcg (Neuriva Plus Brain Performance) caps PO blood sugar diagnostic As directed blood sugar diagnostic (Accu-Chek SmartView Test Strips) 2 times a day As directed, 90 days blood-glucose meter As directed calcitriol 0.25 mcg PO DAILY cetirizine (Zyrtec) 10 mg PO DAILY PRN compr.stocking,knee,long,large Daily As directed. 30 days. 10-20 mm Hg ergocalciferol (vitamin D2) 1,250 mcg PO Q2W fluoxetine (Prozac) 10 mg PO DAILY 90 days furosemide 20 mg PO DAILY lancets As directed levothyroxine 50 mcg PO DAILY@0600 90 days lidocaine 5% (Lidoderm) 1 patch topical DAILY PRN miscellaneous medical supply B-Velcro based knee high length Compression Garments and hybrid liners. Compression Class 30-40mmHG. Daily As directed. 999 days nystatin 1 appl topical DIRECTED pioglitazone 15 mg PO DAILY 90 days tirzepatide (Mounjaro) 2.5 mg (0.5 mL) subcut QWEEK 28 days Tobacco use date assessed: 08/19/24 Dental Screening Dental Screen Date: 08/19/24 HPI f/u diabetes HPI Details 79 y/o female presents to f/u diabetes. Pt limited in meds she can/will use for diabetes. Cannot use metformin due to renal function. Has declined insulins. Maxed out on Farxiga and glipizide ER. Trialing low dose of pioglitazone. Does have lymphedema. Last labs drawn 05/16/25. Creatinine worsened from 2.03 to 2.31. A1c 9.9%. She is no longer on glipizide. Ongoing foot pain, some LE weakness. Reports episode of a fall at the mall while walking. [facility] Medical History Diabetes type 2, controlled Osteoarthritis of left hip Uncontrolled diabetes mellitus with hyperglycemia Shoulder pain, bilateral Lumbar disc disease Sacroiliac joint disease Sleep apnea RBBB (right bundle branch block) CKD (chronic kidney disease) Hyperlipidemia Osteoporosis Hypothyroidism Depression Essential hypertension Surgical History History of hip surgery H/O colonoscopy History of tonsillectomy History of total right knee replacement (TKR) History of breast biopsy History of total left knee replacement (TKR) Family History Father CAD (coronary artery disease) CVD (cardiovascular disease) Mother Colon cancer Brother Cancer of prostate Throat cancer Tongue cancer Social History (Updated 08/19/24 @ 11:25 by LOYDA Porter) Household Members: None Housing: House Are you a primary rn homecare to a significant other at home: No Do you presently have visiting nurse or other home services: Yes (Melani MITCHELL) Alcohol intake: current Alcohol intake frequency: holidays/special occasions only Patient Tobacco Use Status: Former Tobacco user Tobacco use type: Cigarette Years Smoked: 5 e-Cigarette/Vaping Use: Never Used Second Hand Smoke Exposure: No Advance Directives Date on File: 03/17/12 service: No 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al status: retired 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al exposures/hazards: No Cognitive needs: No Hearing needs: No Vision needs: No Questionnaire Thrive Questionnaire Date Thrive assessed: 11/23/24 I am a: Patient What is your living situation today?: I have a steady place to live Within the past 12 months, did the food you bought not last and you didn't have the money to get more?: Never true Within the past 12 months, did you worry whether your food would run out before you got money to buy more?: Never true Do you have trouble paying for medicines?: No Do you have trouble getting transportation to medical appointments?: No Do you have trouble paying your heating and electricity bill?: No Do you have trouble taking care of your child, family member or friend?: No Do you have trouble with day-to-day activities such as bathing, preparing meals, shopping, managing finances, etc.?: No Are you currently unemployed and looking for a job?: No Are you interested in more education?: No Please select the resources that you would like help with: None Currently or been in a relationship where the following occur: No concerns reported THRIVE Score: 0 CHARLENE-7 AMB Questionnaire CHARLENE-7 Date CHARLENE - 7 assessed: 08/19/24 Source: Developed by Drs. Aubrey Barbour, Fozia Rod, Tomas Leung and colleagues, with an educational darwin from [employer]. Review of Systems Const Denies chills, Denies fatigue, Denies fever(s), Denies headache(s) and Denies weakness ENT Denies dizziness and Denies headache(s) Card Denies dyspnea Resp Denies cough, Denies dyspnea, Denies wheezing and Denies other (shortness of breath) Musc Denies numbness and Denies tingling Neuro Denies dizziness, Denies headache(s), Denies numbness, Denies tingling and Denies weakness Psych Denies anxiety and Denies depression Endo Denies fatigue Aller/Immun Denies wheezing Physical exam (Primary Care) Vital Signs: Last Vital Signs Temp 98.0 F 05/31/25 08:55 Pulse 64 05/31/25 08:55 Resp 14 05/31/25 08:55 BP 130/70 05/31/25 08:55 Pulse Ox 98 05/31/25 08:55 Oxygen Delivery Method Room Air 05/31/25 08:55 BMI result Body Mass Index 39.6 Tobacco/Smoking Status: Tobacco use Status Tobacco use date assessed 08/19/24 05/31/25 09:00 Patient Tobacco Use Status Former Tobacco user 05/31/25 09:00 Tobacco use type Cigarette 05/31/25 09:00 e-Cigarette/Vaping Use Never Used 05/31/25 09:00 Thrive Assessment: Date of Thrive Assessment Date Thrive assessed 11/23/24 05/31/25 09:00 Currently or been in a relationship where the following occur: No concerns reported Const General: well developed; No acute distress Nutritional Appearance: well nourished Orientation/consciousness: patient oriented x3 HENMT Head: Yes normocephalic and Yes atraumatic Eyes General: appearance normal, both eyes and all related structures Pupils: Equal, round and reactive pupils present EOM: EOMs intact bilaterally Resp Effort & Inspection: normal respiratory effort Neuro Other: 4/5 LE strength, bilaterally General: patient oriented x3 Cranial nerves: Yes Equal, round and reactive pupils present Psych Affect: normal affect Coding Level of Care Code Est Pt Level 4 (06112) Diagnoses Diabetes E11.9 Foot pain M79.673 Chronic renal failure N18.9 Lower extremity weakness R29.898 Assessment & Plan Assessment & Plan (1) Diabetes: Code(s): E11.9 - Type 2 diabetes mellitus without complications Category: Medical Plan: Patient with diabetes and chronic renal failure presents for follow-up diabetes. A1c is over 9%. Goal is less than 7% She can not take metformin and she declines insulins. Had added pioglitazone to her regimen of Farxiga and glipizide. However, patient has stopped eating like glipizide She had also wanted to use a GLP 1 medication let us withdrawal was declined and was not working well when she had tried. Had tried Ozempic in the past and wants to resume this She will continue pioglitazone and Farxiga and we will add back Ozempic. Close follow-up in 1 month (2) Foot pain: Code(s): M79.673 - Pain in unspecified foot Category: Medical Plan: Left foot pain and previous fracture. Will check x-ray Sending forms for diabetic shoes Will follow-up on x-ray with her next visit 1 month. Will call her sooner of action is required (3) Chronic renal failure: Code(s): N18.9 - Chronic kidney disease, unspecified Category: Medical Plan: GFR decreased from 24 to 20 Encouraged better blood sugar control Will recheck this prior to next visit (4) Lower extremity weakness: Code(s): R29.898 - Other symptoms and signs involving the musculoskeletal system Category: Medical Plan: Patient notes that she had a fall at the mall while she was walking. Walks every day at the mall for exercise. She notes that due to lymphedema her left leg is getting heavier and she does not feel that she has good strength legs. Strength today 4/5 bilaterally in lower extremities Start physical therapy Orders: Orders Hemoglobin A1c Today E11.9 - Type 2 diabetes mellitus without complications, R73.01 - Impaired fasting glucose PT Evaluation and Treatment Today R29.898 - Other symptoms and signs involving the musculoskeletal system XR foot LT min 3V Today M79.673 - Pain in unspecified foot Comprehensive Cornish. Panel Fast Today E11.9 - Type 2 diabetes mellitus without complications, Z00.00 - Encounter for general adult medical examination without abnormal findings Microalbumin, Random (w Creat) Today E11.9 - Type 2 diabetes mellitus without complications, I10 - Essential (primary) hypertension Medications: New semaglutide (Ozempic) for 4 weeks 0.25 mg (0.368 mL) subcut QWEEK 1.472 mL 2RF 28 days E11.9 - Type 2 diabetes mellitus without complications Changed From dapagliflozin propanediol (Farxiga) 10 mg PO DAILY To dapagliflozin propanediol (Farxiga) 10 mg PO DAILY 90 tabs 3RF 90 days Discontinued tirzepatide (Mounjaro) for 4 weeks Discontinued Reason: Doctor's Order 2.5 mg (0.5 mL) subcut QWEEK 28 days 2 mL 1RF
[2025-05-31 08:55] VITALS: BP 130/70; PULSE 64; RESP 14; TEMP 36.7; O2SAT 98; BMI 39.6
== END 2025-05-31 09:32 | disposition home or self-care (01) ==
LOC: HO.HMCFM 08:32
PROVIDERS: PCP Family Medicine; Visit Provider Family Medicine
DX: E11.9 Type 2 diabetes mellitus without complications (principal); M79.673 Pain in unspecified foot; N18.9 Chronic kidney disease, unspecified; R29.898 Other symptoms and signs involving the musculoskeletal system

== ENCOUNTER → 2025-05-31 08:32 | Outpatient (BNVA) | payer MEDICARE, SELFPAY | PROVIDERS: PCP Family Medicine; Visit Provider Family Medicine | DX: E11.9 Type 2 diabetes mellitus without complications (principal); N18.9 Chronic kidney disease, unspecified; R29.898 Other symptoms and signs involving the musculoskeletal system; M79.672 Pain in left foot | CPT/HCPCS: 99212 ==

== ENCOUNTER 2025-06-06 08:29 | Outpatient (REF) | payer MEDICARE, SELFPAY ==
--- NOTE | ~2025-06-06 | XR_ITS ---
EXAMINATION: XR FOOT 3 OR MORE VIEWS LEFT HISTORY: M79.673 - Pain in unspecified foot COMPARISON: Comparison is made with the prior examination dated 01/27/2023. FINDINGS: Three views of the left foot are submitted. Osseous mineralization is normal. There is no fracture or dislocation. Again seen is osteoarthritis of the intertarsal joints and the tarsometatarsal joints. Findings have progressed since the prior study. There is mild narrowing of the interphalangeal joints of the toes. There is a small plantar calcaneal spur. There are vascular calcifications. 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 Electronically signed by: Aubrey Early MD 06/06/2025 10:23 AM EDT
--- OUTSIDE RECORDS SUMMARY | 2025-06-06 08:37 | XMS_ITS | Patient Health Record ---
[facility] Address [address] [place] [address] Care Team Providers Care High School Library Media Specialist Name Role Phone Fadi Craig MD Primary Care Provider Francisco Whittaker Unavailable [phone] Allergies Allergen (clinical drug ingredient) Drug/Non Drug [...] Lab: Notes/Report: HEMOGLOBIN A1C % (HH) 7.2 Reason For Referral No Information Medications [...] a day; Duration: 30 day(s) Not-Taking Nystatin 362704 UNIT/GM External; Duration: 14 Active Calcitriol 0.25 [...] Status Comme nts Influenza Unknown 09/04/2021 Administered Influenza Unknown 08/17/2023 Administered Influenza Unknown 08/17/2024 Administered COVID-19 Pfizer BioNTech Vaccine Unknown 09/03/2021 Administered 1st 12/19/2020 2nd 01/09/2021 Social History Tobacco Use: Social History Observation [...] Problem Acquired hammer toe of right foot (2320543174295 105) Other hammer toe(s) (acquired), right foot (M20.41) Active confirmed Response to treatment,I mprovement Problem Type 2 diabetes mellitus with peripheral angiopathy (301196360) Type 2 diabetes mellitus with diabetic peripheral angiopathy without gangrene (E11.51) Active confirmed Q7(A), Q8(2B), Q9(1B,2C) Problem Acquired hammer toe of left foot (2279617027178 103) Other hammer toe(s) (acquired), left foot (M20.42) Active confirmed Response to treatment,I mprovement Vital Signs Blood pressure diastolic 65 mm Hg 04/26/2025 Height 5 ft 1 in in 04/26/2025 Blood pressure systolic 128 mm Hg 04/26/2025 Weight 200 lbs 04/26/2025 BMI 37.79 kg/m2 04/26/2025 Procedures Procedure Date Ordered Date Performed Result Body Sit e 73651-KCSUDPV NAIL, 6 OR MORE 07/23/2024 N/A 55596-GWTBZSA NAIL, 6 OR MORE 10/01/2024 N/A 93745-BWUKKVE NAIL, 6 OR MORE 12/14/2024 N/A 85207-MJMPOKK NAIL, 6 OR MORE 02/22/2025 N/A 58461-ILZBFKW NAIL, 6 OR MORE 04/26/2025 N/A 00677-WPXM SKIN LESIONS, 2 TO 4 04/26/2025 N/A Encounters Encounter Location Date Provider Diagnosis [facility] [address] 07/23/2024 Francisco Fry Pain in right toe(s) M79.674 ; Tinea unguium B35.1 ; Pain in left toe(s) M79.675 ; Type 2 diabetes mellitus without complication E11.9 and Edema, lower extremity R60.[address] [facility] [address] 10/01/2024 Francisco Fry Pain in right toe(s) M79.674 ; Tinea unguium B35.1 ; Pain in left toe(s) M79.675 ; Type 2 diabetes mellitus without complication E11.9 and Edema, lower extremity R60.[address] [address] 12/14/2024 Francisco Fry Type 2 diabetes mellitus without complication E11.9 ; Pain in right toe(s) M79.674 ; Tinea unguium B35.1 ; Pain in left toe(s) M79.675 ; Other hammer toe(s) (acquired), right foot M20.41 and Other hammer toe(s) (acquired), left foot M20.[address] [address] 02/22/2025 Francisco Fry Type 2 diabetes mellitus without complication E11.9 ; Pain in right toe(s) M79.674 ; Tinea unguium B35.1 ; Pain in left toe(s) M79.675 and Muscle cramp, nocturnal R25.[address] [address] 04/26/2025 Francisco Fry Pain in right toe(s) M79.674 ; Pain in left toe(s) M79.675 ; Tinea unguium B35.1 ; Other hammer toe(s) (acquired), right foot M20.41 ; Other hammer toe(s) (acquired), left foot M20.42 and Type 2 diabetes mellitus with diabetic peripheral angiopathy without gangrene E11.[address] [address] 03/14/2025 Francisco Fry Assessments Encounter Date Diagnosis [...] Treatment Pending Test Test Name Order Date 74689-WHQKHKL NAIL, 6 OR MORE 12/22/2020 11347-WKKFOKU NAIL, 6 OR MORE 03/23/2021 68976-VHZCFFX NAIL, 6 OR MORE 06/22/2021 75968-BRSKJEH NAIL, 6 OR MORE 09/11/2021 18681-YGEVZJU NAIL, 6 OR MORE 11/23/2021 80831-SZLEIKV NAIL, 6 OR MORE 02/12/2022 20942-QYRPKVK NAIL, 6 OR MORE 04/26/2022 47504-XUSKAQS NAIL, 6 OR MORE 07/16/2022 66710-LPFWRGW NAIL, 6 OR MORE 09/24/2022 16082-ZMVGMYJ NAIL, 6 OR MORE 12/03/2022 15421-EMUSAFR NAIL, 6 OR MORE 02/11/2023 70241-FLHNSOQ NAIL, 6 OR MORE 04/15/2023 18837-WTHZPOX NAIL, 6 OR MORE 06/17/2023 79014-MDCEIHG NAIL, 6 OR MORE 08/19/2023 90624-DMVRWXK NAIL, 6 OR MORE 02/20/2024 10990-QFBXONZ NAIL, 6 OR MORE 05/14/2024 55892-QDGBOCX NAIL, 6 OR MORE 07/23/2024 20896-KHUSZRM NAIL, 6 OR MORE 10/01/2024 01201-YSZKXPJ NAIL, 6 OR MORE 12/14/2024 89246-FEQXPXL NAIL, 6 OR MORE 02/22/2025 38758-UDOICVP NAIL, 6 OR MORE 04/26/2025 26884-BSTJQAZ NAIL, 6 OR MORE 10/21/2023 82943-Avvs Destruction, 1-14 10/21/2023 78430-Whdg Destruction, 1-14 08/19/2023 80543-Maxa Destruction, 1-14 06/17/2023 95866-Pend Destruction, 1-14 04/15/2023 86639-Utlf Destruction, 1-14 02/11/2023 33269-Bjjh Destruction, 1-14 12/03/2022 28500-OAWG SKIN LESIONS, 2 TO 4 04/26/20 25 Next Appt Details Provider Name:Francisco Fry , 06/28/2025 08:45:00 AM, [address] [place] [address], [phone], Provider Name:Francisco Fry , 08/30/2025 09:15:00 AM, [address] [place] [address], [phone], Insurance Providers Payer Name Payer Address Payer Phone Subscriber Number Group Number Insured Name Patient Relationship to Insured Coverage Start Date Coverage End Date Medicare National Govt Svcs Inc [address] [place] [address] [id number] Guadalupe Muro Self - patient is the insured [employer] Blue [employer] [address] [place] [address] [phone] [id number] Guadalupe Muro Self - patient is the [...] - tripped on cruise vacation 01/06/22 01/24/22 [facility] ER-L humerus-tripped 11/23/21
--- OUTSIDE RECORDS SUMMARY | 2025-06-06 08:37 | XMS_ITS | Patient Health Record ---
Author Organization [facility] Address [address] [place] [address] Care Team Providers Care Hat Sizer Name Role Phone Fadi Craig Primary Care Provider UnavailAubrey Roman [phone] Allergies Allergen (clinical drug ingredient) Drug/Non Drug [...] Problem Status W/U Status Risk Notes Problem 508141051 Colon cancer screening (Z12.11) Active confirmed Problem 185376038 Encounter for screening for malignant neoplasm of colon (Z12.11) Active confirmed Problem 319552550 History of adenomatous polyp of colon (Z86.010) Active confirmed Problem 676000554 Change in bowel habits (R19.4) Active confirmed Problem Diverticular disease of colon (958805692) Diverticulosis of large intestine without perforation or abscess without bleeding (K57.30) Active confirmed Problem 578184272 Family history o f colon cancer (Z80.0) Active confirmed Plan Of Treatment Future Test Test Name Order Date COLONOSCOPY 07/16/2013 COLONOSCOPY 06/09/2018 COLONOSCOPY 03/11/2023 Insurance Providers Payer Name Payer Address Payer Phone Subscriber Number Group Number Insured Name Patient Relationship to Insured Coverage Start Date Coverage End Date MEDICARE OF [place] [address] [place] [address] [id number] LULU BRANDT Self - patient is the insured [employer] ATTN CLAIMS [address] [place] [address] [id number] LULU BRANDT Self - patient is the insured Medical (General) History Medical History History ICD Code Hypothyroidism Denies NE,CVA,Lung disease Hyperlipidemia HTN 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
--- OUTSIDE RECORDS SUMMARY | 2025-06-06 08:37 | XMS_ITS | Clinical Summary ---
Author Organization [facility] Address [address] [place] [address] Phone Care Team Providers Care Fire Marshal Name Role Phone Unavailable Primary Care Provider [...] (seven) days 3 Active ergocalciferol 1.25 MG (45276 UT) capsule TAKE 1 CAPSULE (50,000 UNITS TOTAL) BY MOUTH EVERY 14 DAYS 18 capsule 1 4 Active furosemide (LASIX) 20 MG tablet TAKE 2 TABLETS BY MOUTH EVERY DAY 180 tablet 1 5 Active calcitriol (ROCALTROL) 0.25 MCG capsule TAKE 1 CAPSULE (0.25 MCG TOTAL) BY MOUTH 1 (ONE) TIME EACH DAY 90 capsule 5 08/06/20 25 Active Farxiga 10 MG tablet TAKE 1 TABLET BY MOUTH EVERY DAY 30 tablet 8 5 Active Farxiga 10 MG tablet TAKE 1 TABLET BY MOUTH EVERY DAY 30 tablet 8 4 05/30/20 25 Discontinued calcitriol (ROCALTROL) 0.25 MCG capsule Take 1 capsule (0.25 mcg total) by mouth 1 (one) time each day 90 capsule 5 05/08/20 25 Discontinued Active Problems Problem Noted Date Diagnosed Date Chronic kidney disease, stage 4 (severe) 023 Renal osteodystrophy 08/21/2023 Type 2 diabetes mellitus without complication Hypertensive renal disease 04/27/2021 Essential hypertension 04/27/2021 Chronic kidney disease stage 3 04/27/2021 Encounters Date Type Department Care Team Description 05/28/2025 Refill [facility] [address] [place] [address] Hubert Lin MD 05/08/2025 Refill [facility] [address] [place] [address] Hubert Lin MD 04/10/2025 Refill [facility] [address] [place] [phone] Hubert Lin MD from Last 3 Months [...] Visit [facility] [address] [place] [address] Hubert Lin MD [address] [facility] [address] [place] [phone] Health Maintenance Due Date Last Done Comments Pneumococcal Vaccine: 50+ Ye ars (1 of 2 - PCV) 1964 Diabetes: Hemoglobin A1C 02/07/2022 03/16/2020 Diabetes: Ophthalmology Exam 02/07/2022 Diabetes: Pedal Pulse Checked 02/07/2022 Diabetes: Sensory Foot Exam 02/07/2022 Diabetes: Visual Foot Exam 02/07/2022 Influenza Vaccine (#1) 2025 07/18/2017 Hepatitis B Vaccine Aged Out No longe [...] average glucose, using the formula of the D4T-Nipwkzt Average Glucose study (ADAG), Diabetes Care, Vol.31,#8, Jun. 2007 03/16/2020 8:33 AM EDT Fadi Craig MD LAB BLOOD ORDERABLES Final Result MIC from Last 3 Months or Most Recently Relevant to Health Maintenance Insurance [facility] Medicare [facility] Medicare
--- OUTSIDE RECORDS SUMMARY | 2025-06-06 08:37 | XMS_ITS | Clinical Summary ---
Author Organization [facility] [place] [address] Care Team Providers Care Tobacco Packing Machine Operator Name Role Phone Physician, No Pcp Primary [...] history exists Cholesterol Screening (Lipid Panel) 09/04/2024 Hepatitis C Screening 09/04/2024 Medicare Annual Wellness Visit 09/04/2024 Osteoporosis Screening (Bone Density Screening) 09/04/2024 Social Influencers of Health Screening 09/04/2024 Diabetes: Blood Sugar Control Test (HGBA1C) 10/12/2024 03/16/2020 Hypertension/CHF/CAD Annual BMP Blood Test 10/12/2024 Depression Screening 11/17/2024 Influenza Vaccine (#1) 2025 3, 09/03/2021, 09/07/2019, [...] script for garments has been send to [facility] 01/10 Patient did not receive garments yet. As per [employer] garments on order and should be received [...] able to fit into appropriate footwear for [place] 12/13/2024 Progressing Patient reports that she finally is able to see her ankles 01/10 After interruption in therapy 2nd to winter weather patient presents with return of lymph edema in both LE's 02/01/2025 Patient ordered correct size hybrid liners which will decrease / manage edema in both feet 02/21/2025 Patient does fit into regular footwear Insurance MEDICARE [facility] Care Teams Tobacco Packing Machine Operator Relationship Specialty Start Date End Date Physician, No Pcp PCP - General 10/12/24
== END 2025-06-06 08:30 | disposition home or self-care (01) ==
LOC: HO.HMGCX 08:29
PROVIDERS: PCP Family Medicine; Visit Provider Family Medicine
DX: M79.672 Pain in left foot (principal)
CPT/HCPCS: 73630

== ENCOUNTER → 2025-06-06 08:36 | Outpatient (BNV) | payer MEDICARE, SELFPAY | PROVIDERS: PCP Family Medicine; Visit Provider Radiology Diagnostic Radiology | DX: M19.072 Primary osteoarthritis, left ankle and foot (principal) | CPT/HCPCS: 73630 ==

== ENCOUNTER 2025-07-05 09:52 | Outpatient (REF) | payer MEDICARE, SELFPAY ==
--- OUTSIDE RECORDS SUMMARY | 2025-07-05 11:01 | XMS_ITS | Patient Health Record ---
Author Organization [facility] Address [address] [place] [address] Care Team Providers Care Activities Counselor Name Role Phone Fadi Craig Primary Care Provider UnavailAubrey Roman [phone] Allergies Allergen (clinical drug ingredient) Drug/Non Drug [...] Problem Status W/U Status Risk Notes Problem 907491179 Colon cancer screening (Z12.11) Active confirmed Problem 497433639 Encounter for screening for malignant neoplasm of colon (Z12.11) Active confirmed Problem 271522074 History of adenomatous polyp of colon (Z86.010) Active confirmed Problem 272207751 Change in bowel habits (R19.4) Active confirmed Problem Diverticular disease of colon (462184216) Diverticulosis of large intestine without perforation or abscess without bleeding (K57.30) Active confirmed Problem 664572566 Family history o f colon cancer (Z80.0) Active confirmed Plan Of Treatment Future Test Test Name Order Date COLONOSCOPY 07/16/2013 COLONOSCOPY 06/09/2018 COLONOSCOPY 03/11/2023 Insurance Providers Payer Name Payer Address Payer Phone Subscriber Number Group Number Insured Name Patient Relationship to Insured Coverage Start Date Coverage End Date MEDICARE OF [place] [address] [place] [address] [id number] LULU BRANDT Self - patient is the insured [employer] ATTN CLAIMS [address] [place] [address] [id number] LULU BRANDT Self - patient is the insured Medical (General) History Medical History History ICD Code Hypothyroidism Denies HI,CVA,Lung disease Hyperlipidemia HTN 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
--- OUTSIDE RECORDS SUMMARY | 2025-07-05 11:01 | XMS_ITS | Clinical Summary ---
Author Organization [facility] [place] [address] Care Team Providers Care Information Services Consultant Name Role Phone Physician, No Pcp Primary [...] script for garments has been send to [facility] 01/10 Patient did not receive garments yet. As per [facility] garments on order and should be received [...] able to fit into appropriate footwear for [employer] 12/13/2024 Progressing Patient reports that she finally is able to see her ankles 01/10 After interruption in therapy 2nd to winter weather patient presents with return of lymph edema in both LE's 02/01/2025 Patient ordered correct size hybrid liners which will decrease / manage edema in both feet 02/21/2025 Patient does fit into regular footwear Insurance MEDICARE [facility] Care Teams Information Services Consultant Relationship Specialty Start Date End Date Physician, No Pcp PCP - General 10/12/24
--- OUTSIDE RECORDS SUMMARY | 2025-07-05 11:02 | XMS_ITS | Patient Health Record ---
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 Name Role Phone Fadi Craig MD Primary Care Provider Francisco Whittaker Unavailable [phone] Allergies Allergen (clinical drug ingredient) Drug/Non Drug [...] a day; Duration: 30 day(s) Not-Taking Nystatin 867203 UNIT/GM External; Duration: 14 Active Calcitriol 0.25 [...] Problem Acquired hammer toe of right foot (6547068502978 105) Other hammer toe(s) (acquired), right foot (M20.41) Active confirmed Response to treatment,I mprovement Problem Type 2 diabetes mellitus with peripheral angiopathy (309141711) Type 2 diabetes mellitus with diabetic peripheral angiopathy without gangrene (E11.51) Active confirmed Q7(A), Q8(2B), Q9(1B,2C) Problem Acquired hammer toe of left foot (6021526701053 103) Other hammer toe(s) (acquired), left foot (M20.42) Active confirmed Response to treatment,I mprovement Vital Signs Blood pressure diastolic 65 mm Hg 04/26/2025 Height 5 ft 1 in in 04/26/2025 Blood pressure systolic 128 mm Hg 04/26/2025 Weight 200 lbs 04/26/2025 BMI 37.79 kg/m2 04/26/2025 Procedures Procedure Date Ordered Date Performed Result Body Sit e 52307-[id number] NAIL, 6 OR MORE 07/23/2024 N/A 92223-OJYFSON NAIL, 6 OR MORE 10/01/2024 N/A 90381-IMXUDKT NAIL, 6 OR MORE 12/14/2024 N/A 31726-JKKIGKT NAIL, 6 OR MORE 02/22/2025 N/A 30100-OPZJHGE NAIL, 6 OR MORE 04/26/2025 N/A 82957-TSMV SKIN LESIONS, 2 TO 4 04/26/2025 N/A Encounters Encounter Location Date Provider Diagnosis [facility] [address] 07/23/2024 Francisco Fry Pain in right toe(s) M79.674 ; Tinea unguium B35.1 ; Pain in left toe(s) M79.675 ; Type 2 diabetes mellitus without complication E11.9 and Edema, lower extremity R60.[address] [facility] [address] 10/01/2024 Francisco Fry Pain in right toe(s) M79.674 ; Tinea unguium B35.1 ; Pain in left toe(s) M79.675 ; Type 2 diabetes mellitus without complication E11.9 and Edema, lower extremity R60.[address] [address] 12/14/2024 Francisco Fry Type 2 diabetes mellitus without complication E11.9 ; Pain in right toe(s) M79.674 ; Tinea unguium B35.1 ; Pain in left toe(s) M79.675 ; Other hammer toe(s) (acquired), right foot M20.41 and Other hammer toe(s) (acquired), left foot M20.[address] [address] 02/22/2025 Francisco Fry Type 2 diabetes mellitus without complication E11.9 ; Pain in right toe(s) M79.674 ; Tinea unguium B35.1 ; Pain in left toe(s) M79.675 and Muscle cramp, nocturnal R25.[address] [address] 04/26/2025 Francisco Fry Pain in right toe(s) M79.674 ; Pain in left toe(s) M79.675 ; Tinea unguium B35.1 ; Other hammer toe(s) (acquired), right foot M20.41 ; Other hammer toe(s) (acquired), left foot M20.42 and Type 2 diabetes mellitus with diabetic peripheral angiopathy without gangrene E11.[address] [address] 03/14/2025 Francisco Fry Assessments Encounter Date Diagnosis [...] Treatment Pending Test Test Name Order Date 68285-UYFHXZP NAIL, 6 OR MORE 12/22/2020 04191-OXYSKSV NAIL, 6 OR MORE 03/23/2021 42127-BOWHWWL NAIL, 6 OR MORE 06/22/2021 17428-EAVCOKG NAIL, 6 OR MORE 09/11/2021 52507-MUJGUNO NAIL, 6 OR MORE 11/23/2021 64737-NMFCJTT NAIL, 6 OR MORE 02/12/2022 67439-CLFCSCL NAIL, 6 OR MORE 04/26/2022 65808-JNAQDFT NAIL, 6 OR MORE 07/16/2022 49120-IUSNAHB NAIL, 6 OR MORE 09/24/2022 76438-SQLCDEE NAIL, 6 OR MORE 12/03/2022 42534-RZYLMVJ NAIL, 6 OR MORE 02/11/2023 96480-YYKAWFP NAIL, 6 OR MORE 04/15/2023 76425-VYLBOHI NAIL, 6 OR MORE 06/17/2023 48537-BOOLSGL NAIL, 6 OR MORE 08/19/2023 79869-LVFGVFV NAIL, 6 OR MORE 02/20/2024 49911-BZUCZNW NAIL, 6 OR MORE 05/14/2024 66215-TQGSLQF NAIL, 6 OR MORE 07/23/2024 92140-CSWASTZ NAIL, 6 OR MORE 10/01/2024 38779-JROGIBL NAIL, 6 OR MORE 12/14/2024 75772-OUUSGUT NAIL, 6 OR MORE 02/22/2025 26075-EOMNRSG NAIL, 6 OR MORE 04/26/2025 33702-JVGMWZN NAIL, 6 OR MORE 10/21/2023 05789-Ebof Destruction, 1-14 10/21/2023 16747-Zynr Destruction, 1-14 08/19/2023 59569-Aigv Destruction, 1-14 06/17/2023 15156-Vope Destruction, 1-14 04/15/2023 40115-Ocsz Destruction, 1-14 02/11/2023 71141-Klkw Destruction, 1-14 12/03/2022 84393-IIIL SKIN LESIONS, 2 TO 4 04/26/20 25 Next Appt Details Provider Name:Francisco Fry , 07/12/2025 10:15:00 AM, [address] [place] [address], [phone], Provider Name:Francisco Fry , 08/30/2025 09:15:00 AM, [address] [place] [address], [phone], Insurance Providers Payer Name Payer Address Payer Phone Subscriber Number Group Number Insured Name Patient Relationship to Insured Coverage Start Date Coverage End Date Medicare [employer] [address] [facility] [place] [address] [id number] Guadalupe Muro Self - patient is the insured [employer] [address] [place] [address] [phone] [id number] Guadalupe Muro Self - patient is the [...] - tripped on cruise vacation 01/06/22 01/24/22 [facility]-L humerus-tripped 11/23/21
--- OUTSIDE RECORDS SUMMARY | 2025-07-05 11:02 | XMS_ITS | Clinical Summary ---
Author Organization [facility] Address [address] [place] [address] Phone Care Team Providers Care Rn Clinical Quality Name Role Phone Unavailable Primary Care Provider [...] (seven) days 05/12/2023 Active ergocalciferol 1.25 MG (99186 UT) capsule TAKE 1 CAPSULE (50,000 UNITS TOTAL) BY MOUTH EVERY 14 DAYS 18 capsule 1 06/07/2024 Active furosemide (LASIX) 20 MG tablet TAKE 2 TABLETS BY MOUTH EVERY DAY 180 tablet 1 04/10/2025 Active calcitriol (ROCALTROL) 0.25 MCG capsule TAKE 1 CAPSULE (0.25 MCG TOTAL) BY MOUTH 1 (ONE) TIME EACH DAY 90 capsule 05/08/2025 Active Farxiga 10 MG tablet TAKE 1 TABLET BY MOUTH EVERY DAY 30 tablet 8 05/30/2025 Active Active Problems Problem Noted Date Diagnosed Date Chronic kidney disease, stage 4 (severe) 023 Renal osteodystrophy 08/21/2023 Type 2 diabetes mellitus without complication Hypertensive renal disease 04/27/2021 Essential hypertension 04/27/2021 Chronic kidney disease stage 3 04/27/2021 Encounters Date Type Department Care Team Description 05/28/2025 Refill [facility] [address] [place] [address] Hubert Lin MD 05/08/2025 Refill [facility] [address] [place] [address] Hubert Lin MD 04/10/2025 Refill [facility] [address] [place] [address] Hubert Lin MD from Last 3 Months [...] Upcoming Encounters Date Type Department Care Team (Latest Contact Info) Description 07/10/2025 Orders Only [facility] [address] [place] [phone] Hubert Lin MD [address] [address] Chronic kidney disease, stage 4 (severe) (HCC); Hypertensive renal disease; Type 2 diabetes mellitus without complication (HCC); Renal osteodystrophy 08/29/2025 3:15 PM EDT Office Visit [facility] [address] [place] [phone] Hubert Lin MD [address] [address] Health Maintenance Due Date Last Done Comments Pneumococcal Vaccine: 50+ Years (1 of 2 - PCV) 1964 Diabetes: Hemoglobin A1C 02/07/2022 03/16/2020 Diabetes: Ophthalmology Exam 02/07/2022 Diabetes: Pedal Pulse Checked 02/07/2022 Diabetes: Sensory Foot Exam 02/07/2022 Diabetes: Visual Foot Exam 02/07/2022 Influenza Vaccine (#1) 2025 4, 08/17/2023, 09/04/2021, Additional history exists Hepatitis B Vaccine Aged Out No longe [...] average glucose, using the formula of the Q1P-Hjamdng Average Glucose study (ADAG), Diabetes Care, Vol.31,#8, Jun. 2007 03/16/2020 8:33 AM EDT us Fadi Craig MD LAB BLOOD ORDERABLES Final Result MIC from Last 3 Months or Most Recently Relevant to Health Maintenance Insurance [facility] Medicare [facility] Medicare
[2025-07-05 11:10] LABS: Alanine Aminotransferase 11 U/L (0-31); Albumin Level 3.9 g/dL (3.5-5.0); Alkaline Phosphatase 80 U/L (39-117); Anion Gap 13 (12-20); Aspartate Amino Transferase 19 U/L (5-31); Blood Urea Nitrogen 28 mg/dL (9-16); Calcium 9.5 mg/dL (8.4-10.2); Carbon Dioxide 26 mmol/L (22-29); Chloride 105 mmol/L (96-108); Estimated Glomerular Filt Rate 20; Potassium 3.8 mmol/L (3.3-5.1); Sodium 140 mmol/L (135-145); Total Protein 6.5 g/dL (6.5-8.0)
[2025-07-05 11:19] LABS: Appearance Urine Clear; Glucose Urine UA 500 mg/dL (Negative); PH 5.5 (5.0-9.0); Specific Gravity - Urine 1.015 (1.005-1.025)
[2025-07-05 11:50] LABS: Microalbum/Creatinine Ratio Ur 30.0 ug/mg cr (<30)
== END 2025-07-05 09:53 | disposition home or self-care (01) ==
LOC: HO.10HDL 09:52
PROVIDERS: Visit Provider Family Medicine
DX: Z00.00 Encounter for general adult medical examination without abnormal findings (principal); E11.9 Type 2 diabetes mellitus without complications; I10 Essential (primary) hypertension
CPT/HCPCS: 36415; 80053; 81003; 82043; 82570

== ENCOUNTER 2025-07-13 15:23 | Outpatient (AMB) | payer MEDICARE, SELFPAY ==
--- OUTSIDE RECORDS SUMMARY | 2025-06-28 04:45 | XMS_ITS ---
Author Organization [facility] Address [address] [place] [address] Care Team Providers Care Nurse Chemical Dependency Name Role Phone Kiara JONES, Fadi Primary Care Provider Francisco Whittaker Unavailable [phone] Murry Encounters Encounter Location Date Provider Diagnosis [address] [address] 06/28/2025 Francisco Fry Plan Of Treatment Next Appt Details Provider Name:Francisco Fry , 10/21/2025 09:00:00 AM, [address] [place] [address], [phone], Provider Name:Francisco Fry , 12/30/2025 09:00:00 AM, [address] [place] [address], [address], Progress Notes * Guadalupe BRANDT ADOB:1944 (79 yo F)Acc No.[id number]:06/28/2025 Progress Note Patient: Ryan YEENevaeh Guadalupe Sanchez Provider: Lilly Fry DPM :1945 A ge:79 Y S ex:Female Date:06/28/2025 Address:[address] [place] Pcp:Fadi Craig MD Subjective: * Chief Complaints: [...] Pending * Provider: Lilly Fry DPM Date: 06/28/2025 Generated for Keiko morales/Jose/Naomi on: 07/13/2025 04:37 PM EDT
--- OUTSIDE RECORDS SUMMARY | 2025-07-12 06:15 | XMS_ITS ---
[facility] Address [address] [place] [address] Care Team Providers Care Practical Nursing Teacher Name Role Phone Fadi Craig MD Primary Care Provider Francisco Whittaker Unavailable [phone] Allergies Allergen (clinical drug ingredient) Drug/Non Drug [...] aggrevated by shoes and causing difficulty standing/walking., ToeIrritation Medications Medication SIG (Take, Route, Frequency, Duration) Notes Start Date End Date Status Tekturna 150 MG Oral; Duration: 30 Not-Taking amLODIPine Besylate 5 MG Oral; Duration: 90 Not-Takin g Zinc 50 MG 1 tablet Orally Once a day; Duration: 30 day(s) Not-Taking Triamterene-HCTZ 37.5-25 MG Oral; Duration: 84 Not-Takin g Amoxicillin 500 MG Oral; Duration: 30 Not-Taking [facility] Referral . . . .; Duration: 365 days 07/23/2024 Active Extra Depth Orthopedic Shoes, (1) Pair With (3) Pair Custom Heat Molded Multidensity Innersoles Dx: NIDDM/PVD(E11.51), Hammertoe Foot Deformity(M20.41,M20 .42), Preulcerative Skin Lesion(s)(L85.1) Wear Daily; Duration: 365 days 04/26/2025 Active Ammonium Lactate 12 % 1 application to affected area Externally to feet Twice a day; Duration: 30 days Not-Taking CoQ-10 Not-Taking Vitamin B 12 500 MCG 1 tablet Orally Onc e a day; Duration: 30 day(s) Not-Taking Calcitriol 0.25 MCG Oral; Duration: 90 Active Nystatin 939219 UNIT/GM External; Duration: 14 Active Betamethasone Dipropionate 0.05 % External; Duration: 30 Active Levothyroxine Sodium 50 MCG Oral; Duration: 90 Active Vitamin D2 Active Lasix Active Aliskiren Fumarate 150 MG Oral; Duration: 60 Active Atorvastatin Calcium 20 MG Oral; Duration: 90 Active FLUoxetine HCl 10 MG 1 capsule Orally Once a day; Duration: 30 day(s) Active glipiZIDE ER 2.5 MG Oral; Duration: 90 2 times monthly Active Farxiga 10 MG 1 tablet Orally Once a day; Duration: 30 day(s) Active Social History Tobacco Use: [...] Signs Height 5 ft 1 in in 07/12/2025 Weight 200 lbs 07/12/2025 BMI 37.79 kg/m2 07/12/2025 Blood pressure systolic 126 mm Hg 07/12/20 25 Blood pressure diastolic 65 mm Hg 025 Procedures Procedure Date Ordered Date Performed Result Body Sit e 06679-HGQMUMI NAIL, 6 OR MORE 07/12/2025 N/A 27118-ZHMP SKIN LESIONS, 2 TO 4 07/12/2025 N/A Encounters Encounter Location Date Provider Diagnosis [facility] [address] [place] [address] 07/12/2025 Francisco Fry Tinea unguium B35.1 ; Type 2 diabetes mellitus with diabetic peripheral angiopathy without gangrene E11.51 ; Pain in right toe(s) M79.674 ; Pain in left toe(s) M79.675 ; Other hammer toe(s) (acquired), right foot M20.41 and Other hammer toe(s) (acquired), left foot M20.42 Assessments Encounter Date Diagnosis (ICD Code) Assessment Notes Treatment Notes Treatment Clinical Notes Section Notes 07/12/2025 Tinea unguium (ICD-10 - B35.1) 07/12/2025 Type 2 diabetes mellitus with diabetic peripheral angiopathy without gangrene (ICD-10 - E11.51) Q7(A), Q8(2B), Q9(1B,2C) 07/12/2025 Pain in right toe(s) (ICD-10 - M79.674) 07/12/2025 Pain in left toe(s) (ICD-10 - M79.675) 07/12/2025 Other hammer toe(s) (acquired), right foot (ICD-10 - M20.41) 07/12/2025 Other hammer toe(s) (acquired), left foot (ICD-10 - M20.42) 07/12/2025 Other Plan Of Treatment Pending Test Test Name Order Date 07617-[id number] NAIL, 6 OR MORE 07/12/2025 30273-ATJT SKIN LESIONS, 2 TO 4 07/12/20 25 Next Appt Details Follow Up: prn, Reason: Provider Name:Francisco Fry , 10/21/2025 09:00:00 AM, [address] [place] [address], [phone], Provider Name:Francisco Fry , 12/30/2025 09:00:00 AM, [address] [place] [address], [phone], Procedure Notes * Category Sub-Category Detail Notes [...] use of a nail nipper and/or dremel-type paint grinder stone mill, to a more viable healthy nail plate [...] to maintain effectiveness in symptomatic relief - 18500 Keratoma Treatment Parring or Cutting o f Benign Hyperkeratotic Lesion(s) (-56) 2-4 Lesions - Due to the at risk nature of the patients medical condition as documented in the exam findings, performance of this keratoderma treatment is medically necessary as its management by an unskilled/untrained nonprofessional would put this patients foot and overall health at risk. Therefore, the benign hyperkeratotic lesions, (2) in total, locations as stated and described in the exam ( SUB MTH (s), 2, B/L ), were pared, and/or cut utilizing a sterile 15 blade, tissue nippers, and/or power dremel instrumentation by the physician of record - 86705, Q8 Progress Notes * Guadalupe BRANDT ADOB:1944 (79 yo F)Acc No.[id number]:07/12/2025 Progress Note Patient: Guadalupe TARANGO A Provider: Lilly Fry DPM :1945 A ge:79 Y S ex:Female Date:07/12/2025 Address: [address] , [id number] Pcp:Fadi Craig MD Subjective: * Chief Complaints: * A t Risk FootcarePainful Nail(s) aggrevated by shoes and causing difficulty standing/walking.Toe Irritation * HPI: A t Risk footcare: Pt States Last PCP Visit: D ate 0 03/02/2025 T oe pain: Treatments: R x shoes. * ROS: G eneral/Constitutional: Nausea d enies. V omiting d enies. H shila Thirst d enies. L oss appetite d enies. C hills d enies. F atigue d enies.?Fever d enies. N ight Sweats d enies. U nexplained weight loss d enies. U nexplained weight gain d enies. H EENTM: Dentures d enies. D izziness d enies. G lasses/contacts a dmits. R etinopathy d enies. B lurred/double vision d enies. T MJ?denies. D ischarge/drainage d enies. I mplants d enies. S ore throat d enies. D ental implants d enies. H yuni of hearing d enies. D ifficulty chewing/swallowing/speaking d enies. N ose bleeds d enies. S ore mouth d enies. ? R espiratory: On Oxygen d enies. P neumonia/pleurisy d enies.?Bronchitis d enies. E mphysema d enies. C oughing d enies. C ough blood?denies. S hortness of breath d enies. W heezing d enies. C ardiovascular: Pacemaker d enies. M CHIP LOFT WORKER d enies. W PW d enies. C HF d enies. H eart attack d enies. S eptal defect d enies. R apid beat d enies. C hest pain d enies. A trial Fib. d enies. M urmur/Palpitations d enies. G astrointestinal: Hemorrhoids a dmits. S tomach/Abdominal pain d enies. D ark blood stool d enies. I rritable bowel d enies. C onstipation d enies. D iarrhea d enies. H ematology: Swelling d enies. C lots d enies. V aricose Veins d enies. B ruising d enies. B leeding problem d enies. G enitourinary: Blood urine d enies. F requent/Painfu/urination/bladder control d enies. K idney stones d enies. I nfection (UTI) d enies. N ephropathy d enies. s ex trans dis (STD) d enies. P rostate d enies. M usculoskeletal: Hammertoes a dmits. B unions d enies. B ack Pain a dmits. M uscle Cramps/ Resting d enies. M uscle cramps / walking d enies.?Generalized aches and pains a dmits. W eakness d enies. I nteg.: Temple d enies. S cars a dmits. C orns/calluses?admits. I ngrown nails a dmits. P ainful nails a dmits. O pen Sores d enies. R ashes d enies. N eurologic: Difficulty sleeping d enies. B rain disorder d enies. N umbness d enies. B alance trouble a dmits. C onfusion d enies. F ainting/blackouts d enies. T ingling d enies. T remors d enies. * Medical History: * Surgical History: l eft TKR 2012right TKR 2014right TKR revision 2015Left hip replacement surgery 11/2023 * Hospitalization/Major Diagno stic Procedure: H ER-L humerus-tripped 11/23/21Orthopedic surgeon- L foot broken 5th metatarsal - tripped on cruise vacation 01/06/22 01/24/22 * Family History: M other: , diagnosed with Other malignant neoplasm of unspecified site, Unspecified essential hypertension. F ather: , diagnosed with Diabetic - NIDDM, Family history of arthritis. P aternal Grand Father: diagnosed with Diabetic - NIDDM. * Social History: T obacco Use: T obacco use other than smoking A re you an other tobacco user? N o Tobacco Control (Standard) T obacco use: N onsmoker A dditional Findings: Tobacco non-user C urrent nonsmoker M iscellaneous: C affeine: no, frequency:, 1-2 cups per day diet soda. Children: no. Exercise: yes, walking. Marital status: single. 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 D rug/Alcohol: A VIANCA-C (Standard) D id you have a drink containing alcohol in the past year? N o P oints 0 I nterpretation N egative * Medications: T akingFarxiga 10 MG Tablet 1 tablet Orally Once a day Lasix Aliskiren Fumarate 150 MG Tablet Oral Atorvastatin Calcium 20 MG Tablet Oral FLUoxetine HCl 10 MG Capsule 1 capsule Orally Once a day glipiZIDE ER 2.5 MG Tablet Extended Release 24 Hour Oral , Notes to Pharmacist: 2 times monthlyLevothyroxine Sodium 50 MCG Tablet Oral Vitamin D2 Calcitriol 0.25 MCG Capsule Oral Nystatin 322794 UNIT/GM Cream External Betamethasone Dipropionate 0.05 % Lotion External Edema Clinic Referral . . . . . Extra Depth Orthopedic Shoes, (1) Pair With (3) Pair Custom Heat Molded Multidensity Innersoles . Dx: NIDDM/PVD(E11.51), Hammertoe Foot Deformity(M20.41,M20.42), Preulcerative Skin Lesion(s)(L85.1) Wear Daily Taking Farxiga 10 MG Tablet 1 tablet [...] Calcitriol 0.25 MCG Capsule Oral Taking Nystatin 780584 UNIT/GM Cream External Taking Betamethasone Dipropionate 0.05 % Lotion External Taking Edema Clinic Referral . . . . . Taking Extra Depth Orthopedic Shoes, (1) Pair With (3) Pair Custom Heat Molded Multidensity Innersoles . Dx: NIDDM/PVD(E11.51), Hammertoe Foot Deformity(M20.41,M20.42), Preulcerative Skin Lesion(s)(L85.1) Wear Daily Not-Taking/PRNAmmonium Lactate 12 % Cream 1 application [...] reviewed and reconciled with the patient * Allergies: X areltoOxycodoneblood pressure medsSulfa AntibioticsLovenoxyes[Allergies Verified] Objective: * Vitals: H t: 5 ft 1 in, Wt:200, BMI: 37.79, Shoe size:8.5, BP:126/65mm Hg, BS:150, Wt-k.72 kg. * P ast Orders: L ab:HEMOGLOBIN A1C (GLYCOHEMOGLOBIN) (Order Date - 02/15/2025) (Collection Date & Time - 04/26/2025 08:51 AM) Value Reference Range HEMOGLOBIN A1C % (HH) 7.2 * Examination: O phthalmology Referral: DIABETES EYE EXAM P rocedure Performed: Nevaeh Richards ate of Exam Performed 0 02/09/2025 D iabetic Retinopathy Screening: Y es R etinal Screening Performed: Y delia F indings of Diabetic Eye Exam: n o retinopathy V ascular: DP PULSES (B): 0 /4, B/L. PT PULSES (B): 0 /4, B/L. CAPILLARY FILL TIME: d elayed, all digits, B/L. TROPHIC CONDITION-TEXTURE/ELASTICITY/TURGOR/HAIR GROWTH (B):?decreased, with sparse to absent hair growth, B/L . TEMPERTURE GRADIENT (C): d ecreased, cool to cool, proximal to distal, B/L. PIGMENTATION: r ubrous, B/L. EDEMA (C): C ONT 4/4 , pitting , with MILD, aching pain , Leg(s) , Ankle(s) , Foot , B/L. CLAUDICATION (C): d enies, B/L. REST PAIN: d enies, B/L. PARESTHESIA (C): a bsent, B/L. BURNING (C): a bsent, B/L. NICHOL'S SIGN: a bsent, B/L. PALPABLE CORDS: a bsent, B/L. N ails: NAILS are: E longated, overgrown, dystrophic, lytic, greater than 3mm thick, discolored and friable with crumbly malodorous subungual debris, with pain on palpation, T1, T2, T4, T5, T7, T9, all other nails not described with characteristics as possessing mycosis are elongated, overgrown, and dystrophic, SAVEAbsent nail plate,TA . D ermatologic: SKIN FINDINGS: S kin exam reveals Keratotic lesion(s) located at, SUB MTH (s), 2, B/L. O rthopedic: DIGITAL DEFORMITIES: D igital contracture, PIPJ, 2-5 B/L, incompl-reducible to push-up test, no over, nor underlapping, no longer, with evidence of shoe producing skin irritation. FOOTWEAR EVALUATION: g ood condition, exhibit proper fit and accommodation for pedal deformities. OT were inspected and noted to be worn, but in good condition giving proper support at the present time. N eurological: SENSORY: N eurological exam demonstrates, reduced vibration sensation, B/L, pain sensation normal, pinprick sensation is normal in the lower extremities, 5.07 monofilament test performed at plantar aspects of 5 varied sites per foot shows sensation reduced, at Forefoot, B/L, Pt denies, anesthesia, burning, paresthesia, tingling, B/L . DEEP TENDON REFLEXES: A chilles , 1/4, B/L. ? G eneral Examination: GENERAL APPEARANCE: R eveals a pleasant, alert, well nourished, well-developed, well hydrated individual, who demonstrates proper attention to hygiene/body habitus, and is in no acute distress, Pt serves as own historian for office visit today. ORIENTED: p erson, place, and time. FOOT EXAM: L ower Extremity Neurological Exam performed:?Yes V isual exam of foot performed: Y es D ate 0 07/12/2025 Footwear Evaluation F ootwear Evaluation performed: Y es Assessment: * Assessment: 1. T ype 2 diabetes mellitus with diabetic peripheral angiopathy without gangrene - E11.51 (Primary) S pecify :Q8 N otes :Q7(A), Q8(2B), Q9(1B,2C) 2 . T inea unguium - B35.1 3 . P ain in right toe(s) - M79.674 4 . P ain in left toe(s) - M79.675 5 . O ther hammer toe(s) (acquired), right foot - M20.41 S pecify :Chronic problem, Stable (1=3,2=4), Response to treatment - Improvement 6 . O ther hammer toe(s) (acquired), left foot - M20.42 S pecify :Chronic problem, Stable (1=3,2=4), Response to treatment - Improvement Plan: * Treatment: 2. T inea unguium P rocedure: 06542-[id number] NAIL, 6 OR MORE * Procedures: D ebride Nail 6-10: Nail debridement D ue to the clinical pathology outlined in the exam findings, performance of this nail treatment is medically necessary as its management by an unskilled/untrained nonprofessional would put this patients foot and overall health at risk. Therefore, debridement to affected nail(s), as described in exam ( T 1, T 2, T 4, T 5, T 7, T 9 ) , was performed exclusively by the physician of record to reduce/remove overall nail length, girth, thickness, subungual debris, and necrotic tissue, by manual and/or electrical means through the use of a nail nipper and/or dremel-type paint grinder stone mill, to a more viable healthy nail plate [...] to maintain effectiveness in symptomatic relief - 33355. K eratoma Treatment: Parring or Cutting of Benign Hyperkeratotic Lesion(s) ( -56) 2-4 Lesions - Due to the at risk nature of the patients medical condition as documented in the exam findings, performance of this keratoderma treatment is medically necessary as its management by an unskilled/untrained nonprofessional would put this patients foot and overall health at risk. Therefore, the benign hyperkeratotic lesions, (2) in total, locations as stated and described in the exam ( S UB MTH (s), 2 , B /L ) , were pared, and/or cut utilizing a sterile 15 blade, tissue nippers, and/or power dremel instrumentation by the physician of record - 69480, Q8. * Procedure Codes: 1 1721 DEBRIDE NAIL, 6 OR MORE, Modifiers: XS 34567 TRIM SKIN LESIONS, 2 TO 4, Modifiers: XS , Q8 * Preventive Medicine: Counseling: D iscussion: - 13: Office or other outpatient visit for the [...] have encouraged the patient to call the office. S hoe Gear Counseling: A thorough inspection of the patients Rxed shoe gear and inserts was performed and findings communicated. We reviewed the many important medical advantages for adhering to regularly wearing these shoe and insert accommodative devices daily as well as reviewed the fact that a failure in accepting these recommendations may be deleterious, unable to prevent, and result in many pedal complications such as skin irritation, skin ulceration, infection, and even loss of toe/foot/leg/or even their life. Time was also spent reviewing the proper foot care techniques including daily skin moisturization, daily foot inspection for any interruption in skin integrity, open lesions, or sign of infection such as redness/malodor/drainage/swelling as well as daily shoe inspection for the presence of trapped foreign bodies in the shoe as well as insert wear. Patient questions re: shoes, inserts, and self foot inspections were answered to their satisfaction as the patient verbally confirmed a full understanding of the above information.? Screening/Special Tests: F all Risk Screening: N o falls in the past year F ALLS: Screening for Future Fall Risk Have you had any falls with injury in the past year? N o * Follow Up: p rn * Images: * Sign off status: Completed true * Provider: Lilly Fry DPM Date: 07/12/2025 Generated for Keiko morales/Jose/Naomi on: 07/13/2025 04:37 PM EDT History and Physical Notes * HPI (History of Present Illness) Category Sub-Category Detail Notes Category Not es Toe pain Treatments: Rx shoes At Risk footcare Pt States Last PCP Visit: Date: Examination Category Sub-Category Detail Notes Category Not es Neurological SENSORY: Neurological exa m demonstrates, reduced [...] at, SUB MTH (s), 2, B/L Orthopedic FOOTWEAR EVALUATION: good condit ion, exhibit proper fit and accommodation for pedal deformities. OT were inspected and noted to be worn, but in good condition giving proper support at the present time DIGITAL DEFORMITIES: Digital contracture , PIPJ, 2-5 B/L, incompl-reducible to push-up test, no over, nor underlapping, no longer, with evidence of shoe producing skin irritation General Examination GENERAL APPEARANCE: Reveals a pleasant, alert, well nourished, well-developed, well hydrated individual, who demonstrates proper attention to hygiene/body habitus, and is in no acute distress, Pt serves as own historian for office visit today FOOT EXAM: Lower Extremity Neurological Exa m performed:: Yes Visual exam of foot performed:: Yes Date: 07/12/2025 ORIENTED: person, place, and t marisel Footwear Evaluation Footwear Evaluation performe d:: Yes Ophthalmology Referral DIABETES EYE EXAM Procedure Perform ed:: Yes Date of Exam Performed: 02/09/2025 Diabetic Retinopathy Screening:: Yes Retinal Screening Performed:: Yes Findings of Diabetic Eye Exam:: no [...] Leg(s) , Ankle(s) , Foot , B/L CLAUDICATION (C): denies, B/L REST PAIN: denies, B/L NICHOL'S SIGN: absent, B/L PALPABLE CORDS: absent, B/L PIGMENTATION: rubrous, B/L PARESTHESIA (C): absent, B/L BURNING (C): absent, B/L Nails NAILS are: Elongated, overg rown, dystrophic, lytic, greater than 3mm thick, discolored and friable with crumbly malodorous subungual debris, with pain on palpation, T1, T2, T4, T5, T7, T9, all other nails not described with characteristics as possessing mycosis are elongated, overgrown, and dystrophic, SAVE Absent nail plate, TA
--- NOTE | 2025-07-13 15:26 | A.OFFPC_ITS ---
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 Required: No Is last menstrual period known: No Post menopausal: No Patient : No Allergies LEFYT Inhibitors (Lefty Inhibitors) Allergy (Severe, Verified 07/13/25 15:36) SWELLING beta blockers Allergy (Severe, Verified 07/13/25 15:36) leg swelling oxycodone (OXYCODONE) Allergy (Severe, Verified 07/13/25 15:36) NAUSEA & VOMITING/FATIGUE rivaroxaban (From XARELTO) Allergy (Severe, Verified 07/13/25 15:36) severe swelling cat dander Allergy (Intermediate, Verified 07/13/25 15:36) + allergy tesy grass pollen Allergy (Intermediate, Verified 07/13/25 15:36) + allergy test mold Allergy (Intermediate, Verified 07/13/25 15:36) + allergy test rosuvastatin (From Crestor) Allergy (Intermediate, Verified 07/13/25 15:36) Swelling lovenox Allergy (Severe, Uncoded 08/19/24 11:21) swelling extremeties Tobacco use date assessed: 07/13/25 Fall risk assessment: 2 + Falls in past year Last assessed Fall Risk: 07/13/25 Dental Screening Dental Screen Date: 07/13/25 Did you have a dental visit in the last 12 months?: Yes Did you have a dental problem in the last 6 months where you did not have access to dental care?: No Was dental information given to patient?: Patient has dentist HPI f/u diabetes HPI Details 79 y/o female presents to f/u diabetes. Labs drawn 07/05/25. Reviewed labs with pt. Fasting glucose 122. Last A1c 05/16/25 9.9%. Pt notes fasting blood sugars have been improving. Blood pressure today 154/76, 76p. Had complaints of foot pain. Recent foot x-ray shows osteoarthritis of intertarsal and tarsometarsal joints with progression since prior study. [facility] Medical History Diabetes type 2, controlled Osteoarthritis of left hip Uncontrolled diabetes mellitus with hyperglycemia Shoulder pain, bilateral Lumbar disc disease Sacroiliac joint disease Sleep apnea RBBB (right bundle branch block) CKD (chronic kidney disease) Hyperlipidemia Osteoporosis Hypothyroidism Depression Essential hypertension Surgical History History of hip surgery H/O colonoscopy History of tonsillectomy History of total right knee replacement (TKR) History of breast biopsy History of total left knee replacement (TKR) Family History Father CAD (coronary artery disease) CVD (cardiovascular disease) Mother Colon cancer Brother Cancer of prostate Throat cancer Tongue cancer Social History (Updated 08/19/24 @ 11:25 by LOYDA Porter) Household Members: None Housing: House Are you a primary direct care specialist to a significant other at home: No Do you presently have visiting nurse or other home services: Yes (Melani MITCHELL) Alcohol intake: current Alcohol intake frequency: holidays/special occasions only Patient Tobacco Use Status: Former Tobacco user Tobacco use type: Cigarette Years Smoked: 5 e-Cigarette/Vaping Use: Never Used Second Hand Smoke Exposure: No Advance Directives Date on File: 03/17/12 Patient : No service: No 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al status: retired 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al exposures/hazards: No Cognitive needs: No Hearing needs: No Vision needs: No Questionnaire Thrive Questionnaire Date Thrive assessed: 11/23/24 I am a: Patient What is your living situation today?: I have a steady place to live Within the past 12 months, did the food you bought not last and you didn't have the money to get more?: Never true Within the past 12 months, did you worry whether your food would run out before you got money to buy more?: Never true Do you have trouble paying for medicines?: No Do you have trouble getting transportation to medical appointments?: No Do you have trouble paying your heating and electricity bill?: No Do you have trouble taking care of your child, family member or friend?: No Do you have trouble with day-to-day activities such as bathing, preparing meals, shopping, managing finances, etc.?: No Are you currently unemployed and looking for a job?: No Are you interested in more education?: No Please select the resources that you would like help with: None Currently or been in a relationship where the following occur: No concerns reported THRIVE Score: 0 CHARLENE-7 AMB Questionnaire CHARLENE-7 Date CHARLENE - 7 assessed: 08/19/24 Source: Developed by Drs. Aubrey Barbour, Fozia Rod, Tomas Leung and colleagues, with an educational darwin from [employer]. Review of Systems Const Denies chills, Denies fatigue, Denies fever(s), Denies headache(s) and Denies weakness ENT Denies dizziness and Denies headache(s) Card Denies dyspnea Resp Denies cough, Denies dyspnea, Denies wheezing and Denies other (shortness of breath) Musc Denies numbness and Denies tingling Neuro Denies dizziness, Denies headache(s), Denies numbness, Denies tingling and Denies weakness Psych Denies anxiety and Denies depression Endo Denies fatigue Aller/Immun Denies wheezing Physical exam (Primary Care) Vital Signs: Last Vital Signs Temp 97.7 F 07/13/25 15:37 Pulse 76 07/13/25 16:35 Resp 16 07/13/25 15:37 BP 154/76 H 07/13/25 16:35 Pulse Ox 99 07/13/25 15:37 Oxygen Delivery Method Room Air 07/13/25 15:37 BMI result Body Mass Index 38.4 Tobacco/Smoking Status: Tobacco use Status Tobacco use date assessed 07/13/25 07/13/25 15:41 Patient Tobacco Use Status Former Tobacco user 07/13/25 15:27 Tobacco use type Cigarette 07/13/25 15:27 e-Cigarette/Vaping Use Never Used 07/13/25 15:27 Thrive Assessment: Date of Thrive Assessment Date Thrive assessed 11/23/24 07/13/25 15:27 Currently or been in a relationship where the following occur: No concerns reported Const General: well developed; No acute distress Nutritional Appearance: well nourished and obese Orientation/consciousness: patient oriented x3 HENMT Head: Yes normocephalic and Yes atraumatic Eyes General: appearance normal, both eyes and all related structures Pupils: Equal, round and reactive pupils present EOM: EOMs intact bilaterally Resp Effort & Inspection: normal respiratory effort Neuro General: patient oriented x3 and gait normal Cranial nerves: Yes Equal, round and reactive pupils present Psych Affect: normal affect Coding Level of Care Code Est Pt Level 4 (38607) Diagnoses Diabetes E11.9 Essential hypertension I10 Swelling of lower extremity M79.89 Foot pain M79.673 Ankle pain, left M25.572 Assessment & Plan Assessment & Plan (1) Diabetes: Code(s): E11.9 - Type 2 diabetes mellitus without complications Category: Medical Plan: Of A1c was 9.9% at last visit. Taking her medications as prescribed Blood sugars have been improving. Fasting blood sugar 122 on labs and patient notes that her fasting blood sugar this morning was 123. Increased Ozempic-otherwise Continue current medication regimen Will follow-up at next visit in August (2) Essential hypertension: Code(s): I10 - Essential (primary) hypertension Category: Medical Plan: Blood pressure is too high. She is on Tekturna She has tried many other medications which she has not tolerated Will try clonidine 0.1 mg b.i.d. - watch for dizziness when standing up quickly (3) Swelling of lower extremity: Code(s): M79.89 - Other specified soft tissue disorders Category: Medical Plan: Ongoing swelling left lower extremity Elevate foot She also has some pain at the ankle joint-see below (4) Foot pain: Code(s): M79.673 - Pain in unspecified foot Category: Medical (5) Ankle pain, left: Code(s): M25.572 - Pain in left ankle and joints of left foot Category: Medical Plan X-ray of left foot and ankle shows significantly worsened arthritis Referred back to or though She can use some Tylenol Elevate foot and use ice/heat Orders: Referrals Orthopedics Referral M25.572 - Pain in left ankle and joints of left foot Medications: New clonidine HCl 0.1 mg PO BID 60 tabs 2RF 30 days Changed From semaglutide (Ozempic) for 4 weeks 0.25 mg (0.368 mL) subcut QWEEK 28 days 1.472 mL 2RF E11.9 - Type 2 diabetes mellitus without complications To semaglutide (Ozempic) for 4 weeks 0.5 mg (0.736 mL) subcut QWEEK 3 mL 2RF 28 days E11.9 - Type 2 diabetes mellitus without complications
[2025-07-13 15:37] VITALS: BP 175/74; PULSE 64; RESP 16; TEMP 36.5; O2SAT 99; BMI 38.4
[2025-07-13 16:35] VITALS: BP 154/76; PULSE 76
--- OUTSIDE RECORDS SUMMARY | 2025-07-13 16:37 | XMS_ITS | Patient Health Record ---
Author Organization [facility] Address [address] [place] [address] Care Team Providers Care Vinyl Dipper Name Role Phone Fadi Craig Primary Care Provider UnavailAubrey Roman [phone] Allergies Allergen (clinical drug ingredient) Drug/Non Drug [...] Problem Status W/U Status Risk Notes Problem 386188937 Colon cancer screening (Z12.11) Active confirmed Problem 534859017 Encounter for screening for malignant neoplasm of colon (Z12.11) Active confirmed Problem 770011234 History of adenomatous polyp of colon (Z86.010) Active confirmed Problem 624318136 Change in bowel habits (R19.4) Active confirmed Problem Diverticular disease of colon (257676793) Diverticulosis of large intestine without perforation or abscess without bleeding (K57.30) Active confirmed Problem 301291131 Family history o f colon cancer (Z80.0) Active confirmed Plan Of Treatment Future Test Test Name Order Date COLONOSCOPY 07/16/2013 COLONOSCOPY 06/09/2018 COLONOSCOPY 03/11/2023 Insurance Providers Payer Name Payer Address Payer Phone Subscriber Number Group Number Insured Name Patient Relationship to Insured Coverage Start Date Coverage End Date MEDICARE OF [place] [address] [place] [address] [id number] LULU BRANDT Self - patient is the insured [employer] CLAIMS [address] [place] [address] [id number] LULU BRANDT Self - patient is the insured Medical (General) History Medical History History ICD Code Hypothyroidism Denies LA,CVA,Lung disease Hyperlipidemia HTN 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
--- OUTSIDE RECORDS SUMMARY | 2025-07-13 16:37 | XMS_ITS | Clinical Summary ---
Author Organization [facility] [place] [address] Care Team Providers Care Multimedia Authoring Specialist Name Role Phone Physician, No Pcp [...] script for garments has been send to [email or web address] 01/10 Patient did not receive garments yet. As per [email or web address] garments on order and should be received [...] able to fit into appropriate footwear for [place] 12/13/2024 Progressing Patient reports that she finally is able to see her ankles 01/10 After interruption in therapy 2nd to winter weather patient presents with return of lymph edema in both LE's 02/01/2025 Patient ordered correct size hybrid liners which will decrease / manage edema in both feet 02/21/2025 Patient does fit into regular footwear Insurance MEDICARE [facility] Care Teams Multimedia Authoring Specialist Relationship Specialty Start Date End Date Physician, No Pcp PCP - General 10/12/24
--- OUTSIDE RECORDS SUMMARY | 2025-07-13 16:38 | XMS_ITS | Encounter Summary ---
Author Organization [facility] Address [address] [facility] [address] [place] [address] Phone Care Team Providers Care Patient Registration Clerk Name Role Phone Unavailable Primary Care Provider Unavailabl e Reason for Referral * Cardiac Services (Routine) - Closed Specialty Diagnoses / Procedures Referred By Contac t Referred To Contact Diagnoses Swelling of lower leg <Left side> Procedures Ultrasound doppler venous leg left Hubert Lin MD Phone: tel: fax: Referral ID Status Reason Start Date Expiration Date Visits Re quested Visits Authorized [id number] Closed 04/06/2024 04/06/2025 1 1 Encounter Details Date Type Department Care Team (Latest Contact Info) Description 04/06/2024 Office Communication [facility] [address] [facility] [address] [place] [phone] Hubert Lin MD [address] [facility] [address] [place] [phone] Swelling of lower leg <Left side> (Primary [...] Visit [facility] [address] [place] [phone] Hubert Lin MD [address] [facility] [address] [place] [phone] Scheduled Orders Name Type Priority Associated Diagnoses Order Schedule Ultrasound doppler venous leg left Vascular Ultrasound Today Swelling of lower leg <Left side> Expected: 04/06/2024, Expires: 04/06/2026 documented as of this encounter Visit Diagnoses Diagnosis Swelling of lower leg <Left side>- Primary documented in this encounter
--- OUTSIDE RECORDS SUMMARY | 2025-07-13 16:38 | XMS_ITS | Patient Health Record ---
[facility] Address [address] [place] [address] Care Team Providers Care Stereotyper Name Role Phone Fadi Craig MD Primary Care Provider Francisco Whittaker Unavailable [phone] Allergies Allergen (clinical drug ingredient) Drug/Non Drug [...] Duration) Notes Start Date End Date Status Calcitriol 0.25 MCG Oral; Duration: 90 Active Tekturna 150 MG Oral; Duration: 30 Not-Taking Nystatin 358895 UNIT/GM External; Duration: 14 Active amLODIPine Besylate 5 MG Oral; Duration: 90 Not-Takin g Betamethasone Dipropionate 0.05 % External; Duration: 30 Active Edema Clinic Referral . . . [...] e a day; Duration: 30 day(s) Not-Taking Farxiga 10 MG 1 tablet Orally Once a day; Duration: 30 day(s) Active Lasix Active Aliskiren Fumarate 150 MG Oral; Duration: 60 Active Atorvastatin Calcium 20 MG Oral; Duration: 90 Active FLUoxetine HCl 10 MG 1 capsule Orally Once a day; Duration: 30 day(s) Active glipiZIDE ER 2.5 MG Oral; Duration: 90 2 times monthly Active Zinc 50 MG 1 tablet Orally Once a day; Duration: 30 day(s) Not-Taking Levothyroxine Sodium 50 MCG Oral; Duration: 90 Active Triamterene-HCTZ 37.5-25 MG Oral; Duration: 84 Not-Takin g Vitamin D2 Active Amoxicillin 500 MG Oral; Duration: 30 [...] Problem Acquired hammer toe of right foot (8217311679140 105) Other hammer toe(s) (acquired), right foot (M20.41) Active confirmed Response to treatment,I mprovement Problem Type 2 diabetes mellitus with peripheral angiopathy (003750312) Type 2 diabetes mellitus with diabetic peripheral angiopathy without gangrene (E11.51) Active confirmed Q7(A), Q8(2B), Q9(1B,2C) Problem Acquired hammer toe of left foot (1530436605810 103) Other hammer toe(s) (acquired), left foot (M20.42) Active confirmed Response to treatment,I mprovement Vital Signs Blood pressure diastolic 65 mm Hg 07/12/2025 Height 5 ft 1 in in 07/12/2025 Blood pressure systolic 126 mm Hg 07/12/2025 Weight 200 lbs 07/12/2025 BMI 37.79 kg/m2 07/12/2025 Procedures Procedure Date Ordered Date Performed Result Body Sit e 85630-SQJPXLL NAIL, 6 OR MORE 07/23/2024 N/A 52639-PGQSFSE NAIL, 6 OR MORE 10/01/2024 N/A 57724-UPEGGOC NAIL, 6 OR MORE 12/14/2024 N/A 18586-LUZFPPR NAIL, 6 OR MORE 02/22/2025 N/A 91648-JEOCFXR NAIL, 6 OR MORE 04/26/2025 N/A 90906-QSIK SKIN LESIONS, 2 TO 4 04/26/2025 N/A 40545-TYWRTLP NAIL, 6 OR MORE 07/12/2025 N/A 34145-NTHR SKIN LESIONS, 2 TO 4 07/12/2025 N/A Encounters Encounter Location Date Provider Diagnosis [facility] [place] [address] [place] [address] 07/23/2024 Francisco Fry Pain in right toe(s) M79.674 ; Tinea unguium B35.1 ; Pain in left toe(s) M79.675 ; Type 2 diabetes mellitus without complication E11.9 and Edema, lower extremity R60.[address] [address] 10/01/2024 Franciscochelsea Fry Pain in right toe(s) M79.674 ; Tinea unguium B35.1 ; Pain in left toe(s) M79.675 ; Type 2 diabetes mellitus without complication E11.9 and Edema, lower extremity R60.[address] [address] 12/14/2024 Francisco Fry Type 2 diabetes mellitus without complication E11.9 ; Pain in right toe(s) M79.674 ; Tinea unguium B35.1 ; Pain in left toe(s) M79.675 ; Other hammer toe(s) (acquired), right foot M20.41 and Other hammer toe(s) (acquired), left foot M20.[address] [address] 02/22/2025 Francisco Fry Type 2 diabetes mellitus without complication E11.9 ; Pain in right toe(s) M79.674 ; Tinea unguium B35.1 ; Pain in left toe(s) M79.675 and Muscle cramp, nocturnal R25.[address] [address] 04/26/2025 Francisco Fry Pain in right toe(s) M79.674 ; Pain in left toe(s) M79.675 ; Tinea unguium B35.1 ; Other hammer toe(s) (acquired), right foot M20.41 ; Other hammer toe(s) (acquired), left foot M20.42 and Type 2 diabetes mellitus with diabetic peripheral angiopathy without gangrene E11.[address] [address] 07/12/2025 Francisco Fry Tinea unguium B35.1 ; Type 2 diabetes mellitus with diabetic peripheral angiopathy without gangrene E11.51 ; Pain in right toe(s) M79.674 ; Pain in left toe(s) M79.675 ; Other hammer toe(s) (acquired), right foot M20.41 and Other hammer toe(s) (acquired), left foot M20.42 [facility] [address] [address] 03/14/2025 Francisco Fry Assessments Encounter Date Diagnosis [...] in right toe(s) (ICD-10 - M79.674) 07/12/2025 Type 2 diabetes mellitus with diabetic peripheral angiopathy without gangrene (ICD-10 - E11.51) Q7(A), Q8(2B), Q9(1B,2C) 07/12/2025 Tinea unguium (ICD-10 - B35.1) 07/12/2025 Pain in right toe(s) (ICD-10 - [...] df) 04/26/2025 Tinea unguium (ICD-10 - B35.1) 07/12/2025 Pain in left toe(s) (ICD-10 - M79.675) 04/26/2025 Other hammer toe(s) (acquired), left foot (ICD-10 - M20.42) 07/12/2025 Other hammer toe(s) (acquired), right foot (ICD-10 - M20.41) 10/01/2024 Edema, lower extremity (ICD-10 - R60.0) 07/23/2024 Edema, lower extremity (ICD-10 - R60.0) 12/14/2024 Other hammer toe(s) (acquired), right foot (ICD-10 - M20.41) Patient Educated with: DIABETIC FOOT CARE INSTRUCTIONS.p df (DIABETIC FOOT CARE INSTRUCTIONS.p df) 04/26/2025 Type 2 diabetes mellitus with diabetic peripheral angiopathy without gangrene (ICD-10 - E11.51) Q7(A), Q8(2B), Q9(1B,2C) 02/22/2025 Muscle cramp, nocturnal (ICD-10 - R25.2) 07/12/2025 Other hammer toe(s) (acquired), left foot (ICD-10 - M20.42) 12/14/2024 Other hammer toe(s) (acquired), left foot (ICD-10 - M20.42) 12/14/2024 Other 02/22/2025 Other 04/26/2025 Other 07/12/2025 Other Plan Of Treatment Pending Test Test Name Order Date 88612-HQSPCME NAIL, 6 OR MORE 12/22/2020 53027-IBVCLML NAIL, 6 OR MORE 03/23/2021 02597-HAAJFRD NAIL, 6 OR MORE 06/22/2021 10206-KADXSWA NAIL, 6 OR MORE 09/11/2021 80041-FFJFISD NAIL, 6 OR MORE 11/23/2021 81893-VAYGCPA NAIL, 6 OR MORE 02/12/2022 10453-KYDHCNM NAIL, 6 OR MORE 04/26/2022 64893-CDDRCVX NAIL, 6 OR MORE 07/16/2022 22096-MQQNFFL NAIL, 6 OR MORE 09/24/2022 39981-BKFBAXM NAIL, 6 OR MORE 12/03/2022 75980-EXVPVGS NAIL, 6 OR MORE 02/11/2023 67569-HXITBQD NAIL, 6 OR MORE 04/15/2023 40901-EPSNYMU NAIL, 6 OR MORE 06/17/2023 64457-SJYAAIN NAIL, 6 OR MORE 08/19/2023 31243-DPZAGBN NAIL, 6 OR MORE 02/20/2024 23274-RLWIIEI NAIL, 6 OR MORE 05/14/2024 56797-IMWGCZJ NAIL, 6 OR MORE 07/23/2024 66403-BXLJIJG NAIL, 6 OR MORE 10/01/2024 34088-PESFHPJ NAIL, 6 OR MORE 12/14/2024 54711-QNWNFQX NAIL, 6 OR MORE 02/22/2025 10825-KNIJVZY NAIL, 6 OR MORE 04/26/2025 56224-ZBVQHSC NAIL, 6 OR MORE 10/21/2023 25323-YAGEWMP NAIL, 6 OR MORE 07/12/2025 92385-Wccq Destruction, 1-14 10/21/2023 24887-Srbu Destruction, 1-14 08/19/2023 60800-Zbvq Destruction, 1-14 06/17/2023 33177-Cngx Destruction, 1-14 04/15/2023 86261-Fbcq Destruction, 1-14 02/11/2023 27254-Faww Destruction, 1-14 12/03/2022 33063-RORR SKIN LESIONS, 2 TO 4 07/12/20 32762-BNJP SKIN LESIONS, 2 TO 4 06/10/20 25 Next Appt Details Provider Name:Francisco Fry , 10/21/2025 09:00:00 AM, [address] [place], [address], Provider Name:Francisco Fry , 12/30/2025 09:00:00 AM, [address] [facility], [place], [address], Insurance Providers Payer Name Payer Address Payer Phone Subscriber Number Group Number Insured Name Patient Relationship to Insured Coverage Start Date Coverage End Date Medicare National Govt [facility] [address] [place] [address] [id number] Guadaulpe Muro Self - patient is the insured [employer] Blue Shield [address] [place] [address] [id number] Guadalupe Muro Self - patient is the [...] - tripped on cruise vacation 01/06/22 01/24/22 [facility] ER-L humerus-tripped 11/23/21
--- OUTSIDE RECORDS SUMMARY | 2025-07-13 16:38 | XMS_ITS | Clinical Summary ---
Author Organization [facility] Address [address] [facility] [facility] [address] [place] [address] Phone Care Team Providers Care Broadcast Designer Name Role Phone Unavailable Primary Care [...] (seven) days 3 Active ergocalciferol 1.25 MG (62908 UT) capsule TAKE 1 CAPSULE (50,000 UNITS TOTAL) BY MOUTH EVERY 14 DAYS 18 capsule 1 4 Active calcitriol (ROCALTROL) 0.25 MCG capsule TAKE 1 CAPSULE (0.25 MCG TOTAL) BY MOUTH 1 (ONE) TIME EACH DAY 90 capsule 5 08/06/20 25 Active Farxiga 10 MG tablet TAKE 1 TABLET BY MOUTH EVERY DAY 30 tablet 8 5 Active furosemide (LASIX) 20 MG tablet TAKE 1 TABLET (20 MG TOTAL) BY MOUTH ONCE DAILY 90 tablet 1 5 Active furosemide (LASIX) 20 MG tablet TAKE 2 TABLETS BY MOUTH EVERY DAY 180 tablet 1 5 07/13/20 25 Discontinued Active Problems Problem Noted Date Diagnosed Date Chronic kidney disease, stage 4 (severe) 023 Renal osteodystrophy 08/21/2023 Type 2 diabetes mellitus without complication Hypertensive renal disease 04/27/2021 Essential hypertension 04/27/2021 Chronic kidney disease stage 3 04/27/2021 Encounters Date Type Department Care Team Description 07/13/2025 [facility] [address] [place] [address] Hubert Lin MD 07/10/2025 Orders Only [facility] [address] [place] [address] Hubert Lin MD Chronic kidney disease, stage 4 (severe) (HCC); Hypertensive renal disease; Type 2 diabetes mellitus without complication (HCC); Renal osteodystrophy 05/28/2025 Refill [facility] [address] [place] [address] Hubert Lin MD 05/08/2025 Refill [facility] [address] [place] [phone] Hubert Lin MD from Last 3 Months [...] Visit [facility] [address] [place] [phone] Hubert Lin MD [address] [facility] [address] [place] [phone] Health Maintenance Due Date Last Done Comments Pneumococcal Vaccine: 50+ Years (1 of 2 - PCV) 1964 Diabetes: Hemoglobin A1C 02/07/2022 03/16/2020 Diabetes: Ophthalmology Exam 02/07/2022 Diabetes: Pedal Pulse Checked 02/07/2022 Diabetes: Sensory Foot Exam 02/07/2022 Diabetes: Visual Foot Exam 02/07/2022 Influenza Vaccine (#1) 2025 , 08/17/2023, 09/04/2021, Additional history exists Hepatitis B [...] average glucose, using the formula of the X4E-Avmlmxv Average Glucose study (ADAG), Diabetes Care, Vol.31,#8, Jun. 2007 03/16/2020 8:33 AM EDT us Fadi Craig MD LAB BLOOD ORDERABLES Final Result MIC from Last 3 Months or Most Recently Relevant to Health Maintenance Insurance [facility] Medicare [facility] Medicare
--- OUTSIDE RECORDS SUMMARY | 2025-07-13 16:38 | XMS_ITS | Encounter Summary ---
Author Organization [facility] Address [address] [address] Phone Care Team Providers Care Table Games Manager Name Role Phone Unavailable Primary Care Provider Unavailabl e Encounter Details Date Type Department Care Team (Late st Contact Info) Description 07/10/2025 Orders Only [facility] [address] [place] [address] Hubert Lin MD [address] [address] Chronic kidney disease, stage 4 (severe) (HCC); Hypertensive renal disease; Type 2 diabetes mellitus without complication (HCC); Renal osteodystrophy Social History Tobacco Use Types Packs/Day Years [...] Visit [facility] [address] [place] [address] Hubert Lin MD [address] [address] documented as of this encounter Visit Diagnoses Diagnosis Chronic kidney disease, stage 4 (severe) (HCC) Hypertensive renal disease Type 2 diabetes mellitus without complication (HCC) Renal osteodystrophy documented in this encounter
--- OUTSIDE RECORDS SUMMARY | 2025-07-13 16:38 | XMS_ITS | Encounter Summary ---
Author Organization [facility] Address [address] [place] [address] Phone Care Team Providers Care Concession Supervisor Name Role Phone Unavailable Primary Care Provider Unavailabl e Reason for Visit * Reason Comments Med Refill Encounter Details Date Type Department Care Team (Late st Contact Info) Description 07/13/2025 Refill [facility] [address] [place] [address] Hubert Lin MD [address] [address] Social History Tobacco Use Types Packs/Day [...] Visit [facility] [address] [place] [address] Hubert Lin MD [address] [address] documented as of this encounter Visit Diagnoses Not on filedocumented in this encounter
== END 2025-07-13 17:05 ==
LOC: HO.HMCFM 15:24
PROVIDERS: PCP Family Medicine; Visit Provider Family Medicine
DX: E11.9 Type 2 diabetes mellitus without complications (principal); I10 Essential (primary) hypertension; M79.89 Other specified soft tissue disorders; M79.673 Pain in unspecified foot; M25.572 Pain in left ankle and joints of left foot

== ENCOUNTER → 2025-07-13 15:23 | Outpatient (BNVA) | payer MEDICARE, SELFPAY | PROVIDERS: PCP Family Medicine; Visit Provider Family Medicine | DX: E11.9 Type 2 diabetes mellitus without complications (principal); I10 Essential (primary) hypertension; M79.89 Other specified soft tissue disorders; M25.572 Pain in left ankle and joints of left foot | CPT/HCPCS: 99212 ==

== ENCOUNTER 2025-08-05 07:00 | Outpatient (RCR) | payer MEDICARE, SELFPAY ==
--- NOTE | 2025-06-30 10:27 | MHC.PT.EP ---
[facility] [place] Office [place] Office [place] Office [address] Supa Alvarado [address] [phone] F: [phone] F: [phone] F: [phone] F: [phone] Physical Therapy Plan of Care Date of Evaluation: 06/30/25 Date of Surgery: n/a Diagnosis: LE weakness Assessment: Patient is a 79 year old female presenting to PT with complaints of LE weakness. Pt reports onset of pain began a long time ago due to allergic reaction to blood thinners after joint replacement surgery. She presents today with impairments in LE strength, balance, gait mechanics. Pt's current occupation is retired, with baseline physical activities including ambulating, stair negotiation, ADLs. Pt expresses fdc goal of getting stronger, and is motivated to work towards this in PT. Clinical presentation today is most consistent with signs and sx associated with LE weakness and pt will benefit from skilled PT 2 week x 4 weeks to address the following problems and impairments noted upon evaluation: LE strength, balance, gait mechanics. These problems limit the patient with the following functional activities: ambulating, stair negotiation, ADLs. The prescribed treatment plan of care is medically necessary. Co-morbidities of T2DM, osteoporosis, R bundle branch block, depression, B TKA, L ANGELA were identified and taken into considerations of plan of care. Pt was educated on HEP, role of PT, prognosis, POC. Frequency and Duration: The patient will be seen 2 x week x 4 weeks Short Term Goals: Pt will demonstrate improved BLE strength by 1/3 grade in 2 weeks. Pt will demonstrate ability to perform tandem stance x 30 sec with min to no sway in 2 weeks. Detention Goals: Pt will demonstrate improved LEFI score by 9 points in 4 weeks for improved functional mobility. Pt will demonstrate ability stand from seated position in a chair without UE support in 4 weeks for improved functional LE strength. Pt will demonstrate improved 30 second chair stand test score by 2 STS in 4 weeks for improved LE endurance. Treatment Plan: Modalities to reduce pain, spasms and effusion. Manual therapy to restore motion and function. Therapeutic exercise to improve strength and flexibility. Neuromuscular re-education for posture and balance. Therapeutic activities to return to functional activities of daily living. Electronically signed by: Purnima Pugh, PT, DPT, ATC Please sign and return to therapist. Thank you for your referral.
--- NOTE | 2025-08-05 07:47 | MHC.PT.DC ---
[facility] [place] Office [place] Office [place] Office [address] Supa Alvarado [address] [phone] F: [phone] F: [phone] F: [phone] F: [phone] Physical Therapy Discharge Report Diagnosis: LE weakness Date of Surgery: n/a Date of Evaluation: 06/30/25 Date of Discharge: 08/05/25 Treatments to Date: 9 Cancellations to Date: 0 No Shows to Date: 0 Discharge Status: Achieved Goals Improved Function Independent with HEP Discharge Summary: 08/05/2025: Pt has made good progress towards her goals and overall is feeling stronger than when she started PT. At time max benefits of PT have been provided and skilled PT is no longer indicated. She is independent and compliant with her HEP. I recommend continuing with her HEP for usp strength maintenance. She is in agreement and understanding of this and our plan for d/c today. Electronically signed by: Purnima Pugh, PT, DPT, ATC Please sign and return to therapist. Thank you for your referral.
== END 2025-08-05 07:47 | disposition home or self-care (01) ==
LOC: HO.PTCHIC 07:00
PROVIDERS: PCP Family Medicine; Visit Provider Family Medicine
DX: R29.898 Other symptoms and signs involving the musculoskeletal system (principal)
CPT/HCPCS: 97110; 97162; 97530

== ENCOUNTER 2025-08-11 07:18 | Outpatient (REF) | payer MEDICARE, SELFPAY ==
--- OUTSIDE RECORDS SUMMARY | 2025-06-28 04:45 | XMS_ITS ---
Author Organization [facility] Address [address] [place] [address] Care Team Providers Care Physician Chief Of Pathology Name Role Phone Kiara JONES, Fadi Primary Care Provider Francisco Whittaker Unavailable [phone] Murry Encounters Encounter Location Date Provider Diagnosis [address] [address] 06/28/2025 Francisco Fry Plan Of Treatment Next Appt Details Provider Name:Francisco Fry , 10/21/2025 09:00:00 AM, [address] [place] [address], [phone], Provider Name:Francisco Fry , 12/30/2025 09:00:00 AM, [address] [place] [address], [address], Progress Notes * Guadalupe BRANDT ADOB:1944 (80 yo F)Acc No.[id number]:06/28/2025 Progress Note Patient: Ryan YEENevaeh Guadalupe Sanchez Provider: Lilly Fry DPM :1945 A ge:79 Y S ex:Female Date:06/28/2025 Address:[address] [place] Pcp:Fdai Craig MD Subjective: * Chief Complaints: * [...] 0 06/28/2025 Generated for Keiko morales/Jose/Naomi on: 0 08/11/2025 07:22 AM EDT
--- OUTSIDE RECORDS SUMMARY | 2025-07-15 05:00 | XMS_ITS ---
Author Organization [facility] Address [address] [place] [address] Care Team Providers Care Disk Sander Name Role Phone Kiara JONES, Fadi Primary Care Provider Francisco Whittaker Unavailable [phone] Murry Encounters Encounter Location Date Provider Diagnosis [address] [address] 07/15/2025 Francisco Fry Plan Of Treatment Next Appt Details Provider Name:Francisco Fry , 10/21/2025 09:00:00 AM, [address] [place] [address], [phone], Provider Name:Francisco Fry , 12/30/2025 09:00:00 AM, [address] [place] [address], [phone], Progress Notes * Guadalupe BRANDT ADOB:1944 (80 yo F)Acc No.[id number]:07/15/2025 Progress Note Patient: Ryan YEENevaeh Guadalupe Sanchez Provider: Lilly Fry DPM :1945 A ge:79 Y S ex:Female Date:07/15/2025 Address:[address] [id number] Pcp:Fadi Craig MD Subjective: * Chief Complaints: [...] 0 07/15/2025 Generated for Keiko morales/Jose/Naomi on: 08/11/2025 07:22 AM EDT
--- OUTSIDE RECORDS SUMMARY | 2025-08-11 07:22 | XMS_ITS | Clinical Summary ---
Author Organization [facility] Address [address] [place] [address] Phone Care Team Providers Care Diesel Maintenance Electrician Name Role Phone Unavailable Primary Care Provider [...] (seven) days 3 Active ergocalciferol 1.25 MG (69139 UT) capsule TAKE 1 CAPSULE (50,000 UNITS TOTAL) BY MOUTH EVERY 14 DAYS 18 capsule 1 4 Active Farxiga 10 MG tablet TAKE 1 TABLET BY MOUTH EVERY DAY 30 tablet 8 5 Active furosemide (LASIX) 20 MG tablet TAKE 1 TABLET (20 MG TOTAL) BY MOUTH ONCE DAILY 90 tablet 1 5 Active calcitriol (ROCALTROL) 0.25 MCG capsule TAKE 1 CAPSULE (0.25 MCG TOTAL) BY MOUTH 1 (ONE) TIME EACH DAY 90 capsule 5 11/02/20 25 Active furosemide (LASIX) 20 MG tablet TAKE 2 TABLETS BY MOUTH EVERY DAY 180 tablet 1 5 07/13/20 25 Discontinued calcitriol (ROCALTROL) 0.25 MCG capsule TAKE 1 CAPSULE (0.25 MCG TOTAL) BY MOUTH 1 (ONE) TIME EACH DAY 90 capsule 5 08/04/20 25 Discontinued Active Problems Problem Noted Date Diagnosed Date Chronic kidney disease, stage 4 (severe) 023 Renal osteodystrophy 08/21/2023 Type 2 diabetes mellitus without complication Hypertensive renal disease 04/27/2021 Essential hypertension 04/27/2021 Chronic kidney disease stage 3 04/27/2021 Encounters Date Type Department Care Team Description 08/04/2025 Refill [facility] [address] [place] [address] Hubert Lin MD 07/13/2025 Refill [facility] [address] [place] [address] Hubert Lin MD 07/10/2025 Orders Only [facility] [address] [place] [address] Hubert Lin MD Chronic kidney disease, stage 4 (severe) (HCC); Hypertensive renal disease; Type 2 diabetes mellitus without complication (HCC); Renal osteodystrophy 05/28/2025 Refill [facility] [address] [place] [place] [phone] Hubert Lin MD from Last 3 Months [...] Visit [facility] [address] [place] [address] Hubert Lin MD [address] [facility] [address] [place] [address] Health Maintenance Due Date Last [...] average glucose, using the formula of the O4O-Lskjwue Average Glucose study (ADAG), Diabetes Care, Vol.31,#8, Jun. 2007 03/16/2020 8:33 AM EDT us Fadi Craig MD LAB BLOOD ORDERABLES Final Result Performing Organization Address City/State/ZIP Co ct Phone Number [facility] from Last 3 Months or Most Recently Relevant to Health Maintenance Insurance [facility] Medicare [facility] Medicare
--- OUTSIDE RECORDS SUMMARY | 2025-08-11 07:22 | XMS_ITS | Patient Health Record ---
Author Organization [facility] Address [address] [place] [address] Care Team Providers Care Crocodile Farmer Name Role Phone Fadi Craig Primary Care Provider UnavailAubrey Roman [phone] Allergies Allergen (clinical drug ingredient) Drug/Non Drug [...] Problem Status W/U Status Risk Notes Problem 034483002 Colon cancer screening (Z12.11) Active confirmed Problem 431924121 Encounter for screening for malignant neoplasm of colon (Z12.11) Active confirmed Problem 326277918 History of adenomatous polyp of colon (Z86.010) Active confirmed Problem 138528433 Change in bowel habits (R19.4) Active confirmed Problem Diverticular disease of colon (690067293) Diverticulosis of large intestine without perforation or abscess without bleeding (K57.30) Active confirmed Problem 202108734 Family history o f colon cancer (Z80.0) Active confirmed Plan Of Treatment Future Test Test Name Order Date COLONOSCOPY 07/16/2013 COLONOSCOPY 06/09/2018 COLONOSCOPY 03/11/2023 Insurance Providers Payer Name Payer Address Payer Phone Subscriber Number Group Number Insured Name Patient Relationship to Insured Coverage Start Date Coverage End Date MEDICARE OF [place] [address] [place] [address] [id number] LULU BRANDT Self - patient is the insured [employer] CLAIMS [address] [place] [address] [id number] LULU BRANDT Self - patient is the insured Medical (General) History Medical History History ICD Code Hypothyroidism Denies [place],CVA,Lung disease Hyperlipidemia HTN 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
--- OUTSIDE RECORDS SUMMARY | 2025-08-11 07:22 | XMS_ITS | Clinical Summary ---
Author Organization [facility] [place] [address] Care Team Providers Care Dairy Clerk Name Role Phone Physician, No Pcp Primary [...] Patients (1 - 1-dose 75+ series) 2020 Cholesterol Screening (Lipid Panel) 09/04/2024 Medicare Annual Wellness Visit 09/04/2024 Osteoporosis Screening (Bone Density Screening) 09/04/2024 Social Influencers of Health Screening 09/04/2024 Diabetes: Blood Sugar Control Test (HGBA1C) 10/12/2024 03/16/2020 Hypertension/CHF/CAD Annual BMP Blood Test 10/12/2024 Depression Screening 11/17/2024 COVID-19 Vaccine ( season) 2025 09/05/2023, 06/21/2022, 09/03/2021, Additional history exists Influenza Vaccine (#1) 2025 3, 09/03/2021, 09/07/2019, [...] script for garments has been [facility] to [facility] 01/10 Patient did not receive garments yet. As per [facility] garments on order and should be received [...] able to fit into appropriate footwear for [facility] 12/13/2024 Progressing Patient reports that she finally is able to see her ankles 01/10 After interruption in therapy 2nd to winter weather patient presents with return of lymph edema in both LE's 02/01/2025 Patient ordered correct size hybrid liners which will decrease / manage edema in both feet 02/21/2025 Patient does fit into regular footwear Insurance MEDICARE [facility] Care Teams Dairy Clerk Relationship Specialty Start Date End Date Physician, No Pcp PCP - General 10/12/24
--- OUTSIDE RECORDS SUMMARY | 2025-08-11 07:22 | XMS_ITS | Patient Health Record ---
Author [facility] Address [address] [place] [address] Care Team Providers Care Customer Service Cashier Name Role Phone Fadi Craig MD Primary Care Provider Francisco Whittaker Unavailable [phone] Allergies Allergen (clinical drug ingredient) Drug/Non Drug [...] 150 MG Oral; Duration: 30 Not-Taking Nystatin 959320 UNIT/GM External; Duration: 14 Active amLODIPine Besylate [...] Problem Acquired hammer toe of right foot (2283336580843 105) Other hammer toe(s) (acquired), right foot (M20.41) Active confirmed Response to treatment,I mprovement Problem Type 2 diabetes mellitus with peripheral angiopathy (867565273) Type 2 diabetes mellitus with diabetic peripheral angiopathy without gangrene (E11.51) Active confirmed Q7(A), Q8(2B), Q9(1B,2C) Problem Acquired hammer toe of left foot (6195868852566 103) Other hammer toe(s) (acquired), left foot (M20.42) Active confirmed Response to treatment,I mprovement Vital Signs Blood pressure diastolic 65 mm Hg 07/12/2025 Height 5 ft 1 in in 07/12/2025 Blood pressure systolic 126 mm Hg 07/12/2025 Weight 200 lbs 07/12/2025 BMI 37.79 kg/m2 07/12/2025 Procedures Procedure Date Ordered Date Performed Result Body Sit e 89118-KSLYSMG NAIL, 6 OR MORE 10/01/2024 N/A 85332-QTOWPEM NAIL, 6 OR MORE 12/14/2024 N/A 51932-EGEMZJD NAIL, 6 OR MORE 02/22/2025 N/A 67564-QEEUYJB NAIL, 6 OR MORE 04/26/2025 N/A 13731-CIWM SKIN LESIONS, 2 TO 4 04/26/2025 N/A 87252-BEELZAK NAIL, 6 OR MORE 07/12/2025 N/A 97849-YOSI SKIN LESIONS, 2 TO 4 07/12/2025 N/A Encounters Encounter [facility] Date [facility] [address] [facility]/01/2024 Francisco Charlesunier Pain in right toe(s) M79.674 ; Tinea unguium B35.1 ; Pain in left toe(s) M79.675 ; Type 2 diabetes mellitus without complication E11.9 and Edema, lower extremity R60.0 [facility] [address] [address] 12/14/2024 Francisco Fry Type 2 diabetes mellitus without complication E11.9 ; Pain in right toe(s) M79.674 ; Tinea unguium B35.1 ; Pain in left toe(s) M79.675 ; Other hammer toe(s) (acquired), right foot M20.41 and Other hammer toe(s) (acquired), left foot M20.[address] [address] 02/22/2025 Francisco Fry Type 2 diabetes mellitus without complication E11.9 ; Pain in right toe(s) M79.674 ; Tinea unguium B35.1 ; Pain in left toe(s) M79.675 and Muscle cramp, nocturnal R25.[address] [address] 04/26/2025 Francisco Fry Pain in right toe(s) M79.674 ; Pain in left toe(s) M79.675 ; Tinea unguium B35.1 ; Other hammer toe(s) (acquired), right foot M20.41 ; Other hammer toe(s) (acquired), left foot M20.42 and Type 2 diabetes mellitus with diabetic peripheral angiopathy without gangrene E11.[address] [address] 07/12/2025 Francisco Fry Tinea unguium B35.1 ; Type 2 diabetes mellitus with diabetic peripheral angiopathy without gangrene E11.51 ; Pain in right toe(s) M79.674 ; Pain in left toe(s) M79.675 ; Other hammer toe(s) (acquired), right foot M20.41 and Other hammer toe(s) (acquired), left foot M20.[address] [address] 03/14/2025 Francisco Fry Assessments Encounter Date Diagnosis [...] 10/01/2024 Edema, lower extremity (ICD-10 - R60.0) 12/14/2024 [...] Treatment Pending Test Test Name Order Date 25423-DXYQJRX NAIL, 6 OR MORE 12/22/2020 74341-GTAOBCL NAIL, 6 OR MORE 03/23/2021 65708-MJNRPRM NAIL, 6 OR MORE 06/22/2021 09194-TLXBGTY NAIL, 6 OR MORE 09/11/2021 60653-HSEKVAR NAIL, 6 OR MORE 11/23/2021 07549-XKKIMJS NAIL, 6 OR MORE 02/12/2022 54253-OPRYHXZ NAIL, 6 OR MORE 04/26/2022 17688-RETATQT NAIL, 6 OR MORE 07/16/2022 31218-YUKINVU NAIL, 6 OR MORE 09/24/2022 29363-KDYBBRT NAIL, 6 OR MORE 12/03/2022 97892-CQGKBVX NAIL, 6 OR MORE 02/11/2023 15231-LJRPEKE NAIL, 6 OR MORE 04/15/2023 90021-ESCGJCS NAIL, 6 OR MORE 06/17/2023 03950-LUHKGKV NAIL, 6 OR MORE 08/19/2023 02171-OISOQCW NAIL, 6 OR MORE 02/20/2024 37091-YRZLZXP NAIL, 6 OR MORE 05/14/2024 46424-RAWNKTS NAIL, 6 OR MORE 07/23/2024 08343-BUJDJMM NAIL, 6 OR MORE 10/01/2024 70608-AHVDDCN NAIL, 6 OR MORE 12/14/2024 33638-VKAYBJQ NAIL, 6 OR MORE 02/22/2025 63496-FCOMVEP NAIL, 6 OR MORE 04/26/2025 16259-GADNEUX NAIL, 6 OR MORE 10/21/2023 54442-WGJKYHH NAIL, 6 OR MORE 07/12/2025 00862-Irbn Destruction, 1-14 10/21/2023 18999-Ccru Destruction, 1-14 08/19/2023 31332-Apvm Destruction, 1-14 06/17/2023 41505-Sxia Destruction, 1-14 04/15/2023 16034-Dvyw Destruction, 1-14 02/11/2023 31667-Gzak Destruction, 1-14 12/03/2022 99134-USKB SKIN LESIONS, 2 TO 4 07/12/20 30433-DOMD SKIN LESIONS, 2 TO 4 04/26/20 Next Appt Details Provider Name:Francisco Fry , 10/21/2025 09:00:00 AM, [address] [place] [address], [phone], Provider Name:Francisco Fry , 12/30/2025 09:00:00 AM, [address] [place] [address], [phone], Insurance Providers Payer Name Payer Address Payer Phone Subscriber Number Group Number Insured Name Patient Relationship to Insured Coverage Start Date Coverage End Date Medicare [facility] [address] [facility] [place] [address] [id number] Guadalupe Muro Self - patient is the insured [employer] [address] [place] [address] [id number] Guadalupe Muro Self - patient is the [...] - tripped on cruise vacation 01/06/22 01/24/22 [facility] ER-L humerus-tripped 11/23/21
--- OUTSIDE RECORDS SUMMARY | 2025-08-11 07:23 | XMS_ITS | Encounter Summary ---
Author Organization [facility] Address [address] [facility] [address] [place] [address] Phone Care Team Providers Care Special Forces Senior Sergeant Name Role Phone Unavailable Primary Care Provider Unavailabl e Reason for Referral * Cardiac Services (Routine) - Closed Specialty Diagnoses / Procedures Referred By Contac t Referred To Contact Diagnoses Swelling of lower leg <Left side> Procedures Ultrasound doppler venous leg left Hubert Lin MD Phone: tel: fax: Referral ID Status Reason Start Date Expiration Date Visits Re quested Visits Authorized [id number] Closed 04/06/2024 04/06/2025 1 1 Encounter Details Date Type Department Care Team (Latest Contact Info) Description 04/06/2024 Office Communication [facility] [address] [facility] [address] [place] [phone] Hubert Lin MD [address] [facility] [address] [place] [phone] Swelling of lower leg <Left side> (Primary [...] Visit [facility] [address] [place] [address] Hubert Lin MD [address] [facility] [address] [place] [phone] Scheduled Orders Name Type Priority Associated Diagnoses Order Schedule Ultrasound doppler venous leg left Vascular Ultrasound Today Swelling of lower leg <Left side> Expected: 04/06/2024, Expires: 04/06/2026 documented as of this encounter Visit Diagnoses Diagnosis Swelling of lower leg <Left side>- Primary documented in this encounter
[2025-08-11 07:46] LABS: MANUAL DIFF FLAG NO
[2025-08-11 08:25] LABS: Hematocrit 37.9 % (37.0-47.0); Hemoglobin 12.1 g/dl (12.0-16.0); Imm Gran Abs Auto 0.02 X10*3/uL (0.00-0.03); Imm Gran Pct Auto 0.5 % (0.0-0.4); Lymphocytes Absolute Auto 1.5 X10*3/uL (1.2-4.9); Mean Corpuscular HGB Conc 31.9 g/dl (31.0-35.0); Mean Corpuscular Hemoglobin 29.0 pg (27.0-33.0); Mean Corpuscular Volume 90.9 fL (80.0-98.0); NRBC Abs Auto 0.000 X10*3/uL (0.0-0.012); NRBC Pct Auto 0.0 /100WBC (0.0-0.2); Platelet Count 272 X10*3/uL (160-400); Red Blood Count 4.17 X10*6/uL (4.20-5.50); White Blood Count 4.4 X10*3/uL (4.8-10.8)
[2025-08-11 08:36] LABS: Appearance Urine Clear; Glucose Urine UA 500 mg/dL (Negative); PH 6.0 (5.0-9.0); Specific Gravity - Urine 1.015 (1.005-1.025)
[2025-08-11 08:48] LABS: Albumin Level 3.9 g/dL (3.5-5.0); Anion Gap 12 (12-20); Blood Urea Nitrogen 24 mg/dL (9-16); Calcium 9.4 mg/dL (8.4-10.2); Carbon Dioxide 25 mmol/L (22-29); Chloride 108 mmol/L (96-108); Estimated Glomerular Filt Rate 19; Magnesium 2.3 mg/dL (1.6-2.6); Potassium 3.9 mmol/L (3.3-5.1); Sodium 141 mmol/L (135-145)
[2025-08-11 09:49] LABS: Microalbum/Creatinine Ratio Ur 16.7 ug/mg cr (<30); Protein/Creatinine Ratio, Ur 0.09 (<0.2); Total Protein Urine Random 9 mg/dL (<12)
[2025-08-11 10:58] LABS: Parathyroid Hormone Intact 177.9 pg/mL (8.7-77.1)
== END 2025-08-11 07:19 | disposition home or self-care (01) ==
LOC: HO.LAB 07:18
PROVIDERS: PCP Family Medicine; Visit Provider Internal Medicine Nephrology
DX: I12.9 Hypertensive chronic kidney disease with stage 1 through stage 4 chronic kidney disease, or unspecified chronic kidney disease (principal); E11.22 Type 2 diabetes mellitus with diabetic chronic kidney disease; N18.4 Chronic kidney disease, stage 4 (severe); N25.0 Renal osteodystrophy
CPT/HCPCS: 36415; 80051; 81003; 82040; 82043; 82306; 82310; 82565; 82570; 83036; 83735; 83970; 84100; 84156; 84520; 85025; 87086

== ENCOUNTER 2025-08-18 08:17 | Outpatient (AMB) | payer MEDICARE, SELFPAY ==
--- NOTE | 2025-08-18 08:22 | A.OFFVIS_ITS ---
Vital Signs 08/18/25 08:26 Height 5 ft 1 in Weight 203 lb BMI 38.4 Intake Visit Reasons: New Problem - Right Hip Pain Intake Note: Guadalupe is a 79 year old female who presents today for a New Problem Visit with complaints Right Hip Pain. Hx of Left ANGELA 12/02/2023. Her Right hip has been bothing her on and off for many years now. The pain is felt in the posterior aspect. Her pain has resolved. She is interested in having a cortisone injection BMI: 38.4 - 5'1 203Lb Diabetic - Last A1C 05/16/25: 9.9% - On Ozempic Chronic Kidney Disease Stage IV - [facility] Allergies LEFTY Inhibitors (Lefty Inhibitors) Allergy (Severe, Verified 08/18/25 08:29) SWELLING beta blockers Allergy (Severe, Verified 08/18/25 08:29) leg swelling oxycodone (OXYCODONE) Allergy (Severe, Verified 08/18/25 08:29) NAUSEA & VOMITING/FATIGUE rivaroxaban (From XARELTO) Allergy (Severe, Verified 08/18/25 08:29) severe swelling cat dander Allergy (Intermediate, Verified 08/18/25 08:29) + allergy tesy grass pollen Allergy (Intermediate, Verified 08/18/25 08:29) + allergy test mold Allergy (Intermediate, Verified 08/18/25 08:29) + allergy test rosuvastatin (From Crestor) Allergy (Intermediate, Verified 08/18/25 08:29) Swelling lovenox Allergy (Severe, Uncoded 08/18/25 08:29) swelling extremeties HPI HPI New Problem - Right Hip Pain: Details: Rajan is an 80-year-old who comes in today with right posterior hip and buttock pain. She denies numbness and tingling. She states that it was present several weeks ago but has dissipated once she has slow down or walking. She is going to [place] in a few weeks and is worried that she will be able to be as active as she like. She has a history of a left hip replacement and a right knee replacement done by me several years ago. [facility] Medical History Diabetes type 2, controlled Osteoarthritis of left hip Uncontrolled diabetes mellitus with hyperglycemia Shoulder pain, bilateral Lumbar disc disease Sacroiliac joint disease Sleep apnea RBBB (right bundle branch block) CKD (chronic kidney disease) Hyperlipidemia Osteoporosis Hypothyroidism Depression Essential hypertension Surgical History History of hip surgery H/O colonoscopy History of tonsillectomy History of total right knee replacement (TKR) History of breast biopsy History of total left knee replacement (TKR) Family History Father CAD (coronary artery disease) CVD (cardiovascular disease) Mother Colon cancer Brother Cancer of prostate Throat cancer Tongue cancer Social History (Updated 08/19/24 @ 11:25 by LOYDA Porter) Household Members: None Housing: House Are you a primary hospice home care coordinator to a significant other at home: No Do you presently have visiting nurse or other home services: Yes (Melani MITCHELL) Alcohol intake: current Alcohol intake frequency: holidays/special occasions only Patient Tobacco Use Status: Former Tobacco user Tobacco use type: Cigarette Years Smoked: 5 e-Cigarette/Vaping Use: Never Used Second Hand Smoke Exposure: No Advance Directives Date on File: 03/17/12 service: No 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al status: retired 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 Moderate bilateral lower leg edema. She has no groin pain with right hip range of motion. She has mild tenderness over the greater trochanter which does not reproduce her pain complaint. She walks without antalgia. Vital Signs: BMI result Body Mass Index 38.4 Assessment & Plan Assessment & Plan (1) Back pain, lumbosacral: Code(s): M54.50 - Low back pain, unspecified Category: Medical Plan: 80-year-old female with vague lumbosacral back/lateral hip pain that has improved with rest. It is difficult to reproduce her symptoms but she has not have any groin pain in her hip range of motion is pain-free. If her pain worsens she can return to see me but no orthopedic intervention warranted at this time. Of note she just completed a course of physical therapy. Coding Level of Care Code Est Pt Level 3 (66248) Diagnoses Back pain, lumbosacral M54.50
[2025-08-18 08:26] VITALS: BMI 38.4
== END 2025-08-18 08:56 | disposition home or self-care (01) ==
LOC: HO.HOS 08:18
PROVIDERS: PCP Family Medicine; Visit Provider Orthopaedic Surgery
DX: M54.50 Low back pain, unspecified (principal)
CPT/HCPCS: 99213

== ENCOUNTER → 2025-08-18 08:17 | Outpatient (BNVA) | payer MEDICARE, SELFPAY | PROVIDERS: PCP Family Medicine; Visit Provider Orthopaedic Surgery | DX: M54.50 Low back pain, unspecified (principal) | CPT/HCPCS: 99212 ==

== ENCOUNTER 2025-08-25 08:44 | Outpatient (AMB) | payer MEDICARE, SELFPAY ==
--- NOTE | 2025-08-25 08:49 | A.OFFPC_ITS ---
Vital Signs 08/25/25 08:55 Height 5 ft 1 in Weight 195 lb 6 oz BMI 36.9 BP 150/69 H Blood Pressure Location Lt brachial Position Sitting Respiration 13 Pulse 61 Pulse Source Pulse Oximeter Temp 96.1 F L Temp Source Temporal Artery Scan Pulse Oximetry (%) 100 Oxygen Delivery Method Room Air Intake Visit Reasons: pe Intake Note: CPE. Patient needs a new meter and test strip prescription. 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: No Allergies LEFTY Inhibitors (Lefty Inhibitors) Allergy (Severe, Verified 08/25/25 08:55) SWELLING beta blockers Allergy (Severe, Verified 08/25/25 08:55) leg swelling oxycodone (OXYCODONE) Allergy (Severe, Verified 08/25/25 08:55) NAUSEA & VOMITING/FATIGUE rivaroxaban (From XARELTO) Allergy (Severe, Verified 08/25/25 08:55) severe swelling cat dander Allergy (Intermediate, Verified 08/25/25 08:55) + allergy tesy grass pollen Allergy (Intermediate, Verified 08/25/25 08:55) + allergy test mold Allergy (Intermediate, Verified 08/25/25 08:55) + allergy test rosuvastatin (From Crestor) Allergy (Intermediate, Verified 08/25/25 08:55) Swelling clonidine Adverse Reaction (Severe, Verified 08/25/25 08:55) Swelling lovenox Allergy (Severe, Uncoded 08/25/25 08:55) swelling extremeties Medication List - Last Reconciled 08/25/25 by Fadi Craig MD acetaminophen 650 mg (2 x 325 mg) PO Q6H PRN 30 days aliskiren 75 mg (1/2 x 150 mg) PO QAM 90 days amoxicillin 2,000 mg (4 x 500 mg) PO ONCE [id number] 1.7 mg-400 mcg- 2.4 mcg (Neuriva Plus Brain P erformance) caps PO blood sugar diagnostic As directed blood sugar diagnostic (Accu-Chek SmartView Test Strips) 2 times a day As directed, 90 days blood-glucose meter As directed calcitriol 0.25 mcg PO DAILY cetirizine (Zyrtec) 10 mg PO DAILY PRN compr.stocking,knee,long,large Daily As directed. 30 days. 10-20 mm Hg dapagliflozin propanediol (Farxiga) 10 mg PO DAILY 90 days ergocalciferol (vitamin D2) 1,250 mcg PO Q2W fluoxetine (Prozac) 10 mg PO DAILY 90 days furosemide 20 mg PO DAILY lancets As directed levothyroxine 50 mcg PO DAILY@0600 90 days lidocaine 5% (Lidoderm) 1 patch topical DAILY PRN miscellaneous medical supply B-Velcro based knee high length Compression Garments and hybrid liners. Compression Class 30-40mmHG. Daily As directed. 999 days pioglitazone 15 mg PO DAILY 90 days semaglutide (Ozempic) 0.5 mg (0.736 mL) subcut QWEEK 28 days Tobacco use date assessed: 08/25/25 Fall risk assessment: 2 + Falls in past year Last assessed Fall Risk: 08/25/25 Dental Screening Dental Screen Date: 08/25/25 Did you have a dental visit in the last 12 months?: Yes Did you have a dental problem in the last 6 months where you did not have access to dental care?: No Was dental information given to patient?: Patient has dentist HPI pe HPI Details 80 y/o female presents for an extended e xam with f/u labs and health maintenance. Blood pressure today 150/69, 61p. She states she had been unable to tolerate clonidine, noting complaints of LE edema, constipation/diarrhea. Labs drawn 08/11/25. Reviewed labs with pt. A1c 6.8%. She is on pioglitazone, Ozempic, Farxiga. Creatinine level worsened rom 2.36 to 2.40. No recent labs to review for her lipids. HPI Comments History of Present Illness Details Documentation assistance for Fadi Craig MD, was provided by Reji Lopez,? Needle Leader on 08/25/2025 at 9:57 AM EST. I, Dr. Craig, have read, observed, and verified documentation. ?? [facility] Medical History (Updated 08/25/25 @ 09:56 by Reji Lopez) Osteoporosis Diabetes type 2, controlled Osteoarthritis of left hip Uncontrolled diabetes mellitus with hyperglycemia Shoulder pain, bilateral Lumbar disc disease Sacroiliac joint disease Sleep apnea RBBB (right bundle branch block) CKD (chronic kidney disease) Hyperlipidemia Hypothyroidism Depression Essential hypertension Surgical History History of hip surgery H/O colonoscopy History of tonsillectomy History of total right knee replacement (TKR) History of breast biopsy History of total left knee replacement (TKR) Family History Father CAD (coronary artery disease) CVD (cardiovascular disease) Mother Colon cancer Brother Cancer of prostate Throat cancer Tongue cancer Social History (Updated 08/19/24 @ 11:25 by LOYDA Porter) Household Members: None Housing: House Are you a primary medicare specialist to a significant other at home: No Do you presently have visiting nurse or other home services: Yes (Melani MITCHELL) Alcohol intake: current Alcohol intake frequency: holidays/special occasions only Patient Tobacco Use Status: Former Tobacco user Tobacco use type: Cigarette Years Smoked: 5 e-Cigarette/Vaping Use: Never Used Second Hand Smoke Exposure: No Advance Directives Date on File: 03/17/12 service: No 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al status: retired 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 1. Little interest or pleasure in doing things: not at all 2. Feeling down, depressed, or hopeless: not at all 3. Trouble falling or staying asleep, or sleeping too much: not at all 4. Feeling tired or having little energy: not at all 5. Poor appetite or overeating: not at all 6. Feeling bad about yourself - or that you are a failure or have let yourself or your family down: not at all 7. Trouble concentrating on things, such as reading the newspaper or watching television: not at all 8. Moving or speaking so slowly that other people could have noticed. Or the opposite - being so fidgety or restless that you have been moving around a lot more than usual: not at all 9. Thoughts that you would be better off or of hurting yourself in some way: not at all Total score: 0 Depression Screening Interpretation: Negative Depression Screening Done: Yes 18082 - PHQ-9 Billing: Yes Source: Developed by Drs. Aubrey Barbour, Fozia Rod, Tomas Leung and colleagues, with an educational darwin from [employer]. Thrive Questionnaire Date Thrive assessed: 08/25/25 I am a: Patient What is your living situation today?: I have a steady place to live Within the past 12 months, did the food you bought not last and you didn't have the money to get more?: Never true Within the past 12 months, did you worry whether your food would run out before you got money to buy more?: Never true Do you have trouble paying for medicines?: No Do you have trouble getting transportation to medical appointments?: No Do you have trouble paying your heating and electricity bill?: No Do you have trouble taking care of your child, family member or friend?: No Do you have trouble with day-to-day activities such as bathing, preparing meals, shopping, managing finances, etc.?: No Are you currently unemployed and looking for a job?: No Are you interested in more education?: No Please select the resources that you would like help with: None Currently or been in a relationship where the following occur: No concerns re ported THRIVE Score: 0 CHARLENE-7 AMB Questionnaire CHARLENE-7 Date CHARLENE - 7 assessed: 08/25/25 Feeling nervous, anxious, or on edge: 0 = Not at all Not being able to stop or control worryin = Not at all Worrying too much about different things: 0 = Not at all Trouble relaxin = Not at all Being so restless that it is hard to sit still: 0 = Not at all Becoming easily annoyed or irritable: 0 = Not at all Feeling afraid as if something awful might happen: 0 = Not at all Total CHARLENE-7 score (0-4 normal; 5-9 mild; 10-14 moderate; 15-21 severe): 0 Source: Developed by Drs. Aubrey Barbour, Fozia Rod, Tomas Leung and colleagues, with an educational darwin from [employer]. CHARLENE-7 Assessment Billing CHARLENE-7 Assessment Tool: CHARLENE-7 Assessment 48051 Review of Systems Const Denies chills, Denies fatigue, Denies fever(s), Denies headache(s) and Denies weakness Eyes Denies change in vision ENT Denies dizziness, Denies headache(s), Denies hearing loss, Denies nasal congestion, Denies sinus pain, Denies sinus pressure and Denies sore throat Card Denies chest pain, Denies lightheadedness, Denies dyspnea and Denies other (palpitations) Resp Denies cough, Denies dyspnea and Denies wheezing GI Denies abdominal pain, Denies melena, Denies hematochezia, Denies change in bowel habits, Denies dyspepsia and Denies nausea Denies hematuria and Denies dysuria Musc Denies abnormal gait, Denies myalgias, Denies arthralgias, Denies numbness and Denies tingling Skin/Breast Denies rash, Denies unusual bruising and Denies wounds Neuro Denies abnormal gait, Denies dizziness, Denies headache(s), Denies memory loss, Denies numbness, Denies Sensory deficit (Neuro), Denies tingling and Denies weakness Psych Denies anxiety, Denies depression and Denies memory loss Endo Denies cold intolerance, Denies fatigue, Denies heat intolerance, Denies polydipsia and Denies polyuria Casa/Lymph Denies easy bleeding and Denies easy bruising Aller/Immun Denies wheezing Physical exam (Primary Care) Vital Signs: Last Vital Signs Temp 96.1 F L 08/25/25 08:55 Pulse 61 08/25/25 08:55 Resp 13 08/25/25 08:55 BP 150/69 H 08/25/25 08:55 Pulse Ox 100 08/25/25 08:55 Oxygen Delivery Method Room Air 08/25/25 08:55 BMI result Body Mass Index 36.9 Tobacco/Smoking Status: Tobacco use Status Tobacco use date assessed 08/25/25 08/25/25 08:52 Patient Tobacco Use Status Former Tobacco user 08/25/25 08:52 Tobacco use type Cigarette 08/25/25 08:52 e-Cigarette/Vaping Use Never Used 08/25/25 08:52 PHQ-9: PHQ-9 Score PHQ-9: Total score 0 08/25/25 10:04 Depression Screening Interpretation: Negative Thrive Assessment: Date of Thrive Assessment Date Thrive assessed 08/25/25 08/25/25 08:52 Currently or been in a relationship where the following occur: No concerns reported Const General: no acute distress, well developed, alert and awake Nutritional Appearance: well nourished Orientation/consciousness: patient oriented x3 HENMT Head: Yes normocephalic and Yes atraumatic Ears: hearing grossly normal bilaterally and TM's normal bilaterally General nose exam: Normal external nose present and Normal nares present Mouth: Normal oral and palatal mucosa present and moist mucous membranes Teeth and gingiva: dentition normal Throat: Yes posterior oropharynx normal Eyes General: appearance normal, both eyes and all related structures Pupils: Equal, round and reactive pupils present and Pupil accommodation reflex normal EOM: EOMs intact bilaterally Neck Neck: Yes normal visual inspection, Yes no lymphadenopathy and Yes trachea midline Thyroid: Thyroid normal Carotids: no bruits Lymphatic: no lymphadenopathy noted Chest Chest palpation & inspection: normal inspection of the chest Resp Effort & Inspection: normal respiratory effort Auscultation: clear to auscultation bilaterally Cardio Rate: regular rate Rhythm: regular rhythm Heart sounds: S1 normal heart sound present, S2 normal heart sound present, no gallops, no murmurs and no rubs Bruits: no abdominal aortic bruits and no carotid bruits GI Palpation (GI): No Abdominal aortic bruit present, Soft to palpation, nontender, No hepatosplenomegaly present and No Rebound tenderness present Auscultation: normal bowel sounds General: Yes no CVA tenderness Back/Spine/Pelvis Back: no CVA tenderness Cervical Spine: cervical ROM normal and No Cervical spine tenderness Thoracic/Lumbar Spine: thoraco-lumbar ROM normal, No pain with thoraco-lumbar ROM, No thoracic spinal tenderness and No lumbar spinal tenderness Skin Lesions: no lesions Rashes: no rashes Trauma: no lacerations or abrasions Wounds: no wounds Nails: normal Neuro General: patient oriented x3 Cranial nerves: Yes Equal, round and reactive pupils present Cognition (Neuro): normal cognition Gait exam (Neuro): Normal gait present Motor exam (neuro): 5/5 motor strength present throughout Sensory Exam: No Sensory deficit (Neuro) Deep tendon reflexes (DTR's): Right patellar reflex intensity grade: 2+ and Left patellar reflex intensity grade: 2+ Extrem General: Yes normal to inspection and No edema Psych Appearance: grossly normal Affect: normal affect Attitude: cooperative Thought process: Normal thought process present Coding Level of Care Code Est Pt Level 5 (82338) Diagnoses Essential hypertension I10 Diabetes type 2, controlled E11.9 Chronic renal failure N18.9 Osteoporosis M81.0 Screening for colon cancer Z12.11 Breast cancer screening by mammogram Z12.31 Adult general medical exam Z00.00 Additional Codes CHARLENE-7 Assessment Billing - CHARLENE-7 Assessment Tool: CHARLENE-7 Assessment 34049 ([id number]) PHQ-9 - 14425 - PHQ-9 Billing: Yes ([id number]) Assessment & Plan Assessment & Plan (1) Essential hypertension: Code(s): I10 - Essential (primary) hypertension Category: Medical Plan: Blood pressure remains higher than goal less than 140/90 She has tried numerous medications Most recently tried clonidine and says she did not tolerate it She remains on aleskiren 75mg daily. She has not tried a full tablet of alisikiren - she will discuss this with her ink printer, Dr. Lin (2) Diabetes type 2, controlled: Code(s): E11.9 - Type 2 diabetes mellitus without complications Category: Medical Plan: A1c 6.6 now shows good control after increasing Ozempic. Goal is less than 7% Continue current medication regimen Followed by Dr. Hidalgo. Up-to-date for eye exam (3) Chronic renal failure: Code(s): N18.9 - Chronic kidney disease, unspecified Category: Medical Plan: Creatinine had risen after January 2025. Remains between 2.3 and 2.4 She has an upcoming appointment with Dr. Lin Encouraged good blood pressure control, good blood sugar control (4) Osteoporosis: Code(s): M81.0 - Age-related osteoporosis without current pathological fracture Category: Medical Plan: Recent bone density test shows osteoporosis but her T-score has improved from - 2.9 to -2.7 Continue good sources of calcium and vitamin D (5) Screening for colon cancer: Code(s): Z12.11 - Encounter for screening for malignant neoplasm of colon Category: Medical Plan: She had a colonoscopy a few years ago with Dr. Lua and was told she is done with colonoscopies. (6) Breast cancer screening by mammogram: Code(s): Z12.31 - Encounter for screening mammogram for malignant neoplasm of breast Category: Medical Plan: Most recent mammogram was negative for malignancies. She would like to continue mammograms. (7) Adult general medical exam: Code(s): Z00.00 - Encounter for general adult medical examination without abnormal findings Category: Medical Plan: 80-year-old female presents for an extended exam Orders: Orders Lipid Panel 08/25/25 Z00.00 - Encounter for general adult medical examination without abnormal findings Thyroid Stimulating Hormone 08/25/25 E03.9 - Hypothyroidism, unspecified Triiodothyronine T3 Total 08/25/25 E03.9 - Hypothyroidism, unspecified Comprehensive [place]. Panel Fast 08/25/25 Z00.00 - Encounter for general adult medical examination without abnormal findings Free T4 (Free Thyroxine) 08/25/25 E03.9 - Hypothyroidism, unspecified Medications: New blood-glucose meter (Accu-Chek Guide Me Glucose Meter) Check Blood Sugar 2 times a Day As directed, 999 days 1 ea 0RF E11.9 - Type 2 diabetes mellitus without complications lancets (Accu-Chek Softclix Lancets) Check Blood Sugar 2 Times a Day As directed, 90 days 200 ea 4RF E11.9 - Type 2 diabetes mellitus without complications blood sugar diagnostic (Accu-Chek Guide test strips) Test Blood Sugar 2 Times a Day As directed, 90 days 200 ea 4RF E11.9 - Type 2 diabetes mellitus without complications
[2025-08-25 08:55] VITALS: BP 150/69; PULSE 61; RESP 13; TEMP 35.6; O2SAT 100; BMI 36.9
== END 2025-08-25 10:00 | disposition home or self-care (01) ==
LOC: HO.HMCFM 08:45
PROVIDERS: PCP Family Medicine; Visit Provider Family Medicine
DX: I12.9 Hypertensive chronic kidney disease with stage 1 through stage 4 chronic kidney disease, or unspecified chronic kidney disease (principal); E11.22 Type 2 diabetes mellitus with diabetic chronic kidney disease; N18.9 Chronic kidney disease, unspecified; M81.0 Age-related osteoporosis without current pathological fracture; Z12.11 Encounter for screening for malignant neoplasm of colon; Z12.31 Encounter for screening mammogram for malignant neoplasm of breast

== ENCOUNTER 2025-08-25 08:44 | Outpatient (REF) | payer MEDICARE, SELFPAY ==
[2025-08-25 12:23] LABS: Alanine Aminotransferase 13 U/L (0-31); Albumin Level 4.3 g/dL (3.5-5.0); Alkaline Phosphatase 74 U/L (39-117); Anion Gap 12 (12-20); Aspartate Amino Transferase 20 U/L (5-31); Blood Urea Nitrogen 27 mg/dL (9-16); Calcium 10.3 mg/dL (8.4-10.2); Carbon Dioxide 28 mmol/L (22-29); Chloride 104 mmol/L (96-108); Cholesterol 235 mg/dL (<200); Estimated Glomerular Filt Rate 17; HDL Cholesterol 41 mg/dL (>40); Potassium 3.7 mmol/L (3.3-5.1); Sodium 140 mmol/L (135-145); Total Protein 7.2 g/dL (6.5-8.0); Triglycerides 130 mg/dL (<150)
[2025-08-25 12:49] LABS: Free T4 (Free Thyroxine) 1.32 ng/dL (0.71-1.85); Thyroid Stimulating Hormone 1.94 uIU/mL (0.32-4.0)
== END 2025-08-25 08:45 | disposition home or self-care (01) ==
LOC: HO.WFDLDS 08:44
PROVIDERS: PCP Family Medicine; Visit Provider Family Medicine
DX: Z00.00 Encounter for general adult medical examination without abnormal findings (principal); E03.9 Hypothyroidism, unspecified; E11.22 Type 2 diabetes mellitus with diabetic chronic kidney disease; I12.9 Hypertensive chronic kidney disease with stage 1 through stage 4 chronic kidney disease, or unspecified chronic kidney disease; N18.9 Chronic kidney disease, unspecified; M81.0 Age-related osteoporosis without current pathological fracture
CPT/HCPCS: 36415; 80053; 80061; 84439; 84443; 84480; 96127; 99212

== ENCOUNTER 2025-09-27 09:58 | Outpatient (AMB) | payer MEDICARE, SELFPAY ==
--- OUTSIDE RECORDS SUMMARY | 2025-06-28 03:45 | XMS_ITS ---
Author Organization [facility] Address [address] [place] [address] Care Team Providers Care Entertainment Dancer Name Role Phone Kiara JONES, Fadi Primary Care Provider Francisco Whittaker Unavailable [phone] Murry Encounters Encounter Location Date Provider Diagnosis [address] [address] 06/28/2025 Francisco Fry Plan Of Treatment Next Appt Details Provider Name:Francisco Fry , 10/21/2025 09:00:00 AM, [address] [place] [address], [phone], Provider Name:Francisco Fry , 12/30/2025 09:00:00 AM, [address] [place] [address], [phone], Progress Notes * Guadalupe BRANDT ADOB:1944 (80 yo F)Acc No.[id number]:06/28/2025 Progress Note Patient: Ryan YEENevaeh Guadalupe Sanchez Provider: Lilly Fry DPM :1945 A ge:79 Y S ex:Female Date:06/28/2025 Address:[address] [id number] Pcp:Fadi Craig MD Subjective: * Chief Complaints: * [address] Murry. * Medical History: Objective: * Vitals: Assessment: Plan: * Treatment: * Images: * The named appointment provid er may or may not be the originator of this progress note, and it is not deemed complete until electronically signed by the appointment provider. Sign off status: Pending * Provider: Lilly Fry DPM Date: 0 06/28/2025 Generated for Keiko morales/Jose/Naomi on: 1 11/27/2024 11:22 AM EST
--- OUTSIDE RECORDS SUMMARY | 2025-07-15 04:00 | XMS_ITS ---
Author Organization [facility] Address [address] [place] [address] Care Team Providers Care Cement Sprayer Helper Name Role Phone Kiara JONES, Fadi Primary Care Provider Francisco Whittaker Unavailable [phone] Murry Encounters Encounter Location Date Provider Diagnosis [address] [address] 07/15/2025 Francisco Fry Plan Of Treatment Next Appt Details Provider Name:Francisco Fry , 10/21/2025 09:00:00 AM, [address] [place] [address], [phone], Provider Name:Francisco Fry , 12/30/2025 09:00:00 AM, [address] [place] [address], [phone], Progress Notes * Guadalupe BRANDT ADOB:1944 (80 yo F)Acc No.[id number]:07/15/2025 Progress Note Patient: Ryan YEENevaeh Guadalupe Sanchez Provider: Lilly Fry DPM :1945 A ge:79 Y S ex:Female Date:07/15/2025 Address:[address] [id number] Pcp:Fadi Craig MD Subjective: * Chief Complaints: [...] * Provider: Lilly Fry DPM Date: 0 07/15/2025 Generated for Keiko morales/Jose/Naomi on: 11/27/2024 11:22 AM EST
--- OUTSIDE RECORDS SUMMARY | 2025-08-30 04:15 | XMS_ITS ---
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 Name Role Phone Kiara JONES, Fadi Primary Care Provider Francisco Whittaker Unavailable [phone] REASON FOR VISIT seen sooner Encounters Encounter Location Date Provider Diagnosis [address] [id number] 08/30/2025 Francisco Fry Plan Of Treatment Next Appt Details Provider Name:Francisco Fry , 10/21/2025 09:00:00 AM, [address] [place] [address], [phone], Provider Name:Francisco Fry , 12/30/2025 09:00:00 AM, [address] [place] [address], [phone], Progress Notes * Guadalupe BRANDT ADOB:1944 (80 yo F)Acc No.[id number]:08/30/2025 Progress Note Patient: Ryan YEENevaeh Guadalupe Sanchez Provider: Lilly Fry DPM :1945 A ge:80 Y S ex:Female Date:08/30/2025 Address:[address] [id number] Pcp:Fadi Craig MD Subjective: * Chief Complaints: * 1 . Seen sooner. * Medical History: Objective: * Vitals: Assessment: Plan: * Treatment: * Images: * The named appointment provid er may or may not be the originator of this progress note, and it is not deemed complete until electronically signed by the appointment provider. Sign off status: Pending * Provider: Lilly Fry DPM Date: Generated for Keiko morales/Jose/Naomi on: 11/27/2024 11:22 AM EST
--- NOTE | 2025-09-27 09:40 | MHC.PC.OV ---
Intake Visit Reasons: f/u labs, lipids via telemedicine Intake Note: patient is scheduled to review lab results with pcp Is/It Project Manager Required: No Allergies JOHNNIE Inhibitors (Johnnie Inhibitors) Allergy (Severe, Verified 09/27/25 09:41) SWELLING beta blockers Allergy (Severe, Verified 09/27/25 09:41) leg swelling oxycodone (OXYCODONE) Allergy (Severe, Verified 09/27/25 09:41) NAUSEA & VOMITING/FATIGUE rivaroxaban (From XARELTO) Allergy (Severe, Verified 09/27/25 09:41) severe swelling cat dander Allergy (Intermediate, Verified 09/27/25 09:41) + allergy tesy grass pollen Allergy (Intermediate, Verified 09/27/25 09:41) + allergy test mold Allergy (Intermediate, Verified 09/27/25 09:41) + allergy test rosuvastatin (From Crestor) Allergy (Intermediate, Verified 09/27/25 09:41) Swelling clonidine Adverse Reaction (Severe, Verified 09/27/25 09:41) Swelling lovenox Allergy (Severe, Uncoded 08/25/25 08:55) swelling extremeties Medication List - Last Reconciled 09/27/25 by Fadi Craig MD acetaminophen 650 mg (2 x 325 mg) PO Q6H PRN 30 days aliskiren 75 mg (1/2 x 150 mg) PO QAM 90 days amoxicillin 2,000 mg (4 x 500 mg) PO ONCE E5-fbdhz-[id number]-mxnawj-wosbbmhkwa 1.7 mg-400 mcg- 2.4 mcg (Neuriva Plus Brain Performance) caps PO blood sugar diagnostic As directed blood sugar diagnostic (Accu-Chek SmartView Test Strips) 2 times a day As directed, 90 days blood sugar diagnostic (Accu-Chek Guide test strips) Test Blood Sugar 2 Times a Day As directed, 90 days blood-glucose meter As directed blood-glucose meter (Accu-Chek Guide Me Glucose Meter) Check Blood Sugar 2 times a Day As directed, 999 days calcitriol 0.25 mcg PO DAILY cetirizine (Zyrtec) 10 mg PO DAILY PRN compr.stocking,knee,long,large Daily As directed. 30 days. 10-20 mm Hg dapagliflozin propanediol (Farxiga) 10 mg PO DAILY 90 days ergocalciferol (vitamin D2) 1,250 mcg PO Q2W fluoxetine (Prozac) 10 mg PO DAILY 90 days furosemide 20 mg PO DAILY lancets As directed lancets (Accu-Chek Softclix Lancets) Check Blood Sugar 2 Times a Day As directed, 90 days levothyroxine 50 mcg PO DAILY@0600 90 days lidocaine 5% (Lidoderm) 1 patch topical DAILY PRN miscellaneous medical supply B-Velcro based knee high length Compression Garments and hybrid liners. Compression Class 30-40mmHG. Daily As directed. 999 days pioglitazone 15 mg PO DAILY 90 days pravastatin 20 mg PO BEDTIME 90 days semaglutide (Ozempic) 0.5 mg (0.736 mL) subcut QWEEK 28 days Tobacco use date assessed: 08/25/25 Dental Screening Dental Screen Date: 08/25/25 HPI f/u labs, lipids via telemedicine HPI Details 80 y/o female presents to f/u labs, lipids via telemed. Labs drawn 08/25/25. Reviewed labs with pt. Creatinine level worsened from 2.40 to 2.67 mg/dL. Liver enzymes are fine. Triglycerides 130. TC 235. LDL 168. HDL 41. TSH 1.94. Free T4 1.32. Total T3 66 ng/dL. [facility] Medical History (Updated 09/27/25 @ 17:03 by Reji Lopez) Hypothyroidism Osteoporosis Diabetes type 2, controlled Osteoarthritis of left hip Uncontrolled diabetes mellitus with hyperglycemia Shoulder pain, bilateral Lumbar disc disease Sacroiliac joint disease Sleep apnea RBBB (right bundle branch block) CKD (chronic kidney disease) Hyperlipidemia Depression Essential hypertension Surgical History History of hip surgery H/O colonoscopy History of tonsillectomy History of total right knee replacement (TKR) History of breast biopsy History of total left knee replacement (TKR) Family History Father CAD (coronary artery disease) CVD (cardiovascular disease) Mother Colon cancer Brother Cancer of prostate Throat cancer Tongue cancer Social History (Updated 08/19/24 @ 11:25 by LOYDA Porter) Household Members: None Housing: House Are you a primary foster care worker to a significant other at home: No Do you presently have visiting nurse or other home services: Yes ([facility]) Alcohol intake: current Alcohol intake frequency: holidays/special occasions only Patient Tobacco Use Status: Former Tobacco user Tobacco use type: Cigarette Years Smoked: 5 e-Cigarette/Vaping Use: Never Used Second Hand Smoke Exposure: No Advance Directives Date on File: 03/17/12 service: No 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al status: retired 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al exposures/hazards: No Cognitive needs: No Hearing needs: No Vision needs: No Questionnaire Thrive Questionnaire Date Thrive assessed: 11/23/24 CHARLENE-7 AMB Questionnaire CHARLENE-7 Date CHARLENE - 7 assessed: 08/25/25 Source: Developed by Drs. Aubrey Barbour, Fozia Rod, Tomas Leung and colleagues, with an educational darwin from [employer]. Review of Systems Const Denies chills, Denies fatigue, Denies fever(s), Denies headache(s) and Denies weakness ENT Denies dizziness and Denies headache(s) Card Denies dyspnea Resp Denies cough, Denies dyspnea, Denies wheezing and Denies other (shortness of breath) Musc Denies numbness and Denies tingling Neuro Denies dizziness, Denies headache(s), Denies numbness, Denies tingling and Denies weakness Psych Denies anxiety and Denies depression Endo Denies fatigue Aller/Immun Denies wheezing Physical exam (Primary Care) Tobacco/Smoking Status: Tobacco use Status Tobacco use date assessed 08/25/25 09/27/25 09:44 Patient Tobacco Use Status Former Tobacco user 09/27/25 09:44 Tobacco use type Cigarette 09/27/25 09:44 e-Cigarette/Vaping Use Never Used 09/27/25 09:44 Thrive Assessment: Date of Thrive Assessment Date Thrive assessed 11/23/24 09/27/25 09:44 Telehealth Telehealth Telehealth Platform: Telephone Location of provider rendering services: practice address Location of patient: address on file Patient Identification confirmed using: Name, : Yes Telehealth method: voice only Patient verbally consented to treatment: Yes Patient verbally consented to billing insurance company: Yes Patient informed of any privacy concerns related to visit: Yes Minutes spent on Phone/Video with Pt.: 9 Coding Level of Care Code Tele Est Pt Level 2 (26316) Diagnoses Hyperlipidemia E78.5 Chronic renal failure N18.9 Hypothyroidism E03.9 Assessment & Plan Assessment & Plan (1) Hyperlipidemia: Code(s): E78.5 - Hyperlipidemia, unspecified Category: Medical Plan: Lipids are too high. Had tried atorvastatin previously. She had achy muscles with this Will try pravastatin Recheck lipids with next blood draw and follow-up at next visit (2) Chronic renal failure: Code(s): N18.9 - Chronic kidney disease, unspecified Category: Medical Plan: Creatinine level has risen further. Stage IV chronic kidney disease She is followed by Dr. Lin. Will request recent visit note Increase hydration Control hypertension Control blood sugar and lipids. (3) Hypothyroidism: Code(s): E03.9 - Hypothyroidism, unspecified Category: Medical Plan: Thyroid hormone levels are okay on levothyroxine 50 mcg daily Continue current medication Recheck thyroid hormone levels with next blood draw Orders: Orders Lipid Panel Today E78.5 - Hyperlipidemia, unspecified, Z00.00 - Encounter for general adult medical examination without abnormal findings Thyroid Stimulating Hormone Today E03.9 - Hypothyroidism, unspecified Triiodothyronine T3 Total Today E03.9 - Hypothyroidism, unspecified Comprehensive [place]. Panel Fast Today E78.5 - Hyperlipidemia, unspecified, Z00.00 - Encounter for general adult medical examination without abnormal findings Free T4 (Free Thyroxine) Today E03.9 - Hypothyroidism, unspecified Medications: New pravastatin 20 mg PO BEDTIME 90 tabs 3RF 90 days Refilled blood sugar diagnostic (Accu-Chek Guide test strips) Test Blood Sugar 2 Times a Day As directed, 90 days 200 ea 4RF E11.9 - Type 2 diabetes mellitus without complications blood sugar diagnostic (Accu-Chek SmartView Test Strips) 2 times a day As directed, 90 days 200 ea 6RF E11.9 - Type 2 diabetes mellitus without complications lancets (Accu-Chek Softclix Lancets) Check Blood Sugar 2 Times a Day As directed, 90 days 200 ea 4RF E11.9 - Type 2 diabetes mellitus without complications
--- OUTSIDE RECORDS SUMMARY | 2025-09-27 11:22 | XMS_ITS | Patient Health Record ---
Author Organization [facility] Address [address] [place] [address] Care Team Providers Care After School Tutor Name Role Phone Fadi Craig Primary Care Provider UnavailAubrey Roman [phone] Allergies Allergen (clinical drug ingredient) Drug/Non Drug [...] MG 1 tablet Orall y Once a day; Duration: 30 day(s) Active Vitamin B12 Active Atorvastatin Calcium 20 MG 1 tablet Oral ly Once a day Active Levothyroxine Sodium 0.05mg Active Triamterene-HCTZ 37.5-25 MG 1 tablet in the morning Orally Once a day Active Calcitriol 0.25 MCG 1 capsule Orally Onc e a day Active glipiZIDE ER 5 MG TAKE 2 TABLETS IN MORNING AND 1 TABLET IN THE EVENING Oral; Duration: 90 Active Immunizations Vaccine Route Administration Date [...] Problem Status W/U Status Risk Notes Problem Colon cancer screening (767136342) Colon cancer screening (Z12.11) Active confirmed Problem Screening for malignant neoplasm of colon (067427068) Encounter for screening for malignant neoplasm of colon (Z12.11) Active confirmed Problem History of adenomatous polyp of colon (303088460) History of adenomatous polyp of colon (Z86.010) Active confirmed Problem Change in bowel habit (19087722) Change in bowel habits (R19.4) Active confirmed Problem Diverticular disease of colon (532156333) Diverticulosis of large intestine without perforation or abscess without bleeding (K57.30) Active confirmed Problem Family History of Cancer of Colon (Situation) (809445021) Family history of colon cancer (Z80.0) Active confirmed Plan Of Treatment Future Test Test Name Order Date COLONOSCOPY 07/16/2013 COLONOSCOPY 06/09/2018 COLONOSCOPY 03/11/2023 Insurance Providers Payer Name Payer Address Payer Phone Subscriber Number Group Number Insured Name Patient Relationship to Insured Coverage Start Date Coverage End Date MEDICARE OF [place] [address] [place] [address] [id number] LULU BRANDT Self - patient is the insured [employer] ATT[employer] CLAIMS [address] [place] [address] [id number] LULU BRANDT Self - patient is the insured Medical (General) History Medical History History ICD Code Hypothyroidism Denies PA,CVA,Lung disease Hyperlipidemia HTN 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 replacement in [address] Lilly hutson Gingivectomy Right knee revision 2014
--- OUTSIDE RECORDS SUMMARY | 2025-09-27 11:22 | XMS_ITS | Clinical Summary ---
Author Organization [facility] [place] [address] Care Team Providers Care Fuel Manager Name Role Phone Physician, No Pcp [...] script for garments has been send to [employer] 01/10 Patient did not receive garments yet. As per [employer] garments on order and should be received [...] able to fit into appropriate footwear for [place] 12/13/2024 Progressing Patient reports that she finally is able to see her ankles 01/10 After interruption in therapy 2nd to winter weather patient presents with return of lymph edema in both LE's 02/01/2025 Patient ordered correct size hybrid liners which will decrease / manage edema in both feet 02/21/2025 Patient does fit into regular footwear Insurance MEDICARE [facility] Care Teams Fuel Manager Relationship Specialty Start Date End Date Physician, No Pcp PCP - General 10/12/24
--- OUTSIDE RECORDS SUMMARY | 2025-09-27 11:22 | XMS_ITS | Patient Health Record ---
[facility] Address [address] [place] [address] Care Team Providers Care Infectious Disease Physician Name Role Phone Fadi Craig MD Primary Care Provider Francisco Whittaker Unavailable [phone] Allergies Allergen (clinical drug ingredient) Drug/Non Drug [...] 150 MG Oral; Duration: 30 Not-Taking Nystatin 174084 UNIT/GM External; Duration: 14 Active amLODIPine Besylate [...] Problem Acquired hammer toe of right foot (7404861635607 105) Other hammer toe(s) (acquired), right foot (M20.41) Active confirmed Response to treatment,I mprovement Problem Type 2 diabetes mellitus with peripheral angiopathy (199397773) Type 2 diabetes mellitus with diabetic peripheral angiopathy without gangrene (E11.51) Active confirmed Q7(A), Q8(2B), Q9(1B,2C) Problem Acquired hammer toe of left foot (3620274626807 103) Other hammer toe(s) (acquired), left foot (M20.42) Active confirmed Response to treatment,I mprovement Vital Signs Blood pressure diastolic 65 mm Hg 07/12/2025 Height 5 ft 1 in in 07/12/2025 Blood pressure systolic 126 mm Hg 07/12/2025 Weight 200 lbs 07/12/2025 BMI 37.79 kg/m2 07/12/2025 Procedures Procedure Date Ordered Date Performed Result Body Sit e 06034-EXFUZDN NAIL, 6 OR MORE 10/01/2024 N/A 01018-RUAYMVA NAIL, 6 OR MORE 12/14/2024 N/A 78210-OMDHZKO NAIL, 6 OR MORE 02/22/2025 N/A 86953-TRJORXN NAIL, 6 OR MORE 04/26/2025 N/A 71139-TCCO SKIN LESIONS, 2 TO 4 04/26/2025 N/A 18017-JMSPUMW NAIL, 6 OR MORE 07/12/2025 N/A 04843-DWJS SKIN LESIONS, 2 TO 4 07/12/2025 N/A Encounters Encounter Location Date [facility] [address] [facility]/01/2024 Francisco Charlesunier Pain in right toe(s) M79.674 ; Tinea unguium B35.1 ; Pain in left toe(s) M79.675 ; Type 2 diabetes mellitus without complication E11.9 and Edema, lower extremity R60.0 [facility] [address] [address] 12/14/2024 Francisco Fry Type 2 diabetes mellitus without complication E11.9 ; Pain in right toe(s) M79.674 ; Tinea unguium B35.1 ; Pain in left toe(s) M79.675 ; Other hammer toe(s) (acquired), right foot M20.41 and Other hammer toe(s) (acquired), left foot M20.[address] [address] 02/22/2025 Francisco Fry Type 2 diabetes mellitus without complication E11.9 ; Pain in right toe(s) M79.674 ; Tinea unguium B35.1 ; Pain in left toe(s) M79.675 and Muscle cramp, nocturnal R25.[address] [address] 04/26/2025 Francisco Fry Pain in right toe(s) M79.674 ; Pain in left toe(s) M79.675 ; Tinea unguium B35.1 ; Other hammer toe(s) (acquired), right foot M20.41 ; Other hammer toe(s) (acquired), left foot M20.42 and Type 2 diabetes mellitus with diabetic peripheral angiopathy without gangrene E11.[address] [address] 07/12/2025 Francisco Fry Tinea unguium B35.1 ; Type 2 diabetes mellitus with diabetic peripheral angiopathy without gangrene E11.51 ; Pain in right toe(s) M79.674 ; Pain in left toe(s) M79.675 ; Other hammer toe(s) (acquired), right foot M20.41 and Other hammer toe(s) (acquired), left foot M20.[address] [address] 03/14/2025 Francisco Fry Assessments Encounter Date Diagnosis [...] Treatment Pending Test Test Name Order Date 32971-PLDLMYQ NAIL, 6 OR MORE 12/22/2020 69266-CJXZLFT NAIL, 6 OR MORE 03/23/2021 45878-PFRWEJN NAIL, 6 OR MORE 06/22/2021 79370-WPEZTXL NAIL, 6 OR MORE 09/11/2021 65448-GQKSZFP NAIL, 6 OR MORE 11/23/2021 61669-BQBZKGC NAIL, 6 OR MORE 02/12/2022 64513-DTKKWIR NAIL, 6 OR MORE 04/26/2022 25629-TZUXHIV NAIL, 6 OR MORE 07/16/2022 36783-NETLIJZ NAIL, 6 OR MORE 09/24/2022 88132-EKITESV NAIL, 6 OR MORE 12/03/2022 74095-MNGWYWH NAIL, 6 OR MORE 02/11/2023 22089-KJRXNDM NAIL, 6 OR MORE 04/15/2023 60415-PVNPQOR NAIL, 6 OR MORE 06/17/2023 16237-TRHJLNT NAIL, 6 OR MORE 08/19/2023 68398-IFXKSLK NAIL, 6 OR MORE 02/20/2024 29338-MPHGVTK NAIL, 6 OR MORE 05/14/2024 03956-IVMUNLJ NAIL, 6 OR MORE 07/23/2024 71126-SQKUTCD NAIL, 6 OR MORE 10/01/2024 73166-WVVIYWZ NAIL, 6 OR MORE 12/14/2024 60072-RCLUXHZ NAIL, 6 OR MORE 02/22/2025 88418-YLFTCBR NAIL, 6 OR MORE 04/26/2025 52399-GAJDTOQ NAIL, 6 OR MORE 10/21/2023 19421-MNYOCLJ NAIL, 6 OR MORE 07/12/2025 60183-Xkxb Destruction, 1-14 10/21/2023 45377-Durt Destruction, 1-14 08/19/2023 87586-Kiqp Destruction, 1-14 06/17/2023 53154-Gkew Destruction, 1-14 04/15/2023 59779-Ggmi Destruction, 1-14 02/11/2023 71101-Pcqo Destruction, 1-14 12/03/2022 37092-QEVN SKIN LESIONS, 2 TO 4 07/12/20 03585-EIUK SKIN LESIONS, 2 TO 4 04/26/20 Next Appt Details Provider Name:Francisco Fry , 10/21/2025 09:00:00 AM, [address] [place] [address], [phone], Provider Name:Francisco Fry , 12/30/2025 09:00:00 AM, [address] [place] [address], [phone], Insurance Providers Payer Name Payer Address Payer Phone Subscriber Number Group Number Insured Name Patient Relationship to Insured Coverage Start Date Coverage End Date Medicare National [facility] [address] [facility] [place] [address] [id number] Guadalupe Muro Self - patient is the insured [employer] Blue [employer] [address] [place] [address] [id number] Guadalupe Muro Self - patient is the [...]
== END 2025-09-27 17:05 | disposition home or self-care (01) ==
LOC: HO.HMCFM 09:59
PROVIDERS: PCP Family Medicine; Visit Provider Family Medicine
DX: N18.4 Chronic kidney disease, stage 4 (severe) (principal); E78.5 Hyperlipidemia, unspecified; E03.9 Hypothyroidism, unspecified